=== PATIENT | male | born 1940 | race African-American/Black ===

== ENCOUNTER → 2018-02-25 | Outpatient (CLI) | payer MEDICARE, OTHER ==
--- NOTE | 2018-02-25 08:48 | RADIOLOGY REPORT (SQ) ---
EXAM DESCRIPTION: CT CHEST WITH COMPLETED DATE/TIME: 02/25/2018 8:13 am REASON FOR STUDY: COUGH R05 COUGH COMPARISON: CT angio chest 08/27/2010 TECHNIQUE: CT scan of the chest performed using helical scanning technique with dynamic intravenous contrast injection. Images reviewed with lung, soft tissue and bone windows. Reconstructed coronal and sagittal MPR images reviewed. All images stored on PACS. All CT scanners at this facility use dose modulation, iterative reconstruction, and/or weight based d osing when appropriate to reduce radiation dose to as low as reasonably achievable (ALARA). [facility]: Dose Right [facility]: CareDose [facility]: Dose Right [facility]: Teradose 4D [facility]: VSporto CONTRAST TYPE AND DOSE: contrast/concentration: Isovue 350.00 mg/ml; Total Contrast Delivered: 80.0 ml; Total Saline Delivered: 55.0 ml RENAL FUNCTION: Estimated GFR 51, creatinine 1.5 RADIATION DOSE: CT Rad equipment meets quality standard of care and radiation dose reduction techniq ues were employed. CTDIvol: 13.9 mGy. DLP: 498 mGy-cm. . LIMITATIONS: None. FINDINGS: LUNGS AND PLEURA: Upper lobes exhibit obstructive lung disease with enlarged centrilobular airspaces. No acute infiltrates or pleural effusions. No pneumothorax. Minimal thickening of the interlobular septa around the periphery of both lung bases, could indicate mild changes of pulmonary fibrosis. HILAR AND MEDIASTINAL STRUCTURES: No identified masses or abnormal nodes. HEART AND VASCULAR STRUCTURES: No aneurysm or dissection. No central pulmonary emboli. No pericardi al effusion. Post sternotomy with mitral valve replacement. Mild cardiomegaly, stable HARDWARE: Left-sided dual lead pacemaker UPPER ABDOMEN: 5 cm left upper pole renal cortical cyst. Post cholecystectomy. THYROID AND OTHER SOFT TISSUES: No masses. No adenopathy. BONES: No significant finding. OTHER: No other significant finding. IMPRESSION: Obstructive lung disease Old sternotomy for mitral valve replacement. Very mild thickening of the interlobular septa could indicate mild pulmonary fibrosis. TECHNICAL DOCUMENTATION: JOB ID: [id number] Quality ID # [id number]: Final reports with documentation of one or more dose reduction techniques (e.g., Au tomated exposure control, adjustment of the mA and/or kV according to patient size, use of iterative reconstruction technique) 2010 [employer]- All Rights Reserved Reading location - IP/workstation name: [email or web address]
== END ==
LOC: RAD 07:31
PROVIDERS: ATTEND Internal Medicine Geriatric Medicine
DX: R05 Cough (principal); Z87.891 Personal history of nicotine dependence
CPT/HCPCS: 71260; 82565

== ENCOUNTER 2018-03-21 09:52 | Inpatient (IN) | payer MEDICARE ==
[2018-03-21] MEDS ORDERED: ASPIRIN 81 MG TABLET, CHEWABLE PO ONE (10:08)
--- NOTE | 2018-03-21 10:10 | ER Document Report ---
ED Medical Screen (RME) - General Chief Complaint: Shortness Of Breath Stated Complaint: SHORTNESS OF BREATH/COUGH Time Seen by Provider: 03/21/18 10:08 TRAVEL OUTSIDE OF THE [place] IN LAST 30 DAYS: No - HPI Notes: 03/21/18 10:09 History of CHF with increased shortness of breath edema in the legs possible noncompliance with medication regimen according to family members cough is nonproductive - Related Data Allergies/Adverse Reactions: No Known Allergies Allergy (Verified 03/21/18 09:53) Past Medical History - Past Medical History Cardiac Medical History: Reports: Hx Atrial Fibrillation, Hx Congestive Heart Failure, Hx Heart Attack, Hx Hypercholesterolemia, Hx Hypertension Pulmonary Medical History: Reports: Hx Bronchitis, Hx COPD, Hx Pneumonia Denies: Hx Asthma Renal/ Medical History: Denies: Hx Peritoneal Dialysis GI Medical History: Reports: Hx Gastroesophageal Reflux Disease Past Surgical History: Reports: Hx Cardiac Catheterization, Hx Cholecystectomy. Denies: Hx Pacemaker - Immunizations Hx Diphtheria, Pertussis, Tetanus Vaccination: Yes Review of Systems - Review of Systems Respiratory: Cough, Short of breath Physical Exam - Vital signs Vitals: Pulse Resp BP Pulse Ox 57 L 20 114/65 95 03/21/18 10:03/21/18 10:03/21/18 10:03/21/18 10:00 - Respiratory Respiratory status: No respiratory distress Chest status: Nontender Breath sounds: Rales, Rhonchi Chest palpation: Normal - Cardiovascular Rhythm: Regular Heart sounds: Normal auscultation Course - Vital Signs Vital signs: Temp Pulse Resp BP Pulse Ox 97.5 F 57 L 20 114/65 95 03/21/18 10:03/21/18 10:03/21/18 10:03/21/18 10:03/21/18 10:00 Doctor's Discharge - Discharge Referrals: ARISTEO AVILEZ MD [Primary Care Provider] - Follow up as needed
[2018-03-21 11:05] LABS: VENOUS BLOOD BASE EXCESS -1.9 mmol/L; VENOUS BLOOD HCO3 23.2 mmol/L (20-32); VENOUS BLOOD PH 7.37 (7.30-7.42)
[2018-03-21 11:06] LABS: ABSOLUTE BASOPHILS # (AUTO) 0.1 10^3/uL (0.0-0.2); ABSOLUTE EOSINOPHILS # (AUTO) 0.1 10^3/uL (0.0-0.6); ABSOLUTE LYMPHOCYTES (AUTO) 1.8 10^3/uL (0.5-4.7); ABSOLUTE MONOCYTES (AUTO) 0.5 10^3/uL (0.1-1.4); ABSOLUTE NEUT (AUTO) 2.9 10^3/uL (1.7-8.2); BASOPHILS % (AUTO) 1.3 % (0-2); EOSINOPHILS % (AUTO) 1.1 % (0-6); HEMATOCRIT 46.2 % (37.9-51.0); HEMOGLOBIN 15.6 g/dL (13.5-17.0); LYMPHOCYTES % (AUTO) 33.6 % (13-45); MEAN CORPUSCULAR HEMOGLOBIN 30.1 pg (27.0-33.4); MEAN CORPUSCULAR HGB CONC 33.8 g/dL (32.0-36.0); MEAN CORPUSCULAR VOLUME 89 fl (80-97); MONOCYTES % (AUTO) 9.5 % (3-13); PLATELET COUNT 124 10^3/uL (150-450); RED BLOOD COUNT 5.19 10^6/uL (4.35-5.55); RED CELL DISTRIBUTION WIDTH 15.4 % (11.5-14.0); SEGMENTED NEUTROPHILS % (AUTO) 54.5 % (42-78); TOTAL CELLS COUNTED % (AUTO) 100 %; WHITE BLOOD COUNT 5.3 10^3/uL (4.0-10.5)
[2018-03-21] MEDS ORDERED: IPRATROPIUM/ALBUTEROL 0.5-2.5 MG/3 ML AMPUL NEB ONE (12:11)
[2018-03-21 12:41] LABS: ALANINE AMINOTRANSFERASE 18 U/L (21-72); ALBUMIN 3.6 g/dL (3.5-5.0); ALKALINE PHOSPHATASE 57 U/L (38-126); ANION GAP 7 (5-19); ASPARTATE AMINO TRANSFERASE 19 U/L (17-59); BILIRUBIN,DIRECT 0.2 mg/dL (0.0-0.4); BILIRUBIN,TOTAL 0.4 mg/dL (0.2-1.3); BLOOD UREA NITROGEN 28 mg/dL (7-20); CALCIUM 8.9 mg/dL (8.4-10.2); CARBON DIOXIDE 27 mmol/L (22-30); CHLORIDE 108 mmol/L (98-107); CREATINE KINASE 236 U/L (55-170); GLUCOSE 90 mg/dL (75-110); POTASSIUM 5.7 mmol/L (3.6-5.0); SODIUM 142.2 mmol/L (137-145); TOTAL PROTEIN 7.5 g/dL (6.3-8.2)
--- NOTE | 2018-03-21 12:46 | RADIOLOGY REPORT (SQ) ---
EXAM DESCRIPTION: CHEST 2 VIEWS COMPLETED DATE/TIME: 03/21/2018 12:13 pm REASON FOR STUDY: sob COMPARISON: Two-view chest 05/18/2015 CT chest 02/25/2018 EXAM PARAMETERS: NUMBER OF VIEWS: two views TECHNIQUE: Digital Frontal and Lateral radiographic views of the chest acquired. RADIATION DOSE: NA LIMITATIONS: none FINDINGS: LUNGS AND PLEURA: No opacities, masses or pneumothorax. No pleural effusion. MEDIASTINUM AND HILAR STRUCTURES: No masses or contour abnormalities. HEART AND VASCULAR STRUCTURES: No cardiomegaly. Old sternotomy for CABG. BONES: No acute findings. HARDWARE: Left-sided dual lead pacemaker. Clips right upper quadrant post cholecystectomy OTHER: No other significant finding. IMPRESSION: No acute findings TECHNICAL DOCUMENTATION: JOB ID: [id number] [employer]- All Rights Reserved Reading location - IP/workstation name: [email or web address]
[2018-03-21 12:52] LABS: CREATINE KINASE MB 1.95 ng/mL (<4.55); NT PRO BNP 556 pg/mL (<450)
[2018-03-21 12:53] LABS: TROPONIN I < 0.012 ng/mL
[2018-03-21] MEDS ORDERED: AZITHROMYCIN INJ 500 MG VIAL IV ONE (13:06)
[2018-03-21] MEDS ORDERED: METHYLPREDNISOLONE INJ 125 MG/2 ML SDV IV ONE (13:07)
--- NOTE | 2018-03-21 14:26 | ER Document Report ---
ED General - General Chief Complaint: Shortness Of Breath Stated Complaint: SHORTNESS OF BREATH/COUGH Time Seen by Provider: 03/21/18 10:08 TRAVEL OUTSIDE OF THE [place] IN LAST 30 DAYS: No - HPI Onset: Other - 78-year-old man who presents for evaluation of progressive shortness of breath and exertional dyspnea over the last several weeks worsening particularly over the last 2 days, he has multiple medical problems including heart failure, COPD, diabetes all of which are poorly controlled at home, he is to use a CPAP machine as well as oxygen at night but does not use them, he is also to use inhalers daily but is not currently using them. His daughter is concerned because she is having increasing difficulty in caring for him at home does not believe she can take care of him anymore. - Related Data Allergies/Adverse Reactions: No Known Allergies Allergy (Verified 03/21/18 09:53) Past Medical History - General Information source: Patient, Relative - Social History Smoking Status: Former Smoker Family History: Reviewed & Not Pertinent Patient has suicidal ideation: No Patient has homicidal ideation: No - Past Medical History Cardiac Medical History: Reports: Hx Atrial Fibrillation, Hx Congestive Heart Failure, Hx Heart Attack, Hx Hypercholesterolemia, Hx Hypertension Pulmonary Medical History: Reports: Hx Bronchitis, Hx COPD, Hx Pneumonia Denies: Hx Asthma Renal/ Medical History: Denies: Hx Peritoneal Dialysis GI Medical History: Reports: Hx Gastroesophageal Reflux Disease Past Surgical History: Reports: Hx Cardiac Catheterization, Hx Cholecystectomy. Denies: Hx Pacemaker - Immunizations Hx Diphtheria, Pertussis, Tetanus Vaccination: Yes Hx Pneumococcal Vaccination: 07/12/10 Review of Systems - Review of Systems -: Yes All other systems reviewed and negative Physical Exam - Vital signs Vitals: Pulse Resp BP Pulse Ox 57 L 20 114/65 95 03/21/18 10:00 03/21/18 10:00 03/21/18 10:03/21/18 10:00 - General General appearance: Appears well, Alert In distress: Mild - HEENT Head: Normocephalic Eyes: Normal Conjunctiva: Normal Cornea: Normal Extraocular movements intact: No Anterior chamber: Normal Fundascopic: Normal Nerve palsy: No Ears: Normal External canal: Normal Sinus: Normal Nasal: Normal Mouth/Lips: Normal Mucous membranes: Normal - Respiratory Respiratory status: Tachypnea Chest status: Nontender Breath sounds: Wheezing - Wheezes in all lung joe, rhonchi in all lung joe Chest palpation: Other - Cardiovascular Rhythm: Regular Heart sounds: Normal auscultation Murmur: No - Abdominal Inspection: Normal Distension: No distension Tenderness: Nontender - Back Back: Normal - Extremities General upper extremity: Normal inspection, Normal ROM General lower extremity: Normal inspection, Normal ROM, Normal weight bearing - Neurological Neuro grossly intact: Yes Cognition: Normal Orientation: AAOx4 Miguel Coma Scale Eye Opening: Spontaneous [place] Coma Scale Verbal: Oriented Miguel Coma Scale Motor: Obeys Commands [place] Coma Scale Total: 15 - Psychological Associated symptoms: Normal affect Course - Re-evaluation Re-evalutation: 03/21/18 15:43 This is a 70-year-old man presents for evaluation of shortness of breath. History of COPD as well as heart failure, his daughter notes that he is not utilizing any of his therapies at home as he is supposed to, she is concerned this may represent developing dementia for him though he is generally stubborn at baseline. Examination demonstrates wheezes in all lung joe with crackles in the inferior lung bases suggestive of probable COPD exacerbation. He is not grossly fluid overloaded, he has no edema in the extremities. He does have a new oxygen requirement at 4 L at this time. Labs drawn through triage demonstrate hyperkalemia at 5.7, will administer albuterol for his shortness of breath therefore we will also treat his developing hyperkalemia. We will plan for this patient to undergo admission to the hospital for COPD exacerbation as well as potential management of an element of heart failure exacerbation. Have contacted the hospitalist who agrees to admission at this time. Administer steroids as well as azithromycin in addition. - Vital Signs Vital signs: Temp Pulse Resp BP Pulse Ox 97.7 F 56 L 20 138/80 H 98 03/21/18 16:22 03/21/18 16:22 03/21/18 16:22 03/21/18 16:22 03/21/18 16:22 - Laboratory Result Diagrams: 03/21/18 10:40 03/21/18 12:06 Laboratory results interpreted by me: 03/21/18 03/21/18 03/21/18 10:40 12:06 12:06 RDW 15.4 H Plt Count 124 L Potassium 5.7 H Chloride 108 H BUN 28 H Creatinine 1.50 H Est GFR ( Amer) 55 L Est GFR (Non-Af Amer) 45 L ALT 18 L Creatine Kinase 236 H NT-Pro-B Natriuret Pep 556 H Discharge - Discharge Clinical Impression: Shortness of breath Condition: Stable Disposition: ADMITTED INPATIENT Admitting Provider: Hospitalist Unit Admitted: Telemetry
--- NOTE | 2018-03-21 14:43 | PDOC H&P ---
History of Present Illness Admission Date/PCP: ARISTEO AVILEZ History of Present Illness: RUPINDER WREN JR is a 78 year old male who comes in today at the behest of his and daughters due to 1 month shortness of breath. Apparently he had been on antibiotics a couple different times but never really took anything. He denies any fevers. He denies any productive cough but he has had a cough. He is short of breath with exertion. He has not noticed any swelling. His daughters relate that he has been noncompliant overall with his treatment plan. The emergency department he did have any evidence of pneumonia but he had substantial wheezing and so he is being admitted for further management of what is suspected to be an acute COPD exacerbation. He said he did smoke for about 15-20 years in his 20s and 30s. Past Medical History Cardiac Medical History: Reports: Atrial Fibrillation, Congestive Heart Failure , Myocardial Infarction, Hyperlipidema, Hypertension Pulmonary Medical History: Reports: Bronchitis, Chronic Obstructive Pulmonary Disease (COPD), Pneumonia Denies: Asthma GI Medical History: Reports: Gastroesophageal Reflux Disease Past Surgical History Past Surgical History: Reports: Cardiac Catheterization, Cholecystectomy Denies: Pacemaker Social History Smoking Status: Former Smoker Frequency of Alcohol Use: None Hx Recreational Drug Use: No Hx Prescription Drug Abuse: No Family History Family History: Reviewed & Not Pertinent Parental Family History Reviewed: No - Noncontributory Children Family History Reviewed: NA Sibling(s) Family History Reviewed.: NA Medication/Allergy Home Medications: Aspirin [Aspirin 325 mg Tablet] 325 mg PO DAILY 11/15/13 Atorvastatin Calcium [Lipitor 10 mg Tablet] 10 mg PO QHS 11/15/13 Divalproex Sodium [Depakote ER 500 mg Tab.sr] 500 mg PO Q12 11/15/13 Docusate Sodium [Colace 100 mg Capsule] 100 mg PO BID PRN #60 capsule 11/15/13 Levetiracetam [Keppra 500 mg Tablet] 1,000 mg PO Q12 11/15/13 Sotalol HCl [Betapace 80 mg Tablet] 1 tab PO BID 11/15/13 Valsartan [Diovan 160 mg Tablet] 160 mg PO BID 11/15/13 Esomeprazole Magnesium [Nexium] 40 mg PO DAILY 05/17/15 Ezetimibe [Zetia 10 mg Tablet] 10 mg PO DAILY 05/17/15 Fluticasone Propionate [Flonase Nasal [place] 50 Mcg/[place] 16 gm] 2 sprays NASL DAILY 05/17/15 Lubiprostone [Amitiza 8 Mcg Capsule] 8 mcg PO BID 05/17/15 Metoprolol Tartrate [Lopressor 50 mg Tablet] 50 mg PO Q12 05/17/15 Zolpidem Tartrate 5 mg PO QHS PRN 05/17/15 Amlodipine Besylate [Norvasc 5 mg Tablet] 5 mg PO DAILY 05/24/15 Magnesium Oxide 500 mg PO DAILY #30 tablet 05/28/15 Allergies/Adverse Reactions: No Known Allergies Allergy (Verified 03/21/18 09:53) Physical Exam Vital Signs: Temp Pulse Resp BP Pulse Ox 97.5 F 57 L 20 114/65 95 03/21/18 10:02 03/21/18 10:00 03/21/18 10:00 03/21/18 10:00 03/21/18 10:00 Intake & Output 03/20/18 03/21/18 03/22/18 06:59 06:59 06:59 Weight 95.9 kg General appearance: PRESENT: no acute distress, cooperative, disheveled Head exam: PRESENT: atraumatic, normocephalic Eye exam: PRESENT: conjunctiva pink, conjunctiva pale, EOMI, PERRLA. ABSENT: scleral icterus Ear exam: PRESENT: normal external ear exam Mouth exam: PRESENT: moist, neck supple Neck exam: PRESENT: full ROM. ABSENT: JVD, lymphadenopathy, tenderness Respiratory exam: PRESENT: rhonchi, unlabored. ABSENT: accessory muscle use, crackles, stridor, wheezes Cardiovascular exam: PRESENT: RRR. ABSENT: diastolic murmur, systolic murmur Pulses: PRESENT: normal carotid pulses, +1 pedal pulses bilateral Vascular exam: PRESENT: normal capillary refill GI/Abdominal exam: PRESENT: normal bowel sounds, soft. ABSENT: distended, firm , guarding, rebound, tenderness Extremities exam: PRESENT: full ROM. ABSENT: joint swelling Musculoskeletal exam: ABSENT: deformity Neurological exam: PRESENT: alert, awake, oriented to person, oriented to place , oriented to time, CN II-XII grossly intact. ABSENT: motor sensory deficit Psychiatric exam: PRESENT: appropriate affect, normal mood Skin exam: PRESENT: dry, warm, other - Numerous keloids on trunk from history of multiple surgeries Results Laboratory Results: 03/21/18 10:40 03/21/18 12:06 03/21/18 03/21/18 03/21/18 10:40 10:40 10:40 WBC 5.3 RBC 5.19 Hgb 15.6 Hct 46.2 MCV 89 MCH 30.1 MCHC 33.8 RDW 15.4 H Plt Count 124 L Seg Neutrophils % 54.5 Lymphocytes % 33.6 Monocytes % 9.5 Eosinophils % 1.1 Basophils % 1.3 Absolute Neutrophils 2.9 Absolute Lymphocytes 1.8 Absolute Monocytes 0.5 Absolute Eosinophils 0.1 Absolute Basophils 0.1 VBG pH 7.37 VBG pCO2 41.0 VBG HCO3 23.2 VBG Base Excess -1.9 Sodium Cancelled Potassium Cancelled Chloride Cancelled Carbon Dioxide Cancelled Anion Gap Cancelled BUN Cancelled Creatinine Cancelled Est GFR ( Amer) Cancelled Est GFR (Non-Af Amer) Cancelled Glucose Cancelled Calcium Cancelled Magnesium Cancelled Total Bilirubin Cancelled AST Cancelled ALT Cancelled Alkaline Phosphatase Cancelled Total Protein Cancelled Albumin Cancelled 03/21/18 12:06 WBC RBC Hgb Hct MCV MCH MCHC RDW Plt Count Seg Neutrophils % Lymphocytes % Monocytes % Eosinophils % Basophils % Absolute Neutrophils Absolute Lymphocytes Absolute Monocytes Absolute Eosinophils Absolute Basophils VBG pH VBG pCO2 VBG HCO3 VBG Base Excess Sodium 142.2 Potassium 5.7 H Chloride 108 H Carbon Dioxide 27 Anion Gap 7 BUN 28 H Creatinine 1.50 H Est GFR ( Amer) 55 L Est GFR (Non-Af Amer) 45 L Glucose 90 Calcium 8.9 Magnesium 1.8 Total Bilirubin 0.4 AST 19 ALT 18 L Alkaline Phosphatase 57 Total Protein 7.5 Albumin 3.6 03/21/18 03/21/18 03/21/18 10:40 10:40 12:06 Creatine Kinase Cancelled 236 H CK-MB (CK-2) Cancelled Troponin I Cancelled NT-Pro-B Natriuret Pep Cancelled 03/21/18 12:06 Creatine Kinase CK-MB (CK-2) 1.95 Troponin I < 0.012 NT-Pro-B Natriuret Pep 556 H Impressions: Chest X-Ray 03/21/18 10:08 IMPRESSION: No acute findings Assessment & Plan - Diagnosis (1) COPD with acute exacerbation Is this a current diagnosis for this admission?: Yes Plan: Prednisone, doxycycline, supplemental O2, and scheduled nebulizer treatments. Evaluate for progress. He does not look to be in the ER, so he may be ready by as early as tomorrow to go home. - Time Time Spent: 50 to 70 Minutes - Inpatient Certification Based on my medical assessment, after consideration of the patient's comorbidities, presenting symptoms, or acuity I expect that the services needed warrant INPATIENT care.: Yes I certify that my determination is in accordance with my understanding of Medicare's requirements for reasonable and necessary INPATIENT services [42 CFR 412.3e].: Yes Medical Necessity: Need Close Monitoring Due to Risk of Patient Decompensation
[2018-03-21] MEDS: PREDNISONE 20 MG TABLET PO SCH (14:46)
--- NOTE | 2018-03-21 14:58 | EKG REPORT ---
SEVERITY:- OTHERWISE NORMAL ECG - SINUS RHYTHM LEFT AXIS DEVIATION : Confirmed by: Estevan Murphy MD 21-Mar-2018 14:58:10
[2018-03-21] MEDS: IPRATROPIUM/ALBUTEROL 0.5-2.5 MG/3 ML AMPUL NEB SCH ×2 (17:16→20:20)
[2018-03-21] MEDS ORDERED: DOXYCYCLINE HYCLATE 100 MG TABLET PO SCH (18:00)
[2018-03-21] MEDS ORDERED: IPRATROPIUM/ALBUTEROL 0.5-2.5 MG/3 ML AMPUL NEB SCH (18:00)
[2018-03-21] MEDS ORDERED: SOTALOL HCL 80 MG TABLET PO SCH (18:00)
[2018-03-21] MEDS ORDERED: LEVETIRACETAM 500 MG TABLET PO ONE (21:55)
[2018-03-21] MEDS ORDERED: DOXYCYCLINE HYCLATE 100 MG TABLET PO ONE (21:56)
[2018-03-21] MEDS ORDERED: SOTALOL HCL 80 MG TABLET ONE (21:56)
[2018-03-21] MEDS: DIVALPROEX SODIUM 500 MG TAB.SR.24H PO SCH (22:09)
[2018-03-21] MEDS: LEVETIRACETAM 500 MG TABLET PO SCH (22:10)
[2018-03-21] MEDS: METOPROLOL TARTRATE 50 MG TABLET PO SCH (22:10)
[2018-03-21] MEDS: HEPARIN SOD (PORCINE) 5,000 UNIT/ML 1 ML SYRINGE SUBCUT SCH (22:14)
[2018-03-21] MEDS: DOXYCYCLINE HYCLATE 100 MG TABLET PO SCH (22:14)
[2018-03-21] MEDS: SOTALOL HCL 80 MG TABLET PO SCH (22:14)
[2018-03-22] MEDS: HEPARIN SOD (PORCINE) 5,000 UNIT/ML 1 ML SYRINGE SUBCUT SCH ×3 (05:00→22:01)
[2018-03-22 07:00] LABS: ANION GAP 11 (5-19); BLOOD UREA NITROGEN 34 mg/dL (7-20); CALCIUM 8.5 mg/dL (8.4-10.2); CARBON DIOXIDE 22 mmol/L (22-30); CHLORIDE 106 mmol/L (98-107); GLUCOSE 125 mg/dL (75-110); SODIUM 138.5 mmol/L (137-145)
[2018-03-22 07:04] LABS: POTASSIUM 6.7 mmol/L (3.6-5.0)
[2018-03-22] MEDS: IPRATROPIUM/ALBUTEROL 0.5-2.5 MG/3 ML AMPUL NEB SCH ×3 (07:57→20:54)
[2018-03-22] MEDS ORDERED: SODIUM POLYSTYRENE SULFONATE 15 GM/60 ML PO ONE ×2 (08:30→12:30)
[2018-03-22] MEDS: PREDNISONE 20 MG TABLET PO SCH (10:37)
[2018-03-22] MEDS: DIVALPROEX SODIUM 500 MG TAB.SR.24H PO SCH ×2 (10:37→22:00)
[2018-03-22] MEDS: METOPROLOL TARTRATE 50 MG TABLET PO SCH (10:39)
--- NOTE | 2018-03-22 12:12 | PDOC PROGRESS REPORT ---
Subjective Progress Note for:: 03/22/18 Subjective:: Patient reported some improvement in his breathing. No chest pain. No abdominal pain, nausea or vomiting. No fever or chills. Patient admitted to noncompliance with his medications at home. Daughter reported that he was doing fine while on his medication. Reason For Visit: AE COPD Physical Exam Vital Signs: Temp Pulse Resp BP Pulse Ox 97.6 F 60 14 145/97 H 95 03/22/18 07:21 03/22/18 07:57 03/22/18 07:57 03/22/18 07:21 03/22/18 07:57 Intake & Output 03/21/18 03/22/18 03/23/18 06:59 06:59 06:59 Intake Total 790 Output Total 250 Balance 540 Weight 103.2 kg General appearance: PRESENT: no acute distress, well-developed, well-nourished Head exam: PRESENT: atraumatic, normocephalic Eye exam: PRESENT: conjunctiva pink, EOMI, PERRLA. ABSENT: scleral icterus Ear exam: PRESENT: normal external ear exam Mouth exam: PRESENT: moist Respiratory exam: PRESENT: clear to auscultation pradeep Cardiovascular exam: PRESENT: RRR. ABSENT: diastolic murmur, rubs, systolic murmur Vascular exam: PRESENT: normal capillary refill. ABSENT: pallor GI/Abdominal exam: PRESENT: normal bowel sounds, soft. ABSENT: distended, guarding, mass, organolmegaly, rebound, tenderness Extremities exam: PRESENT: pedal edema Musculoskeletal exam: PRESENT: normal inspection Neurological exam: PRESENT: alert, awake, oriented to person, oriented to place , oriented to time, oriented to situation, CN II-XII grossly intact. ABSENT: motor sensory deficit Psychiatric exam: PRESENT: appropriate affect, normal mood. ABSENT: homicidal ideation, suicidal ideation Skin exam: PRESENT: dry, intact, warm. ABSENT: cyanosis, rash Results Laboratory Results: 03/22/18 05:43 03/22/18 05:43 Sodium 138.5 Potassium 6.7 H* D Chloride 106 Carbon Dioxide 22 Anion Gap 11 BUN 34 H Creatinine 1.45 H Est GFR ( Amer) 57 L Est GFR (Non-Af Amer) 47 L Glucose 125 H Calcium 8.5 03/21/18 16:20 Troponin I < 0.012 Impressions: Chest X-Ray 03/21/18 10:08 IMPRESSION: No acute findings Assessment & Plan - Diagnosis (1) COPD with acute exacerbation Is this a current diagnosis for this admission?: Yes Plan: Continue current medication management with gradual tapering of oral Prednisone. (2) Hyperkalemia Is this a current diagnosis for this admission?: Yes Plan: Start on Kayaxelate therapy. Monitor his BMP. (3) CKD (chronic kidney disease) Qualifiers: Chronic kidney disease stage: stage 3 (moderate) Qualified Code(s): N18.3 - Chronic kidney disease, stage 3 (moderate) Is this a current diagnosis for this admission?: Yes Plan: Reviewed his current medication for possible nephrotoxic effect. (4) HTN (hypertension) Qualifiers: Hypertension type: essential hypertension Qualified Code(s): I10 - Essential (primary) hypertension Is this a current diagnosis for this admission?: Yes Plan: See attending physician orders. (5) HLD (hyperlipidemia) Qualifiers: Hyperlipidemia type: unspecified Qualified Code(s): E78.5 - Hyperlipidemia , unspecified Is this a current diagnosis for this admission?: Yes Plan: See attending physician orders. (6) CAD (coronary artery disease) Qualifiers: Coronary Disease-Associated Artery/Lesion type: [place] artery Associated angina: without angina Is this a current diagnosis for this admission?: Yes Plan: See attending physician orders. (7) S/P CABG (coronary artery bypass graft) Is this a current diagnosis for this admission?: Yes Plan: See attending physician orders. (8) Old IN (myocardial infarction) Is this a current diagnosis for this admission?: Yes Plan: See attending physician orders. (9) EDNA (obstructive sleep apnea) Is this a current diagnosis for this admission?: Yes Plan: See attending physician orders. (10) Seizure disorder Is this a current diagnosis for this admission?: Yes Plan: See attending physician orders. - Time Time Spent with patient: 25-34 minutes Medications reviewed and adjusted accordingly: Yes Anticipated discharge: Home with Homehealth Within: Other - Inpatient Certification Based on my medical assessment, after consideration of the patient's comorbidities, presenting symptoms, or acuity I expect that the services needed warrant INPATIENT care.: Yes I certify that my determination is in accordance with my understanding of Medicare's requirements for reasonable and necessary INPATIENT services [42 CFR 412.3e].: Yes Medical Necessity: Need Close Monitoring Due to Risk of Patient Decompensation, Need For Continuous Telemetry Monitoring, Need for Nebulizer Therapy and Monitoring of Response, Risk of Complication if Not Cared For in Hospital Post Hospital Care: D/C Lining Cleaner Documentation - Plan Summary Plan Summary: See attending physician orders.
[2018-03-22] MEDS ORDERED: BENZONATATE 100 MG CAPSULE PO PRN (12:13)
[2018-03-22] MEDS: SOTALOL HCL 80 MG TABLET PO SCH ×2 (13:17→22:01)
[2018-03-22] MEDS: LEVETIRACETAM 500 MG TABLET PO SCH ×2 (13:18→22:00)
[2018-03-22] MEDS: DOXYCYCLINE HYCLATE 100 MG TABLET PO SCH ×2 (13:18→22:00)
[2018-03-22] MEDS: TAMSULOSIN HCL 0.4 MG CAP.SR.24H PO SCH (17:20)
[2018-03-22] MEDS: ATORVASTATIN CALCIUM 10 MG TABLET PO SCH (22:00)
[2018-03-22] MEDS: AMLODIPINE BESYLATE 5 MG TABLET PO SCH (22:00)
[2018-03-23] MEDS: HEPARIN SOD (PORCINE) 5,000 UNIT/ML 1 ML SYRINGE SUBCUT SCH ×3 (05:17→22:04)
[2018-03-23] MEDS ORDERED: LANSOPRAZOLE 30 MG TAB.RAP.DR PO SCH (06:00)
[2018-03-23 06:24] LABS: ANION GAP 17 (5-19); BLOOD UREA NITROGEN 43 mg/dL (7-20); CARBON DIOXIDE 22 mmol/L (22-30); CHLORIDE 103 mmol/L (98-107); GLUCOSE 122 mg/dL (75-110); SODIUM 142.1 mmol/L (137-145)
[2018-03-23 06:30] LABS: POTASSIUM 4.6 mmol/L (3.6-5.0)
[2018-03-23] MEDS ORDERED: ONDANSETRON HCL INJ/PF 4 MG/2 ML SDV ONE (06:51)
[2018-03-23] MEDS ORDERED: ONDANSETRON HCL INJ/PF 4 MG/2 ML SDV IV ONE (07:00)
[2018-03-23] MEDS: IPRATROPIUM/ALBUTEROL 0.5-2.5 MG/3 ML AMPUL NEB SCH ×3 (08:25→20:21)
[2018-03-23 08:39] LABS: ABSOLUTE BASOPHILS # (AUTO) 0.1 10^3/uL (0.0-0.2); ABSOLUTE LYMPHOCYTES (AUTO) 1.7 10^3/uL (0.5-4.7); ABSOLUTE NEUT (AUTO) 10.4 10^3/uL (1.7-8.2); BASOPHILS % (AUTO) 0.5 % (0-2); HEMATOCRIT 52.3 % (37.9-51.0); HEMOGLOBIN 17.3 g/dL (13.5-17.0); LYMPHOCYTES % (AUTO) 13.1 % (13-45); MEAN CORPUSCULAR HEMOGLOBIN 29.5 pg (27.0-33.4); MEAN CORPUSCULAR HGB CONC 33.2 g/dL (32.0-36.0); MEAN CORPUSCULAR VOLUME 89 fl (80-97); MONOCYTES % (AUTO) 7.5 % (3-13); PLATELET COUNT 160 10^3/uL (150-450); RED BLOOD COUNT 5.87 10^6/uL (4.35-5.55); RED CELL DISTRIBUTION WIDTH 15.4 % (11.5-14.0); SEGMENTED NEUTROPHILS % (AUTO) 78.9 % (42-78); TOTAL CELLS COUNTED % (AUTO) 100 %
[2018-03-23 08:40] LABS: WHITE BLOOD COUNT 13.1 10^3/uL (4.0-10.5)
[2018-03-23] MEDS: AMLODIPINE BESYLATE 5 MG TABLET PO SCH ×2 (09:40→22:03)
[2018-03-23] MEDS: DIVALPROEX SODIUM 500 MG TAB.SR.24H PO SCH ×2 (09:40→22:03)
[2018-03-23] MEDS: ASPIRIN 325 MG TABLET, ENT COATED PO SCH (09:40)
[2018-03-23] MEDS: EZETIMIBE 10 MG TABLET PO SCH (09:40)
[2018-03-23] MEDS: SOTALOL HCL 80 MG TABLET PO SCH ×2 (09:41→22:06)
[2018-03-23] MEDS: LEVETIRACETAM 500 MG TABLET PO SCH ×2 (09:41→22:05)
[2018-03-23] MEDS: DOXYCYCLINE HYCLATE 100 MG TABLET PO SCH ×2 (09:41→22:08)
[2018-03-23] MEDS: PREDNISONE 20 MG TABLET PO SCH (09:41)
[2018-03-23] MEDS: METOPROLOL SUCCINATE 50 MG TAB.SR.24H PO SCH (09:43)
--- NOTE | 2018-03-23 13:13 | PDOC PROGRESS REPORT ---
Subjective Progress Note for:: 03/23/18 Subjective:: Patient had episode of vomiting earlier this morning with development of hiccups thereafter. He denied any chest pain, palpitation, or difficulty with breathing. Remain on supplemental oxygen via nasal cannula. No fever or chills. Reason For Visit: AE COPD Physical Exam Vital Signs: Temp Pulse Resp BP Pulse Ox 97.7 F 66 16 137/96 H 90 L 03/23/18 11:38 03/23/18 11:38 03/23/18 11:38 03/23/18 11:38 03/23/18 11:38 Intake & Output 03/22/18 03/23/18 03/24/18 06:59 06:59 06:59 Intake Total 790 800 Output Total 250 Balance 540 800 Weight 103.2 kg 102.9 kg Physical Exam: General appearance: PRESENT: no acute distress, well-developed, well-nourished Head exam: PRESENT: atraumatic, normocephalic Eye exam: PRESENT: conjunctiva pink, EOMI, PERRLA. ABSENT: scleral icterus Ear exam: PRESENT: normal external ear exam Mouth exam: PRESENT: moist Respiratory exam: PRESENT: clear to auscultation pradeep Cardiovascular exam: PRESENT: RRR. ABSENT: diastolic murmur, rubs, systolic murmur Vascular exam: ABSENT: pallor GI/Abdominal exam: PRESENT: normal bowel sounds, soft. ABSENT: distended, guarding, mass, organomegaly, rebound, tenderness Extremities exam: PRESENT: pedal edema Musculoskeletal exam: PRESENT: normal inspection Neurological exam: PRESENT: alert, awake, oriented to person, oriented to place , oriented to time, oriented to situation, CN II-XII grossly intact. ABSENT: motor sensory deficit Psychiatric exam: PRESENT: appropriate affect, normal mood. ABSENT: homicidal ideation, suicidal ideation Skin exam: PRESENT: dry, intact, warm. ABSENT: cyanosis, rash Results Laboratory Results: 03/23/18 07:53 03/23/18 05:29 03/23/18 03/23/18 03/23/18 05:29 05:29 07:53 WBC Cancelled 13.1 H D RBC Cancelled 5.87 H Hgb Cancelled 17.3 H Hct Cancelled 52.3 H MCV Cancelled 89 MCH Cancelled 29.5 MCHC Cancelled 33.2 RDW Cancelled 15.4 H Plt Count Cancelled 160 Seg Neutrophils % Cancelled 78.9 H Lymphocytes % Cancelled 13.1 Monocytes % Cancelled 7.5 Eosinophils % Cancelled 0.0 Basophils % Cancelled 0.5 Absolute Neutrophils Cancelled 10.4 H Absolute Lymphocytes Cancelled 1.7 Absolute Monocytes Cancelled 1.0 Absolute Eosinophils Cancelled 0.0 Absolute Basophils Cancelled 0.1 Sodium 142.1 Potassium 4.6 D Chloride 103 Carbon Dioxide 22 Anion Gap 17 BUN 43 H Creatinine 1.47 H Est GFR ( Amer) 56 L Est GFR (Non-Af Amer) 46 L Glucose 122 H Calcium 9.0 03/21/18 16:20 Troponin I < 0.012 Impressions: Chest X-Ray 03/21/18 10:08 IMPRESSION: No acute findings Assessment & Plan - Diagnosis (1) COPD with acute exacerbation Is this a current diagnosis for this admission?: Yes Plan: I will discontinue oral Prednisone due to his development of Hiccups. I will start on Methylprednisolone oral equivalent dosage with intent to taper off gradually. (2) Hyperkalemia Is this a current diagnosis for this admission?: Yes Plan: Presently resolved. (3) CKD (chronic kidney disease) Qualifiers: Chronic kidney disease stage: stage 3 (moderate) Qualified Code(s): N18.3 - Chronic kidney disease, stage 3 (moderate) Is this a current diagnosis for this admission?: Yes Plan: Start on IV fluid support N/S at 75mL/hour. Monitor renal indices. (4) HTN (hypertension) Qualifiers: Hypertension type: essential hypertension Qualified Code(s): I10 - Essential (primary) hypertension Is this a current diagnosis for this admission?: Yes (5) HLD (hyperlipidemia) Qualifiers: Hyperlipidemia type: unspecified Qualified Code(s): E78.5 - Hyperlipidemia , unspecified Is this a current diagnosis for this admission?: Yes (6) CAD (coronary artery disease) Qualifiers: Coronary Disease-Associated Artery/Lesion type: [place] artery Associated angina: without angina Is this a current diagnosis for this admission?: Yes (7) S/P CABG (coronary artery bypass graft) Is this a current diagnosis for this admission?: Yes (8) Old [place] (myocardial infarction) Is this a current diagnosis for this admission?: Yes (9) EDNA (obstructive sleep apnea) Is this a current diagnosis for this admission?: Yes Plan: Patient refused use of CPAP machine. (10) Seizure disorder Is this a current diagnosis for this admission?: Yes (11) Intractable hiccups Is this a current diagnosis for this admission?: Yes Plan: See attending physician orders. - Time Time Spent with patient: 25-34 minutes Medications reviewed and adjusted accordingly: Yes Anticipated discharge: Home with Homehealth Within: Other - Inpatient Certification Based on my medical assessment, after consideration of the patient's comorbidities, presenting symptoms, or acuity I expect that the services needed warrant INPATIENT care.: Yes I certify that my determination is in accordance with my understanding of Medicare's requirements for reasonable and necessary INPATIENT services [42 CFR 412.3e].: Yes Medical Necessity: Need Close Monitoring Due to Risk of Patient Decompensation, Need For IV Fluids, Need For Continuous Telemetry Monitoring, Need for Nebulizer Therapy and Monitoring of Response, Risk of Complication if Not Cared For in Hospital 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
[2018-03-23] MEDS: BACLOFEN 10 MG TABLET PO SCH ×2 (14:54→17:21)
[2018-03-23] MEDS: NORMAL SALINE 1000 ML 1,000 ML IV PRN (17:10)
[2018-03-23] MEDS: TAMSULOSIN HCL 0.4 MG CAP.SR.24H PO SCH (17:19)
[2018-03-23] MEDS: METHYLPREDNISOLONE 4 MG TABLET PO SCH ×2 (17:20)
[2018-03-23] MEDS: ATORVASTATIN CALCIUM 10 MG TABLET PO SCH (22:03)
[2018-03-24] MEDS: HEPARIN SOD (PORCINE) 5,000 UNIT/ML 1 ML SYRINGE SUBCUT SCH ×3 (06:06→22:59)
[2018-03-24] MEDS: METHYLPREDNISOLONE 4 MG TABLET PO SCH ×3 (06:07→17:00)
[2018-03-24] MEDS: LANSOPRAZOLE 30 MG TAB.RAP.DR PO SCH (06:09)
[2018-03-24] MEDS: IPRATROPIUM/ALBUTEROL 0.5-2.5 MG/3 ML AMPUL NEB SCH ×3 (07:54→20:05)
--- NOTE | 2018-03-24 08:11 | PDOC PROGRESS REPORT ---
Subjective Progress Note for:: 03/24/18 Subjective:: No recurrent nausea, vomiting or hiccups. Breathing fairly satisfactory. No chest pain. No fever or chills. Blood culture remain no growth to date. Reason For Visit: AE COPD Physical Exam Vital Signs: Temp Pulse Resp BP Pulse Ox 97.5 F 72 16 121/71 97 03/24/18 03:09 03/24/18 07:54 03/24/18 07:54 03/24/18 03:09 03/24/18 07:54 Intake & Output 03/23/18 03/24/18 03/25/18 06:59 06:59 06:59 Intake Total 800 Balance 800 Weight 102.9 kg 103.3 kg Physical Exam: General appearance: PRESENT: no acute distress, well-developed, well-nourished Head exam: PRESENT: atraumatic, normocephalic Eye exam: PRESENT: conjunctiva pink, EOMI, PERRLA. ABSENT: scleral icterus Ear exam: PRESENT: normal external ear exam Mouth exam: PRESENT: moist Respiratory exam: PRESENT: clear to auscultation pradeep Cardiovascular exam: PRESENT: RRR. ABSENT: diastolic murmur, rubs, systolic murmur Vascular exam: ABSENT: pallor GI/Abdominal exam: PRESENT: normal bowel sounds, soft. ABSENT: distended, guarding, mass, organomegaly, rebound, tenderness Extremities exam: PRESENT: pedal edema Musculoskeletal exam: PRESENT: normal inspection Neurological exam: PRESENT: alert, awake, oriented to person, oriented to place , oriented to time, oriented to situation, CN II-XII grossly intact. ABSENT: motor sensory deficit Psychiatric exam: PRESENT: appropriate affect, normal mood. ABSENT: homicidal ideation, suicidal ideation Skin exam: PRESENT: dry, intact, warm. ABSENT: cyanosis, rash Results Laboratory Results: 03/23/18 07:53 03/23/18 05:29 03/23/18 07:53 WBC 13.1 H D RBC 5.87 H Hgb 17.3 H Hct 52.3 H MCV 89 MCH 29.5 MCHC 33.2 RDW 15.4 H Plt Count 160 Seg Neutrophils % 78.9 H Lymphocytes % 13.1 Monocytes % 7.5 Eosinophils % 0.0 Basophils % 0.5 Absolute Neutrophils 10.4 H Absolute Lymphocytes 1.7 Absolute Monocytes 1.0 Absolute Eosinophils 0.0 Absolute Basophils 0.1 03/21/18 16:20 Troponin I < 0.012 Impressions: Chest X-Ray 03/21/18 10:08 IMPRESSION: No acute findings Assessment & Plan - Diagnosis (1) COPD with acute exacerbation Is this a current diagnosis for this admission?: Yes (2) Hyperkalemia Is this a current diagnosis for this admission?: Yes (3) CKD (chronic kidney disease) Qualifiers: Chronic kidney disease stage: stage 3 (moderate) Qualified Code(s): N18.3 - Chronic kidney disease, stage 3 (moderate) Is this a current diagnosis for this admission?: Yes (4) HTN (hypertension) Qualifiers: Hypertension type: essential hypertension Qualified Code(s): I10 - Essential (primary) hypertension Is this a current diagnosis for this admission?: Yes (5) HLD (hyperlipidemia) Qualifiers: Hyperlipidemia type: unspecified Qualified Code(s): E78.5 - Hyperlipidemia , unspecified Is this a current diagnosis for this admission?: Yes (6) CAD (coronary artery disease) Qualifiers: Coronary Disease-Associated Artery/Lesion type: [place] artery Associated angina: without angina Is this a current diagnosis for this admission?: Yes (7) S/P CABG (coronary artery bypass graft) Is this a current diagnosis for this admission?: Yes (8) Old [place] (myocardial infarction) Is this a current diagnosis for this admission?: Yes (9) EDNA (obstructive sleep apnea) Is this a current diagnosis for this admission?: Yes (10) Seizure disorder Is this a current diagnosis for this admission?: Yes (11) Intractable hiccups Is this a current diagnosis for this admission?: Yes - Time Time Spent with patient: 25-34 minutes Medications reviewed and adjusted accordingly: Yes Anticipated discharge: Home with Homehealth Within: Other - Inpatient Certification Based on my medical assessment, after consideration of the patient's comorbidities, presenting symptoms, or acuity I expect that the services needed warrant INPATIENT care.: Yes I certify that my determination is in accordance with my understanding of Medicare's requirements for reasonable and necessary INPATIENT services [42 CFR 412.3e].: Yes Medical Necessity: Need Close Monitoring Due to Risk of Patient Decompensation, Need For IV Fluids, Need For Continuous Telemetry Monitoring, Need for Nebulizer Therapy and Monitoring of Response, Risk of Complication if Not Cared For in Hospital Post Hospital Care: D/C Glass Cutter Documentation - Plan Summary Plan Summary: Decrease Methylprednisolone to 4mg po tid. Decrease Baclofen to 5 mg po bid. Continue all other current medication management.
[2018-03-24 08:38] LABS: ABSOLUTE LYMPHOCYTES (AUTO) 1.7 10^3/uL (0.5-4.7); ABSOLUTE MONOCYTES (AUTO) 0.8 10^3/uL (0.1-1.4); ABSOLUTE NEUT (AUTO) 4.5 10^3/uL (1.7-8.2); BASOPHILS % (AUTO) 0.2 % (0-2); HEMATOCRIT 50.8 % (37.9-51.0); HEMOGLOBIN 17.1 g/dL (13.5-17.0); LYMPHOCYTES % (AUTO) 23.8 % (13-45); MEAN CORPUSCULAR HGB CONC 33.6 g/dL (32.0-36.0); MEAN CORPUSCULAR VOLUME 89 fl (80-97); MONOCYTES % (AUTO) 11.6 % (3-13); PLATELET COUNT 144 10^3/uL (150-450); RED BLOOD COUNT 5.69 10^6/uL (4.35-5.55); RED CELL DISTRIBUTION WIDTH 15.7 % (11.5-14.0); SEGMENTED NEUTROPHILS % (AUTO) 64.4 % (42-78); TOTAL CELLS COUNTED % (AUTO) 100 %
[2018-03-24 09:00] LABS: ANION GAP 10 (5-19); BLOOD UREA NITROGEN 55 mg/dL (7-20); CALCIUM 8.1 mg/dL (8.4-10.2); CARBON DIOXIDE 21 mmol/L (22-30); CHLORIDE 109 mmol/L (98-107); GLUCOSE 107 mg/dL (75-110); POTASSIUM 5.3 mmol/L (3.6-5.0); SODIUM 140.2 mmol/L (137-145)
[2018-03-24] MEDS: DIVALPROEX SODIUM 500 MG TAB.SR.24H PO SCH ×2 (09:42→23:02)
[2018-03-24] MEDS: AMLODIPINE BESYLATE 5 MG TABLET PO SCH ×2 (09:42→23:03)
[2018-03-24] MEDS: METOPROLOL SUCCINATE 50 MG TAB.SR.24H PO SCH (09:43)
[2018-03-24] MEDS: EZETIMIBE 10 MG TABLET PO SCH (09:43)
[2018-03-24] MEDS: SOTALOL HCL 80 MG TABLET PO SCH ×2 (09:43→23:01)
[2018-03-24] MEDS: ASPIRIN 325 MG TABLET, ENT COATED PO SCH (09:43)
[2018-03-24] MEDS: BACLOFEN 10 MG TABLET PO SCH ×2 (09:43→17:00)
[2018-03-24] MEDS: DOXYCYCLINE HYCLATE 100 MG TABLET PO SCH (09:44)
[2018-03-24] MEDS: LEVETIRACETAM 500 MG TABLET PO SCH ×2 (09:44→23:02)
[2018-03-24] MEDS: NORMAL SALINE 1000 ML 1,000 ML IV PRN (16:48)
[2018-03-24] MEDS: TAMSULOSIN HCL 0.4 MG CAP.SR.24H PO SCH (17:00)
[2018-03-24] MEDS ORDERED: BACLOFEN 10 MG TABLET PO PRN (19:51)
[2018-03-24] MEDS: ATORVASTATIN CALCIUM 10 MG TABLET PO SCH (23:03)
[2018-03-25] MEDS: METHYLPREDNISOLONE 4 MG TABLET PO SCH ×5 (00:53→23:00)
[2018-03-25] MEDS: IPRATROPIUM/ALBUTEROL 0.5-2.5 MG/3 ML AMPUL NEB SCH ×3 (09:19→21:12)
[2018-03-25] MEDS: HEPARIN SOD (PORCINE) 5,000 UNIT/ML 1 ML SYRINGE SUBCUT SCH ×3 (09:58→22:27)
[2018-03-25] MEDS: LANSOPRAZOLE 30 MG TAB.RAP.DR PO SCH (09:59)
[2018-03-25] MEDS: SOTALOL HCL 80 MG TABLET PO SCH ×3 (10:00→23:00)
[2018-03-25] MEDS: METOPROLOL SUCCINATE 50 MG TAB.SR.24H PO SCH (10:40)
[2018-03-25] MEDS: EZETIMIBE 10 MG TABLET PO SCH (10:42)
[2018-03-25] MEDS: ASPIRIN 325 MG TABLET, ENT COATED PO SCH (10:42)
[2018-03-25] MEDS: LEVETIRACETAM 500 MG TABLET PO SCH ×2 (10:42→23:00)
[2018-03-25] MEDS: DIVALPROEX SODIUM 500 MG TAB.SR.24H PO SCH ×2 (10:42→22:59)
[2018-03-25] MEDS: AMLODIPINE BESYLATE 5 MG TABLET PO SCH ×2 (10:43→22:59)
[2018-03-25] MEDS: NORMAL SALINE 1000 ML 1,000 ML IV PRN (14:14)
[2018-03-25] MEDS: TAMSULOSIN HCL 0.4 MG CAP.SR.24H PO SCH (17:05)
--- NOTE | 2018-03-25 18:50 | PDOC PROGRESS REPORT ---
Subjective Progress Note for:: 03/25/18 Subjective:: No chest pain or difficulty with breathing. No abdominal pain, nausea, vomiting or hiccups. No fever or chills. Blood culture remain no growth to date x 4 days. Reason For Visit: AE COPD Physical Exam Vital Signs: Temp Pulse Resp BP Pulse Ox 97.5 F 59 L 18 130/78 H 94 03/25/18 14:59 03/25/18 14:59 03/25/18 14:59 03/25/18 14:59 03/25/18 14:59 Intake & Output 03/24/18 03/25/18 03/26/18 06:59 06:59 06:59 Intake Total 1000 768 Output Total 425 Balance 1000 768 -425 Weight 103.3 kg Physical Exam: General appearance: PRESENT: no acute distress, well-developed, well-nourished Head exam: PRESENT: atraumatic, normocephalic Eye exam: PRESENT: conjunctiva pink, EOMI, PERRLA. ABSENT: scleral icterus Ear exam: PRESENT: normal external ear exam Mouth exam: PRESENT: moist Respiratory exam: PRESENT: clear to auscultation pradeep Cardiovascular exam: PRESENT: RRR. ABSENT: diastolic murmur, rubs, systolic murmur Vascular exam: ABSENT: pallor GI/Abdominal exam: PRESENT: normal bowel sounds, soft. ABSENT: distended, guarding, mass, organomegaly, rebound, tenderness Extremities exam: PRESENT: pedal edema Musculoskeletal exam: PRESENT: normal inspection Neurological exam: PRESENT: alert, awake, oriented to person, oriented to place , oriented to time, oriented to situation, CN II-XII grossly intact. ABSENT: motor sensory deficit Psychiatric exam: PRESENT: appropriate affect, normal mood. ABSENT: homicidal ideation, suicidal ideation Skin exam: PRESENT: dry, intact, warm. ABSENT: cyanosis, rash Results Laboratory Results: 03/24/18 08:15 03/24/18 08:15 03/21/18 16:20 Troponin I < 0.012 Impressions: Chest X-Ray 03/21/18 10:08 IMPRESSION: No acute findings Assessment & Plan - Diagnosis (1) COPD with acute exacerbation Is this a current diagnosis for this admission?: Yes (2) Hyperkalemia Is this a current diagnosis for this admission?: Yes (3) CKD (chronic kidney disease) Qualifiers: Chronic kidney disease stage: stage 3 (moderate) Qualified Code(s): N18.3 - Chronic kidney disease, stage 3 (moderate) Is this a current diagnosis for this admission?: Yes (4) HTN (hypertension) Qualifiers: Hypertension type: essential hypertension Qualified Code(s): I10 - Essential (primary) hypertension Is this a current diagnosis for this admission?: Yes (5) HLD (hyperlipidemia) Qualifiers: Hyperlipidemia type: unspecified Qualified Code(s): E78.5 - Hyperlipidemia , unspecified Is this a current diagnosis for this admission?: Yes (6) CAD (coronary artery disease) Qualifiers: Coronary Disease-Associated Artery/Lesion type: [place] artery Associated angina: without angina Is this a current diagnosis for this admission?: Yes (7) S/P CABG (coronary artery bypass graft) Is this a current diagnosis for this admission?: Yes (8) Old [place] (myocardial infarction) Is this a current diagnosis for this admission?: Yes (9) EDNA (obstructive sleep apnea) Is this a current diagnosis for this admission?: Yes (10) Seizure disorder Is this a current diagnosis for this admission?: Yes (11) Intractable hiccups Is this a current diagnosis for this admission?: Yes - Time Time Spent with patient: 25-34 minutes Medications reviewed and adjusted accordingly: Yes Anticipated discharge: Home with Homehealth Within: within 24 hours - Inpatient Certification Based on my medical assessment, after consideration of the patient's comorbidities, presenting symptoms, or acuity I expect that the services needed warrant INPATIENT care.: Yes I certify that my determination is in accordance with my understanding of Medicare's requirements for reasonable and necessary INPATIENT services [42 CFR 412.3e].: Yes Medical Necessity: Need Close Monitoring Due to Risk of Patient Decompensation, Need For Continuous Telemetry Monitoring, Need for Nebulizer Therapy and Monitoring of Response, Risk of Complication if Not Cared For in Hospital Post Hospital Care: D/C Air Lift Operator Documentation - Plan Summary Plan Summary: See attending physician orders. Patient is aware of discharge plan in next 24 hours.
[2018-03-25 19:49] LABS: ABSOLUTE LYMPHOCYTES (AUTO) 1.3 10^3/uL (0.5-4.7); ABSOLUTE MONOCYTES (AUTO) 0.6 10^3/uL (0.1-1.4); BASOPHILS % (AUTO) 0.3 % (0-2); EOSINOPHILS % (AUTO) 0.2 % (0-6); HEMATOCRIT 48.5 % (37.9-51.0); HEMOGLOBIN 16.1 g/dL (13.5-17.0); LYMPHOCYTES % (AUTO) 21.6 % (13-45); MEAN CORPUSCULAR HEMOGLOBIN 29.9 pg (27.0-33.4); MEAN CORPUSCULAR HGB CONC 33.3 g/dL (32.0-36.0); MEAN CORPUSCULAR VOLUME 90 fl (80-97); MONOCYTES % (AUTO) 10.1 % (3-13); PLATELET COUNT 126 10^3/uL (150-450); RED CELL DISTRIBUTION WIDTH 15.1 % (11.5-14.0); SEGMENTED NEUTROPHILS % (AUTO) 67.8 % (42-78); TOTAL CELLS COUNTED % (AUTO) 100 %; WHITE BLOOD COUNT 5.8 10^3/uL (4.0-10.5)
[2018-03-25 20:05] LABS: ANION GAP 8 (5-19); BLOOD UREA NITROGEN 36 mg/dL (7-20); CALCIUM 7.9 mg/dL (8.4-10.2); CARBON DIOXIDE 17 mmol/L (22-30); CHLORIDE 115 mmol/L (98-107); GLUCOSE 124 mg/dL (75-110); POTASSIUM 4.9 mmol/L (3.6-5.0); SODIUM 139.5 mmol/L (137-145)
[2018-03-25] MEDS: ATORVASTATIN CALCIUM 10 MG TABLET PO SCH (22:59)
[2018-03-26] MEDS: NORMAL SALINE 1000 ML 1,000 ML IV PRN (00:21)
[2018-03-26] MEDS: HEPARIN SOD (PORCINE) 5,000 UNIT/ML 1 ML SYRINGE SUBCUT SCH (06:06)
[2018-03-26] MEDS: LANSOPRAZOLE 30 MG TAB.RAP.DR PO SCH (06:10)
[2018-03-26] MEDS: METHYLPREDNISOLONE 4 MG TABLET PO SCH (06:11)
[2018-03-26] MEDS: IPRATROPIUM/ALBUTEROL 0.5-2.5 MG/3 ML AMPUL NEB SCH (09:04)
[2018-03-26] MEDS: DIVALPROEX SODIUM 500 MG TAB.SR.24H PO SCH (10:10)
[2018-03-26] MEDS: EZETIMIBE 10 MG TABLET PO SCH (10:10)
[2018-03-26] MEDS: METOPROLOL SUCCINATE 50 MG TAB.SR.24H PO SCH (10:10)
[2018-03-26] MEDS: ASPIRIN 325 MG TABLET, ENT COATED PO SCH (10:11)
[2018-03-26] MEDS: AMLODIPINE BESYLATE 5 MG TABLET PO SCH (10:11)
[2018-03-26] MEDS: LEVETIRACETAM 500 MG TABLET PO SCH (10:16)
[2018-03-26] MEDS: SOTALOL HCL 80 MG TABLET PO SCH (10:27)
[2018-03-26 12:13] VITALS: BP 121/79
== END 2018-03-26 12:35 | disposition home health service (06) | DRG 191 ==
LOC: ER 09:52 → EH 14:39 → 4S 15:59
PROVIDERS: ADMIT Internal Medicine Geriatric Medicine; ATTEND Internal Medicine Geriatric Medicine
DX: J44.1 Chronic obstructive pulmonary disease with (acute) exacerbation (principal); I13.0 Hypertensive heart and chronic kidney disease with heart failure and stage 1 through stage 4 chronic kidney disease, or unspecified chronic kidney disease; N18.3 Chronic kidney disease, stage 3 (moderate); I50.9 Heart failure, unspecified; I25.10 Atherosclerotic heart disease of native coronary artery without angina pectoris; E87.5 Hyperkalemia; I48.91 Unspecified atrial fibrillation; R06.6 Hiccough; G40.909 Epilepsy, unspecified, not intractable, without status epilepticus; K21.9 Gastro-esophageal reflux disease without esophagitis; G47.33 Obstructive sleep apnea (adult) (pediatric); Z79.82 Long term (current) use of aspirin; Z79.899 Other long term (current) drug therapy; Z95.1 Presence of aortocoronary bypass graft; I25.2 Old myocardial infarction; Z90.49 Acquired absence of other specified parts of digestive tract; Z87.891 Personal history of nicotine dependence
CPT/HCPCS: 36415; 71046; 80048; 80053; 82550; 82553; 82803; 83735; 83880; 84484; 85025; 87040; 93005; 93010; 94640; 96365; 96375; 99285; J0456; J1644; J2405; J2930; J3490; J7030; J7509; J7512; J7620

== ENCOUNTER 2018-10-15 16:53 | Inpatient (IN) | payer MEDICARE ==
[2018-10-15 17:20] LABS: ABSOLUTE LYMPHOCYTES (AUTO) 1.4 10^3/uL (0.5-4.7); ABSOLUTE MONOCYTES (AUTO) 0.8 10^3/uL (0.1-1.4); ABSOLUTE NEUT (AUTO) 4.1 10^3/uL (1.7-8.2); BASOPHILS % (AUTO) 0.2 % (0-2); HEMATOCRIT 52.4 % (37.9-51.0); HEMOGLOBIN 17.8 g/dL (13.5-17.0); LYMPHOCYTES % (AUTO) 22.7 % (13-45); MEAN CORPUSCULAR HEMOGLOBIN 31.1 pg (27.0-33.4); MEAN CORPUSCULAR HGB CONC 34.1 g/dL (32.0-36.0); MEAN CORPUSCULAR VOLUME 91 fl (80-97); MONOCYTES % (AUTO) 12.9 % (3-13); PLATELET COUNT 180 10^3/uL (150-450); RED BLOOD COUNT 5.74 10^6/uL (4.35-5.55); RED CELL DISTRIBUTION WIDTH 14.2 % (11.5-14.0); SEGMENTED NEUTROPHILS % (AUTO) 64.2 % (42-78); TOTAL CELLS COUNTED % (AUTO) 100 %; WHITE BLOOD COUNT 6.4 10^3/uL (4.0-10.5)
--- NOTE | 2018-10-15 17:32 | RADIOLOGY REPORT (SQ) ---
EXAM DESCRIPTION: CHEST SINGLE VIEW COMPLETED DATE/TIME: 10/15/2018 5:22 pm REASON FOR STUDY: SOB on CPAP via EMS COMPARISON: None. EXAM PARAMETERS: NUMBER OF VIEWS: One view. TECHNIQUE: Single frontal radiographic view of the chest acquired. RADIATION DOSE: NA LIMITATIONS: None. FINDINGS: LUNGS AND PLEURA: Low lung volumes. There appears to be increased opacification in the le ft base. Portion of the bases obscured by the pacemaker/defibrillator generator. MEDIASTINUM AND HILAR STRUCTURES: No masses. Contour normal. HEART AND VASCULAR STRUCTURES: Heart size is borderline but accentuated by low lung volumes. No tristen k pulmonary edema. BONES: No acute findings. HARDWARE: Sternotomy wires. Pacemaker/ defibrillator. OTHER: No other significant finding. IMPRESSION: Borderline heart size without pulmonary edema. Cannot exclude left lower lobe pneumonia . TECHNICAL DOCUMENTATION: JOB ID: [id number] [employer]- All Rights Reserved Reading location - IP/workstation name: [email or web address]
[2018-10-15 17:39] LABS: ALANINE AMINOTRANSFERASE 13 U/L (21-72); ALBUMIN 4.4 g/dL (3.5-5.0); ALKALINE PHOSPHATASE 91 U/L (38-126); ANION GAP 9 (5-19); ASPARTATE AMINO TRANSFERASE 16 U/L (17-59); BILIRUBIN,DIRECT 0.3 mg/dL (0.0-0.4); BLOOD UREA NITROGEN 33 mg/dL (7-20); CALCIUM 9.8 mg/dL (8.4-10.2); CARBON DIOXIDE 24 mmol/L (22-30); CHLORIDE 106 mmol/L (98-107); GLUCOSE 104 mg/dL (75-110); POTASSIUM 5.2 mmol/L (3.6-5.0); SODIUM 138.9 mmol/L (137-145); TOTAL PROTEIN 9.1 g/dL (6.3-8.2)
[2018-10-15 19:02] LABS: NT PRO BNP 477 pg/mL (<450)
[2018-10-15 19:06] LABS: TROPONIN I < 0.012 ng/mL
[2018-10-15] MEDS ORDERED: NORMAL SALINE 1000 ML 500 ML IV ONE (19:59)
[2018-10-15] MEDS ORDERED: LEVOFLOXACIN 750 MG/D5W RTU 750 MG/150 ML RTUPB IV ONE (19:59)
[2018-10-15] MEDS ORDERED: IPRATROPIUM/ALBUTEROL 0.5-2.5 MG/3 ML AMPUL NEB ONE (20:06)
[2018-10-15] MEDS ORDERED: METHYLPREDNISOLONE INJ 125 MG/2 ML SDV IV ONE (20:06)
--- NOTE | 2018-10-15 20:06 | ER Document Report ---
ED General - General Chief Complaint: Shortness Of Breath Stated Complaint: ALTERED MENTAL STATUS Time Seen by Provider: 10/15/18 18:23 Primary Care Provider: ARISTEO AVILEZ MD [Primary Care Provider] - Follow up as needed Notes: Patient is a 78-year-old male with a past medical history of CHF, coronary artery disease, chronic kidney disease COPD with oxygen dependence although is noncompliant with supplemental oxygen therapy who presents by EMS with dyspnea, chest discomfort, found to be hypoxic to 86% on room air. Majority of the history is as provided by his family at the bedside as the patient is wearing a BiPAP mask. The family reports that the patient has had similar symptoms in the past of COPD exacerbations or pneumonia. The daughter does report that he has been coughing much more for the last several days and that he has been seeming less well over the last 4 days. He has not seen his primary care doctor regarding today's concerns. Nothing seems to improve or worsen his symptoms. Patient denies any ongoing chest pain. States he still feels somewhat short of breath. Admits exertion worsens his symptoms. Nebulizers have not improved this as they usually do. TRAVEL OUTSIDE OF THE [place] IN LAST 30 DAYS: No - Related Data Allergies/Adverse Reactions: No Known Allergies Allergy (Verified 03/21/18 09:53) Past Medical History - General Information source: Patient, Relative - Social History Smoking Status: Former Smoker Frequency of alcohol use: None Drug Abuse: None Lives with: Family Family History: Reviewed & Not Pertinent Patient has suicidal ideation: No Patient has homicidal ideation: No - Past Medical History Cardiac Medical History: Reports: Hx Atrial Fibrillation, Hx Congestive Heart Failure, Hx Heart Attack, Hx Hypercholesterolemia, Hx Hypertension Pulmonary Medical History: Reports: Hx Bronchitis, Hx COPD, Hx Pneumonia Denies: Hx Asthma Renal/ Medical History: Denies: Hx Peritoneal Dialysis GI Medical History: Reports: Hx Gastroesophageal Reflux Disease Past Surgical History: Reports: Hx Cardiac Catheterization, Hx Cholecystectomy. Denies: Hx Pacemaker - Immunizations Hx Diphtheria, Pertussis, Tetanus Vaccination: Yes Hx Pneumococcal Vaccination: 07/12/10 Review of Systems - Review of Systems Notes: Constitutional: Negative for fever. HENT: Negative for sore throat. Eyes: Negative for visual changes. Cardiovascular: Positive for chest pain. Respiratory: Positive for shortness of breath. Gastrointestinal: Negative for abdominal pain, vomiting or diarrhea. Genitourinary: Negative for dysuria. Musculoskeletal: Negative for back pain. Skin: Negative for rash. Neurological: Negative for headaches, weakness or numbness. 10 point ROS negative except as marked above and in HPI. Physical Exam - Vital signs Vitals: Resp Pulse Ox 23 H 96 10/15/18 17:05 10/15/18 17:05 Interpretation: Hypoxic, Tachypneic Notes: PHYSICAL EXAMINATION: GENERAL: Elderly male, appears somewhat unwell but in no acute distress HEAD: Atraumatic, normocephalic. EYES: Pupils equal round and reactive to light, extraocular movements intact, sclera anicteric, conjunctiva are normal. ENT: nares patent, oropharynx clear without exudates. Mildly dry mucous membranes. NECK: Normal range of motion, supple without lymphadenopathy LUNGS: Breath sounds clear to auscultation bilaterally and equal. Scattered wheezing in all lung joe HEART: Regular rate and rhythm without murmurs ABDOMEN: Soft, nontender, normoactive bowel sounds. No guarding, no rebound. No masses appreciated. EXTREMITIES: Normal range of motion, no pitting or edema. No cyanosis. NEUROLOGICAL: No focal neurological deficits. Moves all extremities spontaneous ly and on command. PSYCH: Normal mood, normal affect. SKIN: Warm, Dry, normal turgor, no rashes or lesions noted. Course - Re-evaluation Re-evalutation: 10/15/18 20:06 Patient presents after apparently been found to be hypoxic, confused, is relatively ill in appearance but with only mild to moderate increase in respiratory effort. On BiPAP at the time of my evaluation. Scattered wheezing in all lung joe. No overt signs of volume overload based on chest x-ray and physical exam. BNP within normal limits. Troponin is normal. Chest x-ray appears to demonstrate a left lower lobe pneumonia and clinically the patient likely has a pneumonia given the family's report of increased shortness of breath and cough with only minimal wheezing at the time of my exam. IV levofloxacin 750 mg has been started, 125 mg of Solu-Medrol as well as multiple duo nebulizers in-line through the BiPAP. Patient's labs also demonstrate a superimposed acute on chronic kidney injury, creatinine of 2.5 up from patient's baseline. Ratio of BUN/creatinine is currently 16, possible superimposed prerenal azotemia and a 500 cc fluid bolus will be administered over 1 hour. 03/29/19 20:48 I have reassessed this patient. He remains hemodynamically unchanged. Work of breathing continues to improve on BiPAP. Nebs going in line. I have increased FiO2 from 30-40% as patient was continued to have periods of hypoxia on 30% FiO2. Have discussed this case with the patient's primary care physician Dr. Avilez who has accepted him for admission. - Vital Signs Vital signs: Temp Pulse Resp BP Pulse Ox 72 12 144/103 H 91 L 10/15/18 17:17 10/15/18 18:01 10/15/18 18:01 10/15/18 18:01 - Laboratory Result Diagrams: 10/15/18 17:06 10/15/18 17:06 Laboratory results interpreted by me: 10/15/18 10/15/18 10/15/18 17:06 17:06 17:06 RBC 5.74 H Hgb 17.8 H Hct 52.4 H RDW 14.2 H Potassium 5.2 H BUN 33 H Creatinine 2.51 H Est GFR ( Amer) 30 L Est GFR (Non-Af Amer) 25 L AST 16 L ALT 13 L NT-Pro-B Natriuret Pep 477 H Total Protein 9.1 H - Diagnostic Test Radiology reviewed: Image reviewed, Reports reviewed Radiology results interpreted by me: 10/15/18 20:08 Chest x-ray: Left lower lobe consolidation - EKG Interpretation by Me Additional EKG results interpreted by me: 10/15/18 20:08 Sinus rhythm, rate 72. No ST elevations or depressions. QTC is 421. Critical Care Note - Critical Care Note Total time excluding time spent on procedures (mins): 36 Comments: Critical care time spent obtaining history from patient or surrogate, discussions with consultants, development of treatment plan with patient or surrogate, evaluation of patient's response to treatment, examination of patient, ordering and performing treatments and interventions, ordering and review of laboratory studies, re-evaluation of patient's condition, ordering and review of radiographic studies and review of old charts Discharge - Discharge Clinical Impression: COPD with acute exacerbation, Acute kidney injury superimposed on chronic kidney disease, Prerenal azotemia, Hypoxia Left lower lobe pneumonia Qualifiers: Pneumonia type: due to unspecified organism Qualified Code(s): J18.1 - Lobar pneumonia, unspecified organism Condition: Fair Disposition: ADMITTED INPATIENT Admitting Provider: [facility] Admitted: [facility] Referrals: ARISTEO AVILEZ MD [Primary Care Provider] - Follow up as needed
--- NOTE | 2018-10-15 20:56 | EKG REPORT ---
SEVERITY:- ABNORMAL ECG - SINUS RHYTHM PROBABLE LEFT ATRIAL ABNORMALITY PROBABLE INFERIOR INFARCT, OLD : Confirmed by: Sabina Moon MD 15-Oct-2018 20:54:57
[2018-10-16 00:37] LABS: APPEARANCE,URINE SLIGHTLY-CLOUDY; BILIRUBIN,URINE NEGATIVE (NEGATIVE); COLOR,URINE AMBER; GLUCOSE, URINE NEGATIVE (NEGATIVE); KETONES,URINE TRACE mg/dL (NEGATIVE); LEUKOCYTE ESTERASE,URINE NEGATIVE (NEGATIVE); NITRITE,URINE NEGATIVE (NEGATIVE); PROTEIN,URINE 100 mg/dL (NEGATIVE); URINE SPECIFIC GRAVITY 1.025
[2018-10-16] MEDS ORDERED: IPRATROPIUM/ALBUTEROL 0.5-2.5 MG/3 ML AMPUL NEB PRN (01:13)
[2018-10-16 04:45] LABS: ABSOLUTE LYMPHOCYTES (AUTO) 0.9 10^3/uL (0.5-4.7); ABSOLUTE MONOCYTES (AUTO) 0.4 10^3/uL (0.1-1.4); ABSOLUTE NEUT (AUTO) 2.2 10^3/uL (1.7-8.2); BASOPHILS % (AUTO) 0.4 % (0-2); HEMATOCRIT 48.9 % (37.9-51.0); HEMOGLOBIN 16.6 g/dL (13.5-17.0); LYMPHOCYTES % (AUTO) 25.2 % (13-45); MEAN CORPUSCULAR HEMOGLOBIN 30.6 pg (27.0-33.4); MEAN CORPUSCULAR HGB CONC 33.9 g/dL (32.0-36.0); MEAN CORPUSCULAR VOLUME 90 fl (80-97); MONOCYTES % (AUTO) 11.4 % (3-13); PLATELET COUNT 153 10^3/uL (150-450); RED BLOOD COUNT 5.42 10^6/uL (4.35-5.55); RED CELL DISTRIBUTION WIDTH 14.4 % (11.5-14.0); TOTAL CELLS COUNTED % (AUTO) 100 %; WHITE BLOOD COUNT 3.5 10^3/uL (4.0-10.5)
[2018-10-16 05:10] LABS: ALANINE AMINOTRANSFERASE 13 U/L (21-72); ALBUMIN 3.7 g/dL (3.5-5.0); ALKALINE PHOSPHATASE 82 U/L (38-126); ANION GAP 11 (5-19); ASPARTATE AMINO TRANSFERASE 13 U/L (17-59); BILIRUBIN,DIRECT 0.3 mg/dL (0.0-0.4); BILIRUBIN,TOTAL 0.8 mg/dL (0.2-1.3); BLOOD UREA NITROGEN 39 mg/dL (7-20); CARBON DIOXIDE 17 mmol/L (22-30); CHLORIDE 111 mmol/L (98-107); GLUCOSE 119 mg/dL (75-110); POTASSIUM 4.6 mmol/L (3.6-5.0); SODIUM 138.6 mmol/L (137-145); TOTAL PROTEIN 7.8 g/dL (6.3-8.2)
[2018-10-16] MEDS: METHYLPREDNISOLONE INJ 125 MG/2 ML SDV IV SCH ×2 (09:08→22:06)
--- NOTE | 2018-10-16 16:16 | PDOC H&P ---
History of Present Illness Admission Date/PCP: 10/15/18 22:07 ARISTEO RAGHAV Patient complains of: Difficulty with breathing History of Present Illness: RUPINDER WREN JR is a 78 year old male patient known to my practice who presented to the ED via EMS service due to worsening difficulty with breathing over last several days. His shortness of breath is worsen by exertion. Family at bedside reported that patient was noncompliant with his medication and CPAP device usage at home. Patient admitted to coughing spells with minimal sputum production. He denied cigarette smoking, fever, or chills. He denied any overt chest pain or palpitation. His field evaluation by EMS personnel reported hypoxemia with oxygen saturation at 86% on room air. Patient reported minimal benefits from nebulizer therapy. His initial ED evaluation revealed possible left lower lobe air space disease process, acute on chronic renal impairment with hyperkalemia, and abnormal urinalysis. He was advised hospitalization for further evaluation and management. Past Medical History Cardiac Medical History: Reports: Atrial Fibrillation, Congestive Heart Failure, Myocardial Infarction, Hyperlipidema, Hypertension Pulmonary Medical History: Reports: Bronchitis, Chronic Obstructive Pulmonary Disease (COPD), Pneumonia Denies: Asthma GI Medical History: Reports: Gastroesophageal Reflux Disease Psychiatric Medical History: Denies: Depression Past Surgical History Past Surgical History: Reports: Cardiac Catheterization, Cholecystectomy Denies: Pacemaker Social History Lives with: Family Smoking Status: Former Smoker Number of Years Smokin Last Time Smoked: 2008 Frequency of Alcohol Use: None Hx Recreational Drug Use: No Drugs: None Hx Prescription Drug Abuse: No - Advance Directive Resuscitation Status: Full Code Family History Family History: Reviewed & Not Pertinent Parental Family History Reviewed: Yes Children Family History Reviewed: Yes Sibling(s) Family History Reviewed.: Yes Medication/Allergy Home Medications: Amlodipine Besylate [Norvasc 5 mg Tablet] 5 mg PO Q12 10/16/18 Aspirin [Ecotrin 325 mg EC Tablet] 325 mg PO DAILY 10/16/18 Atorvastatin Calcium [Lipitor 10 mg Tablet] 10 mg PO QHS 10/16/18 Divalproex Sodium [Depakote] 500 mg PO Q12 10/16/18 Docusate Sodium [Colace 100 mg Capsule] 100 mg PO BID 10/16/18 Esomeprazole Magnesium 40 mg PO DAILY 10/16/18 Irbesartan [Avapro] 300 mg PO DAILY 10/16/18 Levetiracetam [Keppra 500 mg Tablet] 1,000 mg PO Q12 10/16/18 Magnesium Oxide [Mag-Ox 400 mg Tablet] 400 mg PO DAILY 10/16/18 Metoprolol Tartrate [Lopressor 50 mg Tablet] 50 mg PO Q12 10/16/18 Sotalol HCl [Betapace 80 mg Tablet] 80 mg PO Q12 10/16/18 Tamsulosin HCl [Flomax 0.4 mg Cap.sr] 0.4 mg PO QPM 10/16/18 Umeclidinium Brm/Vilanterol Tr [Anoro Ellipta 62.5-25 Mcg INH] 1 puff IH DAILY 10/16/18 Allergies/Adverse Reactions: No Known Allergies Allergy (Verified 03/21/18 09:53) Review of Systems Constitutional: ABSENT: chills, fever(s), headache(s), weight gain, weight loss Ears: ABSENT: hearing changes Nose, Mouth, and Throat: ABSENT: as per HPI, headache(s), mouth pain, sore throat, vertigo, other Cardiovascular: PRESENT: dyspnea on exertion Respiratory: PRESENT: cough, dyspnea, sputum Gastrointestinal: ABSENT: abdominal pain, constipation, diarrhea, hematemesis, hematochezia, nausea, vomiting Genitourinary: ABSENT: dysuria, hematuria Musculoskeletal: ABSENT: joint swelling Integumentary: ABSENT: rash, wounds Neurological: ABSENT: abnormal gait, abnormal speech, confusion, dizziness, focal weakness, syncope Psychiatric: ABSENT: anxiety, depression, homidical ideation, suicidal ideation Endocrine: ABSENT: cold intolerance, heat intolerance, polydipsia, polyuria Hematologic/Lymphatic: ABSENT: easy bleeding, easy bruising, lymphadenopathy Allergic/Immunologic: ABSENT: seasonal rhinorrhea Physical Exam Vital Signs: Temp Pulse Resp BP Pulse Ox 98.4 F 70 20 137/85 H 99 10/16/18 12:55 10/16/18 14:00 10/16/18 12:55 10/16/18 12:55 10/16/18 12:55 Intake & Output 10/15/18 10/16/18 10/17/18 06:59 06:59 06:59 Intake Total 650 240 Output Total 126 200 Balance 524 40 Weight 94.5 kg General appearance: PRESENT: mild distress - on supplemental oxygen via nasal cannula, obese Head exam: PRESENT: atraumatic, normocephalic Eye exam: PRESENT: conjunctiva pink, EOMI, PERRLA. ABSENT: scleral icterus Ear exam: PRESENT: normal external ear exam Mouth exam: PRESENT: moist Respiratory exam: PRESENT: crackles, decreased breath sounds. ABSENT: rhonchi, wheezes Cardiovascular exam: PRESENT: RRR. ABSENT: diastolic murmur, rubs, systolic murmur Vascular exam: ABSENT: pallor GI/Abdominal exam: PRESENT: normal bowel sounds, soft. ABSENT: distended, guarding, mass, organolmegaly, rebound, tenderness Rectal exam: PRESENT: deferred Extremities exam: ABSENT: pedal edema Musculoskeletal exam: ABSENT: tenderness Neurological exam: PRESENT: alert, awake, oriented to person, oriented to place, oriented to time, oriented to situation, CN II-XII grossly intact. ABSENT: motor sensory deficit Psychiatric exam: PRESENT: appropriate affect, normal mood. ABSENT: homicidal ideation, suicidal ideation Skin exam: PRESENT: dry, warm, other - keloid on chest from CABG Results Laboratory Results: 10/16/18 04:22 10/16/18 04:22 10/15/18 10/15/18 10/16/18 17:06 17:06 00:00 WBC 6.4 RBC 5.74 H Hgb 17.8 H Hct 52.4 H MCV 91 MCH 31.1 MCHC 34.1 RDW 14.2 H Plt Count 180 Seg Neutrophils % 64.2 Lymphocytes % 22.7 Monocytes % 12.9 Eosinophils % 0.0 Basophils % 0.2 Absolute Neutrophils 4.1 Absolute Lymphocytes 1.4 Absolute Monocytes 0.8 Absolute Eosinophils 0.0 Absolute Basophils 0.0 Sodium 138.9 Potassium 5.2 H Chloride 106 Carbon Dioxide 24 Anion Gap 9 BUN 33 H Creatinine 2.51 H Est GFR ( Amer) 30 L Est GFR (Non-Af Amer) 25 L Glucose 104 Calcium 9.8 Total Bilirubin 1.0 AST 16 L ALT 13 L Alkaline Phosphatase 91 Total Protein 9.1 H Albumin 4.4 Urine Color LUIS Urine Appearance SLIGHTLY-CLOUDY Urine pH 5.0 Ur Specific [place] 1.025 Urine Protein 100 H Urine Glucose (UA) NEGATIVE Urine Ketones TRACE H Urine Blood NEGATIVE Urine Nitrite NEGATIVE Ur Leukocyte Esterase NEGATIVE Urine WBC (Auto) 2 Urine RBC (Auto) 0 10/16/18 10/16/18 04:22 04:22 WBC 3.5 L RBC 5.42 Hgb 16.6 Hct 48.9 MCV 90 MCH 30.6 MCHC 33.9 RDW 14.4 H Plt Count 153 Seg Neutrophils % 63.0 Lymphocytes % 25.2 Monocytes % 11.4 Eosinophils % 0.0 Basophils % 0.4 Absolute Neutrophils 2.2 Absolute Lymphocytes 0.9 Absolute Monocytes 0.4 Absolute Eosinophils 0.0 Absolute Basophils 0.0 Sodium 138.6 Potassium 4.6 Chloride 111 H Carbon Dioxide 17 L Anion Gap 11 BUN 39 H Creatinine 2.33 H Est GFR ( Amer) 33 L Est GFR (Non-Af Amer) 27 L Glucose 119 H Calcium 9.0 Total Bilirubin 0.8 AST 13 L ALT 13 L Alkaline Phosphatase 82 Total Protein 7.8 Albumin 3.7 Urine Color Urine Appearance Urine pH Ur Specific [place] Urine Protein Urine Glucose (UA) Urine Ketones Urine Blood Urine Nitrite Ur Leukocyte Esterase Urine WBC (Auto) Urine RBC (Auto) 10/15/18 17:06 Troponin I < 0.012 NT-Pro-B Natriuret Pep 477 H Impressions: Chest X-Ray 10/15/18 16:56 IMPRESSION: Borderline heart size without pulmonary edema. Cannot exclude left lower lobe pneumonia. Assessment & Plan - Diagnosis (1) COPD with acute exacerbation Is this a current diagnosis for this admission?: Yes Plan: See admitting attending physician orders (2) Left lower lobe pneumonia Qualifiers: Pneumonia type: due to unspecified organism Qualified Code(s): J18.1 - Lobar pneumonia, unspecified organism Is this a current diagnosis for this admission?: Yes Plan: See admitting attending physician orders (3) Acute kidney injury superimposed on chronic kidney disease Is this a current diagnosis for this admission?: Yes Plan: See admitting attending physician orders (4) Hyperkalemia Is this a current diagnosis for this admission?: Yes Plan: See admitting attending physician orders (5) HTN (hypertension) Qualifiers: Hypertension type: essential hypertension Qualified Code(s): I10 - Essential (primary) hypertension Is this a current diagnosis for this admission?: Yes Plan: See admitting attending physician orders (6) CAD (coronary artery disease) Qualifiers: Coronary Disease-Associated Artery/Lesion type: [place] artery Associated angina: without angina Is this a current diagnosis for this admission?: Yes Plan: See admitting attending physician orders (7) HLD (hyperlipidemia) Qualifiers: Hyperlipidemia type: unspecified Qualified Code(s): E78.5 - Hyperlipidemia, unspecified Is this a current diagnosis for this admission?: Yes Plan: See admitting attending physician orders (8) S/P CABG (coronary artery bypass graft) Is this a current diagnosis for this admission?: Yes Plan: See admitting attending physician orders (9) Old [place] (myocardial infarction) Is this a current diagnosis for this admission?: Yes Plan: See admitting attending physician orders (10) Seizure disorder Is this a current diagnosis for this admission?: Yes Plan: See admitting attending physician orders (11) EDNA (obstructive sleep apnea) Is this a current diagnosis for this admission?: Yes Plan: See admitting attending physician orders - Time Time Spent: 50 to 70 Minutes Medications reviewed and adjusted accordingly: Yes Anticipated discharge: Other - Assisted Living facility Within: Other - Inpatient Certification Based on my medical assessment, after consideration of the patient's comorbidities, presenting symptoms, or acuity I expect that the services needed warrant INPATIENT care.: Yes I certify that my determination is in accordance with my understanding of Medicare's requirements for reasonable and necessary INPATIENT services [42 CFR 412.3e].: Yes Medical Necessity: Significant Comorbidiites Make Outpatient Treatment Too Risky, Need Close Monitoring Due to Risk of Patient Decompensation, Need For IV Fluids, Need For Continuous Telemetry Monitoring, Need for Nebulizer Therapy and Monitoring of Response, Need for IV Antibiotics, Risk of Complication if Not Cared For in Hospital, Risk of Diagnosis Which Will Require Inpatient Eval/Care/Monitoring Post Hospital Care: D/C or Transfer Summary - Plan Summary Plan Summary: See admitting attending physician orders
[2018-10-16] MEDS: TAMSULOSIN HCL 0.4 MG CAP.SR.24H PO SCH (17:27)
[2018-10-16] MEDS: DOCUSATE SODIUM 100 MG CAPSULE PO SCH (17:27)
[2018-10-16] MEDS ORDERED: (PENDING PHARMACY ID) (Divalproex Sodium [Depakote] 500 MG) PO SCH (22:00)
[2018-10-16] MEDS ORDERED: LEVOFLOXACIN 500 MG/D5W RTU 500 MG/100 ML RTUPB IV SCH (22:00)
[2018-10-16] MEDS: ATORVASTATIN CALCIUM 10 MG TABLET PO SCH (22:05)
[2018-10-16] MEDS: METOPROLOL TARTRATE 50 MG TABLET PO SCH (22:05)
[2018-10-16] MEDS: LEVETIRACETAM 500 MG TABLET PO SCH (22:05)
[2018-10-16] MEDS: AMLODIPINE BESYLATE 5 MG TABLET PO SCH (22:06)
[2018-10-16] MEDS: SOTALOL HCL 80 MG TABLET PO SCH (22:07)
[2018-10-16] MEDS: DIVALPROEX SODIUM 500 MG TAB.SR.24H PO SCH (22:07)
[2018-10-17] MEDS: LEVOFLOXACIN 250 MG/D5W RTU 250 MG/50 ML RTUPB IV SCH ×2 (00:06→22:04)
[2018-10-17] MEDS: DIVALPROEX SODIUM 500 MG TAB.SR.24H PO SCH ×2 (09:25→22:07)
[2018-10-17] MEDS: ASPIRIN 325 MG TABLET, ENT COATED PO SCH (09:25)
[2018-10-17] MEDS: SOTALOL HCL 80 MG TABLET PO SCH ×2 (09:25→22:07)
[2018-10-17] MEDS: METHYLPREDNISOLONE INJ 125 MG/2 ML SDV IV SCH (09:25)
[2018-10-17] MEDS: METOPROLOL TARTRATE 50 MG TABLET PO SCH ×2 (09:25→22:05)
[2018-10-17] MEDS: LEVETIRACETAM 500 MG TABLET PO SCH ×2 (09:25→22:04)
[2018-10-17] MEDS: DOCUSATE SODIUM 100 MG CAPSULE PO SCH ×2 (09:25→17:24)
[2018-10-17] MEDS: AMLODIPINE BESYLATE 5 MG TABLET PO SCH ×2 (09:25→22:05)
--- NOTE | 2018-10-17 14:17 | PDOC PROGRESS REPORT ---
Subjective Progress Note for:: 10/17/18 Subjective:: Patient reported improvement in is breathing. No chest pain, nausea, vomiting, or abdominal pain. No reported fever or chills. Reason For Visit: COPD WITH ACUTE EXACERBATION,ACUTE KIDNEY INJURY Physical Exam Vital Signs: Temp Pulse Resp BP Pulse Ox 98.0 F 58 L 16 126/77 H 96 10/17/18 10:57 10/17/18 10:57 10/17/18 10:57 10/17/18 10:57 10/17/18 10:57 Intake & Output 10/16/18 10/17/18 10/18/18 06:59 06:59 06:59 Intake Total 650 770 118 Output Total 126 700 100 Balance 524 70 18 Weight 94.5 kg 97.9 kg General appearance: PRESENT: no acute distress, obese Head exam: PRESENT: atraumatic, normocephalic Eye exam: PRESENT: conjunctiva pink. ABSENT: scleral icterus Ear exam: PRESENT: normal external ear exam Mouth exam: PRESENT: moist Respiratory exam: PRESENT: clear to auscultation pradeep, decreased breath sounds - at lung bases Cardiovascular exam: PRESENT: RRR. ABSENT: diastolic murmur, rubs, systolic murmur Vascular exam: ABSENT: pallor GI/Abdominal exam: PRESENT: normal bowel sounds, soft. ABSENT: distended, guarding, mass, organolmegaly, rebound, tenderness Extremities exam: ABSENT: pedal edema Musculoskeletal exam: PRESENT: normal inspection Neurological exam: PRESENT: alert, awake, oriented to person, oriented to place, oriented to time, oriented to situation, CN II-XII grossly intact. ABSENT: motor sensory deficit Psychiatric exam: PRESENT: appropriate affect, normal mood. ABSENT: homicidal ideation, suicidal ideation Skin exam: PRESENT: dry, warm Results Laboratory Results: 10/16/18 04:22 10/16/18 04:22 10/15/18 17:06 Troponin I < 0.012 NT-Pro-B Natriuret Pep 477 H Impressions: Chest X-Ray 10/15/18 16:56 IMPRESSION: Borderline heart size without pulmonary edema. Cannot exclude left lower lobe pneumonia. Assessment & Plan - Diagnosis (1) COPD with acute exacerbation Is this a current diagnosis for this admission?: Yes (2) Left lower lobe pneumonia Qualifiers: Pneumonia type: due to unspecified organism Qualified Code(s): J18.1 - Lobar pneumonia, unspecified organism Is this a current diagnosis for this admission?: Yes (3) Acute kidney injury superimposed on chronic kidney disease Is this a current diagnosis for this admission?: Yes (4) Hyperkalemia Is this a current diagnosis for this admission?: Yes (5) HTN (hypertension) Qualifiers: Hypertension type: essential hypertension Qualified Code(s): I10 - Essential (primary) hypertension Is this a current diagnosis for this admission?: Yes (6) CAD (coronary artery disease) Qualifiers: Coronary Disease-Associated Artery/Lesion type: [place] artery Associated angina: without angina Is this a current diagnosis for this admission?: Yes (7) HLD (hyperlipidemia) Qualifiers: Hyperlipidemia type: unspecified Qualified Code(s): E78.5 - Hyperlipidemia, unspecified Is this a current diagnosis for this admission?: Yes (8) S/P CABG (coronary artery bypass graft) Is this a current diagnosis for this admission?: Yes (9) Old [place] (myocardial infarction) Is this a current diagnosis for this admission?: Yes (10) Seizure disorder Is this a current diagnosis for this admission?: Yes (11) EDNA (obstructive sleep apnea) Is this a current diagnosis for this admission?: Yes - Time Time Spent with patient: 25-34 minutes Medications reviewed and adjusted accordingly: Yes Anticipated discharge: Other - [facility] placement upon discharge Within: Other - Inpatient Certification Based on my medical assessment, after consideration of the patient's co morbidities, presenting symptoms, or acuity I expect that the services needed warrant INPATIENT care.: Yes I certify that my determination is in accordance with my understanding of Medicare's requirements for reasonable and necessary INPATIENT services [42 CFR 412.3e].: Yes Medical Necessity: Significant Comorbidiites Make Outpatient Treatment Too Risky, Need Close Monitoring Due to Risk of Patient Decompensation, Need For IV Fluids, Need For Continuous Telemetry Monitoring, Need for Nebulizer Therapy and Monitoring of Response, Need for IV Antibiotics, Risk of Complication if Not Cared For in Hospital, Risk of Diagnosis Which Will Require Inpatient Eval/Care/Monitoring Post Hospital Care: D/C or Transfer Summary - Plan Summary Plan Summary: Decrease IV Solu Medrol to 60 mg [id number]. Continue IV Levofloxacin coverage. Maintain on all other current medication management. Obtain PT evaluation for ambulatory safety due to unsteady gait with walker assistance. Obtain CBC with diff and CMP in AM.
[2018-10-17] MEDS: TAMSULOSIN HCL 0.4 MG CAP.SR.24H PO SCH (17:24)
[2018-10-17] MEDS ORDERED: METHYLPREDNISOLONE INJ 125 MG/2 ML SDV IV SCH (22:00)
[2018-10-17] MEDS: ATORVASTATIN CALCIUM 10 MG TABLET PO SCH (22:04)
[2018-10-18 06:34] LABS: HEMATOCRIT 46.1 % (37.9-51.0); HEMOGLOBIN 15.6 g/dL (13.5-17.0); MEAN CORPUSCULAR HEMOGLOBIN 30.6 pg (27.0-33.4); MEAN CORPUSCULAR HGB CONC 33.9 g/dL (32.0-36.0); MEAN CORPUSCULAR VOLUME 91 fl (80-97); PLATELET COUNT 147 10^3/uL (150-450); RED CELL DISTRIBUTION WIDTH 14.1 % (11.5-14.0); WHITE BLOOD COUNT 5.7 10^3/uL (4.0-10.5)
[2018-10-18 06:47] LABS: ALANINE AMINOTRANSFERASE 19 U/L (21-72); ALBUMIN 3.3 g/dL (3.5-5.0); ALKALINE PHOSPHATASE 70 U/L (38-126); ANION GAP 6 (5-19); ASPARTATE AMINO TRANSFERASE 11 U/L (17-59); BILIRUBIN,DIRECT 0.2 mg/dL (0.0-0.4); BILIRUBIN,TOTAL 0.4 mg/dL (0.2-1.3); BLOOD UREA NITROGEN 56 mg/dL (7-20); CALCIUM 8.5 mg/dL (8.4-10.2); CARBON DIOXIDE 20 mmol/L (22-30); CHLORIDE 108 mmol/L (98-107); GLUCOSE 128 mg/dL (75-110); POTASSIUM 5.1 mmol/L (3.6-5.0); SODIUM 134.3 mmol/L (137-145); TOTAL PROTEIN 6.8 g/dL (6.3-8.2)
[2018-10-18 07:20] LABS: ABSOLUTE LYMPHOCYTES# (MANUAL) 1.3 10^3/uL (0.5-4.7); ABSOLUTE MONOCYTES # (MANUAL) 0.7 10^3/uL (0.1-1.4); ABSOLUTE NEUTROPHILS# (MANUAL) 3.7 10^3/uL (1.7-8.2); BAND NEUTROPHILS % (MANUAL) 5 % (3-5); BASOPHILS % (MANUAL) 0 % (0-2); EOSINOPHILS % (MANUAL) 0 % (0-6); LYMPHOCYTES % (MANUAL) 21 % (13-45); METAMYELOCYTES % (MANUAL) 1 % (0); MONOCYTES % (MANUAL) 13 % (3-13); SEGMENTED NEUTROPHILS % (MAN) 59 % (42-78); TOTAL CELLS COUNTED 100
[2018-10-18 07:22] LABS: ANISOCYTOSIS SLIGHT; PLATELET COMMENT DECREASED; PLATELET LARGE PRESENT; POLYCHROMASIA SLIGHT
[2018-10-18] MEDS ORDERED: METHYLPREDNISOLONE INJ 125 MG/2 ML SDV ONE (08:57)
[2018-10-18] MEDS: ASPIRIN 325 MG TABLET, ENT COATED PO SCH (09:03)
[2018-10-18] MEDS: LEVETIRACETAM 500 MG TABLET PO SCH ×2 (09:03→22:07)
[2018-10-18] MEDS: SOTALOL HCL 80 MG TABLET PO SCH ×2 (09:03→22:08)
[2018-10-18] MEDS: DIVALPROEX SODIUM 500 MG TAB.SR.24H PO SCH ×2 (09:03→22:09)
[2018-10-18] MEDS: DOCUSATE SODIUM 100 MG CAPSULE PO SCH ×2 (09:03→17:05)
[2018-10-18] MEDS: METOPROLOL TARTRATE 50 MG TABLET PO SCH ×2 (09:04→22:08)
[2018-10-18] MEDS: AMLODIPINE BESYLATE 5 MG TABLET PO SCH ×2 (09:04→22:09)
[2018-10-18] MEDS: METHYLPREDNISOLONE INJ 40 MG/1 ML SDV IV SCH ×2 (09:05→22:05)
[2018-10-18] MEDS: NORMAL SALINE 1000 ML 1,000 ML IV PRN (09:10)
[2018-10-18] MEDS: TAMSULOSIN HCL 0.4 MG CAP.SR.24H PO SCH (17:05)
[2018-10-18] MEDS: LEVOFLOXACIN 250 MG/D5W RTU 250 MG/50 ML RTUPB IV SCH (22:07)
[2018-10-18] MEDS: ATORVASTATIN CALCIUM 10 MG TABLET PO SCH (22:08)
[2018-10-19 05:26] LABS: HEMATOCRIT 46.6 % (37.9-51.0); HEMOGLOBIN 15.6 g/dL (13.5-17.0); MEAN CORPUSCULAR HEMOGLOBIN 30.4 pg (27.0-33.4); MEAN CORPUSCULAR HGB CONC 33.5 g/dL (32.0-36.0); MEAN CORPUSCULAR VOLUME 91 fl (80-97); PLATELET COUNT 150 10^3/uL (150-450); RED BLOOD COUNT 5.14 10^6/uL (4.35-5.55); RED CELL DISTRIBUTION WIDTH 14.1 % (11.5-14.0)
[2018-10-19 05:46] LABS: BLOOD UREA NITROGEN 54 mg/dL (7-20); CALCIUM 8.4 mg/dL (8.4-10.2); CARBON DIOXIDE 22 mmol/L (22-30); CHLORIDE 106 mmol/L (98-107); GLUCOSE 115 mg/dL (75-110); POTASSIUM 5.1 mmol/L (3.6-5.0)
[2018-10-19 05:48] LABS: ANION GAP 7 (5-19); SODIUM 135.1 mmol/L (137-145)
[2018-10-19 06:09] LABS: ABSOLUTE LYMPHOCYTES# (MANUAL) 1.5 10^3/uL (0.5-4.7); ABSOLUTE MONOCYTES # (MANUAL) 0.6 10^3/uL (0.1-1.4); ABSOLUTE NEUTROPHILS# (MANUAL) 4.8 10^3/uL (1.7-8.2); BASOPHILS % (MANUAL) 0 % (0-2); EOSINOPHILS % (MANUAL) 0 % (0-6); LYMPHOCYTES % (MANUAL) 22 % (13-45); MONOCYTES % (MANUAL) 9 % (3-13); SEGMENTED NEUTROPHILS % (MAN) 69 % (42-78); TOTAL CELLS COUNTED 100
[2018-10-19 06:10] LABS: PLATELET COMMENT ADEQUATE; POIKILOCYTOSIS SLIGHT; SCHISTOCYTES SLIGHT; TEAR DROP CELLS SLIGHT; TOXIC GRANULATION 1+
[2018-10-19] MEDS: DIVALPROEX SODIUM 500 MG TAB.SR.24H PO SCH ×2 (08:59→21:43)
[2018-10-19] MEDS: ASPIRIN 325 MG TABLET, ENT COATED PO SCH (08:59)
[2018-10-19] MEDS: DOCUSATE SODIUM 100 MG CAPSULE PO SCH ×2 (08:59→16:21)
[2018-10-19] MEDS: LEVETIRACETAM 500 MG TABLET PO SCH ×2 (09:00→21:42)
[2018-10-19] MEDS: AMLODIPINE BESYLATE 5 MG TABLET PO SCH ×2 (09:00→21:43)
[2018-10-19] MEDS: METHYLPREDNISOLONE INJ 40 MG/1 ML SDV IV SCH ×2 (09:00→21:42)
[2018-10-19] MEDS: NORMAL SALINE 1000 ML 1,000 ML IV PRN (09:01)
[2018-10-19] MEDS: SOTALOL HCL 80 MG TABLET PO SCH ×2 (13:40→21:42)
[2018-10-19] MEDS: METOPROLOL TARTRATE 50 MG TABLET PO SCH ×2 (13:40→21:42)
[2018-10-19] MEDS: TAMSULOSIN HCL 0.4 MG CAP.SR.24H PO SCH (16:21)
--- NOTE | 2018-10-19 18:56 | PDOC PROGRESS REPORT ---
Subjective Progress Note for:: 10/18/18 Subjective:: Patient participated in physical therapy with assistive device earlier today. Gait remain unsteady. Daughter demanded rehabilitation facility in [place], [place] for short term rehabilitation. Patient denied chest pain or difficulty with breathing. No nausea, vomiting or abdominal pain. oral intake remain poor. Reason For Visit: EXCERBATED COPD, LLL PNEUMONIA, MARY ON SUPERIMPOSE Physical Exam Vital Signs: Temp Pulse Resp BP Pulse Ox 97.9 F 62 18 121/63 98 10/18/18 07:40 10/18/18 07:40 10/18/18 07:40 10/18/18 07:40 10/18/18 07:40 Intake & Output 10/17/18 10/18/18 10/19/18 06:59 06:59 06:59 Intake Total 770 798 Output Total 700 100 Balance 70 698 Weight 97.9 kg 94.9 kg Physical Exam: General appearance: PRESENT: no acute distress, obese Head exam: PRESENT: atraumatic, normocephalic Eye exam: PRESENT: conjunctiva pink. ABSENT: pallor, scleral icterus Mouth exam: PRESENT: moist Respiratory exam: PRESENT: clear to auscultation pradeep, decreased breath sounds - at lung bases Cardiovascular exam: PRESENT: RRR. ABSENT: diastolic murmur, rubs, systolic murmur GI/Abdominal exam: PRESENT: normal bowel sounds, soft. ABSENT: distended, guarding, mass, organolmegaly, rebound, tenderness Extremities exam: ABSENT: pedal edema Musculoskeletal exam: PRESENT: normal inspection Neurological exam: PRESENT: alert, awake, oriented to person, oriented to place, oriented to time, oriented to situation, CN II-XII grossly intact. ABSENT: motor sensory deficit Psychiatric exam: PRESENT: appropriate affect, normal mood. ABSENT: homicidal ideation, suicidal ideation Skin exam: PRESENT: dry, warm Results Laboratory Results: 10/18/18 05:49 10/18/18 05:49 10/18/18 10/18/18 05:49 05:49 WBC 5.7 RBC 5.10 Hgb 15.6 Hct 46.1 MCV 91 MCH 30.6 MCHC 33.9 RDW 14.1 H Plt Count 147 L Seg Neutrophils % Not Reportable Lymphocytes % Not Reportable Monocytes % Not Reportable Eosinophils % Not Reportable Basophils % Not Reportable Absolute Neutrophils Not Reportable Absolute Lymphocytes Not Reportable Absolute Monocytes Not Reportable Absolute Eosinophils Not Reportable Absolute Basophils Not Reportable Sodium 134.3 L Potassium 5.1 H Chloride 108 H Carbon Dioxide 20 L Anion Gap 6 BUN 56 H Creatinine 2.15 H Est GFR ( Amer) 36 L Est GFR (Non-Af Amer) 30 L Glucose 128 H Calcium 8.5 Total Bilirubin 0.4 AST 11 L ALT 19 L Alkaline Phosphatase 70 Total Protein 6.8 Albumin 3.3 L 10/15/18 17:06 Troponin I < 0.012 NT-Pro-B Natriuret Pep 477 H Impressions: Chest X-Ray 10/15/18 16:56 IMPRESSION: Borderline heart size without pulmonary edema. Cannot exclude left lower lobe pneumonia. Assessment & Plan - Diagnosis (1) COPD with acute exacerbation Is this a current diagnosis for this admission?: Yes (2) Left lower lobe pneumonia Qualifiers: Pneumonia type: due to unspecified organism Qualified Code(s): J18.1 - Lobar pneumonia, unspecified organism Is this a current diagnosis for this admission?: Yes (3) Acute kidney injury superimposed on chronic kidney disease Is this a current diagnosis for this admission?: Yes (4) Hyperkalemia Is this a current diagnosis for this admission?: Yes (5) HTN (hypertension) Qualifiers: Hypertension type: essential hypertension Qualified Code(s): I10 - Essential (primary) hypertension Is this a current diagnosis for this admission?: Yes (6) CAD (coronary artery disease) Qualifiers: Coronary Disease-Associated Artery/Lesion type: [place] artery Associated angina: without angina Is this a current diagnosis for this admission?: Yes (7) HLD (hyperlipidemia) Qualifiers: Hyperlipidemia type: unspecified Qualified Code(s): E78.5 - Hyperlipidemia, unspecified Is this a current diagnosis for this admission?: Yes (8) S/P CABG (coronary artery bypass graft) Is this a current diagnosis for this admission?: Yes (9) [place] (myocardial infarction) Is this a current diagnosis for this admission?: Yes (10) Seizure disorder Is this a current diagnosis for this admission?: Yes (11) EDNA (obstructive sleep apnea) Is this a current diagnosis for this admission?: Yes - Time Time Spent with patient: 25-34 minutes Medications reviewed and adjusted accordingly: Yes Anticipated discharge: Other Within: Other - Inpatient Certification Based on my medical assessment, after consideration of the patient's comorbidities, presenting symptoms, or acuity I expect that the services needed warrant INPATIENT care.: Yes I certify that my determination is in accordance with my understanding of Medicare's requirements for reasonable and necessary INPATIENT services [42 CFR 412.3e].: Yes Medical Necessity: Significant Comorbidiites Make Outpatient Treatment Too Risky, Need Close Monitoring Due to Risk of Patient Decompensation, Need For IV Fluids, Need For Continuous Telemetry Monitoring, Need for Nebulizer Therapy and Monitoring of Response, Risk of Complication if Not Cared For in Hospital, Risk of Diagnosis Which Will Require Inpatient Eval/Care/Monitoring Post Hospital Care: D/C or Transfer Summary - Plan Summary Plan Summary: Decrease IV Solu Medrol to 30 mg q12 hours. Maintain on al other current medic ation management.
--- NOTE | 2018-10-19 19:05 | PDOC PROGRESS REPORT ---
Subjective Progress Note for:: 10/19/18 Subjective:: Patient denied chest pain or difficulty with breathing. No fever or chills. No nausea, vomiting or abdominal pain. Reason For Visit: EXCERBATED COPD, LLL PNEUMONIA, MARY ON SUPERIMPOSE Physical Exam Vital Signs: Temp Pulse Resp BP Pulse Ox 98.1 F 57 L 18 120/62 97 10/19/18 03:03 10/19/18 07:00 10/19/18 03:03 10/19/18 03:03 10/19/18 03:03 Intake & Output 10/18/18 10/19/18 10/20/18 06:59 06:59 06:59 Intake Total 798 1037 Output Total 100 Balance 698 1037 Weight 94.9 kg 97 kg Physical Exam: General appearance: PRESENT: no acute distress, obese Head exam: PRESENT: atraumatic, normocephalic Eye exam: PRESENT: conjunctiva pink. ABSENT: pallor, scleral icterus Mouth exam: PRESENT: moist Respiratory exam: PRESENT: clear to auscultation pradeep, decreased breath sounds - at lung bases Cardiovascular exam: PRESENT: RRR. ABSENT: diastolic murmur, rubs, systolic murmur GI/Abdominal exam: PRESENT: normal bowel sounds, soft. ABSENT: distended, guarding, mass, organomegaly, rebound, tenderness Extremities exam: ABSENT: pedal edema Musculoskeletal exam: PRESENT: normal inspection Neurological exam: PRESENT: alert, awake, oriented to person, oriented to place, oriented to time, oriented to situation, CN II-XII grossly intact. ABSENT: motor sensory deficit Psychiatric exam: PRESENT: appropriate affect, normal mood. ABSENT: homicidal ideation, suicidal ideation Skin exam: PRESENT: dry, warm Results Laboratory Results: 10/19/18 04:56 10/19/18 04:56 10/19/18 10/19/18 04:56 04:56 WBC 7.0 RBC 5.14 Hgb 15.6 Hct 46.6 MCV 91 MCH 30.4 MCHC 33.5 RDW 14.1 H Plt Count 150 Seg Neutrophils % Not Reportable Lymphocytes % Not Reportable Monocytes % Not Reportable Eosinophils % Not Reportable Basophils % Not Reportable Absolute Neutrophils Not Reportable Absolute Lymphocytes Not Reportable Absolute Monocytes Not Reportable Absolute Eosinophils Not Reportable Absolute Basophils Not Reportable Sodium 135.1 L Potassium 5.1 H Chloride 106 Carbon Dioxide 22 Anion Gap 7 BUN 54 H Creatinine 1.95 H Est GFR ( Amer) 40 L Est GFR (Non-Af Amer) 33 L Glucose 115 H Calcium 8.4 10/15/18 17:06 Troponin I < 0.012 NT-Pro-B Natriuret Pep 477 H Impressions: Chest X-Ray 10/15/18 16:56 IMPRESSION: Borderline heart size without pulmonary edema. Cannot exclude left lower lobe pneumonia. Assessment & Plan - Diagnosis (1) COPD with acute exacerbation Is this a current diagnosis for this admission?: Yes (2) Left lower lobe pneumonia Qualifiers: Pneumonia type: due to unspecified organism Qualified Code(s): J18.1 - Lobar pneumonia, unspecified organism Is this a current diagnosis for this admission?: Yes (3) Acute kidney injury superimposed on chronic kidney disease Is this a current diagnosis for this admission?: Yes (4) Hyperkalemia Is this a current diagnosis for this admission?: Yes (5) HTN (hypertension) Qualifiers: Hypertension type: essential hypertension Qualified Code(s): I10 - Essential (primary) hypertension Is this a current diagnosis for this admission?: Yes (6) CAD (coronary artery disease) Qualifiers: Coronary Disease-Associated Artery/Lesion type: [place] artery Associated angina: without angina Is this a current diagnosis for this admission?: Yes (7) HLD (hyperlipidemia) Qualifiers: Hyperlipidemia type: unspecified Qualified Code(s): E78.5 - Hyperlipidemia, unspecified Is this a current diagnosis for this admission?: Yes (8) S/P CABG (coronary artery bypass graft) Is this a current diagnosis for this admission?: Yes (9) Old [place] (myocardial infarction) Is this a current diagnosis for this admission?: Yes (10) Seizure disorder Is this a current diagnosis for this admission?: Yes (11) EDNA (obstructive sleep apnea) Is this a current diagnosis for this admission?: Yes - Time Time Spent with patient: 25-34 minutes Medications reviewed and adjusted accordingly: Yes Anticipated discharge: SNF - for short term rehabilitation. Within: Other - Inpatient Certification Based on my medical assessment, after consideration of the patient's comorbidities, presenting symptoms, or acuity I expect that the services needed warrant INPATIENT care.: Yes I certify that my determination is in accordance with my understanding of Medicare's requirements for reasonable and necessary INPATIENT services [42 CFR 412.3e].: Yes Medical Necessity: Significant Comorbidiites Make Outpatient Treatment Too Risky, Need Close Monitoring Due to Risk of Patient Decompensation, Need For IV Fluids, Need For Continuous Telemetry Monitoring, Need for Nebulizer Therapy and Monitoring of Response, Risk of Complication if Not Cared For in Hospital, Risk of Diagnosis Which Will Require Inpatient Eval/Care/Monitoring Post Hospital Care: D/C or Transfer Summary - Plan Summary Plan Summary: Continue current medication management. Encouraged to continue participation in physical therapy session.
[2018-10-19] MEDS: LEVOFLOXACIN 250 MG TABLET PO SCH (21:42)
[2018-10-19] MEDS: ATORVASTATIN CALCIUM 10 MG TABLET PO SCH (21:42)
[2018-10-20] MEDS: ASPIRIN 325 MG TABLET, ENT COATED PO SCH (09:59)
[2018-10-20] MEDS: LEVETIRACETAM 500 MG TABLET PO SCH ×2 (09:59→21:45)
[2018-10-20] MEDS: AMLODIPINE BESYLATE 5 MG TABLET PO SCH ×2 (09:59→21:45)
[2018-10-20] MEDS: DOCUSATE SODIUM 100 MG CAPSULE PO SCH ×2 (09:59→18:35)
[2018-10-20] MEDS: METOPROLOL TARTRATE 50 MG TABLET PO SCH ×2 (09:59→21:45)
[2018-10-20] MEDS: SOTALOL HCL 80 MG TABLET PO SCH ×2 (10:00→21:49)
[2018-10-20] MEDS ORDERED: PREDNISONE 10 MG TABLET PO SCH (10:00)
[2018-10-20] MEDS: DIVALPROEX SODIUM 500 MG TAB.SR.24H PO SCH ×2 (10:01→21:48)
[2018-10-20] MEDS: NORMAL SALINE 1000 ML 1,000 ML IV PRN (14:42)
[2018-10-20] MEDS: TAMSULOSIN HCL 0.4 MG CAP.SR.24H PO SCH (18:35)
--- NOTE | 2018-10-20 18:36 | PDOC PROGRESS REPORT ---
Subjective Progress Note for:: 10/20/18 Subjective:: Patient denied chest pain or difficulty with breathing. No fever or chills. No nausea, vomiting or abdominal pain. He remain on IV fluid support due to worsening renal indices and IV Solu Medrol therapy. Reason For Visit: EXCERBATED COPD, LLL PNEUMONIA, MARY ON SUPERIMPOSE Physical Exam Vital Signs: Temp Pulse Resp BP Pulse Ox 98.1 F 62 17 136/85 H 97 10/20/18 03:56 10/20/18 03:56 10/20/18 03:56 10/20/18 03:56 10/20/18 03:56 Intake & Output 10/19/18 10/20/18 10/21/18 06:59 06:59 06:59 Intake Total 2036 592 Output Total 825 Balance 2036 -233 Weight 97 kg 96.3 kg Physical Exam: General appearance: PRESENT: no acute distress, obese Head exam: PRESENT: atraumatic, normocephalic Eye exam: PRESENT: conjunctiva pink. ABSENT: pallor, scleral icterus Mouth exam: PRESENT: moist Respiratory exam: PRESENT: clear to auscultation pradeep, decreased breath sounds - at lung bases Cardiovascular exam: PRESENT: RRR. ABSENT: diastolic murmur, rubs, systolic murmur GI/Abdominal exam: PRESENT: normal bowel sounds, soft. ABSENT: distended, guarding, mass, organomegaly, rebound, tenderness Extremities exam: ABSENT: pedal edema Musculoskeletal exam: PRESENT: normal inspection Neurological exam: PRESENT: alert, awake, oriented to person, oriented to place, oriented to time, oriented to situation, CN II-XII grossly intact. ABSENT: motor sensory deficit Psychiatric exam: PRESENT: appropriate affect, normal mood. ABSENT: homicidal ideation, suicidal ideation Skin exam: PRESENT: dry, warm, keloid lesions on chest wall Results Laboratory Results: 10/19/18 04:56 10/19/18 04:56 10/15/18 17:06 Troponin I < 0.012 NT-Pro-B Natriuret Pep 477 H Impressions: Chest X-Ray 10/15/18 16:56 IMPRESSION: Borderline heart size without pulmonary edema. Cannot exclude left lower lobe pneumonia. Assessment & Plan - Diagnosis (1) COPD with acute exacerbation Is this a current diagnosis for this admission?: Yes (2) Left lower lobe pneumonia Qualifiers: Pneumonia type: due to unspecified organism Qualified Code(s): J18.1 - Lobar pneumonia, unspecified organism Is this a current diagnosis for this admission?: Yes (3) Acute kidney injury superimposed on chronic kidney disease Is this a current diagnosis for this admission?: Yes (4) Hyperkalemia Is this a current diagnosis for this admission?: Yes (5) HTN (hypertension) Qualifiers: Hypertension type: essential hypertension Qualified Code(s): I10 - Essential (primary) hypertension Is this a current diagnosis for this admission?: Yes (6) CAD (coronary artery disease) Qualifiers: Coronary Disease-Associated Artery/Lesion type: [place] artery Associated angina: without angina Is this a current diagnosis for this admission?: Yes (7) HLD (hyperlipidemia) Qualifiers: Hyperlipidemia type: unspecified Qualified Code(s): E78.5 - Hyperlipidemia, unspecified Is this a current diagnosis for this admission?: Yes (8) S/P CABG (coronary artery bypass graft) Is this a current diagnosis for this admission?: Yes (9) Old [place] (myocardial infarction) Is this a current diagnosis for this admission?: Yes (10) Seizure disorder Is this a current diagnosis for this admission?: Yes (11) EDNA (obstructive sleep apnea) Is this a current diagnosis for this admission?: Yes - Time Time Spent with patient: 25-34 minutes Medications reviewed and adjusted accordingly: Yes Anticipated discharge: SNF Within: Other - Inpatient Certification Based on my medical assessment, after consideration of the patient's comorbiditi es, presenting symptoms, or acuity I expect that the services needed warrant INPATIENT care.: Yes I certify that my determination is in accordance with my understanding of [facility]'s requirements for reasonable and necessary INPATIENT services [42 CFR 412.3e].: Yes Medical Necessity: Significant Comorbidiites Make Outpatient Treatment Too Risky, Need Close Monitoring Due to Risk of Patient Decompensation, Need For IV Fluids, Need For Continuous Telemetry Monitoring, Need for Nebulizer Therapy and Monitoring of Response, Risk of Complication if Not Cared For in Hospital, Risk of Diagnosis Which Will Require Inpatient Eval/Care/Monitoring Post Hospital Care: D/C or Transfer Summary - Plan Summary Plan Summary: D/C IV Solu Medrol. Start on Prednisone 10mg p.o daily. Maintain on IV fluid support. Obtain BMP in AM. Continue all other current mediation management. I discussed possible transfer to SNF for short term rehabilitation when he is clinically cleared.
[2018-10-20] MEDS: ATORVASTATIN CALCIUM 10 MG TABLET PO SCH (21:45)
[2018-10-20] MEDS: LEVOFLOXACIN 250 MG TABLET PO SCH (21:52)
[2018-10-21 05:23] LABS: HEMATOCRIT 46.5 % (37.9-51.0); HEMOGLOBIN 15.7 g/dL (13.5-17.0); MEAN CORPUSCULAR HEMOGLOBIN 30.1 pg (27.0-33.4); MEAN CORPUSCULAR HGB CONC 33.7 g/dL (32.0-36.0); MEAN CORPUSCULAR VOLUME 89 fl (80-97); PLATELET COUNT 161 10^3/uL (150-450); RED BLOOD COUNT 5.21 10^6/uL (4.35-5.55); WHITE BLOOD COUNT 11.9 10^3/uL (4.0-10.5)
[2018-10-21 05:50] LABS: ANION GAP 5 (5-19); BLOOD UREA NITROGEN 40 mg/dL (7-20); CALCIUM 8.9 mg/dL (8.4-10.2); CARBON DIOXIDE 23 mmol/L (22-30); CHLORIDE 110 mmol/L (98-107); GLUCOSE 102 mg/dL (75-110); SODIUM 137.6 mmol/L (137-145)
[2018-10-21 05:56] LABS: ABSOLUTE LYMPHOCYTES# (MANUAL) 3.5 10^3/uL (0.5-4.7); ABSOLUTE NEUTROPHILS# (MANUAL) 7.5 10^3/uL (1.7-8.2); BAND NEUTROPHILS % (MANUAL) 5 % (3-5); BASOPHILS % (MANUAL) 0 % (0-2); EOSINOPHILS % (MANUAL) 0 % (0-6); LYMPHOCYTES % (MANUAL) 28 % (13-45); MONOCYTES % (MANUAL) 8 % (3-13); SEGMENTED NEUTROPHILS % (MAN) 58 % (42-78); TOTAL CELLS COUNTED 100
[2018-10-21 05:57] LABS: PLATELET COMMENT ADEQUATE; RBC MORPHOLOGY COMMENT NORMO-CYTIC/CHROMIC
[2018-10-21] MEDS: SOTALOL HCL 80 MG TABLET PO SCH ×2 (09:55→21:19)
[2018-10-21] MEDS: LEVETIRACETAM 500 MG TABLET PO SCH ×2 (09:55→21:18)
[2018-10-21] MEDS: ASPIRIN 325 MG TABLET, ENT COATED PO SCH (09:55)
[2018-10-21] MEDS: METOPROLOL TARTRATE 50 MG TABLET PO SCH ×2 (09:55→21:20)
[2018-10-21] MEDS: AMLODIPINE BESYLATE 5 MG TABLET PO SCH ×2 (09:55→21:18)
[2018-10-21] MEDS: DOCUSATE SODIUM 100 MG CAPSULE PO SCH ×2 (09:55→17:31)
[2018-10-21] MEDS: FLUTICASONE/UMECLIDIN/VILANTER 100-62.5-25 MCG/DOSE IH SCH (09:55)
[2018-10-21] MEDS: DIVALPROEX SODIUM 500 MG TAB.SR.24H PO SCH ×2 (09:55→21:19)
[2018-10-21] MEDS: NORMAL SALINE 1000 ML 1,000 ML IV PRN (14:30)
[2018-10-21] MEDS: TAMSULOSIN HCL 0.4 MG CAP.SR.24H PO SCH (17:31)
--- NOTE | 2018-10-21 18:14 | PDOC PROGRESS REPORT ---
Subjective Progress Note for:: 10/21/18 Subjective:: Patient denied chest pain or difficulty with breathing. No fever or chills. No abdominal pain, nausea, or vomiting. Reason For Visit: EXCERBATED COPD, LLL PNEUMONIA, MARY ON SUPERIMPOSE Physical Exam Vital Signs: Temp Pulse Resp BP Pulse Ox 98.0 F 51 L 14 152/66 H 99 10/21/18 07:21 10/21/18 07:21 10/21/18 07:21 10/21/18 07:21 10/21/18 07:21 Intake & Output 10/20/18 10/21/18 10/22/18 06:59 06:59 06:59 Intake Total 1592 537 Output Total 825 1025 Balance 767 -488 Weight 96.3 kg 97 kg Physical Exam: General appearance: PRESENT: no acute distress, obese Head exam: PRESENT: atraumatic, normocephalic Eye exam: PRESENT: conjunctiva pink. ABSENT: pallor, scleral icterus Mouth exam: PRESENT: moist Respiratory exam: PRESENT: clear to auscultation pradeep, decreased breath sounds - at lung bases Cardiovascular exam: PRESENT: RRR. ABSENT: diastolic murmur, rubs, systolic murmur GI/Abdominal exam: PRESENT: normal bowel sounds, soft. ABSENT: distended, guarding, mass, organomegaly, rebound, tenderness Extremities exam: ABSENT: pedal edema Musculoskeletal exam: PRESENT: normal inspection Neurological exam: PRESENT: alert, awake, oriented to person, oriented to place, oriented to time, oriented to situation, CN II-XII grossly intact. ABSENT: motor sensory deficit Psychiatric exam: PRESENT: appropriate affect, normal mood. ABSENT: homicidal ideation, suicidal ideation Skin exam: PRESENT: dry, warm, keloid lesions on chest wall Results Laboratory Results: 10/21/18 05:01 10/21/18 05:01 10/21/18 10/21/18 05:01 05:01 WBC 11.9 H RBC 5.21 Hgb 15.7 Hct 46.5 MCV 89 MCH 30.1 MCHC 33.7 RDW 14.0 Plt Count 161 Seg Neutrophils % Not Reportable Lymphocytes % Not Reportable Monocytes % Not Reportable Eosinophils % Not Reportable Basophils % Not Reportable Absolute Neutrophils Not Reportable Absolute Lymphocytes Not Reportable Absolute Monocytes Not Reportable Absolute Eosinophils Not Reportable Absolute Basophils Not Reportable Sodium 137.6 Potassium 5.0 Chloride 110 H Carbon Dioxide 23 Anion Gap 5 BUN 40 H Creatinine 1.49 H Est GFR ( Amer) 55 L Est GFR (Non-Af Amer) 46 L Glucose 102 Calcium 8.9 Magnesium 2.0 10/15/18 17:06 Troponin I < 0.012 NT-Pro-B Natriuret Pep 477 H Impressions: Chest X-Ray 10/15/18 16:56 IMPRESSION: Borderline heart size without pulmonary edema. Cannot exclude left lower lobe pneumonia. Assessment & Plan - Diagnosis (1) COPD with acute exacerbation Is this a current diagnosis for this admission?: Yes Plan: Patient is not on home oxygen for COPD management. (2) Left lower lobe pneumonia Qualifiers: Pneumonia type: due to unspecified organism Qualified Code(s): J18.1 - Lobar pneumonia, unspecified organism Is this a current diagnosis for this admission?: Yes Plan: Continue Levofloxacin coverage. (3) Acute kidney injury superimposed on chronic kidney disease Is this a current diagnosis for this admission?: Yes Plan: Improving renal indices. Continue IV fluid support. F/up on BMP in AM. (4) Hyperkalemia Is this a current diagnosis for this admission?: Yes (5) HTN (hypertension) Qualifiers: Hypertension type: essential hypertension Qualified Code(s): I10 - Essential (primary) hypertension Is this a current diagnosis for this admission?: Yes (6) CAD (coronary artery disease) Qualifiers: Coronary Disease-Associated Artery/Lesion type: [place] artery Associated angina: without angina Is this a current diagnosis for this admission?: Yes (7) HLD (hyperlipidemia) Qualifiers: Hyperlipidemia type: unspecified Qualified Code(s): E78.5 - Hyperlipidemia, unspecified Is this a current diagnosis for this admission?: Yes (8) S/P CABG (coronary artery bypass graft) Is this a current diagnosis for this admission?: Yes (9) Old [place] (myocardial infarction) Is this a current diagnosis for this admission?: Yes (10) Seizure disorder Is this a current diagnosis for this admission?: Yes (11) EDNA (obstructive sleep apnea) Is this a current diagnosis for this admission?: Yes - Time Time Spent with patient: 25-34 minutes Medications reviewed and adjusted accordingly: Yes Anticipated discharge: SNF Within: Other - Inpatient Certification Based on my medical assessment, after consideration of the patient's comorbidities, presenting symptoms, or acuity I expect that the services needed warrant INPATIENT care.: Yes I certify that my determination is in accordance with my understanding of Medicare's requirements for reasonable and necessary INPATIENT services [42 CFR 412.3e].: Yes Medical Necessity: Significant Comorbidiites Make Outpatient Treatment Too Risky, Need Close Monitoring Due to Risk of Patient Decompensation, Need For IV Fluids, Need For Continuous Telemetry Monitoring, Need for Nebulizer Therapy and Monitoring of Response, Risk of Complication if Not Cared For in Hospital, Risk of Diagnosis Which Will Require Inpatient Eval/Care/Monitoring Post Hospital Care: D/C or Transfer Summary - Plan Summary Plan Summary: Continue IV fluid support. Obtain BMP in AM. D/C Prednisone. Start on Trelegy 1 puff po daily. Maintain on all other current medication management.
[2018-10-21] MEDS: ATORVASTATIN CALCIUM 10 MG TABLET PO SCH (21:18)
[2018-10-21] MEDS: LEVOFLOXACIN 250 MG TABLET PO SCH (21:19)
[2018-10-22 05:12] LABS: HEMATOCRIT 45.2 % (37.9-51.0); HEMOGLOBIN 15.4 g/dL (13.5-17.0); MEAN CORPUSCULAR HEMOGLOBIN 30.6 pg (27.0-33.4); MEAN CORPUSCULAR HGB CONC 34.1 g/dL (32.0-36.0); MEAN CORPUSCULAR VOLUME 90 fl (80-97); PLATELET COUNT 150 10^3/uL (150-450); RED BLOOD COUNT 5.05 10^6/uL (4.35-5.55); RED CELL DISTRIBUTION WIDTH 14.4 % (11.5-14.0)
[2018-10-22 05:37] LABS: ANION GAP 6 (5-19); BLOOD UREA NITROGEN 34 mg/dL (7-20); CALCIUM 8.5 mg/dL (8.4-10.2); CARBON DIOXIDE 24 mmol/L (22-30); CHLORIDE 108 mmol/L (98-107); GLUCOSE 98 mg/dL (75-110); POTASSIUM 4.8 mmol/L (3.6-5.0); SODIUM 138.4 mmol/L (137-145)
[2018-10-22 05:53] LABS: ABSOLUTE LYMPHOCYTES# (MANUAL) 2.1 10^3/uL (0.5-4.7); ABSOLUTE NEUTROPHILS# (MANUAL) 6.9 10^3/uL (1.7-8.2); BASOPHILS % (MANUAL) 0 % (0-2); EOSINOPHILS % (MANUAL) 0 % (0-6); HYPOCHROMASIA SLIGHT; LYMPHOCYTES % (MANUAL) 21 % (13-45); MONOCYTES % (MANUAL) 10 % (3-13); POLYCHROMASIA SLIGHT; SEGMENTED NEUTROPHILS % (MAN) 69 % (42-78); TOTAL CELLS COUNTED 100
[2018-10-22 05:54] LABS: ANISOCYTOSIS SLIGHT; PLATELET COMMENT ADEQUATE
[2018-10-22] MEDS: ASPIRIN 325 MG TABLET, ENT COATED PO SCH (10:05)
[2018-10-22] MEDS: DOCUSATE SODIUM 100 MG CAPSULE PO SCH ×2 (10:05→17:20)
[2018-10-22] MEDS: METOPROLOL TARTRATE 50 MG TABLET PO SCH ×2 (10:05→21:48)
[2018-10-22] MEDS: LEVETIRACETAM 500 MG TABLET PO SCH ×2 (10:05→21:48)
[2018-10-22] MEDS: AMLODIPINE BESYLATE 5 MG TABLET PO SCH ×2 (10:05→21:46)
[2018-10-22] MEDS: DIVALPROEX SODIUM 500 MG TAB.SR.24H PO SCH ×2 (10:06→21:45)
[2018-10-22] MEDS: SOTALOL HCL 80 MG TABLET PO SCH ×2 (10:06→21:48)
[2018-10-22] MEDS: FLUTICASONE/UMECLIDIN/VILANTER 100-62.5-25 MCG/DOSE IH SCH (10:06)
[2018-10-22] MEDS: NORMAL SALINE 1000 ML 1,000 ML IV PRN (15:40)
[2018-10-22] MEDS: ENOXAPARIN SODIUM INJ 40 MG/0.4 ML DISP.SYRIN SUBCUT SCH (16:09)
[2018-10-22] MEDS: TAMSULOSIN HCL 0.4 MG CAP.SR.24H PO SCH (17:20)
[2018-10-22] MEDS: LEVOFLOXACIN 250 MG TABLET PO SCH (21:45)
[2018-10-22] MEDS: ATORVASTATIN CALCIUM 10 MG TABLET PO SCH (21:48)
--- NOTE | 2018-10-23 08:29 | PDOC TRANSFER SUMMARY ---
General - Admit/Disc Date/PCP Admission Date/Primary Care Provider: 10/15/18 22:07 ARISTEOBLANQUITA AVILEZ Discharge Date: 10/22/18 - Discharge Diagnosis (1) COPD with acute exacerbation Is this a current diagnosis for this admission?: Yes (2) Left lower lobe pneumonia Is this a current diagnosis for this admission?: Yes (3) Acute kidney injury superimposed on chronic kidney disease Is this a current diagnosis for this admission?: Yes (4) Hyperkalemia Is this a current diagnosis for this admission?: Yes (5) HTN (hypertension) Is this a current diagnosis for this admission?: Yes (6) CAD (coronary artery disease) Is this a current diagnosis for this admission?: Yes (7) HLD (hyperlipidemia) Is this a current diagnosis for this admission?: Yes (8) S/P CABG (coronary artery bypass graft) Is this a current diagnosis for this admission?: Yes (9) Old [place] (myocardial infarction) Is this a current diagnosis for this admission?: Yes (10) Seizure disorder Is this a current diagnosis for this admission?: Yes (11) EDNA (obstructive sleep apnea) Is this a current diagnosis for this admission?: Yes (12) Chronic respiratory failure with hypoxia, on home O2 therapy Is this a current diagnosis for this admission?: Yes - Additional Information Resuscitation Status: Full Code Discharge Activity: Activity As Tolerated, Slowly Increase Activity, Supervised Activity Prescriptions: Fluticasone/Umeclidin/Vilanter [Trelegy 100-62.5-25 Mcg Ellipta 14 Dose/Dpi] 1 inh IH DAILY #1 inhaler Ipratropium/Albuterol Sulfate [Combivent Respimat 4 gm Mdi] 1 puff IH Q6 #1 [email or web address] Home Medications: Amlodipine Besylate [Norvasc 5 mg Tablet] 5 mg PO Q12 10/16/18 Aspirin [Ecotrin 325 mg EC Tablet] 325 mg PO DAILY 10/16/18 Atorvastatin Calcium [Lipitor 10 mg Tablet] 10 mg PO QHS 10/16/18 Divalproex Sodium [Depakote] 500 mg PO Q12 10/16/18 Docusate Sodium [Colace 100 mg Capsule] 100 mg PO BID 10/16/18 Esomeprazole Magnesium 40 mg PO DAILY 10/16/18 Irbesartan [Avapro] 300 mg PO DAILY 10/16/18 Levetiracetam [Keppra 500 mg Tablet] 1,000 mg PO Q12 10/16/18 Magnesium Oxide [Mag-Ox 400 mg Tablet] 400 mg PO DAILY 10/16/18 Metoprolol Tartrate [Lopressor 50 mg Tablet] 50 mg PO Q12 10/16/18 Sotalol HCl [Betapace 80 mg Tablet] 80 mg PO Q12 10/16/18 Tamsulosin HCl [Flomax 0.4 mg Cap.sr] 0.4 mg PO QPM 10/16/18 Fluticasone/Umeclidin/Vilanter [Trelegy 100-62.5-25 Mcg Ellipta 14 Dose/Dpi] 1 inh IH DAILY #1 inhaler 10/22/18 Ipratropium/Albuterol Sulfate [Combivent Respimat 4 gm Mdi] 1 puff IH Q6 #1 aer.w.adap 10/22/18 History of Present Illness Admission Date/PCP: 10/15/18 22:07 ARISTEO RAGHAV Patient complains of: Worsening difficulty with breathing History of Present Illness: RUPINDER WREN JR is a 78 year old male patient known to my practice who presented to the ED via EMS service due to worsening difficulty with breathing over last several days. His shortness of breath is worsen by exertion. Family at bedside reported that patient was noncompliant with his medication and CPAP device usage at home. Patient admitted to coughing spells with minimal sputum production. He denied cigarette smoking, fever, or chills. He denied any overt chest pain or palpitation. His field evaluation by EMS personnel reported hypoxemia with oxygen saturation at 86% on room air. Patient reported minimal benefits from nebulizer therapy. His initial ED evaluation revealed possible left lower lobe air space disease process, acute on chronic renal impairment with hyperkalemia, and abnormal urinalysis. He was advised hospitalization for further evaluation and management. His morbidities include Hypertension, CAD s/p CABG and old Myocadial infarction, Hyperlipidemia, Seizure disorder and Obstructive Sleep Apnea. Hospital Course Hospital Course: Patient was managed with BiPAP support, IV Solu Medrol, and bronchodilators. He was managed with IV Levofloxacin that was eventually transition to oral Levofloxacin due to chest X ray findings suggestive of pneumonia. His renal indices did suggest acute renal injury that was managed with IV fluid support. His serum creatinine level and eGFR did show progressive improvement and presently at 1.45 mg/dl and 57 ml/min. He did participate in physical therapy sessions and agreeable to short term rehabilitation program placement. He will follow up in the office as instructed before discharged from the longterm facility. [facility] staff should call my office at [phone] for appointment. Patient reported use of supplemental oxygen 2L/min at night time. Due to continuos usage during his hospitalization., I will recommend to continue usage while sleeping and on prn bases as needed during daytime. Physical Exam Vital Signs: Temp Pulse Resp BP Pulse Ox 97.9 F 61 16 131/73 H 96 10/22/18 11:13 10/22/18 11:13 10/22/18 11:13 10/22/18 11:13 10/22/18 11:13 Intake & Output 10/21/18 10/22/18 10/23/18 06:59 06:59 06:59 Intake Total 537 1897 637 Output Total 1025 1650 350 Balance -488 247 287 Weight 97 kg 97.6 kg General appearance: PRESENT: no acute distress, obese Head exam: PRESENT: atraumatic, normocephalic Eye exam: PRESENT: conjunctiva pink. ABSENT: pallor, scleral icterus Mouth exam: PRESENT: moist Respiratory exam: PRESENT: clear to auscultation pradeep, decreased breath sounds - at lung bases Cardiovascular exam: PRESENT: RRR. ABSENT: diastolic murmur, rubs, systolic murmur GI/Abdominal exam: PRESENT: normal bowel sounds, soft. ABSENT: distended, guarding, mass, organomegaly, rebound, tenderness Extremities exam: ABSENT: pedal edema Musculoskeletal exam: PRESENT: normal inspection Neurological exam: PRESENT: alert, awake, oriented to person, oriented to place, oriented to time, oriented to situation, CN II-XII grossly intact. ABSENT: motor sensory deficit Psychiatric exam: PRESENT: appropriate affect, normal mood. ABSENT: homicidal ideation, suicidal ideation Skin exam: PRESENT: dry, warm, keloid lesions on chest wall Results Laboratory Results: 10/22/18 04:41 10/22/18 04:41 10/22/18 10/22/18 04:41 04:41 WBC 10.0 RBC 5.05 Hgb 15.4 Hct 45.2 MCV 90 MCH 30.6 MCHC 34.1 RDW 14.4 H Plt Count 150 Seg Neutrophils % Not Reportable Lymphocytes % Not Reportable Monocytes % Not Reportable Eosinophils % Not Reportable Basophils % Not Reportable Absolute Neutrophils Not Reportable Absolute Lymphocytes Not Reportable Absolute Monocytes Not Reportable Absolute Eosinophils Not Reportable Absolute Basophils Not Reportable Sodium 138.4 Potassium 4.8 Chloride 108 H Carbon Dioxide 24 Anion Gap 6 BUN 34 H Creatinine 1.45 H Est GFR ( Amer) 57 L Est GFR (Non-Af Amer) 47 L Glucose 98 Calcium 8.5 10/15/18 17:06 Troponin I < 0.012 NT-Pro-B Natriuret Pep 477 H Impressions: Chest X-Ray 10/15/18 16:56 IMPRESSION: Borderline heart size without pulmonary edema. Cannot exclude left lower lobe pneumonia. Transfer Plan - Disposition Transfer Plan: Patient will be transferred to the [place], [place] for short term rehabilitation. - Time Spent with Patient Time spent with patient: Less than 30 Minutes Qualifiers - * PATIENT BEING DISCHARGED WITH ANY OF THE FOLLOWING DIAGNOSIS: No Plan Discharge Plan: Transfer to the [place], [place] tomorrow morning. Time Spent: Greater than 30 Minutes
[2018-10-23 08:34] VITALS: BP 140/78
[2018-10-23] MEDS: ENOXAPARIN SODIUM INJ 40 MG/0.4 ML DISP.SYRIN SUBCUT SCH (09:14)
[2018-10-23] MEDS: METOPROLOL TARTRATE 50 MG TABLET PO SCH (09:14)
[2018-10-23] MEDS: FLUTICASONE/UMECLIDIN/VILANTER 100-62.5-25 MCG/DOSE IH SCH (09:14)
[2018-10-23] MEDS: SOTALOL HCL 80 MG TABLET PO SCH (09:14)
[2018-10-23] MEDS: DOCUSATE SODIUM 100 MG CAPSULE PO SCH (09:14)
[2018-10-23] MEDS: ASPIRIN 325 MG TABLET, ENT COATED PO SCH (09:14)
[2018-10-23] MEDS: AMLODIPINE BESYLATE 5 MG TABLET PO SCH (09:14)
[2018-10-23] MEDS: DIVALPROEX SODIUM 500 MG TAB.SR.24H PO SCH (09:14)
[2018-10-23] MEDS: LEVETIRACETAM 500 MG TABLET PO SCH (09:14)
== END 2018-10-23 09:47 | DRG 190 ==
LOC: ER 16:53 → EH 22:07 → 3S 23:21
PROVIDERS: ADMIT Internal Medicine Geriatric Medicine; ATTEND Internal Medicine Geriatric Medicine
PROC: 5A09557 Assistance with Respiratory Ventilation, Greater than 96 Consecutive Hours, Continuous Positive Airway Pressure (ICD-10-PCS; principal; 2018-10-15)
PROC: 3E0F73Z Introduction of Anti-inflammatory into Respiratory Tract, Via Natural or Artificial Opening (ICD-10-PCS; 2018-10-16)
DX: J44.1 Chronic obstructive pulmonary disease with (acute) exacerbation (principal); J18.1 Lobar pneumonia, unspecified organism; N17.9 Acute kidney failure, unspecified; J96.11 Chronic respiratory failure with hypoxia; J44.0 Chronic obstructive pulmonary disease with (acute) lower respiratory infection; N18.9 Chronic kidney disease, unspecified; I25.10 Atherosclerotic heart disease of native coronary artery without angina pectoris; E78.5 Hyperlipidemia, unspecified; G47.33 Obstructive sleep apnea (adult) (pediatric); I12.9 Hypertensive chronic kidney disease with stage 1 through stage 4 chronic kidney disease, or unspecified chronic kidney disease; G40.909 Epilepsy, unspecified, not intractable, without status epilepticus; E87.5 Hyperkalemia; I25.2 Old myocardial infarction; Z95.1 Presence of aortocoronary bypass graft; Z99.81 Dependence on supplemental oxygen; Z79.899 Other long term (current) drug therapy; Z91.14 Patient's other noncompliance with medication regimen; Z90.49 Acquired absence of other specified parts of digestive tract; Z87.891 Personal history of nicotine dependence; Z79.82 Long term (current) use of aspirin
CPT/HCPCS: 36415; 71045; 80048; 80053; 81001; 83735; 83880; 84484; 85025; 93005; 93010; 94640; 94660; 96365; 96366; 96375; 99291; J1650; J1956; J2920; J2930; J3490; J7030; J7512; J7620

== ENCOUNTER 2018-11-22 15:42 | Inpatient (IN) | payer MEDICARE ==
[2018-11-22] MEDS ORDERED: FUROSEMIDE INJ/PF 20 MG/2 ML SDV IV ONE (16:23)
[2018-11-22] MEDS ORDERED: IPRATROPIUM/ALBUTEROL 0.5-2.5 MG/3 ML AMPUL NEB ONE (16:23)
--- NOTE | 2018-11-22 16:54 | RADIOLOGY REPORT (SQ) ---
EXAM DESCRIPTION: CT HEAD WITHOUT COMPLETED DATE/TIME: 11/22/2018 4:36 pm REASON FOR STUDY: ams h/o pneumonia COMPARISON: None. TECHNIQUE: Axial images acquired through the brain without intravenous contrast. Images reviewed wi th bone, brain and subdural windows. Additional sagittal and coronal reconstructions were generated. Images stored on PACS. All CT scanners at this facility use dose modulation, iterative reconstruction, and/or weight based d osing when appropriate to reduce radiation dose to as low as reasonably achievable (ALARA). [facility]: Dose Right [facility]: CareDose [facility]: Dose Right [facility]: Teradose 4D [facility]: Smart [employer] RADIATION DOSE: CT Rad equipment meets quality standard of care and radiation dose reduction techniq ues were employed. CTDIvol: 53.2 mGy. DLP: 964 mGy-cm. LIMITATIONS: None. FINDINGS: VENTRICLES: Prominent commensurate with the sulci. The cisterns are patent. Normal size and contour. CEREBRUM: Chronic mild small vessel ischemic changes. No masses. No hemorrhage. No midline shift. No evidence for acute infarction. CEREBELLUM: No masses. No hemorrhage. No alteration of density. No evidence for acute infarction. EXTRAAXIAL SPACES: Mild age related involutional change. No fluid collections. No masses. ORBITS AND GLOBE: No intra- or extraconal masses. Normal contour of globe without masses. CALVARIUM: No fracture. PARANASAL SINUSES: Lobulated contour to the bilateral inferior turbinates, may represent small nasal polyps. Slight deviation of the nasal septum to the left of the midline. SOFT TISSUES: No mass or hematoma. OTHER: Incidentally, partial empty sella is suggested. IMPRESSION: 1. No acute intracranial abnormality. 2. Mild atrophy and chronic small vessel ischemic changes. 3. Lobulated contour to the bilateral inferior terminates, may represent small nasal polyps. EVIDENCE OF ACUTE STROKE: NO. COMMENT: Quality ID # [id number]: Final reports with documentation of one or more dose reduction techniques (e.g., Automated exposure control, adjustment of the mA and/or kV according to patient size, use of iterative reconstruction technique) TECHNICAL DOCUMENTATION: JOB ID: [id number] [employer]- All Rights Reserved Reading location - IP/workstation name: [email or web address]
--- NOTE | 2018-11-22 17:04 | RADIOLOGY REPORT (SQ) ---
EXAM DESCRIPTION: CT CHEST WITHOUT COMPLETED DATE/TIME: 11/22/2018 4:36 pm REASON FOR STUDY: ams h/o pneumonia COMPARISON: CT chest 02/25/2018 AP chest 10/15/2018 TECHNIQUE: CT scan performed of the chest without intravenous contrast. Images reviewed with lung, soft tissue and bone windows. Reconstructed coronal and sagittal MPR images reviewed. All images st ored on PACS. All CT scanners at this facility use dose modulation, iterative reconstruction, and/or weight based d osing when appropriate to reduce radiation dose to as low as reasonably achievable (ALARA). [facility]: Dose Right [facility]: CareDose [facility]: Dose Right [facility]: Teradose 4D [facility]: Smart [facility] RADIATION DOSE: CT Rad equipment meets quality standard of care and radiation dose reduction techniq ues were employed. CTDIvol: 20.4 mGy. DLP: 706 mGy-cm. mGy. LIMITATIONS: No technical limitations. FINDINGS: LUNGS AND PLEURA: Minimal atelectasis at the left lung base. Lungs are otherwise free of focal infiltrates. No pleural effusions. No pneumothorax. HILAR AND MEDIASTINAL STRUCTURES: No identified masses or abnormal nodes. No obvious aneurysm. 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 No pericardial effusion UPPER ABDOMEN: Clips post cholecystectomy. 4 cm left upper pole renal cortical cyst THYROID AND OTHER SOFT TISSUES: No masses. No adenopathy. BONES: No significant finding. HARDWARE: Left-sided pacemaker OTHER: No other significant findings. IMPRESSION: No acute findings TECHNICAL DOCUMENTATION: JOB ID: [id number] Quality ID # [id number]: Final reports with documentation of one or more dose reduction techniques (e.g., Au tomated exposure control, adjustment of the mA and/or kV according to patient size, use of iterative reconstruction technique) 2010 [employer]- All Rights Reserved Reading location - IP/workstation name: [email or web address]
--- NOTE | 2018-11-22 17:48 | ER Document Report ---
ED General - General Chief Complaint: Shortness Of Breath Stated Complaint: DIFFICULTY BREATHING Time Seen by Provider: 11/22/18 16:17 Mode of Arrival: Medic Information source: Relative, [facility] Records Cannot obtain history due to: Altered mental status Notes: 78-year-old male with seizure disorder, atrial fibrillation, hypertension, hyperlipidemia, congestive heart failure, COPD presents via EMS from home with concern for altered mental status. Friend is at the bedside and states that the patient's home health nurse called when the patient was confused and unresp onsive. Daughter presented to the bedside later and states that the patient was admitted to [facility] on October 22, 2018 for pneumonia. He was discharged home to a rehab facility in [place] and returned home approximately 5 days ago. She states since that time the patient has not been able to care from himself, feed himself or perform any activities independently. TRAVEL OUTSIDE OF THE [place] IN LAST 30 DAYS: No - HPI Onset: Just prior to arrival Onset/Duration: Intermittent - Related Data Allergies/Adverse Reactions: No Known Allergies Allergy (Verified 03/21/18 09:53) Past Medical History - General Information source: Relative, Friend, [facility] Records Cannot obtain history due to: Altered mental status - Social History Smoking Status: Former Smoker Frequency of alcohol use: None Drug Abuse: None Lives with: Family Family History: Reviewed & Not Pertinent - Past Medical History Cardiac Medical History: Reports: Hx Atrial Fibrillation, Hx Congestive Heart Failure, Hx Heart Attack, Hx Hypercholesterolemia, Hx Hypertension Pulmonary Medical History: Reports: Hx Bronchitis, Hx COPD, Hx Pneumonia Denies: Hx Asthma Renal/ Medical History: Denies: Hx Peritoneal Dialysis GI Medical History: Reports: Hx Gastroesophageal Reflux Disease Psychiatric Medical History: Denies: Hx Depression Past Surgical History: Reports: Hx Cardiac Catheterization, Hx Cholecystectomy. Denies: Hx Pacemaker - Immunizations Hx Diphtheria, Pertussis, Tetanus Vaccination: Yes Hx Pneumococcal Vaccination: 07/12/10 Review of Systems - Review of Systems -: Yes ROS unobtainable due to patient's medical condition Physical Exam - Vital signs Vitals: Temp Pulse Resp BP 97.6 F 55 L 13 95/60 L 11/22/18 16:19 11/22/18 16:19 11/22/18 16:19 11/22/18 16:19 - Notes Notes: PHYSICAL EXAMINATION: GENERAL: Somnolent, arousable but confused, no acute distress ill-appearing but not toxic HEAD: Atraumatic, normocephalic. EYES: Pupils equal round and reactive to light, extraocular movements intact, sclera anicteric, conjunctiva are normal. ENT: Nares patent, oropharynx clear without exudates. Dry mucous membranes. NECK: Normal range of motion, supple without lymphadenopathy LUNGS: Breath sounds clear to auscultation bilaterally and equal. No wheezes rales or rhonchi. HEART: Regular rate and rhythm without murmurs ABDOMEN: Soft, nontender, nondistended abdomen. No guarding, no rebound. No masses appreciated. Musculoskeletal: Normal range of motion, no pitting or edema. No cyanosis. NEUROLOGICAL: GCS 12 PSYCH: Nonverbal SKIN: Warm, Dry, normal turgor, no rashes or lesions noted. Course - Re-evaluation Re-evalutation: Laboratory 11/22/18 11/22/18 11/22/18 15:56 16:25 17:40 WBC 7.0 RBC 4.70 Hgb 14.2 Hct 42.3 MCV 90 MCH 30.1 MCHC 33.5 RDW 14.4 H Plt Count 173 Seg Neutrophils % 67.2 Lymphocytes % 19.7 Monocytes % 12.0 Eosinophils % 0.5 Basophils % 0.6 Absolute Neutrophils 4.7 Absolute Lymphocytes 1.4 Absolute Monocytes 0.8 Absolute Eosinophils 0.0 Absolute Basophils 0.0 PT INR VBG pH VBG pCO2 VBG HCO3 VBG Base Excess Sodium Potassium Chloride Carbon Dioxide Anion Gap BUN Creatinine Est GFR ( Amer) Est GFR (Non-Af Amer) Glucose POC Glucose 92 Lactic Acid Calcium Total Bilirubin Direct Bilirubin Neonat Total Bilirubin Neonat Direct Bilirubin Neonat Indirect Bili AST ALT Alkaline Phosphatase Troponin I Total Protein Albumin Urine Color YELLOW Urine Appearance SLIGHTLY-CLOUDY Urine pH 5.0 Ur Specific [place] 1.020 Urine Protein NEGATIVE Urine Glucose (UA) NEGATIVE Urine Ketones TRACE H Urine Blood NEGATIVE Urine Nitrite NEGATIVE Urine Bilirubin NEGATIVE Urine Urobilinogen NEGATIVE Ur Leukocyte Esterase NEGATIVE Urine WBC (Auto) 8 Urine RBC (Auto) 2 U Hyaline Cast (Auto) 24 Squamous Epi Cells Auto <1 Urine Mucus (Auto) OCC Urine Ascorbic Acid NEGATIVE Urine Opiates Screen Urine Methadone Screen Ur Barbiturates Screen Ur Phencyclidine Scrn Ur Amphetamines Screen U Benzodiazepines Scrn Urine Cocaine Screen U Marijuana (THC) Screen 11/22/18 11/22/18 11/22/18 17:40 17:50 17:50 WBC RBC Hgb Hct MCV MCH MCHC RDW Plt Count Seg Neutrophils % Lymphocytes % Monocytes % Eosinophils % Basophils % Absolute Neutrophils Absolute Lymphocytes Absolute Monocytes Absolute Eosinophils Absolute Basophils PT 13.3 INR 0.96 VBG pH VBG pCO2 VBG HCO3 VBG Base Excess Sodium 139.8 Potassium 4.4 Chloride 104 Carbon Dioxide 25 Anion Gap 11 BUN 31 H Creatinine 2.45 H Est GFR ( Amer) 31 L Est GFR (Non-Af Amer) 26 L Glucose 90 POC Glucose Lactic Acid Calcium 9.2 Total Bilirubin 0.7 Direct Bilirubin 0.2 Neonat Total Bilirubin Not Reportable Neonat Direct Bilirubin Not Reportable Neonat Indirect Bili Not Reportable AST 16 L ALT 24 Alkaline Phosphatase 104 Troponin I Total Protein 7.3 Albumin 3.7 Urine Color Urine Appearance Urine pH Ur Specific [place] Urine Protein Urine Glucose (UA) Urine Ketones Urine Blood Urine Nitrite Urine Bilirubin Urine Urobilinogen Ur Leukocyte Esterase Urine WBC (Auto) Urine RBC (Auto) U Hyaline Cast (Auto) Squamous Epi Cells Auto Urine Mucus (Auto) Urine Ascorbic Acid Urine Opiates Screen NEGATIVE Urine Methadone Screen NEGATIVE Ur Barbiturates Screen NEGATIVE Ur Phencyclidine Scrn NEGATIVE Ur Amphetamines Screen NEGATIVE U Benzodiazepines Scrn NEGATIVE Urine Cocaine Screen NEGATIVE U Marijuana (THC) Screen NEGATIVE 11/22/18 11/22/18 11/22/18 17:50 17:50 17:50 WBC RBC Hgb Hct MCV MCH MCHC RDW Plt Count Seg Neutrophils % Lymphocytes % Monocytes % Eosinophils % Basophils % Absolute Neutrophils Absolute Lymphocytes Absolute Monocytes Absolute Eosinophils Absolute Basophils PT INR VBG pH 7.34 VBG pCO2 45.8 VBG HCO3 24.4 VBG Base Excess -1.6 Sodium Potassium Chloride Carbon Dioxide Anion Gap BUN Creatinine Est GFR ( Amer) Est GFR (Non-Af Amer) Glucose POC Glucose Lactic Acid 0.8 Calcium Total Bilirubin Direct Bilirubin Neonat Total Bilirubin Neonat Direct Bilirubin Neonat Indirect Bili AST ALT Alkaline Phosphatase Troponin I < 0.012 Total Protein Albumin Urine Color Urine Appearance Urine pH Ur Specific [place] Urine Protein Urine Glucose (UA) Urine Ketones Urine Blood Urine Nitrite Urine Bilirubin Urine Urobilinogen Ur Leukocyte Esterase Urine WBC (Auto) Urine RBC (Auto) U Hyaline Cast (Auto) Squamous Epi Cells Auto Urine Mucus (Auto) Urine Ascorbic Acid Urine Opiates Screen Urine Methadone Screen Ur Barbiturates Screen Ur Phencyclidine Scrn Ur Amphetamines Screen U Benzodiazepines Scrn Urine Cocaine Screen U Marijuana (THC) Screen Chest CT 11/22/18 16:18 IMPRESSION: No acute findings Head CT 11/22/18 16:18 IMPRESSION: 1. No acute intracranial abnormality. 2. Mild atrophy and chronic small vessel ischemic changes. 3. Lobulated contour to the bilateral inferior terminates, may represent small nasal polyps. EVIDENCE OF ACUTE STROKE: NO. CBC shows no leukocytosis or anemia. CMP does show an acute kidney injury with a creatinine of 2.45 which is an increase from labs drawn in October with a crea tinine of 1.45. Patient has been observed in the emergency department with for several hours without a improvement in his mental status. 11/22/18 17:59 I did call the patient's power of assistant attorney general Odilia El at [phone]. I did let her know that it is possible that her father had a seizure earlier today has he is becoming more awake and alert. 11/22/18 21:06 78-year-old male presents via EMS altered. Friend is at the bedside and states that he has been somnolent for for 5 days since returning home from rehabilitation. Patient unable to give me any history. He is arousable but nonverbal. Appears to be postictal. CBC shows no leukocytosis or anemia. CMP does show an acute kidney injury with a creatinine of 2.45 which is an increase from labs drawn in October with a creatinine of 1.45. Patient has been observed in the emergency department with for several hours without a improvement in his mental status. Patient did receive gentle hydration. I did speak to the primary care physician Dr. Cano who advises ABG and if it showed patient retaining CO2 that he should be placed on BiPAP. This was within normal limits. CT of the head was obtained and showed no evidence of acute stroke. CT of the chest was obtained and showed no evidence of pleural effusion, pneumonia. Cristian finnegan will be admitted to the [facility]. - Vital Signs Vital signs: Temp Pulse Resp BP Pulse Ox 97.6 F 55 L 20 118/70 90 L 11/22/18 16:19 11/22/18 16:19 11/22/18 20:01 11/22/18 20:01 11/22/18 20:01 - Laboratory Result Diagrams: 11/22/18 15:56 11/22/18 17:50 Laboratory results interpreted by me: 11/22/18 11/22/18 11/22/18 15:56 17:40 17:50 RDW 14.4 H BUN 31 H Creatinine 2.45 H Est GFR ( Amer) 31 L Est GFR (Non-Af Amer) 26 L AST 16 L Urine Ketones TRACE H - Diagnostic Test Radiology reviewed: Image reviewed, Reports reviewed - EKG Interpretation by Me EKG shows normal: Sinus rhythm Rate: Normal Rhythm: NSR When compared to previous EKG there are: No significant change Discharge - Discharge Clinical Impression: Acute kidney injury superimposed on chronic kidney disease, Seizure disorder Altered mental status Qualifiers: Altered mental status type: unspecified Qualified Code(s): R41.82 - Altered mental status, unspecified Condition: Good Disposition: HOME, SELF-CARE Admitting Provider: Jerome Unit Admitted: [facility]
[2018-11-22 18:08] LABS: ABSOLUTE LYMPHOCYTES (AUTO) 1.4 10^3/uL (0.5-4.7); ABSOLUTE MONOCYTES (AUTO) 0.8 10^3/uL (0.1-1.4); ABSOLUTE NEUT (AUTO) 4.7 10^3/uL (1.7-8.2); BASOPHILS % (AUTO) 0.6 % (0-2); EOSINOPHILS % (AUTO) 0.5 % (0-6); HEMATOCRIT 42.3 % (37.9-51.0); HEMOGLOBIN 14.2 g/dL (13.5-17.0); LYMPHOCYTES % (AUTO) 19.7 % (13-45); MEAN CORPUSCULAR HEMOGLOBIN 30.1 pg (27.0-33.4); MEAN CORPUSCULAR HGB CONC 33.5 g/dL (32.0-36.0); MEAN CORPUSCULAR VOLUME 90 fl (80-97); PLATELET COUNT 173 10^3/uL (150-450); RED CELL DISTRIBUTION WIDTH 14.4 % (11.5-14.0); SEGMENTED NEUTROPHILS % (AUTO) 67.2 % (42-78); TOTAL CELLS COUNTED % (AUTO) 100 %
[2018-11-22 18:11] LABS: VENOUS BLOOD BASE EXCESS -1.6 mmol/L; VENOUS BLOOD HCO3 24.4 mmol/L (20-32); VENOUS BLOOD PCO2 45.8 mmHg (35-63); VENOUS BLOOD PH 7.34 (7.30-7.42)
[2018-11-22 18:13] LABS: INTERNATIONAL RATION (INR) 0.96; PROTHROMBIN TIME 13.3 SEC (11.4-15.4)
[2018-11-22 18:30] LABS: ALANINE AMINOTRANSFERASE 24 U/L (21-72); ALBUMIN 3.7 g/dL (3.5-5.0); ALKALINE PHOSPHATASE 104 U/L (38-126); ANION GAP 11 (5-19); ASPARTATE AMINO TRANSFERASE 16 U/L (17-59); BILIRUBIN,DIRECT 0.2 mg/dL (0.0-0.4); BILIRUBIN,TOTAL 0.7 mg/dL (0.2-1.3); BLOOD UREA NITROGEN 31 mg/dL (7-20); CALCIUM 9.2 mg/dL (8.4-10.2); CARBON DIOXIDE 25 mmol/L (22-30); CHLORIDE 104 mmol/L (98-107); GLUCOSE 90 mg/dL (75-110); POTASSIUM 4.4 mmol/L (3.6-5.0); SODIUM 139.8 mmol/L (137-145); TOTAL PROTEIN 7.3 g/dL (6.3-8.2)
[2018-11-22 18:31] LABS: APPEARANCE,URINE SLIGHTLY-CLOUDY; BILIRUBIN,URINE NEGATIVE (NEGATIVE); GLUCOSE, URINE NEGATIVE (NEGATIVE); KETONES,URINE TRACE mg/dL (NEGATIVE); LEUKOCYTE ESTERASE,URINE NEGATIVE (NEGATIVE); NITRITE,URINE NEGATIVE (NEGATIVE); PROTEIN,URINE NEGATIVE (NEGATIVE); UROBILINOGEN,URINE NEGATIVE mg/dL (<2.0)
[2018-11-22 18:33] LABS: COLOR,URINE YELLOW
[2018-11-22] MEDS ORDERED: RINGERS SOLUTION,LACTATED 1,000 ML IV ONE (18:42)
[2018-11-22 19:50] LABS: URINE AMPHETAMINES SCREEN NEGATIVE; URINE BARBITURATES SCREEN NEGATIVE; URINE BENZODIAZEPINES SCREEN NEGATIVE; URINE COCAINE SCREEN NEGATIVE; URINE MARIJUANA (THC) SCREEN NEGATIVE; URINE METHADONE SCREEN NEGATIVE; URINE PHENCYCLIDINE SCREEN NEGATIVE
--- NOTE | 2018-11-22 20:42 | EKG REPORT ---
SEVERITY:- ABNORMAL ECG - SINUS RHYTHM ATRIAL PREMATURE COMPLEX PROBABLE LEFT ATRIAL ABNORMALITY ABNORMAL T, CONSIDER ISCHEMIA, ANT-LAT LEADS : Confirmed by: Sabina Moon MD 22-Nov-2018 20:41:09
[2018-11-22 20:58] LABS: ARTERIAL BLOOD BASE EXCESS -1.6 mmol/L; ARTERIAL BLOOD H2CO3 1.22 mmol/L (1.05-1.35); ARTERIAL BLOOD HCO3 23.4 mmol/L (20-24); ARTERIAL BLOOD PCO2 40.6 mmHg (35-45); ARTERIAL BLOOD PH 7.38 (7.35-7.45); ARTERIAL BLOOD PO2 63.7 mmHg (80-100); ARTERIAL BLOOD TOTAL CO2 24.6 mmol/L (23-27)
[2018-11-22 21:00] LABS: ARTERIAL BLOOD FIO2 5L
[2018-11-22] MEDS: NORMAL SALINE 1000 ML 1,000 ML IV PRN (23:49)
[2018-11-22] MEDS ORDERED: LORAZEPAM INJ 2 MG/1 ML VIAL IV PRN (23:51)
[2018-11-23 06:29] LABS: ARTERIAL BLOOD H2CO3 1.28 mmol/L (1.05-1.35); ARTERIAL BLOOD HCO3 22.6 mmol/L (20-24); ARTERIAL BLOOD O2 SATURATION 97.3 % (94-98); ARTERIAL BLOOD PCO2 42.6 mmHg (35-45); ARTERIAL BLOOD PH 7.34 (7.35-7.45); ARTERIAL BLOOD PO2 100.5 mmHg (80-100); ARTERIAL BLOOD TOTAL CO2 23.9 mmol/L (23-27)
[2018-11-23 06:33] LABS: ARTERIAL BLOOD FIO2 4.00 RA
[2018-11-23 09:54] LABS: ANION GAP 13 (5-19); BLOOD UREA NITROGEN 36 mg/dL (7-20); CALCIUM 8.9 mg/dL (8.4-10.2); CARBON DIOXIDE 23 mmol/L (22-30); CHLORIDE 107 mmol/L (98-107); GLUCOSE 80 mg/dL (75-110); POTASSIUM 3.8 mmol/L (3.6-5.0); SODIUM 142.5 mmol/L (137-145)
[2018-11-23] MEDS ORDERED: (PENDING PHARMACY ID) (Divalproex Sodium [Depakote] 500 MG) PO SCH (10:00)
[2018-11-23] MEDS: FLUTICASONE/UMECLIDIN/VILANTER 100-62.5-25 MCG/DOSE IH SCH (10:29)
[2018-11-23] MEDS: DOCUSATE SODIUM 100 MG CAPSULE PO SCH ×2 (10:29→17:18)
[2018-11-23] MEDS: LEVETIRACETAM 500 MG TABLET PO SCH ×2 (12:19→21:33)
[2018-11-23] MEDS: DIVALPROEX SODIUM 250 MG TABLET.DR PO SCH ×2 (12:19→21:33)
[2018-11-23] MEDS: MAGNESIUM OXIDE 400 MG TABLET PO SCH (12:25)
[2018-11-23] MEDS: IPRATROPIUM/ALBUTEROL 120 PUFF/4 GM MDI IH SCH ×2 (12:38→17:17)
[2018-11-23] MEDS: METOPROLOL TARTRATE 50 MG TABLET PO SCH ×2 (13:15→21:34)
[2018-11-23] MEDS: SOTALOL HCL 80 MG TABLET PO SCH (13:15)
[2018-11-23] MEDS: NORMAL SALINE 1000 ML 1,000 ML IV PRN (16:00)
[2018-11-23] MEDS: AMLODIPINE BESYLATE 5 MG TABLET PO SCH ×2 (17:16→21:33)
[2018-11-23] MEDS: TAMSULOSIN HCL 0.4 MG CAP.SR.24H PO SCH (17:21)
--- NOTE | 2018-11-23 20:53 | PDOC H&P ---
History of Present Illness Admission Date/PCP: 11/22/18 20:29 ARISTEO RAGHAV Patient complains of: Difficulty with breathing, Altered mental status History of Present Illness: RUPINDER WREN JR is a 78 year old male known to my practice who was brought to the ED via Medic for further evaluation of increase sleepiness, episodes of unresponsiveness and confusion. Family reported increasing deconditioning and difficulty with self care despite recent discharge from rehabilitation center following his stay at this hospital in October for pneumonia. His initial ED evaluation was significant for acute renal injury with significant worsening of his serum creatinine and BUN level suggestive of poor oral intake. His CT scan of chest and head were unrevealing regarding acute event to explain his increase sleepiness and altered mental status. He was advised hospitalization for further evaluation and management. Hos morbidities include chronic atrial fibrillation, congestive heart failure hypertension, hyperlipidemia, COPD, Gastroesophageal Reflux Disease and seizure disorder. Past Medical History Cardiac Medical History: Reports: Atrial Fibrillation, Congestive Heart Failure, Myocardial Infarction, Hyperlipidema, Hypertension Pulmonary Medical History: Reports: Bronchitis, Chronic Obstructive Pulmonary Disease (COPD), Pneumonia Denies: Asthma GI Medical History: Reports: Gastroesophageal Reflux Disease Psychiatric Medical History: Denies: Depression Past Surgical History Past Surgical History: Reports: Cardiac Catheterization, Cholecystectomy Denies: Pacemaker Social History Lives with: Family Smoking Status: Unknown if Ever Smoked Frequency of Alcohol Use: None Hx Recreational Drug Use: No Drugs: None Hx Prescription Drug Abuse: No - Advance Directive Resuscitation Status: Full Code Family History Family History: Reviewed & Not Pertinent Parental Family History Reviewed: Yes Children Family History Reviewed: Yes Sibling(s) Family History Reviewed.: Yes Medication/Allergy Home Medications: Amlodipine Besylate [Norvasc 5 mg Tablet] 5 mg PO Q12 11/22/18 Aspirin [Ecotrin 325 mg EC Tablet] 325 mg PO DAILY 11/22/18 Atorvastatin Calcium [Lipitor 10 mg Tablet] 10 mg PO QHS 11/22/18 Divalproex Sodium [Depakote] 500 mg PO Q12 11/22/18 Docusate Sodium [Colace 100 mg Capsule] 100 mg PO BID 11/22/18 Esomeprazole Magnesium [Nexium] 40 mg PO DAILY 11/22/18 Fluticasone/Umeclidin/Vilanter [Trelegy 100-62.5-25 Mcg Ellipta 14 Dose/Dpi] 1 puff IH DAILY 11/22/18 Ipratropium/Albuterol Sulfate [Combivent Respimat 4 gm Mdi] 1 puff IH Q6 11/22/18 Irbesartan 300 mg PO DAILY 11/22/18 Levetiracetam [Keppra 500 mg Tablet] 1,000 mg PO Q12 11/22/18 Magnesium Oxide [Mag-Ox 400 mg Tablet] 400 mg PO DAILY 11/22/18 Metoprolol Tartrate [Lopressor 50 mg Tablet] 50 mg PO Q12 11/22/18 Sotalol HCl [Betapace 80 mg Tablet] 80 mg PO Q12 11/22/18 Tamsulosin HCl [Flomax 0.4 mg Cap.sr] 0.4 mg PO QPM 11/22/18 Allergies/Adverse Reactions: No Known Allergies Allergy (Verified 03/21/18 09:53) Review of Systems Constitutional: PRESENT: weakness - generalized. ABSENT: as per HPI, anorexia, chills, fatigue, fever(s), headache(s), night sweats, weight gain, weight loss, other Eyes: ABSENT: visual disturbances Ears: ABSENT: hearing changes Nose, Mouth, and Throat: ABSENT: as per HPI, headache(s), mouth pain, sore throat, vertigo, other Cardiovascular: ABSENT: chest pain, dyspnea on exertion, edema, orthropnea, palpitations Respiratory: ABSENT: cough, hemoptysis Gastrointestinal: ABSENT: abdominal pain, constipation, diarrhea, hematemesis, hematochezia, nausea, vomiting Musculoskeletal: ABSENT: joint swelling Integumentary: ABSENT: rash, wounds Neurological: PRESENT: confusion. ABSENT: abnormal gait, abnormal speech, dizziness, focal weakness, syncope Psychiatric: ABSENT: anxiety, depression, homidical ideation, suicidal ideation Endocrine: ABSENT: cold intolerance, heat intolerance, polydipsia, polyuria Hematologic/Lymphatic: ABSENT: easy bleeding, easy bruising, lymphadenopathy Allergic/Immunologic: ABSENT: seasonal rhinorrhea Physical Exam Vital Signs: Temp Pulse Resp BP Pulse Ox 98.1 F 62 20 143/76 H 96 11/23/18 03:47 11/23/18 07:00 11/23/18 03:47 11/23/18 03:47 11/23/18 03:47 Intake & Output 11/22/18 11/23/18 11/24/18 06:59 06:59 06:59 Intake Total 1000 Output Total 600 Balance 400 Weight 94.1 kg General appearance: PRESENT: no acute distress, obese Head exam: PRESENT: atraumatic, normocephalic Eye exam: PRESENT: conjunctiva pink, EOMI, PERRLA. ABSENT: scleral icterus Ear exam: PRESENT: normal external ear exam Mouth exam: PRESENT: moist Neck exam: PRESENT: full ROM. ABSENT: carotid bruit, JVD, lymphadenopathy, thyromegaly Respiratory exam: PRESENT: clear to auscultation pradeep, decreased breath sounds - at lung bases Cardiovascular exam: PRESENT: RRR. ABSENT: diastolic murmur, rubs, systolic murmur Vascular exam: PRESENT: normal capillary refill. ABSENT: pallor GI/Abdominal exam: PRESENT: normal bowel sounds, soft. ABSENT: distended, guarding, mass, organolmegaly, rebound, tenderness Rectal exam: PRESENT: deferred Extremities exam: ABSENT: pedal edema Musculoskeletal exam: ABSENT: deformity - related to multiple joints involvement with arthritis Neurological exam: PRESENT: alert, awake, oriented to person, oriented to place, oriented to time, CN II-XII grossly intact, motor sensory deficit. ABSENT: oriented to situation Psychiatric exam: PRESENT: appropriate affect, normal mood. ABSENT: homicidal ideation, suicidal ideation Skin exam: PRESENT: dry, warm, other - multiple keloid lesions Results Laboratory Results: 11/22/18 15:56 11/22/18 17:50 11/22/18 11/22/18 11/22/18 15:56 17:40 17:50 WBC 7.0 RBC 4.70 Hgb 14.2 Hct 42.3 MCV 90 MCH 30.1 MCHC 33.5 RDW 14.4 H Plt Count 173 Seg Neutrophils % 67.2 Lymphocytes % 19.7 Monocytes % 12.0 Eosinophils % 0.5 Basophils % 0.6 Absolute Neutrophils 4.7 Absolute Lymphocytes 1.4 Absolute Monocytes 0.8 Absolute Eosinophils 0.0 Absolute Basophils 0.0 Carbonic Acid HCO3/H2CO3 Ratio ABG pH ABG pCO2 ABG pO2 ABG HCO3 ABG O2 Saturation ABG Base Excess VBG pH VBG pCO2 VBG HCO3 VBG Base Excess FiO2 Sodium 139.8 Potassium 4.4 Chloride 104 Carbon Dioxide 25 Anion Gap 11 BUN 31 H Creatinine 2.45 H Est GFR ( Amer) 31 L Est GFR (Non-Af Amer) 26 L Glucose 90 Lactic Acid Calcium 9.2 Total Bilirubin 0.7 AST 16 L ALT 24 Alkaline Phosphatase 104 Ammonia Total Protein 7.3 Albumin 3.7 Urine Color YELLOW Urine Appearance SLIGHTLY-CLOUDY Urine pH 5.0 Ur Specific [place] 1.020 Urine Protein NEGATIVE Urine Glucose (UA) NEGATIVE Urine Ketones TRACE H Urine Blood NEGATIVE Urine Nitrite NEGATIVE Ur Leukocyte Esterase NEGATIVE Urine WBC (Auto) 8 Urine RBC (Auto) 2 11/22/18 11/22/18 11/22/18 17:50 17:50 20:41 WBC RBC Hgb Hct MCV MCH MCHC RDW Plt Count Seg Neutrophils % Lymphocytes % Monocytes % Eosinophils % Basophils % Absolute Neutrophils Absolute Lymphocytes Absolute Monocytes Absolute Eosinophils Absolute Basophils Carbonic Acid 1.22 HCO3/H2CO3 Ratio 19:1 ABG pH 7.38 ABG pCO2 40.6 ABG pO2 63.7 L ABG HCO3 23.4 ABG O2 Saturation 92.0 L ABG Base Excess -1.6 VBG pH 7.34 VBG pCO2 45.8 VBG HCO3 24.4 VBG Base Excess -1.6 FiO2 5L Sodium Potassium Chloride Carbon Dioxide Anion Gap BUN Creatinine Est GFR ( Amer) Est GFR (Non-Af Amer) Glucose Lactic Acid 0.8 Calcium Total Bilirubin AST ALT Alkaline Phosphatase Ammonia Total Protein Albumin Urine Color Urine Appearance Urine pH Ur Specific [place] Urine Protein Urine Glucose (UA) Urine Ketones Urine Blood Urine Nitrite Ur Leukocyte Esterase Urine WBC (Auto) Urine RBC (Auto) 11/22/18 11/23/18 20:58 05:40 WBC RBC Hgb Hct MCV MCH MCHC RDW Plt Count Seg Neutrophils % Lymphocytes % Monocytes % Eosinophils % Basophils % Absolute Neutrophils Absolute Lymphocytes Absolute Monocytes Absolute Eosinophils Absolute Basophils Carbonic Acid 1.28 HCO3/H2CO3 Ratio 17:1 ABG pH 7.34 L ABG pCO2 42.6 ABG pO2 100.5 H ABG HCO3 22.6 ABG O2 Saturation 97.3 ABG Base Excess -3.0 VBG pH VBG pCO2 VBG HCO3 VBG Base Excess FiO2 4.00 RA Sodium Potassium Chloride Carbon Dioxide Anion Gap BUN Creatinine Est GFR ( Amer) Est GFR (Non-Af Amer) Glucose Lactic Acid Calcium Total Bilirubin AST ALT Alkaline Phosphatase Ammonia < 8.7 L Total Protein Albumin Urine Color Urine Appearance Urine pH Ur Specific [place] Urine Protein Urine Glucose (UA) Urine Ketones Urine Blood Urine Nitrite Ur Leukocyte Esterase Urine WBC (Auto) Urine RBC (Auto) 11/22/18 17:50 Troponin I < 0.012 Impressions: Chest CT 11/22/18 16:18 IMPRESSION: No acute findings Head CT 11/22/18 16:18 IMPRESSION: 1. No acute intracranial abnormality. 2. Mild atrophy and chronic small vessel ischemic changes. 3. Lobulated contour to the bilateral inferior terminates, may represent small nasal polyps. EVIDENCE OF ACUTE STROKE: NO. Assessment & Plan - Diagnosis (1) Acute kidney injury superimposed on chronic kidney disease Is this a current diagnosis for this admission?: Yes Plan: See admitting attending physician orders for details of care plan. (2) CKD (chronic kidney disease) Qualifiers: Chronic kidney disease stage: stage 3 (moderate) Qualified Code(s): N18.3 - Chronic kidney disease, stage 3 (moderate) Is this a current diagnosis for this admission?: Yes Plan: See admitting attending physician orders for details of care plan. (3) Altered mental status Qualifiers: Altered mental status type: unspecified Qualified Code(s): R41.82 - Altered mental status, unspecified Is this a current diagnosis for this admission?: Yes Plan: See admitting attending physician orders for details of care plan. (4) Chronic respiratory failure with hypoxia, on home O2 therapy Is this a current diagnosis for this admission?: Yes Plan: See admitting attending physician orders for details of care plan. (5) Seizure disorder Is this a current diagnosis for this admission?: Yes Plan: See admitting attending physician orders for details of care plan. (6) HTN (hypertension) Qualifiers: Hypertension type: essential hypertension Qualified Code(s): I10 - Essential (primary) hypertension Is this a current diagnosis for this admission?: Yes Plan: See admitting attending physician orders for details of care plan. (7) CAD (coronary artery disease) Qualifiers: Coronary Disease-Associated Artery/Lesion type: [place] artery Associated angina: without angina Is this a current diagnosis for this admission?: Yes Plan: See admitting attending physician orders for details of care plan. (8) S/P CABG (coronary artery bypass graft) Is this a current diagnosis for this admission?: Yes Plan: See admitting attending physician orders for details of care plan. (9) HLD (hyperlipidemia) Qualifiers: Hyperlipidemia type: unspecified Qualified Code(s): E78.5 - Hyperlipidemia, unspecified Is this a current diagnosis for this admission?: Yes Plan: See admitting attending physician orders for details of care plan. (10) EDNA (obstructive sleep apnea) Is this a current diagnosis for this admission?: Yes Plan: See admitting attending physician orders for details of care plan. - Time Time Spent: 50 to 70 Minutes Medications reviewed and adjusted accordingly: Yes Anticipated discharge: SNF, Other - Assisted living facility upon discharge. Within: Other - Inpatient Certification Based on my medical assessment, after consideration of the patient's comorbidities, presenting symptoms, or acuity I expect that the services needed warrant INPATIENT care.: Yes I certify that my determination is in accordance with my understanding of Medicare's requirements for reasonable and necessary INPATIENT services [42 CFR 412.3e].: Yes Medical Necessity: Significant Comorbidiites Make Outpatient Treatment Too Risky, Need Close Monitoring Due to Risk of Patient Decompensation, Need For IV Fluids, Need For Continuous Telemetry Monitoring, Need for Nebulizer Therapy and Monitoring of Response, Risk of Complication if Not Cared For in Hospital, Risk of Diagnosis Which Will Require Inpatient Eval/Care/Monitoring Post Hospital Care: D/C or Transfer Summary - Plan Summary Plan Summary: See admitting attending physician orders for details of care plan.
[2018-11-23] MEDS: ATORVASTATIN CALCIUM 10 MG TABLET PO SCH (21:34)
[2018-11-24] MEDS: SOTALOL HCL 80 MG TABLET PO SCH ×3 (01:42→22:45)
[2018-11-24] MEDS: NORMAL SALINE 1000 ML 1,000 ML IV PRN ×2 (01:43→20:35)
[2018-11-24] MEDS: IPRATROPIUM/ALBUTEROL 120 PUFF/4 GM MDI IH SCH ×5 (01:47→23:51)
[2018-11-24 06:12] LABS: HEMATOCRIT 46.1 % (37.9-51.0); HEMOGLOBIN 15.3 g/dL (13.5-17.0); MEAN CORPUSCULAR HEMOGLOBIN 30.2 pg (27.0-33.4); MEAN CORPUSCULAR HGB CONC 33.2 g/dL (32.0-36.0); MEAN CORPUSCULAR VOLUME 91 fl (80-97); PLATELET COUNT 171 10^3/uL (150-450); RED BLOOD COUNT 5.07 10^6/uL (4.35-5.55); RED CELL DISTRIBUTION WIDTH 14.6 % (11.5-14.0); WHITE BLOOD COUNT 5.9 10^3/uL (4.0-10.5)
[2018-11-24 06:40] LABS: ANION GAP 12 (5-19); BLOOD UREA NITROGEN 41 mg/dL (7-20); CALCIUM 8.4 mg/dL (8.4-10.2); CARBON DIOXIDE 21 mmol/L (22-30); CHLORIDE 111 mmol/L (98-107); GLUCOSE 94 mg/dL (75-110); POTASSIUM 3.7 mmol/L (3.6-5.0); SODIUM 144.4 mmol/L (137-145)
[2018-11-24 06:42] LABS: ABSOLUTE LYMPHOCYTES# (MANUAL) 1.2 10^3/uL (0.5-4.7); ABSOLUTE MONOCYTES # (MANUAL) 1.6 10^3/uL (0.1-1.4); ABSOLUTE NEUTROPHILS# (MANUAL) 3.1 10^3/uL (1.7-8.2); BAND NEUTROPHILS % (MANUAL) 6 % (3-5); BASOPHILS % (MANUAL) 0 % (0-2); EOSINOPHILS % (MANUAL) 0 % (0-6); LYMPHOCYTES % (MANUAL) 20 % (13-45); PLATELET COMMENT ADEQUATE; SEGMENTED NEUTROPHILS % (MAN) 47 % (42-78); TOTAL CELLS COUNTED 100
[2018-11-24 06:43] LABS: RBC MORPHOLOGY COMMENT NORMO-CYTIC/CHROMIC
[2018-11-24 06:44] LABS: MONOCYTES % (MANUAL) 27 % (3-13)
--- NOTE | 2018-11-24 08:08 | PDOC PROGRESS REPORT ---
Subjective Progress Note for:: 11/24/18 Subjective:: Patient denied any chest pain or difficulty with breathing. No palpitation. No nausea, vomiting, or abdominal pain. No reported seizure activity. No fever. Reason For Visit: ACUTE RENAL INJURY,ALTERED MENTAL STATE Physical Exam Vital Signs: Temp Pulse Resp BP Pulse Ox 98.3 F 72 19 149/72 H 92 11/24/18 03:35 11/24/18 03:35 11/24/18 03:35 11/24/18 03:35 11/24/18 07:50 Intake & Output 11/23/18 11/24/18 11/25/18 06:59 06:59 06:59 Intake Total 1000 1906 Output Total 600 640 Balance 400 1266 Weight 94.1 kg 95 kg General appearance: PRESENT: no acute distress, obese Head exam: PRESENT: atraumatic, normocephalic Eye exam: PRESENT: conjunctiva pink. ABSENT: scleral icterus Ear exam: PRESENT: normal external ear exam Mouth exam: PRESENT: moist Respiratory exam: PRESENT: clear to auscultation pradeep, decreased breath sounds - at lung bases Cardiovascular exam: PRESENT: RRR. ABSENT: diastolic murmur, rubs, systolic murmur Vascular exam: PRESENT: normal capillary refill. ABSENT: pallor GI/Abdominal exam: PRESENT: normal bowel sounds, soft. ABSENT: distended, guarding, mass, organolmegaly, rebound, tenderness Extremities exam: ABSENT: pedal edema Musculoskeletal exam: PRESENT: deformity - related to multiple joints involvement with arthritis Neurological exam: PRESENT: alert, awake, oriented to person, oriented to place Psychiatric exam: PRESENT: appropriate affect, normal mood. ABSENT: homicidal ideation, suicidal ideation Skin exam: PRESENT: dry, warm Results Laboratory Results: 11/24/18 05:25 11/24/18 05:25 11/23/18 11/24/18 11/24/18 09:14 05:25 05:25 WBC 5.9 RBC 5.07 Hgb 15.3 Hct 46.1 MCV 91 MCH 30.2 MCHC 33.2 RDW 14.6 H Plt Count 171 Seg Neutrophils % Not Reportable Lymphocytes % Not Reportable Monocytes % Not Reportable Eosinophils % Not Reportable Basophils % Not Reportable Absolute Neutrophils Not Reportable Absolute Lymphocytes Not Reportable Absolute Monocytes Not Reportable Absolute Eosinophils Not Reportable Absolute Basophils Not Reportable Sodium 142.5 144.4 Potassium 3.8 3.7 Chloride 107 111 H Carbon Dioxide 23 21 L Anion Gap 13 12 BUN 36 H 41 H Creatinine 1.99 H 2.01 H Est GFR ( Amer) 40 L 39 L Est GFR (Non-Af Amer) 33 L 32 L Glucose 80 94 Calcium 8.9 8.4 11/22/18 11/24/18 17:50 05:25 Troponin I < 0.012 NT-Pro-B Natriuret Pep 1550 H Impressions: Chest CT 11/22/18 16:18 IMPRESSION: No acute findings Head CT 11/22/18 16:18 IMPRESSION: 1. No acute intracranial abnormality. 2. Mild atrophy and chronic small vessel ischemic changes. 3. Lobulated contour to the bilateral inferior terminates, may represent small nasal polyps. EVIDENCE OF ACUTE STROKE: NO. Assessment & Plan - Diagnosis (1) Acute kidney injury superimposed on chronic kidney disease Is this a current diagnosis for this admission?: Yes (2) CKD (chronic kidney disease) Qualifiers: Chronic kidney disease stage: stage 3 (moderate) Qualified Code(s): N18.3 - Chronic kidney disease, stage 3 (moderate) Is this a current diagnosis for this admission?: Yes (3) Altered mental status Qualifiers: Altered mental status type: unspecified Qualified Code(s): R41.82 - Altered mental status, unspecified Is this a current diagnosis for this admission?: Yes (4) Chronic respiratory failure with hypoxia, on home O2 therapy Is this a current diagnosis for this admission?: Yes (5) Seizure disorder Is this a current diagnosis for this admission?: Yes (6) HTN (hypertension) Qualifiers: Hypertension type: essential hypertension Qualified Code(s): I10 - Essential (primary) hypertension Is this a current diagnosis for this admission?: Yes (7) CAD (coronary artery disease) Qualifiers: Coronary Disease-Associated Artery/Lesion type: [place] artery Associated angina: without angina Is this a current diagnosis for this admission?: Yes (8) S/P CABG (coronary artery bypass graft) Is this a current diagnosis for this admission?: Yes (9) HLD (hyperlipidemia) Qualifiers: Hyperlipidemia type: unspecified Qualified Code(s): E78.5 - Hyperlipidemia, unspecified Is this a current diagnosis for this admission?: Yes (10) EDNA (obstructive sleep apnea) Is this a current diagnosis for this admission?: Yes - Time Time Spent with patient: 25-34 minutes Medications reviewed and adjusted accordingly: Yes Anticipated discharge: SNF Within: Other - Inpatient Certification Based on my medical assessment, after consideration of the patient's comorbidities, presenting symptoms, or acuity I expect that the services needed warrant INPATIENT care.: Yes I certify that my determination is in accordance with my understanding of Medicare's requirements for reasonable and necessary INPATIENT services [42 CFR 412.3e].: Yes Medical Necessity: Significant Comorbidiites Make Outpatient Treatment Too Risky, Need Close Monitoring Due to Risk of Patient Decompensation, Need For IV Fluids, Need For Continuous Telemetry Monitoring, Need for Nebulizer Therapy and Monitoring of Response, Need for IV Antibiotics, Risk of Complication if Not Cared For in Hospital, Risk of Diagnosis Which Will Require Inpatient Eval/Care/Monitoring Post Hospital Care: D/C or Transfer Summary - Plan Summary Plan Summary: Continue current management. Obtain PT and speech evaluation. D/C equipment planner to discuss disposition with POA regarding SNF versus WALKER placement.
[2018-11-24] MEDS: DOCUSATE SODIUM 100 MG CAPSULE PO SCH ×2 (10:46→17:35)
[2018-11-24] MEDS: MAGNESIUM OXIDE 400 MG TABLET PO SCH (10:46)
[2018-11-24] MEDS: METOPROLOL TARTRATE 50 MG TABLET PO SCH ×2 (10:46→22:44)
[2018-11-24] MEDS: LEVETIRACETAM 500 MG TABLET PO SCH ×2 (10:46→22:44)
[2018-11-24] MEDS: AMLODIPINE BESYLATE 5 MG TABLET PO SCH ×2 (10:46→22:45)
[2018-11-24] MEDS: DIVALPROEX SODIUM 250 MG TABLET.DR PO SCH (10:47)
[2018-11-24] MEDS: FLUTICASONE/UMECLIDIN/VILANTER 100-62.5-25 MCG/DOSE IH SCH (10:48)
[2018-11-24 13:21] LABS: PATH REVIEW PATHOLOGIST REVIEWED
[2018-11-24] MEDS: TAMSULOSIN HCL 0.4 MG CAP.SR.24H PO SCH (17:36)
[2018-11-24 19:05] LABS: ARTERIAL BLOOD BASE EXCESS -3.9 mmol/L; ARTERIAL BLOOD H2CO3 1.24 mmol/L (1.05-1.35); ARTERIAL BLOOD HCO3 21.7 mmol/L (20-24); ARTERIAL BLOOD O2 SATURATION 91.8 % (94-98); ARTERIAL BLOOD PCO2 41.2 mmHg (35-45); ARTERIAL BLOOD PH 7.34 (7.35-7.45); ARTERIAL BLOOD PO2 65.5 mmHg (80-100); ARTERIAL BLOOD TOTAL CO2 22.9 mmol/L (23-27)
[2018-11-24 19:07] LABS: ARTERIAL BLOOD FIO2 28%
[2018-11-24] MEDS: ATORVASTATIN CALCIUM 10 MG TABLET PO SCH (22:45)
[2018-11-25] MEDS: IPRATROPIUM/ALBUTEROL 120 PUFF/4 GM MDI IH SCH ×4 (05:12→23:05)
[2018-11-25 06:01] LABS: ABSOLUTE LYMPHOCYTES (AUTO) 1.3 10^3/uL (0.5-4.7); ABSOLUTE MONOCYTES (AUTO) 1.2 10^3/uL (0.1-1.4); ABSOLUTE NEUT (AUTO) 7.4 10^3/uL (1.7-8.2); BASOPHILS % (AUTO) 0.1 % (0-2); EOSINOPHILS % (AUTO) 0.1 % (0-6); HEMATOCRIT 48.9 % (37.9-51.0); HEMOGLOBIN 16.2 g/dL (13.5-17.0); LYMPHOCYTES % (AUTO) 13.1 % (13-45); MEAN CORPUSCULAR HEMOGLOBIN 30.4 pg (27.0-33.4); MEAN CORPUSCULAR HGB CONC 33.2 g/dL (32.0-36.0); MEAN CORPUSCULAR VOLUME 91 fl (80-97); PLATELET COUNT 222 10^3/uL (150-450); RED BLOOD COUNT 5.35 10^6/uL (4.35-5.55); RED CELL DISTRIBUTION WIDTH 14.7 % (11.5-14.0); SEGMENTED NEUTROPHILS % (AUTO) 74.7 % (42-78); TOTAL CELLS COUNTED % (AUTO) 100 %; WHITE BLOOD COUNT 9.8 10^3/uL (4.0-10.5)
[2018-11-25 06:26] LABS: ALANINE AMINOTRANSFERASE 20 U/L (21-72); ALBUMIN 3.6 g/dL (3.5-5.0); ALKALINE PHOSPHATASE 111 U/L (38-126); ANION GAP 15 (5-19); ASPARTATE AMINO TRANSFERASE 13 U/L (17-59); BILIRUBIN,DIRECT 0.4 mg/dL (0.0-0.4); BILIRUBIN,TOTAL 0.6 mg/dL (0.2-1.3); BLOOD UREA NITROGEN 49 mg/dL (7-20); CALCIUM 8.7 mg/dL (8.4-10.2); CARBON DIOXIDE 17 mmol/L (22-30); CHLORIDE 112 mmol/L (98-107); GLUCOSE 104 mg/dL (75-110); POTASSIUM 3.6 mmol/L (3.6-5.0); SODIUM 143.8 mmol/L (137-145); TOTAL PROTEIN 7.1 g/dL (6.3-8.2)
[2018-11-25] MEDS: DOCUSATE SODIUM 100 MG CAPSULE PO SCH ×2 (12:07→18:20)
[2018-11-25] MEDS: LEVETIRACETAM 500 MG TABLET PO SCH ×2 (12:07→21:17)
[2018-11-25] MEDS: SOTALOL HCL 80 MG TABLET PO SCH ×2 (12:07→21:17)
[2018-11-25] MEDS: MAGNESIUM OXIDE 400 MG TABLET PO SCH (12:08)
[2018-11-25] MEDS: FLUTICASONE/UMECLIDIN/VILANTER 100-62.5-25 MCG/DOSE IH SCH (12:08)
[2018-11-25] MEDS: AMLODIPINE BESYLATE 5 MG TABLET PO SCH ×2 (12:08→21:17)
[2018-11-25] MEDS: METOPROLOL TARTRATE 50 MG TABLET PO SCH ×2 (12:08→21:17)
[2018-11-25] MEDS: TAMSULOSIN HCL 0.4 MG CAP.SR.24H PO SCH (18:20)
--- NOTE | 2018-11-25 19:09 | PDOC PROGRESS REPORT ---
Subjective Progress Note for:: 11/25/18 Subjective:: Patient remain somnolence most of the day but open eye and appropriate in simple responses to painful stimuli. Continue to have difficulty with oral feeding due to somnolence state. No reported seizure activity or fever. There is decrease urine output so far today. Reason For Visit: ACUTE RENAL INJURY,ALTERED MENTAL STATE Physical Exam Vital Signs: Temp Pulse Resp BP Pulse Ox 97.4 F 75 22 H 127/76 H 93 11/25/18 15:21 11/25/18 15:21 11/25/18 15:21 11/25/18 15:21 11/25/18 15:21 Intake & Output 11/24/18 11/25/18 11/26/18 06:59 06:59 06:59 Intake Total 1906 1168 Output Total 640 425 Balance 1266 743 Weight 95 kg 91.5 kg Physical Exam: General appearance: PRESENT: no acute distress, obese Head exam: PRESENT: atraumatic, normocephalic Eye exam: PRESENT: conjunctiva pink. ABSENT: pallor, scleral icterus Ear exam: PRESENT: normal external ear exam Mouth exam: PRESENT: moist Respiratory exam: PRESENT: clear to auscultation pradeep, decreased breath sounds - at lung bases Cardiovascular exam: PRESENT: RRR. ABSENT: diastolic murmur, rubs, systolic murmur GI/Abdominal exam: PRESENT: normal bowel sounds, soft. ABSENT: distended, guarding, mass, organomegaly, rebound, tenderness Extremities exam: ABSENT: pedal edema Musculoskeletal exam: PRESENT: deformity - related to multiple joints involvement with arthritis Neurological exam: PRESENT: alert, awake, oriented to person, oriented to place Psychiatric exam: PRESENT: appropriate affect, normal mood. ABSENT: homicidal ideation, suicidal ideation Skin exam: PRESENT: dry, warm Results Laboratory Results: 11/25/18 04:48 11/25/18 04:48 11/24/18 11/25/18 11/25/18 18:45 04:48 04:48 WBC 9.8 RBC 5.35 Hgb 16.2 Hct 48.9 MCV 91 MCH 30.4 MCHC 33.2 RDW 14.7 H Plt Count 222 Seg Neutrophils % 74.7 Lymphocytes % 13.1 Monocytes % 12.0 Eosinophils % 0.1 Basophils % 0.1 Absolute Neutrophils 7.4 Absolute Lymphocytes 1.3 Absolute Monocytes 1.2 Absolute Eosinophils 0.0 Absolute Basophils 0.0 Carbonic Acid 1.24 HCO3/H2CO3 Ratio 17:1 ABG pH 7.34 L ABG pCO2 41.2 ABG pO2 65.5 L ABG HCO3 21.7 ABG O2 Saturation 91.8 L ABG Base Excess -3.9 FiO2 28% Sodium 143.8 Potassium 3.6 Chloride 112 H Carbon Dioxide 17 L Anion Gap 15 BUN 49 H Creatinine 2.76 H Est GFR ( Amer) 27 L Est GFR (Non-Af Amer) 22 L Glucose 104 Calcium 8.7 Total Bilirubin 0.6 AST 13 L ALT 20 L Alkaline Phosphatase 111 Total Protein 7.1 Albumin 3.6 11/22/18 11/24/18 17:50 05:25 Troponin I < 0.012 NT-Pro-B Natriuret Pep 1550 H Impressions: Chest CT 11/22/18 16:18 IMPRESSION: No acute findings Head CT 11/22/18 16:18 IMPRESSION: 1. No acute intracranial abnormality. 2. Mild atrophy and chronic small vessel ischemic changes. 3. Lobulated contour to the bilateral inferior terminates, may represent small nasal polyps. EVIDENCE OF ACUTE STROKE: NO. Assessment & Plan - Diagnosis (1) Acute kidney injury superimposed on chronic kidney disease Is this a current diagnosis for this admission?: Yes (2) CKD (chronic kidney disease) Qualifiers: Chronic kidney disease stage: stage 3 (moderate) Qualified Code(s): N18.3 - Chronic kidney disease, stage 3 (moderate) Is this a current diagnosis for this admission?: Yes (3) Altered mental status Qualifiers: Altered mental status type: unspecified Qualified Code(s): R41.82 - Altered mental status, unspecified Is this a current diagnosis for this admission?: Yes (4) Chronic respiratory failure with hypoxia, on home O2 therapy Is this a current diagnosis for this admission?: Yes (5) Seizure disorder Is this a current diagnosis for this admission?: Yes (6) HTN (hypertension) Qualifiers: Hypertension type: essential hypertension Qualified Code(s): I10 - Essential (primary) hypertension Is this a current diagnosis for this admission?: Yes (7) CAD (coronary artery disease) Qualifiers: Coronary Disease-Associated Artery/Lesion type: [place] artery Associated angina: without angina Is this a current diagnosis for this admission?: Yes (8) S/P CABG (coronary artery bypass graft) Is this a current diagnosis for this admission?: Yes (9) HLD (hyperlipidemia) Qualifiers: Hyperlipidemia type: unspecified Qualified Code(s): E78.5 - Hyperlipidemia, unspecified Is this a current diagnosis for this admission?: Yes (10) EDNA (obstructive sleep apnea) Is this a current diagnosis for this admission?: Yes - Time Time Spent with patient: 25-34 minutes Medications reviewed and adjusted accordingly: Yes Anticipated discharge: Home with Homehealth Within: Other - Inpatient Certification Based on my medical assessment, after consideration of the patient's comorbidities, presenting symptoms, or acuity I expect that the services needed warrant INPATIENT care.: Yes I certify that my determination is in accordance with my understanding of Medic are's requirements for reasonable and necessary INPATIENT services [42 CFR 412.3e].: Yes Medical Necessity: Significant Comorbidiites Make Outpatient Treatment Too Risky, Need Close Monitoring Due to Risk of Patient Decompensation, Need For IV Fluids, Need For Continuous Telemetry Monitoring, Risk of Complication if Not Cared For in Hospital, Risk of Diagnosis Which Will Require Inpatient Eval/Care/Monitoring Post Hospital Care: D/C [employer] Documentation - Plan Summary Plan Summary: Give IV normal saline 250 ml bolus. Maintain on IV fluid at 100 ml /hour thereafter. Continue on Keppra therapy and monitor his response with regard to wakefulness. Obtain BMP in AM.
[2018-11-25] MEDS ORDERED: NORMAL SALINE 250 ML IV ONE (19:30)
[2018-11-25] MEDS: NORMAL SALINE 1000 ML 1,000 ML IV PRN (20:27)
--- NOTE | 2018-11-25 21:12 | XCELERA REPORT ---
[address] [address] Transthoracic Echocardiogram Report Name: HOLGER RUPINDER VALDEZ JR Age: 78 yrs Gender: Male : 1940 Patient Status: Inpatient Patient Location: [address] [place] [address] Study Date: 11/24/2018 09:04 AM Height: 66 in Weight: 209 lb BSA: 2.0 m2 Procedure: A two-dimensional transthoracic echocardiogram with color flow and Doppler was performed. Study Quality: Technically suboptimal. The study was technically difficult with many images being suboptimal in quality. Images were not obtained from all of the standard acoustic windows due to the limited scope of the study. Reason For Study: MARY; CAD s/p CABG; CHF; HTN; Ch. A.Fib Ordering Physician: ARISTEO AVILEZ Performed By: Daniela Sellers Interpretation Summary The left ventricle is grossly normal size. There is normal left ventricular wall thickness. No True apical 2 chamber views obtained.Hence cannot comment on the apical anterior , the basal anterior, the basal inferior and apical inferior jones.The mid anterior , the mid inferior and the rest of the LV jones contract normally. .Normal LVEF is normal and is greater than 65% in the limited views Doppler measurements suggest impaired left ventricular relaxation, which is associated with grade I/IV or mild diastolic dysfunction The left atrium is moderately dilated. Cannot assss ASD,VSD or PFO. There is no evidence of mitral valve prolapse. There is mild mitral stenosis There is evidence of mitral valve repair. There is aortic sclerosis without aortic stenosis. No aortic regurgitation is present. Not well seen .Cannot assesss TR or RVSP. There is no pericardial effusion. MMode/2D Measurements & Calculations RVDd: 4.1 cm LVIDd: 2.9 cm FS: 35.1 % Ao root diam: 2.9 cm IVSd: 0.74 cm LVIDs: 1.9 cm EDV(Teich): 31.8 ml Ao root area: 6.8 cm2 LVPWd: 1.00 cm ESV(Teich): 10.8 ml EF(Teich): 66.2 % Doppler Measurements & Calculations MV E max [place]: MV V2 max: MV dec slope: Ao V2 max: 162.7 cm/sec 198.2 cm/sec 377.2 cm/sec2 116.1 cm/sec MV A max [place]: MV max PG: MV dec time: Ao max P.5 cm/sec 15.7 mmHg 0.43 sec 5.4 mmHg MV E/A: 0.88 MV V2 mean: 104.9 cm/sec MV mean P.2 mmHg MV V2 VTI: 68.2 cm LV V1 max PG: PA V2 max: PI end-d sy[place]: TR max [place]: 4.8 mmHg 83.2 cm/sec 109.3 cm/sec 225.2 cm/sec LV V1 max: PA max PG: TR max P.4 cm/sec 2.8 mmHg 20.3 mmHg Left Ventricle The left ventricle is grossly normal size. There is normal left ventricular wall thickness. No True apical 2 chamber views obtained.Hence cannot comment on the apical anterior , the basal anterior, the basal inferior and apical inferior jones.The mid anterior , the mid inferior and the rest of the LV jones contract normally. .Normal LVEF is normal and is greater than 65% in the limited views. Doppler measurements suggest impaired left ventricular relaxation, which is associated with grade I/IV or mild diastolic dysfunction. Right Ventricle The right ventricle is not well visualized secondary to technical limitations. Atria Right atrium not well visualized secondary to technical limitations. The left atrium is moderately dilated. Cannot assss ASD,VSD or PFO. Mitral Valve There is no evidence of mitral valve prolapse. There is mild mitral stenosis. There is evidence of mitral valve repair. There is a trace amount of mitral regurgitation. Aortic Valve There is aortic sclerosis without aortic stenosis. No aortic regurgitation is present. Tricuspid Valve Not well seen .Cannot assesss TR or RVSP. Pulmonic Valve The pulmonic valve is not well visualized. Effusions There is no pericardial effusion. : ARISTEO AVILEZ > Sabina Moon
[2018-11-25] MEDS: ATORVASTATIN CALCIUM 10 MG TABLET PO SCH (21:17)
[2018-11-26] MEDS: NORMAL SALINE 1000 ML 1,000 ML IV PRN ×3 (00:25→15:46)
[2018-11-26] MEDS: IPRATROPIUM/ALBUTEROL 120 PUFF/4 GM MDI IH SCH ×3 (05:30→17:44)
[2018-11-26] MEDS: LEVETIRACETAM 500 MG TABLET PO SCH ×2 (09:51→22:34)
[2018-11-26] MEDS: METOPROLOL TARTRATE 50 MG TABLET PO SCH ×2 (09:51→22:33)
[2018-11-26] MEDS: DOCUSATE SODIUM 100 MG CAPSULE PO SCH ×2 (09:51→17:44)
[2018-11-26] MEDS: SOTALOL HCL 80 MG TABLET PO SCH ×2 (09:51→22:33)
[2018-11-26] MEDS: FLUTICASONE/UMECLIDIN/VILANTER 100-62.5-25 MCG/DOSE IH SCH (09:52)
[2018-11-26] MEDS: AMLODIPINE BESYLATE 5 MG TABLET PO SCH ×2 (09:52→22:34)
[2018-11-26] MEDS: MAGNESIUM OXIDE 400 MG TABLET PO SCH (09:52)
--- NOTE | 2018-11-26 16:21 | PDOC PROGRESS REPORT ---
Subjective Progress Note for:: 11/26/18 Subjective:: Patient is comparatively more easily arousable today. He denied any chest pain ad c;aimed that he is okay. Daughter at bedside. Remain on IV fluid support and better urine output so far today. Reason For Visit: ACUTE RENAL INJURY,ALTERED MENTAL STATE Physical Exam Vital Signs: Temp Pulse Resp BP Pulse Ox 98.2 F 73 18 107/51 L 99 11/26/18 12:30 11/26/18 14:00 11/26/18 12:30 11/26/18 12:30 11/26/18 12:30 Intake & Output 11/25/18 11/26/18 11/27/18 06:59 06:59 06:59 Intake Total 1168 2051 1000 Output Total 425 150 Balance 743 1901 1000 Weight 91.5 kg 67.9 kg Physical Exam: General appearance: PRESENT: no acute distress, obese Head exam: PRESENT: atraumatic, normocephalic Eye exam: PRESENT: conjunctiva pink. ABSENT: pallor, scleral icterus Ear exam: PRESENT: normal external ear exam Mouth exam: PRESENT: moist Respiratory exam: PRESENT: clear to auscultation pradeep, decreased breath sounds - at lung bases Cardiovascular exam: PRESENT: RRR. ABSENT: diastolic murmur, rubs, systolic murmur GI/Abdominal exam: PRESENT: normal bowel sounds, soft. ABSENT: distended, guarding, mass, organomegaly, rebound, tenderness Extremities exam: ABSENT: pedal edema Musculoskeletal exam: PRESENT: deformity - related to multiple joints involvement with arthritis Neurological exam: PRESENT: alert, awake, oriented to person, oriented to place Psychiatric exam: PRESENT: appropriate affect, normal mood. ABSENT: homicidal ideation, suicidal ideation Skin exam: PRESENT: dry, warm Results Laboratory Results: 11/25/18 04:48 11/25/18 04:48 11/22/18 11/24/18 17:50 05:25 Troponin I < 0.012 NT-Pro-B Natriuret Pep 1550 H Impressions: Chest CT 11/22/18 16:18 IMPRESSION: No acute findings Head CT 11/22/18 16:18 IMPRESSION: 1. No acute intracranial abnormality. 2. Mild atrophy and chronic small vessel ischemic changes. 3. Lobulated contour to the bilateral inferior terminates, may represent small nasal polyps. EVIDENCE OF ACUTE STROKE: NO. Assessment & Plan - Diagnosis (1) Acute kidney injury superimposed on chronic kidney disease Is this a current diagnosis for this admission?: Yes (2) CKD (chronic kidney disease) Qualifiers: Chronic kidney disease stage: stage 3 (moderate) Qualified Code(s): N18.3 - Chronic kidney disease, stage 3 (moderate) Is this a current diagnosis for this admission?: Yes (3) Altered mental status Qualifiers: Altered mental status type: unspecified Qualified Code(s): R41.82 - Altered mental status, unspecified Is this a current diagnosis for this admission?: Yes (4) Chronic respiratory failure with hypoxia, on home O2 therapy Is this a current diagnosis for this admission?: Yes (5) Seizure disorder Is this a current diagnosis for this admission?: Yes (6) HTN (hypertension) Qualifiers: Hypertension type: essential hypertension Qualified Code(s): I10 - Essential (primary) hypertension Is this a current diagnosis for this admission?: Yes (7) CAD (coronary artery disease) Qualifiers: Coronary Disease-Associated Artery/Lesion type: [place] artery Associated angina: without angina Is this a current diagnosis for this admission?: Yes (8) S/P CABG (coronary artery bypass graft) Is this a current diagnosis for this admission?: Yes (9) HLD (hyperlipidemia) Qualifiers: Hyperlipidemia type: unspecified Qualified Code(s): E78.5 - Hyperlipidemia, unspecified Is this a current diagnosis for this admission?: Yes (10) EDNA (obstructive sleep apnea) Is this a current diagnosis for this admission?: Yes - Time Time Spent with patient: 25-34 minutes Medications reviewed and adjusted accordingly: Yes Anticipated discharge: Other Within: Other - Inpatient Certification Based on my medical assessment, after consideration of the patient's comorbidities, presenting symptoms, or acuity I expect that the services needed warrant INPATIENT care.: Yes I certify that my determination is in accordance with my understanding of Medicare's requirements for reasonable and necessary INPATIENT services [42 CFR 412.3e].: Yes Medical Necessity: Significant Comorbidiites Make Outpatient Treatment Too Risky, Need Close Monitoring Due to Risk of Patient Decompensation, Need For IV Fluids, Need For Continuous Telemetry Monitoring, Need for Nebulizer Therapy and Monitoring of Response, Risk of Complication if Not Cared For in Hospital, Risk of Diagnosis Which Will Require Inpatient Eval/Care/Monitoring Post Hospital Care: D/C or Transfer Summary - Plan Summary Plan Summary: Maintain on all current medication management. Continue to monitor response to d/c of Depakote. Obtain EEG for further evaluation of brain activity in view of his history of seizure and change in mental status.
[2018-11-26] MEDS: TAMSULOSIN HCL 0.4 MG CAP.SR.24H PO SCH (17:58)
[2018-11-26] MEDS: ATORVASTATIN CALCIUM 10 MG TABLET PO SCH (22:34)
[2018-11-27] MEDS: IPRATROPIUM/ALBUTEROL 120 PUFF/4 GM MDI IH SCH ×4 (00:44→19:31)
[2018-11-27] MEDS: NORMAL SALINE 1000 ML 1,000 ML IV PRN ×3 (02:02→22:07)
[2018-11-27] MEDS: MAGNESIUM OXIDE 400 MG TABLET PO SCH (12:04)
[2018-11-27] MEDS: LEVETIRACETAM 500 MG TABLET PO SCH (12:04)
[2018-11-27] MEDS: AMLODIPINE BESYLATE 5 MG TABLET PO SCH ×2 (12:04→22:11)
[2018-11-27] MEDS: DOCUSATE SODIUM 100 MG CAPSULE PO SCH ×2 (12:04→19:31)
[2018-11-27] MEDS: METOPROLOL TARTRATE 50 MG TABLET PO SCH ×2 (12:04→22:11)
[2018-11-27] MEDS: SOTALOL HCL 80 MG TABLET PO SCH ×2 (12:05→22:11)
--- NOTE | 2018-11-27 13:05 | PDOC PROGRESS REPORT ---
Subjective Progress Note for:: 11/27/18 Subjective:: Patient is comparatively more easily arouse today attempting to get out of bed. Oral intake remain a challenge. Family at bedside expressed concern that he s not eating but moving his bowel. He denied any chest pain and claimed that he is okay. Reason For Visit: ACUTE RENAL INJURY,ALTERED MENTAL STATE Physical Exam Vital Signs: Temp Pulse Resp BP Pulse Ox 97.8 F 82 21 H 137/79 H 98 11/27/18 11:55 11/27/18 11:55 11/27/18 11:55 11/27/18 11:55 11/27/18 11:55 Intake & Output 11/26/18 11/27/18 11/28/18 06:59 06:59 06:59 Intake Total 2051 5300 938 Output Total 150 850 250 Balance 1901 4450 688 Weight 67.9 kg 92.7 kg Physical Exam: General appearance: PRESENT: no acute distress, obese Head exam: PRESENT: atraumatic, normocephalic Eye exam: PRESENT: conjunctiva pink. ABSENT: pallor, scleral icterus Ear exam: PRESENT: normal external ear exam Mouth exam: PRESENT: moist Respiratory exam: PRESENT: clear to auscultation pradeep, decreased breath sounds - at lung bases Cardiovascular exam: PRESENT: RRR. ABSENT: diastolic murmur, rubs, systolic murmur GI/Abdominal exam: PRESENT: normal bowel sounds, soft. ABSENT: distended, guarding, mass, organomegaly, rebound, tenderness Extremities exam: ABSENT: pedal edema Musculoskeletal exam: PRESENT: deformity - related to multiple joints involvement with arthritis Neurological exam: PRESENT: alert, awake, oriented to person, oriented to place Psychiatric exam: PRESENT: appropriate affect, normal mood. ABSENT: homicidal ideation, suicidal ideation Skin exam: PRESENT: dry, warm Results Laboratory Results: 11/25/18 04:48 11/25/18 04:48 11/22/18 11/24/18 17:50 05:25 Troponin I < 0.012 NT-Pro-B Natriuret Pep 1550 H Impressions: Chest CT 11/22/18 16:18 IMPRESSION: No acute findings Head CT 11/22/18 16:18 IMPRESSION: 1. No acute intracranial abnormality. 2. Mild atrophy and chronic small vessel ischemic changes. 3. Lobulated contour to the bilateral inferior terminates, may represent small nasal polyps. EVIDENCE OF ACUTE STROKE: NO. Assessment & Plan - Diagnosis (1) Acute kidney injury superimposed on chronic kidney disease Is this a current diagnosis for this admission?: Yes (2) CKD (chronic kidney disease) Qualifiers: Chronic kidney disease stage: stage 3 (moderate) Qualified Code(s): N18.3 - Chronic kidney disease, stage 3 (moderate) Is this a current diagnosis for this admission?: Yes (3) Altered mental status Qualifiers: Altered mental status type: unspecified Qualified Code(s): R41.82 - Altered mental status, unspecified Is this a current diagnosis for this admission?: Yes (4) Chronic respiratory failure with hypoxia, on home O2 therapy Is this a current diagnosis for this admission?: Yes (5) Seizure disorder Is this a current diagnosis for this admission?: Yes (6) HTN (hypertension) Qualifiers: Hypertension type: essential hypertension Qualified Code(s): I10 - Essent ial (primary) hypertension Is this a current diagnosis for this admission?: Yes (7) CAD (coronary artery disease) Qualifiers: Coronary Disease-Associated Artery/Lesion type: [place] artery Associated angina: without angina Is this a current diagnosis for this admission?: Yes (8) S/P CABG (coronary artery bypass graft) Is this a current diagnosis for this admission?: Yes (9) HLD (hyperlipidemia) Qualifiers: Hyperlipidemia type: unspecified Qualified Code(s): E78.5 - Hyperlipidemia, unspecified Is this a current diagnosis for this admission?: Yes (10) EDNA (obstructive sleep apnea) Is this a current diagnosis for this admission?: Yes - Time Time Spent with patient: 25-34 minutes Medications reviewed and adjusted accordingly: Yes Anticipated discharge: Home with Homehealth, SNF Within: Other - Inpatient Certification Based on my medical assessment, after consideration of the patient's comorbidities, presenting symptoms, or acuity I expect that the services needed warrant INPATIENT care.: Yes I certify that my determination is in accordance with my understanding of Medicare's requirements for reasonable and necessary INPATIENT services [42 CFR 412.3e].: Yes Medical Necessity: Significant Comorbidiites Make Outpatient Treatment Too Risky, Need Close Monitoring Due to Risk of Patient Decompensation, Need For IV Fluids, Need For Continuous Telemetry Monitoring, Risk of Complication if Not Cared For in Hospital, Risk of Diagnosis Which Will Require Inpatient Eval/Care /Monitoring Post Hospital Care: D/C Solar [employer] Specialist Documentation, D/C or Transfer Summary - Plan Summary Plan Summary: D/C Oral Keppra. Start on IV Keppra at 500 mg q12 hours to avoid incident of seizure. Monitor alertness.
[2018-11-27] MEDS: FLUTICASONE/UMECLIDIN/VILANTER 100-62.5-25 MCG/DOSE IH SCH (14:52)
--- NOTE | 2018-11-27 15:02 | RADIOLOGY REPORT (SQ) ---
EXAM DESCRIPTION: CHEST SINGLE VIEW COMPLETED DATE/TIME: 11/27/2018 2:40 pm REASON FOR STUDY: Vomiting r/o aspiration pneumonia COMPARISON: 10/15/2018. NUMBER OF VIEWS: One view. TECHNIQUE: Single frontal radiographic view of the chest acquired. LIMITATIONS: None. FINDINGS: LUNGS AND PLEURA: Extremely low lung volumes with vascular crowding and basilar subsegment al atelectasis. No large effusion or pneumothorax. MEDIASTINUM AND HILAR STRUCTURES: Stable appearance. Postoperative changes as before. HEART AND VASCULAR STRUCTURES: Stable heart. No congestive failure. BONES: No acute findings. HARDWARE: Left transvenous pacer. OTHER: No other significant finding. IMPRESSION: Extremely low lung volumes. Findings as above. Doubt significant change. TECHNICAL DOCUMENTATION: JOB ID: [id number] [employer]- All Rights Reserved Reading location - IP/workstation name: [email or web address]
[2018-11-27] MEDS: TAMSULOSIN HCL 0.4 MG CAP.SR.24H PO SCH (19:31)
[2018-11-27] MEDS ORDERED: LEVETIRACETAM 500 MG in NORMAL SALINE 100 ML IV SCH (22:00)
[2018-11-27] MEDS: LEVETIRACETAM 500 MG/NACL-ISO 500 MG/100 ML RTUPB IV SCH (22:07)
[2018-11-27] MEDS: ATORVASTATIN CALCIUM 10 MG TABLET PO SCH (22:11)
[2018-11-28] MEDS: IPRATROPIUM/ALBUTEROL 120 PUFF/4 GM MDI IH SCH ×5 (00:59→23:13)
[2018-11-28] MEDS: LEVETIRACETAM 500 MG/NACL-ISO 500 MG/100 ML RTUPB IV SCH ×2 (10:37→22:29)
[2018-11-28] MEDS: SOTALOL HCL 80 MG TABLET PO SCH ×2 (10:46→22:29)
[2018-11-28] MEDS: AMLODIPINE BESYLATE 5 MG TABLET PO SCH ×2 (10:46→22:28)
[2018-11-28] MEDS: MAGNESIUM OXIDE 400 MG TABLET PO SCH (10:46)
[2018-11-28] MEDS: METOPROLOL TARTRATE 50 MG TABLET PO SCH ×2 (10:47→22:30)
[2018-11-28] MEDS: DOCUSATE SODIUM 100 MG CAPSULE PO SCH ×2 (10:48→18:28)
[2018-11-28] MEDS: FLUTICASONE/UMECLIDIN/VILANTER 100-62.5-25 MCG/DOSE IH SCH (11:43)
[2018-11-28] MEDS: NORMAL SALINE 1000 ML 1,000 ML IV PRN (12:39)
[2018-11-28] MEDS: TAMSULOSIN HCL 0.4 MG CAP.SR.24H PO SCH (18:01)
[2018-11-28] MEDS: ATORVASTATIN CALCIUM 10 MG TABLET PO SCH (22:29)
[2018-11-29] MEDS: NORMAL SALINE 1000 ML 1,000 ML IV PRN ×2 (03:36→15:09)
[2018-11-29] MEDS: IPRATROPIUM/ALBUTEROL 120 PUFF/4 GM MDI IH SCH ×3 (06:12→17:34)
[2018-11-29 06:17] LABS: ABSOLUTE LYMPHOCYTES (AUTO) 1.5 10^3/uL (0.5-4.7); ABSOLUTE MONOCYTES (AUTO) 1.5 10^3/uL (0.1-1.4); BASOPHILS % (AUTO) 0.4 % (0-2); EOSINOPHILS % (AUTO) 0.4 % (0-6); HEMATOCRIT 42.1 % (37.9-51.0); HEMOGLOBIN 13.8 g/dL (13.5-17.0); LYMPHOCYTES % (AUTO) 16.2 % (13-45); MEAN CORPUSCULAR HEMOGLOBIN 29.9 pg (27.0-33.4); MEAN CORPUSCULAR HGB CONC 32.9 g/dL (32.0-36.0); MEAN CORPUSCULAR VOLUME 91 fl (80-97); MONOCYTES % (AUTO) 16.2 % (3-13); PLATELET COUNT 242 10^3/uL (150-450); RED BLOOD COUNT 4.63 10^6/uL (4.35-5.55); RED CELL DISTRIBUTION WIDTH 15.2 % (11.5-14.0); SEGMENTED NEUTROPHILS % (AUTO) 66.8 % (42-78); TOTAL CELLS COUNTED % (AUTO) 100 %
[2018-11-29 06:37] LABS: ALANINE AMINOTRANSFERASE 21 U/L (21-72); ALBUMIN 2.9 g/dL (3.5-5.0); ALKALINE PHOSPHATASE 80 U/L (38-126); ANION GAP 7 (5-19); ASPARTATE AMINO TRANSFERASE 16 U/L (17-59); BILIRUBIN,DIRECT 0.3 mg/dL (0.0-0.4); BILIRUBIN,TOTAL 0.3 mg/dL (0.2-1.3); BLOOD UREA NITROGEN 48 mg/dL (7-20); CALCIUM 8.8 mg/dL (8.4-10.2); CARBON DIOXIDE 18 mmol/L (22-30); CHLORIDE 121 mmol/L (98-107); GLUCOSE 105 mg/dL (75-110); POTASSIUM 3.7 mmol/L (3.6-5.0); SODIUM 146.2 mmol/L (137-145); TOTAL PROTEIN 5.8 g/dL (6.3-8.2)
[2018-11-29] MEDS: LEVETIRACETAM 500 MG/NACL-ISO 500 MG/100 ML RTUPB IV SCH (10:43)
[2018-11-29] MEDS: MAGNESIUM OXIDE 400 MG TABLET PO SCH (10:46)
[2018-11-29] MEDS: DOCUSATE SODIUM 100 MG CAPSULE PO SCH ×2 (10:46→17:33)
[2018-11-29] MEDS: AMLODIPINE BESYLATE 5 MG TABLET PO SCH ×2 (10:46→21:13)
[2018-11-29] MEDS: METOPROLOL TARTRATE 50 MG TABLET PO SCH ×2 (10:46→21:14)
[2018-11-29] MEDS: FLUTICASONE/UMECLIDIN/VILANTER 100-62.5-25 MCG/DOSE IH SCH (10:46)
[2018-11-29] MEDS: SOTALOL HCL 80 MG TABLET PO SCH ×2 (10:46→21:14)
--- NOTE | 2018-11-29 13:06 | PDOC PROGRESS REPORT ---
Subjective Progress Note for:: 11/28/18 Subjective:: Patient is more engaging today as per nursing assessment. He was able to tolerate oral feeding and medication so far today. He denied any chest pain. He is on supportive BiPAP. Reason For Visit: ACUTE RENAL INJURY,ALTERED MENTAL STATE Physical Exam Vital Signs: Temp Pulse Resp BP Pulse Ox 98.6 F 59 L 22 H 134/66 H 97 11/28/18 15:18 11/28/18 15:18 11/28/18 16:53 11/28/18 15:18 11/28/18 15:18 Intake & Output 11/27/18 11/28/18 11/29/18 06:59 06:59 06:59 Intake Total 5300 2060 1798 Output Total 850 750 150 Balance 4450 1310 1648 Weight 92.7 kg 90.6 kg Physical Exam: General appearance: PRESENT: no acute distress, obese Head exam: PRESENT: atraumatic, normocephalic Eye exam: PRESENT: conjunctiva pink. ABSENT: pallor, scleral icterus Ear exam: PRESENT: normal external ear exam Mouth exam: PRESENT: moist Respiratory exam: PRESENT: clear to auscultation pradeep, decreased breath sounds - at lung bases Cardiovascular exam: PRESENT: RRR. ABSENT: diastolic murmur, rubs, systolic murmur GI/Abdominal exam: PRESENT: normal bowel sounds, soft. ABSENT: distended, guarding, mass, organomegaly, rebound, tenderness Extremities exam: ABSENT: pedal edema Musculoskeletal exam: PRESENT: deformity - related to multiple joints involvement with arthritis Neurological exam: PRESENT: alert, awake, oriented to person, oriented to place Psychiatric exam: PRESENT: appropriate affect, normal mood. ABSENT: homicidal ideation, suicidal ideation Skin exam: PRESENT: dry, warm Results Laboratory Results: 11/25/18 04:48 11/25/18 04:48 11/22/18 15:56 Blood Blood Culture - Final NO GROWTH IN 5 DAYS 11/22/18 17:50 Blood Blood Culture - Final NO GROWTH IN 5 DAYS 11/22/18 11/24/18 17:50 05:25 Troponin I < 0.012 NT-Pro-B Natriuret Pep 1550 H Impressions: Chest CT 11/22/18 16:18 IMPRESSION: No acute findings Head CT 11/22/18 16:18 IMPRESSION: 1. No acute intracranial abnormality. 2. Mild atrophy and chronic small vessel ischemic changes. 3. Lobulated contour to the bilateral inferior terminates, may represent small nasal polyps. EVIDENCE OF ACUTE STROKE: NO. Chest X-Ray 11/27/18 00:00 IMPRESSION: Extremely low lung volumes. Findings as above. Doubt significant change. Assessment & Plan - Diagnosis (1) Acute kidney injury superimposed on chronic kidney disease Is this a current diagnosis for this admission?: Yes (2) CKD (chronic kidney disease) Qualifiers: Chronic kidney disease stage: stage 3 (moderate) Qualified Code(s): N18.3 - Chronic kidney disease, stage 3 (moderate) Is this a current diagnosis for this admission?: Yes (3) Altered mental status Qualifiers: Altered mental status type: unspecified Qualified Code(s): R41.82 - Altered mental status, unspecified Is this a current diagnosis for this admission?: Yes (4) Chronic respiratory failure with hypoxia, on home O2 therapy Is this a current diagnosis for this admission?: Yes (5) Seizure disorder Is this a current diagnosis for this admission?: Yes (6) HTN (hypertension) Qualifiers: Hypertension type: essential hypertension Qualified Code(s): I10 - Essential (primary) hypertension Is this a current diagnosis for this admission?: Yes (7) CAD (coronary artery disease) Qualifiers: Coronary Disease-Associated Artery/Lesion type: [place] artery Associated angina: without angina Is this a current diagnosis for this admission?: Yes (8) S/P CABG (coronary artery bypass graft) Is this a current diagnosis for this admission?: Yes (9) HLD (hyperlipidemia) Qualifiers: Hyperlipidemia type: unspecified Qualified Code(s): E78.5 - Hyperlipidemia, unspecified Is this a current diagnosis for this admission?: Yes (10) EDNA (obstructive sleep apnea) Is this a current diagnosis for this admission?: Yes - Time Time Spent with patient: 25-34 minutes Medications reviewed and adjusted accordingly: Yes Anticipated discharge: Home with Homehealth, SNF Within: Other - Inpatient Certification Based on my medical assessment, after consideration of the patient's comorbidities, presenting symptoms, or acuity I expect that the services needed warrant INPATIENT care.: Yes I certify that my determination is in accordance with my understanding of Medicare's requirements for reasonable and necessary INPATIENT services [42 CFR 412.3e].: Yes Medical Necessity: Significant Comorbidiites Make Outpatient Treatment Too Risky, Need Close Monitoring Due to Risk of Patient Decompensation, Need For IV Fluids, Need For Continuous Telemetry Monitoring, Risk of Complication if Not Cared For in Hospital, Risk of Diagnosis Which Will Require Inpatient Eval/Care/Monitoring Post Hospital Care: D/C Educational Program Director Documentation, D/C or Transfer Summary - Plan Summary Plan Summary: Continue current medication management. Obtain CBC with diff and CMP.
--- NOTE | 2018-11-29 13:11 | PDOC PROGRESS REPORT ---
Subjective Progress Note for:: 11/29/18 Subjective:: Patient is continue to show some improvement in his level of alertness. PO intake remain poor. He denied any chest pain. Reason For Visit: ACUTE RENAL INJURY,ALTERED MENTAL STATE Physical Exam Vital Signs: Temp Pulse Resp BP Pulse Ox 98.4 F 65 18 128/71 H 98 11/29/18 11:42 11/29/18 11:42 11/29/18 11:42 11/29/18 11:42 11/29/18 11:42 Intake & Output 11/28/18 11/29/18 11/30/18 06:59 06:59 06:59 Intake Total 2060 3248 Output Total 750 875 Balance 1310 2373 Weight 90.6 kg 95.7 kg Physical Exam: General appearance: PRESENT: no acute distress, obese Head exam: PRESENT: atraumatic, normocephalic Eye exam: PRESENT: conjunctiva pink. ABSENT: pallor, scleral icterus Ear exam: PRESENT: normal external ear exam Mouth exam: PRESENT: moist Respiratory exam: PRESENT: clear to auscultation pradeep, decreased breath sounds - at lung bases Cardiovascular exam: PRESENT: RRR. ABSENT: diastolic murmur, rubs, systolic murmur GI/Abdominal exam: PRESENT: normal bowel sounds, soft. ABSENT: distended, guarding, mass, organomegaly, rebound, tenderness Extremities exam: ABSENT: pedal edema Musculoskeletal exam: PRESENT: deformity - related to multiple joints involvement with arthritis Neurological exam: PRESENT: alert, awake, oriented to person, oriented to place Psychiatric exam: PRESENT: appropriate affect, normal mood. ABSENT: homicidal ideation, suicidal ideation Skin exam: PRESENT: dry, warm Results Laboratory Results: 11/29/18 05:11 11/29/18 05:11 11/29/18 11/29/18 05:11 05:11 WBC 9.0 RBC 4.63 Hgb 13.8 Hct 42.1 MCV 91 MCH 29.9 MCHC 32.9 RDW 15.2 H Plt Count 242 Seg Neutrophils % 66.8 Lymphocytes % 16.2 Monocytes % 16.2 H Eosinophils % 0.4 Basophils % 0.4 Absolute Neutrophils 6.0 Absolute Lymphocytes 1.5 Absolute Monocytes 1.5 H Absolute Eosinophils 0.0 Absolute Basophils 0.0 Sodium 146.2 H Potassium 3.7 Chloride 121 H Carbon Dioxide 18 L Anion Gap 7 BUN 48 H Creatinine 1.98 H Est GFR ( Amer) 40 L Est GFR (Non-Af Amer) 33 L Glucose 105 Calcium 8.8 Total Bilirubin 0.3 AST 16 L ALT 21 Alkaline Phosphatase 80 Total Protein 5.8 L Albumin 2.9 L 11/22/18 11/24/18 17:50 05:25 Troponin I < 0.012 NT-Pro-B Natriuret Pep 1550 H Impressions: Chest CT 11/22/18 16:18 IMPRESSION: No acute findings Head CT 11/22/18 16:18 IMPRESSION: 1. No acute intracranial abnormality. 2. Mild atrophy and chronic small vessel ischemic changes. 3. Lobulated contour to the bilateral inferior terminates, may represent small nasal polyps. EVIDENCE OF ACUTE STROKE: NO. Chest X-Ray 11/27/18 00:00 IMPRESSION: Extremely low lung volumes. Findings as above. Doubt significant change. Assessment & Plan - Diagnosis (1) Acute kidney injury superimposed on chronic kidney disease Is this a current diagnosis for this admission?: Yes (2) CKD (chronic kidney disease) Qualifiers: Chronic kidney disease stage: stage 3 (moderate) Qualified Code(s): N18.3 - Chronic kidney disease, stage 3 (moderate) Is this a current diagnosis for this admission?: Yes (3) Altered mental status Qualifiers: Altered mental status type: unspecified Qualified Code(s): R41.82 - Altered mental status, unspecified Is this a current diagnosis for this admission?: Yes (4) Chronic respiratory failure with hypoxia, on home O2 therapy Is this a current diagnosis for this admission?: Yes (5) Seizure disorder Is this a current diagnosis for this admission?: Yes (6) HTN (hypertension) Qualifiers: Hypertension type: essential hypertension Qualified Code(s): I10 - Ess ential (primary) hypertension Is this a current diagnosis for this admission?: Yes (7) CAD (coronary artery disease) Qualifiers: Coronary Disease-Associated Artery/Lesion type: [place] artery Associated angina: without angina Is this a current diagnosis for this admission?: Yes (8) S/P CABG (coronary artery bypass graft) Is this a current diagnosis for this admission?: Yes (9) HLD (hyperlipidemia) Qualifiers: Hyperlipidemia type: unspecified Qualified Code(s): E78.5 - Hyperlipidemia, unspecified Is this a current diagnosis for this admission?: Yes (10) EDNA (obstructive sleep apnea) Is this a current diagnosis for this admission?: Yes - Time Time Spent with patient: 25-34 minutes Medications reviewed and adjusted accordingly: Yes Anticipated discharge: Home with Homehealth, SNF Within: Other - Inpatient Certification Based on my medical assessment, after consideration of the patient's comorbidities, presenting symptoms, or acuity I expect that the services needed warrant INPATIENT care.: Yes I certify that my determination is in accordance with my understanding of Medicare's requirements for reasonable and necessary INPATIENT services [42 CFR 412.3e].: Yes Medical Necessity: Significant Comorbidiites Make Outpatient Treatment Too Risky, Need Close Monitoring Due to Risk of Patient Decompensation, Need For IV Fluids, Need For Continuous Telemetry Monitoring, Need for Nebulizer Therapy and Monitoring of Response, Risk of Complication if Not Cared For in Hospital, Risk of Diagnosis Which Will Require Inpatient Eval/Care/Monitoring Post Hospital Care: D/C Enrollment Management Vice President Documentation, D/C or Transfer Summary - Plan Summary Plan Summary: In view of his somnolence on Depakote and Keppra, I will d/c Keppra and start him ion Dilantin therapy 100 mg po tid. Continue on all other current medication management.
[2018-11-29] MEDS: PHENYTOIN SODIUM EXTENDED 100 MG CAPSULE PO SCH ×2 (15:05→21:14)
--- NOTE | 2018-11-29 16:51 | NEURO WORKBENCH EEG REPORT ---
EEG Report Patient: Golden Matias Jr ID: [id number] Referring Doctor: Leoncio Cano Date: 11/29/2018 Reason for study: Evaluate Epileptiform activity Medications: Norvasc, Lipitor, Colace, Trelegy, Keppra, Ativan, Lopressor, Flomax, Combivent History: This is a 78 year old male with a history of [place], CHF, defibrillator placement, Hypercholesterolemia, A-Fib, HTN, COPD, and GERD. Patient has prolonged altered mental status. This EEG was requested for evaluation of epileptiform activity. EEG Interpretation: This EEG was recorded during a state of altered mentation. There was excessive EMG artifact contaminated the EEG during the majority of the recording, and there were prolonged periods of single electrode artifact as well (typically Fp1, Fp2, and F4). There were no apparent spontaneous eye openings or closings, but the hydrological technical officer manually opened and closed the patients eyes multiple times. The EEG is reactive after stimuli. The background EEG shows diffuse polymorphic 1-3 Hz delta activity with intermixed 4-7 Hz theta activity. With eye closure there is no occipital dominant rhythm present. There were no obvious asymmetries in amplitude or frequencies. Photic stimulation was done and photic driving was not noted. There were no definitive elements of normal sleep architecture (no vertex waves, K- Complexes, or sleep spindles). The excessive EMG artifact obscured much of the recording. There was no epileptiform activity (meaning no sharp waves or spikes), and there were no seizures noted. The EKG typically showed a regular rhythm with rates typically in the 60-70 range with rare periods of arrhythmia not able to be better quantified on a single channel EKG. There was one 3-4 second period where the patient was actively coughing and the EKG appeared to show a tachy-arrhythmia but this could have been all artifactual from movement. EEG Impression This is a markedly abnormal EEG and consistent with diffuse cerebral dysfunction which is non-specific for etiology. Likely considerations would include diffuse hypoxic injury, toxic-metabolic derangements, hypothermia (patient temperature was not noted), drug intoxication, or a prolonged post-ictal state. There were no EEG findings consistent with epilepsy, but if there is strong concern for clinical or sub-clinical seizure activity then long-term EEG monitoring would be advised or additional repeat routine EEGs if long-term monitoring is not available. Again, note that there was prominent EMG artifact during the study impeding interpretation. Further evaluation of cardiac rhythm should be considered. INTERPRETING NEUROLOGIST: Bhargav Domínguez MD Board certified by the [place] [employer] in Neurology, Clinical Neurophysiology, and Sleep Medicine [facility] [place] [facility]
[2018-11-29] MEDS: TAMSULOSIN HCL 0.4 MG CAP.SR.24H PO SCH (17:33)
[2018-11-29] MEDS: ATORVASTATIN CALCIUM 10 MG TABLET PO SCH (21:13)
[2018-11-30] MEDS: IPRATROPIUM/ALBUTEROL 120 PUFF/4 GM MDI IH SCH ×4 (01:05→17:19)
[2018-11-30] MEDS: PHENYTOIN SODIUM EXTENDED 100 MG CAPSULE PO SCH ×2 (05:04→17:19)
[2018-11-30] MEDS: NORMAL SALINE 1000 ML 1,000 ML IV PRN ×2 (05:16→17:45)
[2018-11-30] MEDS: DOCUSATE SODIUM 100 MG CAPSULE PO SCH (09:25)
[2018-11-30] MEDS: MAGNESIUM OXIDE 400 MG TABLET PO SCH (09:26)
[2018-11-30] MEDS: AMLODIPINE BESYLATE 5 MG TABLET PO SCH (09:26)
[2018-11-30] MEDS: SOTALOL HCL 80 MG TABLET PO SCH (09:27)
[2018-11-30] MEDS: METOPROLOL TARTRATE 50 MG TABLET PO SCH (09:27)
[2018-11-30] MEDS: FLUTICASONE/UMECLIDIN/VILANTER 100-62.5-25 MCG/DOSE IH SCH (09:27)
[2018-11-30 10:24] LABS: ARTERIAL BLOOD BASE EXCESS -7.7 mmol/L; ARTERIAL BLOOD H2CO3 1.31 mmol/L (1.05-1.35); ARTERIAL BLOOD HCO3 19.1 mmol/L (20-24); ARTERIAL BLOOD O2 SATURATION 92.6 % (94-98); ARTERIAL BLOOD PCO2 43.4 mmHg (35-45); ARTERIAL BLOOD PH 7.26 (7.35-7.45); ARTERIAL BLOOD PO2 73.5 mmHg (80-100); ARTERIAL BLOOD TOTAL CO2 20.4 mmol/L (23-27)
[2018-11-30 10:25] LABS: ARTERIAL BLOOD FIO2 100%
[2018-11-30] MEDS ORDERED: PROPOFOL INJ 200 MG/20 ML VIAL IV ONE ×2 (10:35→11:03)
[2018-11-30] MEDS: PROPOFOL 1,000 MG/100 ML INFUS..BTL IV ONE ×2 (11:20→11:42)
[2018-11-30] MEDS: MIDAZOLAM HCL 50 MG/100 ML RTUINJ IV PRN ×2 (11:25→18:36)
[2018-11-30] MEDS ORDERED: ENOXAPARIN SODIUM INJ 40 MG/0.4 ML DISP.SYRIN SUBCUT SCH (11:45)
[2018-11-30] MEDS ORDERED: PROPOFOL 1,000 MG/100 ML INFUS..BTL IV PRN (11:57)
[2018-11-30] MEDS ORDERED: PIPERACILLIN SODIUM/TAZOBACTAM 3.375 GM in NORMAL SALINE 100 ML IV SCH (12:00)
--- NOTE | 2018-11-30 12:24 | RADIOLOGY REPORT (SQ) ---
EXAM DESCRIPTION: KUB/ABDOMEN (SINGLE VIEW) COMPLETED DATE/TIME: 11/30/2018 11:43 am REASON FOR STUDY: Distended abdomen COMPARISON: Abdominal films 05/23/2015, 05/22/2015, 05/21/2015, 05/18/2015 Chest films 11/30/2018, 11/27/2018 NUMBER OF VIEWS: AP chest and upper abdomen films for NG tube placement, 1029 hours 11/30/2018 TECHNIQUE: AP chest and upper abdomen films for NG tube placement, 1029 hours 11/30/2018 LIMITATIONS: None. FINDINGS: Chest film demonstrates that the nasogastric tube is coiled in the patient's hypopharynx, tip of the nasogastric tube and upper esophagus. This report was called to Kylah in the ICU. Remainder of the chest film demonstrates bandlike atelectasis in the right minor fissure region and b ilateral lower lobes. No pneumothorax or pleural effusion. Mild cardiomegaly post CABG. AP film of the upper abdomen demonstrates diffuse gaseous distension of stomach small bowel and colon in the upper abdomen. IMPRESSION: Nasogastric tube coiled in the patient's hypopharynx. This report was called to Kylah in the ICU TECHNICAL DOCUMENTATION: JOB ID: [id number] [employer]- All Rights Reserved Reading location - IP/workstation name: [email or web address]
[2018-11-30 12:27] LABS: ARTERIAL BLOOD BASE EXCESS -8.1 mmol/L; ARTERIAL BLOOD FIO2 90%; ARTERIAL BLOOD H2CO3 1.07 mmol/L (1.05-1.35); ARTERIAL BLOOD HCO3 17.4 mmol/L (20-24); ARTERIAL BLOOD O2 SATURATION 98.8 % (94-98); ARTERIAL BLOOD PCO2 35.7 mmHg (35-45); ARTERIAL BLOOD PH 7.31 (7.35-7.45); ARTERIAL BLOOD TOTAL CO2 18.5 mmol/L (23-27)
--- NOTE | 2018-11-30 12:36 | RADIOLOGY REPORT (SQ) ---
EXAM DESCRIPTION: CHEST SINGLE VIEW COMPLETED DATE/TIME: 11/30/2018 11:43 am REASON FOR STUDY: ETT PLACEMENT COMPARISON: None. EXAM PARAMETERS: NUMBER OF VIEWS: One view. TECHNIQUE: Single frontal radiographic view of the chest acquired. RADIATION DOSE: NA LIMITATIONS: None. FINDINGS: LUNGS AND PLEURA: Low lung volumes. Perihilar opacification on the right. Retrocardiac o pacification on the left. MEDIASTINUM AND HILAR STRUCTURES: No masses. Contour normal. HEART AND VASCULAR STRUCTURES: Heart normal in size. Normal vasculature. BONES: No acute findings. HARDWARE: Endotracheal tube has its tip in the right mainstem bronchus. Sternotomy wires. Pacemaker /defibrillator. OTHER: No other significant finding. IMPRESSION: Cannot exclude mild airspace disease in the perihilar region on the right or retrocardia c area on the left. Lobe position of the endotracheal tube. COMMENT: Pertinent findings on the imaging study reported as a CRITICAL RESULT to Deedee PEÑA at12:23 on 11/30/2018. Category of Critical Result: Endotracheal tube position. TECHNICAL DOCUMENTATION: JOB ID: [id number] [employer]- All Rights Reserved Reading location - IP/workstation name: [email or web address]
--- NOTE | 2018-11-30 12:53 | RADIOLOGY REPORT (SQ) ---
EXAM DESCRIPTION: KUB/ABDOMEN (SINGLE VIEW) COMPLETED DATE/TIME: 11/30/2018 12:20 pm REASON FOR STUDY: ng tube COMPARISON: None. NUMBER OF VIEWS: One view. TECHNIQUE: Supine radiographic image of the abdomen acquired. LIMITATIONS: None. FINDINGS: BOWEL GAS PATTERN: Large amount of bowel gas. Mildly prominent loops of bowel. CALCIFICATIONS: No suspicious calcifications. SOFT TISSUES: No gross mass or suggestion of organomegaly. HARDWARE: NG tube extends to the region of the gastric antrum. BONES: No acute fracture. No worrisome bone lesions. OTHER: No other significant finding. IMPRESSION: Cannot exclude a partial bowel obstruction. NG tube placement. TECHNICAL DOCUMENTATION: JOB ID: [id number] [employer]- All Rights Reserved Reading location - IP/workstation name: [email or web address]
--- NOTE | 2018-11-30 13:08 | RADIOLOGY REPORT (SQ) ---
EXAM DESCRIPTION: CHEST SINGLE VIEW COMPLETED DATE/TIME: 11/30/2018 12:58 pm REASON FOR STUDY: ett placement COMPARISON: None. EXAM PARAMETERS: NUMBER OF VIEWS: One view. TECHNIQUE: Single frontal radiographic view of the chest acquired. RADIATION DOSE: NA LIMITATIONS: None. FINDINGS: LUNGS AND PLEURA: No change in the appearance of the lungs. MEDIASTINUM AND HILAR STRUCTURES: No masses. Contour normal. HEART AND VASCULAR STRUCTURES: Heart normal in size. Normal vasculature. BONES: No acute findings. HARDWARE: The tip of the endotracheal tube is now 2 cm above the alejandro. NG tube extends to the stom ach. Sternotomy wires. Pacemaker/defibrillator. OTHER: No other significant finding. IMPRESSION: Endotracheal tube placement is satisfactory. TECHNICAL DOCUMENTATION: JOB ID: [id number] [employer]- All Rights Reserved Reading location - IP/workstation name: [email or web address]
--- NOTE | 2018-11-30 13:21 | PDOC CONSULTATION ---
Consultation Consult Date: 11/30/18 Attending physician:: ARISTEO AVILEZ Provider Consulted: BRISEYDA PEREZ Consult reason:: aspiration/acute resp failure History of Present Illness Admission Date/PCP: 11/22/18 20:29 ARISTEO AVILEZ History of Present Illness: RUPINDER WREN JR is a 78 year old male for altered mental status and somnolence with decent decreasing ability to take care of himself he was wearing BiPAP and apparently nauseous and aspirated content of the BiPAP. He is currently in ICU intubated copious amounts of what appears to be heme-positive NG aspirates coming from his NG tube as well as his ET tube he has a history of COPD in the past as well as congestive heart failure atrial fibrillation GERD has an indwelling pacemaker Past Medical History Cardiac Medical History: Reports: Atrial Fibrillation, Congestive Heart Failure, Myocardial Infarction, Hyperlipidema, Hypertension Pulmonary Medical History: Reports: Bronchitis, Chronic Obstructive Pulmonary Disease (COPD), Pneumonia Denies: Asthma GI Medical History: Reports: Gastroesophageal Reflux Disease Psychiatric Medical History: Denies: Depression Past Surgical History Past Surgical History: Reports: Cardiac Catheterization, Cholecystectomy Denies: Pacemaker Social History Information Source: [facility] Records Lives with: Family Smoking Status: Unknown if Ever Smoked Frequency of Alcohol Use: None Hx Recreational Drug Use: No Drugs: None Hx Prescription Drug Abuse: No - Advance Directive Resuscitation Status: Full Code Family History Parental Family History Reviewed: No Children Family History Reviewed: No Sibling(s) Family History Reviewed.: No Medication/Allergy Home Medications: Amlodipine Besylate [Norvasc 5 mg Tablet] 5 mg PO Q12 11/22/18 Aspirin [Ecotrin 325 mg EC Tablet] 325 mg PO DAILY 11/22/18 Atorvastatin Calcium [Lipitor 10 mg Tablet] 10 mg PO QHS 11/22/18 Divalproex Sodium [Depakote] 500 mg PO Q12 11/22/18 Docusate Sodium [Colace 100 mg Capsule] 100 mg PO BID 11/22/18 Esomeprazole Magnesium [Nexium] 40 mg PO DAILY 11/22/18 Fluticasone/Umeclidin/Vilanter [Trelegy 100-62.5-25 Mcg Ellipta 14 Dose/Dpi] 1 puff IH DAILY 11/22/18 Ipratropium/Albuterol Sulfate [Combivent Respimat 4 gm Mdi] 1 puff IH Q6 11/22/18 Irbesartan 300 mg PO DAILY 11/22/18 Levetiracetam [Keppra 500 mg Tablet] 1,000 mg PO Q12 11/22/18 Magnesium Oxide [Mag-Ox 400 mg Tablet] 400 mg PO DAILY 11/22/18 Metoprolol Tartrate [Lopressor 50 mg Tablet] 50 mg PO Q12 11/22/18 Sotalol HCl [Betapace 80 mg Tablet] 80 mg PO Q12 11/22/18 Tamsulosin HCl [Flomax 0.4 mg Cap.sr] 0.4 mg PO QPM 11/22/18 Allergies/Adverse Reactions: No Known Allergies Allergy (Verified 03/21/18 09:53) Review of Systems ROS unobtainable: Due to endotracheal tube Physical Exam Vital Signs: Temp Pulse Resp BP Pulse Ox 98.7 F 69 30 H 155/88 H 100 11/30/18 08:01 11/30/18 08:01 11/30/18 08:01 11/30/18 08:01 11/30/18 08:01 Intake & Output 11/29/18 11/30/18 12/01/18 06:59 06:59 06:59 Intake Total 3248 2277 Output Total 875 1075 Balance 2373 1202 Weight 95.7 kg 95.4 kg General appearance: PRESENT: no acute distress, disheveled, obese. ABSENT: cooperative Head exam: PRESENT: atraumatic, normocephalic Eye exam: PRESENT: conjunctiva pale. ABSENT: EOMI, nystagmus, periorbital swelling Mouth exam: PRESENT: dry mucosa, neck supple, tongue midline, other - ET Neck exam: ABSENT: carotid bruit, full ROM, JVD, lymphadenopathy, meningismus, tenderness, thyromegaly, tracheal deviation, tracheostomy, other Respiratory exam: PRESENT: decreased breath sounds, prolonged expiratory phas, rales, rhonchi, unlabored, wheezes. ABSENT: retraction, stridor Cardiovascular exam: PRESENT: RRR, +S1, +S2, tachycardia Pulses: PRESENT: normal radial pulses GI/Abdominal exam: PRESENT: soft Extremities exam: ABSENT: calf tenderness, clubbing, full ROM, joint swelling Musculoskeletal exam: ABSENT: ambulatory, deformity, dislocation, full ROM Neurological exam: ABSENT: awake Skin exam: PRESENT: dry, warm Results Laboratory Results: 11/29/18 05:11 11/29/18 05:11 11/30/18 10:17 Carbonic Acid 1.31 HCO3/H2CO3 Ratio 14:1 ABG pH 7.26 L ABG pCO2 43.4 ABG pO2 73.5 L ABG HCO3 19.1 L ABG O2 Saturation 92.6 L ABG Base Excess -7.7 FiO2 100% 11/22/18 11/24/18 17:50 05:25 Troponin I < 0.012 NT-Pro-B Natriuret Pep 1550 H Impressions: Chest CT 11/22/18 16:18 IMPRESSION: No acute findings Head CT 11/22/18 16:18 IMPRESSION: 1. No acute intracranial abnormality. 2. Mild atrophy and chronic small vessel ischemic changes. 3. Lobulated contour to the bilateral inferior terminates, may represent small nasal polyps. EVIDENCE OF ACUTE STROKE: NO. Chest X-Ray 11/27/18 00:00 IMPRESSION: Extremely low lung volumes. Findings as above. Doubt significant change. Assessment & Plan - Diagnosis (1) Altered mental status Qualifiers: Altered mental status type: unspecified Qualified Code(s): R41.82 - Altered mental status, unspecified Is this a current diagnosis for this admission?: Yes Plan: Thyroid function test (2) Seizure disorder Is this a current diagnosis for this admission?: Yes Plan: Continue current medical regimen (3) COPD (chronic obstructive pulmonary disease) Qualifiers: Emphysema type: centrilobular Is this a current diagnosis for this admission?: Yes Plan: Continue current bronchodilator therapy (4) EDNA (obstructive sleep apnea) Is this a current diagnosis for this admission?: Yes Plan: CPAP versus BiPAP when patient stable and extubated noncompliance in severe c ases could also contribute to his altered mental status (5) Aspiration into lower respiratory tract Qualifiers: Encounter type: initial encounter Qualified Code(s): T17.800A - Unspecified foreign body in other parts of respiratory tract causing asphyxiation, initial encounter Is this a current diagnosis for this admission?: Yes Plan: Synthetic penicillin and Cleocin for aspiration pneumonitis (6) GI (gastrointestinal bleed) Is this a current diagnosis for this admission?: Yes Plan: Copious amounts of coffee ground material from ET tube as well as NG tube - Time Total Critical Time (Minutes): 55
[2018-11-30] MEDS: CLINDAMYCIN 600 MG/D5W RTU 600 MG/50 ML RTUPB IV SCH ×2 (14:45→17:45)
[2018-11-30] MEDS: FAMOTIDINE INJ/PF 20 MG/2 ML SDV IV SCH ×2 (14:45→21:14)
[2018-11-30] MEDS: ENOXAPARIN SODIUM INJ 30 MG/0.3 ML DISP.SYRIN SUBCUT SCH (14:46)
[2018-11-30 15:00] LABS: FREE T3 2.04 pg/mL (2.77-5.27); FREE T4 (FREE THYROXINE) 0.9 ng/dL (0.78-2.19)
[2018-11-30 15:13] LABS: THYROID STIMULATING HORMONE 2.15 uIU/mL (0.47-4.68)
[2018-11-30] MEDS ORDERED: ROCURONIUM BROMIDE INJ 50 MG/5 ML VIAL IV ONE (16:21)
[2018-11-30] MEDS: PIPERACILLIN SODIUM/TAZOBACTAM 2.25 GM in NORMAL SALINE 50 ML IV SCH ×2 (17:13→20:18)
[2018-11-30] MEDS: PHENYTOIN 100 MG/4 ML SUSP NG SCH ×2 (17:13→21:13)
[2018-11-30] MEDS: DOCUSATE SODIUM 100 MG/10 ML UDC NG SCH (17:14)
[2018-11-30] MEDS: TAMSULOSIN HCL 0.4 MG CAP.SR.24H PO SCH (17:46)
[2018-11-30] MEDS ORDERED: METHYLPREDNISOLONE INJ 40 MG/1 ML SDV IV SCH (19:00)
--- NOTE | 2018-11-30 19:00 | PDOC PROGRESS REPORT ---
Subjective Progress Note for:: 11/30/18 Subjective:: Patient remain on BiPAP support due to increase somnolence and COPD status to avoid hypercapnia. He subsequently had episode of vomiting while on BiPAP support with associated aspiration and acute respiratory decompensation. he was intubated at bedside and transferred to ICU. He remain intubated with gastric decompression through NG tube suction. His KUB X ray did support forced air into the gastrum through BiPAP therapy. Reason For Visit: ACUTE RENAL INJURY,ALTERED MENTAL STATE Physical Exam Vital Signs: Temp Pulse Resp BP Pulse Ox 98.7 F 69 30 H 155/88 H 100 11/30/18 08:01 11/30/18 08:01 11/30/18 08:01 11/30/18 08:01 11/30/18 08:01 Intake & Output 11/29/18 11/30/18 12/01/18 06:59 06:59 06:59 Intake Total 3248 2277 Output Total 875 1075 Balance 2373 1202 Weight 95.7 kg 95.4 kg General appearance: PRESENT: obese - Intubated and vent support, sedated on IV Midazolam. OG and NG tubes in situ. Head exam: PRESENT: atraumatic, normocephalic Eye exam: PRESENT: conjunctiva pink, EOMI, PERRLA. ABSENT: scleral icterus Ear exam: PRESENT: normal external ear exam Mouth exam: PRESENT: moist Respiratory exam: PRESENT: crackles - scattered, decreased breath sounds - at lung bases, rhonchi - minimal expiratory phase Cardiovascular exam: PRESENT: RRR. ABSENT: diastolic murmur, rubs, systolic murmur Vascular exam: ABSENT: pallor GI/Abdominal exam: PRESENT: distended, normal bowel sounds, soft. ABSENT: guarding, mass, organolmegaly, rebound, tenderness Rectal exam: PRESENT: deferred Extremities exam: ABSENT: pedal edema Neurological exam: PRESENT: altered - sedated on IV Midazolam Skin exam: PRESENT: dry, warm Results Laboratory Results: 11/29/18 05:11 11/29/18 05:11 11/22/18 11/24/18 17:50 05:25 Troponin I < 0.012 NT-Pro-B Natriuret Pep 1550 H Impressions: Chest CT 11/22/18 16:18 IMPRESSION: No acute findings Head CT 11/22/18 16:18 IMPRESSION: 1. No acute intracranial abnormality. 2. Mild atrophy and chronic small vessel ischemic changes. 3. Lobulated contour to the bilateral inferior terminates, may represent small nasal polyps. EVIDENCE OF ACUTE STROKE: NO. Chest X-Ray 11/27/18 00:00 IMPRESSION: Extremely low lung volumes. Findings as above. Doubt significant change. Assessment & Plan - Diagnosis (1) Acute respiratory failure Qualifiers: Respiratory failure complication: hypoxia Qualified Code(s): J96.01 - Acute respiratory failure with hypoxia Is this a current diagnosis for this admission?: Yes Plan: Remain intubated and vent supported. (2) Aspiration into lower respiratory tract Qualifiers: Encounter type: initial encounter Qualified Code(s): T17.800A - Unspecified foreign body in other parts of respiratory tract causing asphyxiation, initial encounter Is this a current diagnosis for this admission?: Yes Plan: Remain intubated and vent supported. (3) GI (gastrointestinal bleed) Qualifiers: GI bleed type/associated pathology: unspecified gastrointestinal hemorrhage type Qualified Code(s): K92.2 - Gastrointestinal hemorrhage, unspecified Is this a current diagnosis for this admission?: Yes Plan: Probably related to stress ulcers or gastritis. Start on IV Protonix therapy. Continue NG tube gastric decompression therapy. (4) Acute kidney injury superimposed on chronic kidney disease Is this a current diagnosis for this admission?: Yes (5) CKD (chronic kidney disease) Qualifiers: Chronic kidney disease stage: stage 3 (moderate) Qualified Code(s): N18.3 - Chronic kidney disease, stage 3 (moderate) Is this a current diagnosis for this admission?: Yes (6) Altered mental status Qualifiers: Altered mental status type: unspecified Qualified Code(s): R41.82 - Altered mental status, unspecified Is this a current diagnosis for this admission?: Yes (7) Chronic respiratory failure with hypoxia, on home O2 therapy Is this a current diagnosis for this admission?: Yes (8) Seizure disorder Is this a current diagnosis for this admission?: Yes (9) HTN (hypertension) Qualifiers: Hypertension type: essential hypertension Qualified Code(s): I10 - Essential (primary) hypertension Is this a current diagnosis for this admission?: Yes (10) CAD (coronary artery disease) Qualifiers: Coronary Disease-Associated Artery/Lesion type: [place] artery Associated angina: without angina Is this a current diagnosis for this admission?: Yes (11) S/P CABG (coronary artery bypass graft) Is this a current diagnosis for this admission?: Yes (12) HLD (hyperlipidemia) Qualifiers: Hyperlipidemia type: unspecified Qualified Code(s): E78.5 - Hyperlipidemia, unspecified Is this a current diagnosis for this admission?: Yes (13) EDNA (obstructive sleep apnea) Is this a current diagnosis for this admission?: Yes - Time Time Spent with patient: 35 or more minutes - I had extensive discussion with family at bedside. Patient remain fiull code. They are in agreement with his current care plan. Medications reviewed and adjusted accordingly: Yes Anticipated discharge: Home with Homehealth, SNF - Inpatient Certification Based on my medical assessment, after consideration of the patient's comorbidities, presenting symptoms, or acuity I expect that the services needed warrant INPATIENT care.: Yes I certify that my determination is in accordance with my understanding of Medicare's requirements for reasonable and necessary INPATIENT services [42 CFR 412.3e].: Yes Medical Necessity: Significant Comorbidiites Make Outpatient Treatment Too Risky, Need Close Monitoring Due to Risk of Patient Decompensation, Need For IV Fluids, Need For Continuous Telemetry Monitoring, Need for Nebulizer Therapy and Monitoring of Response, Need for IV Antibiotics, Risk of Complication if Not Cared For in Hospital, Risk of Diagnosis Which Will Require Inpatient Eval/Care/Monitoring Post Hospital Care: D/C Clinical Application Manager Documentation, D/C or Transfer Summary - Plan Summary Plan Summary: See attending physician orders for details of his care plan.
[2018-11-30] MEDS ORDERED: DEXTROSE 40% GEL 15 GM TUBE PO PRN ×2 (19:08)
[2018-11-30] MEDS ORDERED: GLUCAGON,HUMAN RECOMB 1 MG INJ SUBCUT PRN (19:08)
[2018-11-30] MEDS ORDERED: DEXTROSE 50%-WATER 25 GM/50 ML DISP.SYRIN IV PRN ×2 (19:08)
[2018-11-30] MEDS: PANTOPRAZOLE SODIUM 40 MG VIAL IV SCH (20:17)
[2018-11-30] MEDS: METHYLPREDNISOLONE INJ 125 MG/2 ML SDV IV SCH (20:18)
[2018-11-30] MEDS: METOPROLOL TARTRATE 50 MG TABLET NG SCH (21:13)
[2018-11-30] MEDS: SOTALOL HCL 80 MG TABLET NG SCH (21:13)
[2018-11-30] MEDS: ATORVASTATIN CALCIUM 10 MG TABLET NG SCH (21:13)
[2018-11-30] MEDS: AMLODIPINE BESYLATE 5 MG TABLET NG SCH (21:14)
[2018-12-01] MEDS: IPRATROPIUM/ALBUTEROL 120 PUFF/4 GM MDI IH SCH ×4 (00:12→17:13)
[2018-12-01] MEDS: CLINDAMYCIN 600 MG/D5W RTU 600 MG/50 ML RTUPB IV SCH ×3 (01:13→17:12)
[2018-12-01] MEDS: METHYLPREDNISOLONE INJ 125 MG/2 ML SDV IV SCH ×3 (01:13→17:12)
[2018-12-01] MEDS: PIPERACILLIN SODIUM/TAZOBACTAM 2.25 GM in NORMAL SALINE 50 ML IV SCH ×4 (02:08→20:05)
[2018-12-01] MEDS: MIDAZOLAM HCL 50 MG/100 ML RTUINJ IV PRN ×4 (04:01→22:41)
[2018-12-01 04:29] LABS: ARTERIAL BLOOD BASE EXCESS -7.1 mmol/L; ARTERIAL BLOOD FIO2 60%; ARTERIAL BLOOD H2CO3 0.92 mmol/L (1.05-1.35); ARTERIAL BLOOD O2 SATURATION 93.1 % (94-98); ARTERIAL BLOOD PCO2 30.4 mmHg (35-45); ARTERIAL BLOOD PH 7.37 (7.35-7.45); ARTERIAL BLOOD PO2 67.4 mmHg (80-100); ARTERIAL BLOOD TOTAL CO2 17.9 mmol/L (23-27)
[2018-12-01 04:52] LABS: HEMATOCRIT 37.7 % (37.9-51.0); HEMOGLOBIN 12.5 g/dL (13.5-17.0); MEAN CORPUSCULAR HEMOGLOBIN 29.7 pg (27.0-33.4); MEAN CORPUSCULAR HGB CONC 33.3 g/dL (32.0-36.0); MEAN CORPUSCULAR VOLUME 89 fl (80-97); PLATELET COUNT 206 10^3/uL (150-450); RED BLOOD COUNT 4.22 10^6/uL (4.35-5.55); RED CELL DISTRIBUTION WIDTH 15.3 % (11.5-14.0)
[2018-12-01] MEDS: PHENYTOIN 100 MG/4 ML SUSP NG SCH ×3 (05:09→21:01)
[2018-12-01 05:10] LABS: ALANINE AMINOTRANSFERASE 28 U/L (21-72); ALBUMIN 2.4 g/dL (3.5-5.0); ALKALINE PHOSPHATASE 65 U/L (38-126); ANION GAP 10 (5-19); ASPARTATE AMINO TRANSFERASE 15 U/L (17-59); BILIRUBIN,DIRECT 0.3 mg/dL (0.0-0.4); BILIRUBIN,TOTAL 0.5 mg/dL (0.2-1.3); BLOOD UREA NITROGEN 38 mg/dL (7-20); CALCIUM 8.1 mg/dL (8.4-10.2); CARBON DIOXIDE 18 mmol/L (22-30); CHLORIDE 122 mmol/L (98-107); GLUCOSE 136 mg/dL (75-110); PHOSPHORUS 2.5 mg/dL (2.5-4.5); POTASSIUM 3.3 mmol/L (3.6-5.0); SODIUM 149.8 mmol/L (137-145); TOTAL PROTEIN 5.1 g/dL (6.3-8.2)
[2018-12-01] MEDS: PANTOPRAZOLE SODIUM 40 MG VIAL IV SCH ×2 (05:12→17:12)
[2018-12-01 05:15] LABS: ABSOLUTE LYMPHOCYTES# (MANUAL) 0.8 10^3/uL (0.5-4.7); ABSOLUTE MONOCYTES # (MANUAL) 0.4 10^3/uL (0.1-1.4); ABSOLUTE NEUTROPHILS# (MANUAL) 19.7 10^3/uL (1.7-8.2); BAND NEUTROPHILS % (MANUAL) 1 % (3-5); BASOPHILS % (MANUAL) 0 % (0-2); EOSINOPHILS % (MANUAL) 0 % (0-6); LYMPHOCYTES % (MANUAL) 4 % (13-45); MONOCYTES % (MANUAL) 2 % (3-13); SEGMENTED NEUTROPHILS % (MAN) 93 % (42-78); TOTAL CELLS COUNTED 100
[2018-12-01 05:16] LABS: PLATELET COMMENT ADEQUATE
--- NOTE | 2018-12-01 06:31 | RADIOLOGY REPORT (SQ) ---
EXAM DESCRIPTION: CHEST SINGLE VIEW COMPLETED DATE/TIME: 12/01/2018 6:14 am REASON FOR STUDY: resp failure/aspiration COMPARISON: 11/30/2018. FINDINGS: Single-view AP portable semi-upright chest. Endotracheal and nasogastric tubes appropriate. Pacer in place as before. Limiting external multipl e monitor lead artifacts. Extremely low lung volumes with areas of basilar subsegmental atelectasis. Suspect trace pleural flu id with developing vascular congestion. TECHNICAL DOCUMENTATION: JOB ID: [id number] Reading location - IP/workstation name: [email or web address]
[2018-12-01] MEDS ORDERED: POTASSI CL 20 MEQ/50 ML RIDER 20 MEQ/50 ML RTUPB IV ONE (08:13)
[2018-12-01] MEDS: NORMAL SALINE 1000 ML 1,000 ML IV PRN (08:20)
[2018-12-01] MEDS: POTASSI CL 20 MEQ/50 ML RIDER 20 MEQ/50 ML RTUPB IV SCH ×2 (09:03→11:34)
[2018-12-01] MEDS: SOTALOL HCL 80 MG TABLET NG SCH ×2 (09:43→21:04)
[2018-12-01] MEDS: METOPROLOL TARTRATE 50 MG TABLET NG SCH ×2 (09:44→21:04)
[2018-12-01] MEDS: DOCUSATE SODIUM 100 MG/10 ML UDC NG SCH ×2 (09:44→17:12)
[2018-12-01] MEDS: AMLODIPINE BESYLATE 5 MG TABLET NG SCH ×2 (09:44→21:03)
[2018-12-01] MEDS: FAMOTIDINE INJ/PF 20 MG/2 ML SDV IV SCH ×2 (09:44→21:01)
[2018-12-01] MEDS: ENOXAPARIN SODIUM INJ 30 MG/0.3 ML DISP.SYRIN SUBCUT SCH (09:45)
[2018-12-01] MEDS: MAGNESIUM OXIDE 400 MG TABLET NG SCH (09:45)
[2018-12-01] MEDS ORDERED: POTASSI CL 20 MEQ/50 ML RIDER 20 MEQ/50 ML RTUPB IV SCH (10:00)
[2018-12-01 10:10] LABS: APPEARANCE,URINE CLOUDY; BILIRUBIN,URINE NEGATIVE (NEGATIVE); COLOR,URINE YELLOW; GLUCOSE, URINE NEGATIVE (NEGATIVE); KETONES,URINE NEGATIVE (NEGATIVE); LEUKOCYTE ESTERASE,URINE LARGE (NEGATIVE); NITRITE,URINE POSITIVE (NEGATIVE); PROTEIN,URINE 30 mg/dL (NEGATIVE); UROBILINOGEN,URINE NEGATIVE mg/dL (<2.0)
[2018-12-01 14:15] LABS: ANION GAP 5 (5-19); BLOOD UREA NITROGEN 38 mg/dL (7-20); CALCIUM 7.9 mg/dL (8.4-10.2); CARBON DIOXIDE 18 mmol/L (22-30); CHLORIDE 126 mmol/L (98-107); GLUCOSE 141 mg/dL (75-110); POTASSIUM 3.9 mmol/L (3.6-5.0); SODIUM 148.8 mmol/L (137-145)
[2018-12-01] MEDS: TAMSULOSIN HCL 0.4 MG CAP.SR.24H PO SCH (17:12)
--- NOTE | 2018-12-01 17:43 | Progress Note ---
Provider Note Provider Note: ID Telephone Consultation Note Asked by pharmacy to review patient's chart. Pt not seen or examined. reviewed VS, imaging reports, recent labs, recent provider notes. Pt is a 78 year old man with PMH including COPD, obesity, GERD, CHF, AF, and seizure disorder. He has been hospitalized since 11/22/18 with increased somnolence, decreased ability to care for himself. Per notes, he was wearing BiPAP recently when he became nauseous and reportedly aspirated gastric contents on 11/30. He had copious secretions suctioned at the time and required intubation. A tracheal aspirate was sent and is in process. Clindamycin and Zosyn were started. Impression Aspiration pneumonitis vs pneumonia - Aspiration pneumonitis can be clinically difficult to distinguish from aspiration pneumonia (both can cause infiltrates on CXR, hypoxemia, tachycardia, etc), but aspiration pneumonitis tends to have a quicker onset and resolution than pneumonia. - Given the overlap in signs/symptoms, using antibiotics for the possibility of pneumonia is reasonable in a severely ill patient until the clinical course becomes clearer. - Zosyn has broad spectrum activity against streptococci, MSSA, anaerobes, and Gram negatives including Pseudomonas. I suspect Zosyn is sufficient as monotherapy. - Clindamycin does not add much to this beyond potentially some MRSA activity. Clindamycin is not the most reliable empiric MRSA agent. Of MRSA isolates about 20-30% are clindamycin resistant. Recommendations - F/u tracheal aspirate culture; would stop clindamycin if no MRSA. Nic Petty MD [facility] Infectious Diseases pager [phone]
[2018-12-01] MEDS: ATORVASTATIN CALCIUM 10 MG TABLET NG SCH (21:02)
--- NOTE | 2018-12-01 21:29 | PDOC PROGRESS REPORT ---
Subjective Progress Note for:: 12/01/18 Subjective:: Patient remain intubated, sedated, and ventilator supported with down turn of FiO2 to 55%. NG tube suction is decreased. No reported fever. No bowel movement so far. Reason For Visit: ACUTE RENAL INJURY,ALTERED MENTAL STATE Physical Exam Vital Signs: Temp Pulse Resp BP Pulse Ox 98.6 F 64 20 123/66 96 12/01/18 04:00 11/30/18 22:00 12/01/18 06:16 12/01/18 06:16 12/01/18 06:16 Intake & Output 11/30/18 12/01/18 12/02/18 06:59 06:59 06:59 Intake Total 2277 1255 100 Output Total 1075 3244 Balance 1202 -1988 100 Weight 95.4 kg 99.5 kg Physical Exam: Remain intubated vent supported and sedated. Head exam: PRESENT: atraumatic, normocephalic Eye exam: PRESENT: conjunctiva pink, PERRLA. ABSENT: scleral icterus Ear exam: PRESENT: normal external ear exam Mouth exam: PRESENT: moist - NG and ET tubes in situ Respiratory exam: PRESENT: clear to auscultation pradeep, decreased breath sounds - at lung bases Cardiovascular exam: PRESENT: RRR. ABSENT: diastolic murmur, rubs, systolic murmur Vascular exam: ABSENT: pallor GI/Abdominal exam: PRESENT: normal bowel sounds, soft. ABSENT: distended, guarding, mass, organolmegaly, rebound, tenderness Extremities exam: ABSENT: pedal edema Neurological exam: PRESENT: altered - sedated Skin exam: PRESENT: dry, warm Results Laboratory Results: 12/01/18 04:20 12/01/18 04:20 11/30/18 11/30/18 11/30/18 10:17 12:10 14:04 WBC RBC Hgb Hct MCV MCH MCHC RDW Plt Count Seg Neutrophils % Lymphocytes % Monocytes % Eosinophils % Basophils % Absolute Neutrophils Absolute Lymphocytes Absolute Monocytes Absolute Eosinophils Absolute Basophils Carbonic Acid 1.31 1.07 HCO3/H2CO3 Ratio 14:1 16:1 ABG pH 7.26 L 7.31 L ABG pCO2 43.4 35.7 ABG pO2 73.5 L 150.0 H ABG HCO3 19.1 L 17.4 L ABG O2 Saturation 92.6 L 98.8 H ABG Base Excess -7.7 -8.1 FiO2 100% 90% Sodium Potassium Chloride Carbon Dioxide Anion Gap BUN Creatinine Est GFR ( Amer) Est GFR (Non-Af Amer) Glucose Lactic Acid Calcium Phosphorus Magnesium Total Bilirubin AST ALT Alkaline Phosphatase Total Protein Albumin TSH 2.15 Free T4 0.90 Free T3 pg/mL 2.04 L 12/01/18 12/01/18 12/01/18 04:13 04:20 04:20 WBC 21.0 H D RBC 4.22 L Hgb 12.5 L Hct 37.7 L MCV 89 MCH 29.7 MCHC 33.3 RDW 15.3 H Plt Count 206 Seg Neutrophils % Not Reportable Lymphocytes % Not Reportable Monocytes % Not Reportable Eosinophils % Not Reportable Basophils % Not Reportable Absolute Neutrophils Not Reportable Absolute Lymphocytes Not Reportable Absolute Monocytes Not Reportable Absolute Eosinophils Not Reportable Absolute Basophils Not Reportable Carbonic Acid 0.92 L HCO3/H2CO3 Ratio 18:1 ABG pH 7.37 ABG pCO2 30.4 L ABG pO2 67.4 L ABG HCO3 17.0 L ABG O2 Saturation 93.1 L ABG Base Excess -7.1 FiO2 60% Sodium 149.8 H Potassium 3.3 L Chloride 122 H Carbon Dioxide 18 L Anion Gap 10 BUN 38 H Creatinine 1.92 H Est GFR ( Amer) 41 L Est GFR (Non-Af Amer) 34 L Glucose 136 H Lactic Acid Calcium 8.1 L Phosphorus 2.5 Magnesium 2.0 Total Bilirubin 0.5 AST 15 L ALT 28 Alkaline Phosphatase 65 Total Protein 5.1 L Albumin 2.4 L TSH Free T4 Free T3 pg/mL 12/01/18 04:20 WBC RBC Hgb Hct MCV MCH MCHC RDW Plt Count Seg Neutrophils % Lymphocytes % Monocytes % Eosinophils % Basophils % Absolute Neutrophils Absolute Lymphocytes Absolute Monocytes Absolute Eosinophils Absolute Basophils Carbonic Acid HCO3/H2CO3 Ratio ABG pH ABG pCO2 ABG pO2 ABG HCO3 ABG O2 Saturation ABG Base Excess FiO2 Sodium Potassium Chloride Carbon Dioxide Anion Gap BUN Creatinine Est GFR ( Amer) Est GFR (Non-Af Amer) Glucose Lactic Acid 0.9 Calcium Phosphorus Magnesium Total Bilirubin AST ALT Alkaline Phosphatase Total Protein Albumin TSH Free T4 Free T3 pg/mL 11/22/18 11/24/18 17:50 05:25 Troponin I < 0.012 NT-Pro-B Natriuret Pep 1550 H Impressions: Chest CT 11/22/18 16:18 IMPRESSION: No acute findings Head CT 11/22/18 16:18 IMPRESSION: 1. No acute intracranial abnormality. 2. Mild atrophy and chronic small vessel ischemic changes. 3. Lobulated contour to the bilateral inferior terminates, may represent small nasal polyps. EVIDENCE OF ACUTE STROKE: NO. KUB X-Ray 11/30/18 11:47 IMPRESSION: Cannot exclude a partial bowel obstruction. NG tube placement. Assessment & Plan - Diagnosis (1) Acute respiratory failure Qualifiers: Respiratory failure complication: hypoxia Qualified Code(s): J96.01 - Acute respiratory failure with hypoxia Is this a current diagnosis for this admission?: Yes (2) Aspiration into lower respiratory tract Qualifiers: Encounter type: initial encounter Qualified Code(s): T17.800A - Unspecified foreign body in other parts of respiratory tract causing asphyxiation, initial encounter Is this a current diagnosis for this admission?: Yes (3) GI (gastrointestinal bleed) Qualifiers: GI bleed type/associated pathology: unspecified gastrointestinal hemorrhage type Qualified Code(s): K92.2 - Gastrointestinal hemorrhage, unspecified Is this a current diagnosis for this admission?: Yes (4) Acute kidney injury superimposed on chronic kidney disease Is this a current diagnosis for this admission?: Yes (5) CKD (chronic kidney disease) Qualifiers: Chronic kidney disease stage: stage 3 (moderate) Qualified Code(s): N18.3 - Chronic kidney disease, stage 3 (moderate) Is this a current diagnosis for this admission?: Yes (6) Altered mental status Qualifiers: Altered mental status type: unspecified Qualified Code(s): R41.82 - Altered mental status, unspecified Is this a current diagnosis for this admission?: Yes (7) Chronic respiratory failure with hypoxia, on home O2 therapy Is this a current diagnosis for this admission?: Yes (8) Seizure disorder Is this a current diagnosis for this admission?: Yes (9) HTN (hypertension) Qualifiers: Hypertension type: essential hypertension Qualified Code(s): I10 - Essential (primary) hypertension Is this a current diagnosis for this admission?: Yes (10) CAD (coronary artery disease) Qualifiers: Coronary Disease-Associated Artery/Lesion type: [place] artery Associated angina: without angina Is this a current diagnosis for this admission?: Yes (11) S/P CABG (coronary artery bypass graft) Is this a current diagnosis for this admission?: Yes (12) HLD (hyperlipidemia) Qualifiers: Hyperlipidemia type: unspecified Qualified Code(s): E78.5 - Hyperlipidemia, unspecified Is this a current diagnosis for this admission?: Yes (13) EDNA (obstructive sleep apnea) Is this a current diagnosis for this admission?: Yes (14) COPD with acute exacerbation Is this a current diagnosis for this admission?: Yes Plan: Probably precipitated with his vomiting, aspiration pneumonitis and pneumonia process. Continue current medication management. - Time Time Spent with patient: 25-34 minutes Medications reviewed and adjusted accordingly: Yes Anticipated discharge: SNF Within: Other - Inpatient Certification Based on my medical assessment, after consideration of the patient's co morbidities, presenting symptoms, or acuity I expect that the services needed warrant INPATIENT care.: Yes I certify that my determination is in accordance with my understanding of Medicare's requirements for reasonable and necessary INPATIENT services [42 CFR 412.3e].: Yes Medical Necessity: Significant Comorbidiites Make Outpatient Treatment Too Risky, Need Close Monitoring Due to Risk of Patient Decompensation, Need For IV Fluids, Need For Continuous Telemetry Monitoring, Need for Nebulizer Therapy and Monitoring of Response, Need for IV Antibiotics, Risk of Complication if Not Cared For in Hospital, Risk of Diagnosis Which Will Require Inpatient Eval/Care/Monitoring Post Hospital Care: D/C or Transfer Summary - Plan Summary Plan Summary: Continue IV Zosyn and Clindamycin coverage. Follow up on blood, tracheal aspirate, and urine culture findings. D/C gastric suction with plan to rest lumen today and start tube feeding tomorrow. Decrease IV Solu Medrol to 40 mg q 8 hours. His leukocytosis may be due to steroid induced demargination. Patient will receive potassium replace as per ICU electrolyte replacement protocol. Follow up on labs findings ion AM.
[2018-12-02] MEDS: IPRATROPIUM/ALBUTEROL 120 PUFF/4 GM MDI IH SCH ×4 (00:01→17:40)
[2018-12-02] MEDS: CLINDAMYCIN 600 MG/D5W RTU 600 MG/50 ML RTUPB IV SCH ×3 (01:24→17:51)
[2018-12-02] MEDS: PIPERACILLIN SODIUM/TAZOBACTAM 2.25 GM in NORMAL SALINE 50 ML IV SCH ×4 (02:34→21:21)
[2018-12-02] MEDS: MIDAZOLAM HCL 50 MG/100 ML RTUINJ IV PRN ×5 (02:55→23:12)
[2018-12-02] MEDS: NORMAL SALINE 1000 ML 1,000 ML IV PRN ×2 (04:04→21:28)
[2018-12-02 04:19] LABS: ARTERIAL BLOOD H2CO3 0.83 mmol/L (1.05-1.35); ARTERIAL BLOOD HCO3 15.7 mmol/L (20-24); ARTERIAL BLOOD O2 SATURATION 97.9 % (94-98); ARTERIAL BLOOD PCO2 27.5 mmHg (35-45); ARTERIAL BLOOD PH 7.38 (7.35-7.45); ARTERIAL BLOOD PO2 107.6 mmHg (80-100); ARTERIAL BLOOD TOTAL CO2 16.6 mmol/L (23-27)
[2018-12-02 04:34] LABS: ANION GAP 7 (5-19); BLOOD UREA NITROGEN 38 mg/dL (7-20); CALCIUM 8.3 mg/dL (8.4-10.2); CARBON DIOXIDE 20 mmol/L (22-30); CHLORIDE 125 mmol/L (98-107); GLUCOSE 137 mg/dL (75-110); POTASSIUM 3.5 mmol/L (3.6-5.0); SODIUM 151.6 mmol/L (137-145)
[2018-12-02] MEDS ORDERED: METHYLPREDNISOLONE INJ 40 MG/1 ML SDV IV SCH (06:00)
[2018-12-02] MEDS: PANTOPRAZOLE SODIUM 40 MG VIAL IV SCH ×2 (06:09→17:52)
[2018-12-02] MEDS: PHENYTOIN 100 MG/4 ML SUSP NG SCH ×3 (06:09→21:25)
--- NOTE | 2018-12-02 06:56 | PDOC PROGRESS REPORT ---
Subjective Progress Note for:: 12/02/18 Subjective:: Patient remain intubated and vent supported. There is concern about persistent bradycardia. There is need for more sedation due to his agitation on vent but appropriately respond to weaning off the Midazolam sedation. Reason For Visit: ACUTE RENAL INJURY,ALTERED MENTAL STATE Physical Exam Vital Signs: Temp Pulse Resp BP Pulse Ox 97.5 F 48 L 15 101/59 L 98 12/02/18 06:00 12/01/18 22:00 12/02/18 06:00 12/02/18 05:21 12/02/18 06:00 Intake & Output 11/30/18 12/01/18 12/02/18 06:59 06:59 06:59 Intake Total 2275 9945 2843 Output Total 3616 9874 695 Balance 1201 2148 Weight 95.4 kg 99.5 kg 101.4 kg Physical Exam: Remain intubated vent supported and sedated. Head exam: PRESENT: atraumatic, normocephalic Eye exam: PRESENT: conjunctiva pink, PERRLA. ABSENT: pallor, scleral icterus Ear exam: PRESENT: normal external ear exam Mouth exam: PRESENT: moist - NG and ET tubes in situ Respiratory exam: PRESENT: clear to auscultation pradeep, decreased breath sounds - at lung bases Cardiovascular exam: PRESENT: RRR. ABSENT: diastolic murmur, rubs, systolic murmur GI/Abdominal exam: PRESENT: normal bowel sounds, soft. ABSENT: distended, guarding, mass, organomegaly, rebound, tenderness Extremities exam: ABSENT: pedal edema Neurological exam: PRESENT: altered - sedated Skin exam: PRESENT: dry, warm Results Laboratory Results: 12/01/18 04:20 12/02/18 04:04 12/01/18 12/01/18 12/02/18 09:55 13:47 04:04 Carbonic Acid HCO3/H2CO3 Ratio ABG pH ABG pCO2 ABG pO2 ABG HCO3 ABG O2 Saturation ABG Base Excess FiO2 Sodium 148.8 H 151.6 H Potassium 3.9 3.5 L Chloride 126 H 125 H Carbon Dioxide 18 L 20 L Anion Gap 5 7 BUN 38 H 38 H Creatinine 2.03 H 2.19 H Est GFR ( Amer) 39 L 35 L Est GFR (Non-Af Amer) 32 L 29 L Glucose 141 H 137 H Calcium 7.9 L 8.3 L Magnesium 2.2 Urine Color YELLOW Urine Appearance CLOUDY Urine pH 6.0 Ur Specific [place] 1.020 Urine Protein 30 H Urine Glucose (UA) NEGATIVE Urine Ketones NEGATIVE Urine Blood MODERATE H Urine Nitrite POSITIVE H Ur Leukocyte Esterase LARGE H Urine WBC (Auto) 117 Urine RBC (Auto) 33 12/02/18 04:12 Carbonic Acid 0.83 L HCO3/H2CO3 Ratio 18:1 ABG pH 7.38 ABG pCO2 27.5 L ABG pO2 107.6 H ABG HCO3 15.7 L ABG O2 Saturation 97.9 ABG Base Excess -8.0 FiO2 55% Sodium Potassium Chloride Carbon Dioxide Anion Gap BUN Creatinine Est GFR ( Amer) Est GFR (Non-Af Amer) Glucose Calcium Magnesium Urine Color Urine Appearance Urine pH Ur Specific [place] Urine Protein Urine Glucose (UA) Urine Ketones Urine Blood Urine Nitrite Ur Leukocyte Esterase Urine WBC (Auto) Urine RBC (Auto) 11/22/18 11/24/18 17:50 05:25 Troponin I < 0.012 NT-Pro-B Natriuret Pep 1550 H Impressions: Chest CT 11/22/18 16:18 IMPRESSION: No acute findings Head CT 11/22/18 16:18 IMPRESSION: 1. No acute intracranial abnormality. 2. Mild atrophy and chronic small vessel ischemic changes. 3. Lobulated contour to the bilateral inferior terminates, may represent small nasal polyps. EVIDENCE OF ACUTE STROKE: NO. KUB X-Ray 11/30/18 11:47 IMPRESSION: Cannot exclude a partial bowel obstruction. NG tube placement. Assessment & Plan - Diagnosis (1) Acute respiratory failure Qualifiers: Respiratory failure complication: hypoxia Qualified Code(s): J96.01 - Acute respiratory failure with hypoxia Is this a current diagnosis for this admission?: Yes (2) Aspiration into lower respiratory tract Qualifiers: Encounter type: initial encounter Qualified Code(s): T17.800A - Unspecified foreign body in other parts of respiratory tract causing asphyxiation, initial encounter Is this a current diagnosis for this admission?: Yes (3) GI (gastrointestinal bleed) Qualifiers: GI bleed type/associated pathology: unspecified gastrointestinal hemorrhage type Qualified Code(s): K92.2 - Gastrointestinal hemorrhage, unspecified Is this a current diagnosis for this admission?: Yes (4) Acute kidney injury superimposed on chronic kidney disease Is this a current diagnosis for this admission?: Yes (5) CKD (chronic kidney disease) Qualifiers: Chronic kidney disease stage: stage 3 (moderate) Qualified Code(s): N18.3 - Chronic kidney disease, stage 3 (moderate) Is this a current diagnosis for this admission?: Yes (6) Altered mental status Qualifiers: Altered mental status type: unspecified Qualified Code(s): R41.82 - Altered mental status, unspecified Is this a current diagnosis for this admission?: Yes (7) Chronic respiratory failure with hypoxia, on home O2 therapy Is this a current diagnosis for this admission?: Yes (8) Seizure disorder Is this a current diagnosis for this admission?: Yes (9) HTN (hypertension) Qualifiers: Hypertension type: essential hypertension Qualified Code(s): I10 - Essential (primary) hypertension Is this a current diagnosis for this admission?: Yes (10) CAD (coronary artery disease) Qualifiers: Coronary Disease-Associated Artery/Lesion type: [place] artery Associated angina: without angina Is this a current diagnosis for this admission?: Yes (11) S/P CABG (coronary artery bypass graft) Is this a current diagnosis for this admission?: Yes (12) HLD (hyperlipidemia) Qualifiers: Hyperlipidemia type: unspecified Qualified Code(s): E78.5 - Hyperlipidemia, unspecified Is this a current diagnosis for this admission?: Yes (13) EDNA (obstructive sleep apnea) Is this a current diagnosis for this admission?: Yes (14) COPD with acute exacerbation Is this a current diagnosis for this admission?: Yes - Time Time Spent with patient: 25-34 minutes Medications reviewed and adjusted accordingly: Yes Anticipated discharge: SNF Within: Other - Inpatient Certification Based on my medical assessment, after consideration of the patient's comorbidities, presenting symptoms, or acuity I expect that the services needed warrant INPATIENT care.: Yes I certify that my determination is in accordance with my understanding of Medicare's requirements for reasonable and necessary INPATIENT services [42 CFR 412.3e].: Yes Medical Necessity: Significant Comorbidiites Make Outpatient Treatment Too Risky, Need Close Monitoring Due to Risk of Patient Decompensation, Need For IV Fluids, Need For Continuous Telemetry Monitoring, Need for Nebulizer Therapy and Monitoring of Response, Need for IV Antibiotics, Risk of Complication if Not Cared For in Hospital, Risk of Diagnosis Which Will Require Inpatient Ev al/Care/Monitoring Post Hospital Care: D/C or Transfer Summary - Plan Summary Plan Summary: Start enteral feeding with vital formula via NG tube. Obtain cardiac enzymes and echocardiogram evalaution. Obtain cardiology consult with Dr. Rueda. continue current antibiotic therapy. Hold Sotolol and Metoprolol adminstration as per parameters.
[2018-12-02 07:52] LABS: CREATINE KINASE MB 0.84 ng/mL (<4.55); TROPONIN I 0.014 ng/mL
--- NOTE | 2018-12-02 08:43 | RADIOLOGY REPORT (SQ) ---
EXAM DESCRIPTION: CHEST SINGLE VIEW COMPLETED DATE/TIME: 12/02/2018 6:16 am REASON FOR STUDY: resp failure COMPARISON: 12/01/2018 NUMBER OF VIEWS: One view. TECHNIQUE: Single frontal radiographic image of the chest acquired. LIMITATIONS: None. FINDINGS: LUNGS AND PLEURA: Interstitial edema and small effusions not significantly changed. No pn eumothorax. MEDIASTINUM AND HEART: Stable heart size and mediastinal structures. SUPPORT DEVICES: Appropriate location without change. BONY STRUCTURES: No acute findings. HARDWARE: None. OTHER: No other significant finding. IMPRESSION: STABLE APPEARANCE OF THE CHEST. SUPPORT DEVICES UNCHANGED. Reading location - IP/workstation name: [email or web address]
[2018-12-02] MEDS ORDERED: POTASSIUM CHLORIDE 20 MEQ PACKET PO ONE (08:45)
[2018-12-02] MEDS: DOCUSATE SODIUM 100 MG/10 ML UDC NG SCH ×2 (09:05→17:52)
[2018-12-02] MEDS: MAGNESIUM OXIDE 400 MG TABLET NG SCH (09:05)
[2018-12-02] MEDS: ENOXAPARIN SODIUM INJ 30 MG/0.3 ML DISP.SYRIN SUBCUT SCH (09:05)
[2018-12-02] MEDS: FAMOTIDINE INJ/PF 20 MG/2 ML SDV IV SCH ×2 (09:05→21:25)
[2018-12-02] MEDS: METOPROLOL TARTRATE 50 MG TABLET NG SCH ×2 (09:06→21:26)
[2018-12-02] MEDS: AMLODIPINE BESYLATE 5 MG TABLET NG SCH ×2 (09:07→21:25)
[2018-12-02] MEDS: SOTALOL HCL 80 MG TABLET NG SCH ×2 (09:07→21:16)
[2018-12-02 10:31] LABS: HEMATOCRIT 36.5 % (37.9-51.0); HEMOGLOBIN 12.2 g/dL (13.5-17.0); MEAN CORPUSCULAR HEMOGLOBIN 29.9 pg (27.0-33.4); MEAN CORPUSCULAR HGB CONC 33.3 g/dL (32.0-36.0); MEAN CORPUSCULAR VOLUME 90 fl (80-97); RED BLOOD COUNT 4.06 10^6/uL (4.35-5.55); RED CELL DISTRIBUTION WIDTH 15.3 % (11.5-14.0); WHITE BLOOD COUNT 26.7 10^3/uL (4.0-10.5)
[2018-12-02 11:00] LABS: ABSOLUTE LYMPHOCYTES# (MANUAL) 1.3 10^3/uL (0.5-4.7); ABSOLUTE MONOCYTES # (MANUAL) 0.8 10^3/uL (0.1-1.4); ABSOLUTE NEUTROPHILS# (MANUAL) 24.6 10^3/uL (1.7-8.2); BASOPHILS % (MANUAL) 0 % (0-2); EOSINOPHILS % (MANUAL) 0 % (0-6); LYMPHOCYTES % (MANUAL) 5 % (13-45); METAMYELOCYTES % (MANUAL) 1 % (0); MONOCYTES % (MANUAL) 3 % (3-13); SEGMENTED NEUTROPHILS % (MAN) 91 % (42-78); TOTAL CELLS COUNTED 100
[2018-12-02 11:01] LABS: TOXIC GRANULATION 1+
[2018-12-02 11:02] LABS: ANISOCYTOSIS SLIGHT; BURR CELLS SLIGHT; PLATELET CLUMPS PRESENT; PLATELET COMMENT ADEQUATE; PLATELET COUNT 216 10^3/uL (150-450); PLATELET LARGE PRESENT; POIKILOCYTOSIS SLIGHT; TEAR DROP CELLS SLIGHT
[2018-12-02 15:04] LABS: TOTAL PROTEIN 5.1 g/dL (6.3-8.2)
[2018-12-02] MEDS: TAMSULOSIN HCL 0.4 MG CAP.SR.24H PO SCH (17:42)
--- NOTE | 2018-12-02 18:58 | RADIOLOGY REPORT (SQ) ---
EXAM DESCRIPTION: U/S CHEST COMPLETED DATE/TIME: 12/02/2018 5:32 pm REASON FOR STUDY: r pleural effusion COMPARISON: AP chest 12/02/2018 TECHNIQUE: Limited ultrasound of the chest was performed to assess pleural effusion LIMITATIONS: None. FINDINGS: Limited ultrasound of the chest was performed to assess pleural effusion. Trace fluid is present in the right posterior costophrenic sulcus. IMPRESSION: Trace right posterior costophrenic sulcus pleural fluid TECHNICAL DOCUMENTATION: JOB ID: [id number] [employer]- All Rights Reserved Reading location - IP/workstation name: [email or web address]
[2018-12-02] MEDS ORDERED: FENTANYL CITRATE INJ/PF 100 MCG/2 ML AMPUL ONE (19:58)
[2018-12-02] MEDS: FENTANYL CITRATE INJ/PF 100 MCG/2 ML AMPUL IV PRN (20:08)
[2018-12-02] MEDS: ATORVASTATIN CALCIUM 10 MG TABLET NG SCH (21:25)
[2018-12-03] MEDS: FENTANYL CITRATE INJ/PF 100 MCG/2 ML AMPUL IV PRN (00:08)
--- NOTE | 2018-12-03 00:09 | PDOC CONSULTATION ---
Consultation-Blank Consultation: Cardiology consultation on 12/02/2018.
[2018-12-03] MEDS: IPRATROPIUM/ALBUTEROL 120 PUFF/4 GM MDI IH SCH ×4 (00:50→17:54)
[2018-12-03] MEDS: CLINDAMYCIN 600 MG/D5W RTU 600 MG/50 ML RTUPB IV SCH ×3 (01:00→17:58)
[2018-12-03] MEDS: PIPERACILLIN SODIUM/TAZOBACTAM 2.25 GM in NORMAL SALINE 50 ML IV SCH ×4 (02:17→20:14)
[2018-12-03] MEDS: MIDAZOLAM HCL 50 MG/100 ML RTUINJ IV PRN ×4 (02:22→16:04)
[2018-12-03 04:15] LABS: ARTERIAL BLOOD BASE EXCESS -5.4 mmol/L; ARTERIAL BLOOD FIO2 50%; ARTERIAL BLOOD H2CO3 0.88 mmol/L (1.05-1.35); ARTERIAL BLOOD O2 SATURATION 96.3 % (94-98); ARTERIAL BLOOD PCO2 29.1 mmHg (35-45); ARTERIAL BLOOD PH 7.41 (7.35-7.45); ARTERIAL BLOOD TOTAL CO2 18.9 mmol/L (23-27)
[2018-12-03 04:51] LABS: HEMATOCRIT 36.9 % (37.9-51.0); HEMOGLOBIN 12.2 g/dL (13.5-17.0); MEAN CORPUSCULAR HEMOGLOBIN 29.5 pg (27.0-33.4); MEAN CORPUSCULAR VOLUME 89 fl (80-97); PLATELET COUNT 204 10^3/uL (150-450); RED BLOOD COUNT 4.12 10^6/uL (4.35-5.55); RED CELL DISTRIBUTION WIDTH 15.7 % (11.5-14.0); WHITE BLOOD COUNT 23.1 10^3/uL (4.0-10.5)
[2018-12-03 04:58] LABS: INTERNATIONAL RATION (INR) 1.07; PROTHROMBIN TIME 14.4 SEC (11.4-15.4)
[2018-12-03 04:59] LABS: PARTIAL THROMBOPLASTIN TIME 23.4 SEC (23.5-35.8)
[2018-12-03 05:08] LABS: ANION GAP 6 (5-19); BLOOD UREA NITROGEN 34 mg/dL (7-20); CARBON DIOXIDE 19 mmol/L (22-30); CHLORIDE 128 mmol/L (98-107); GLUCOSE 126 mg/dL (75-110); POTASSIUM 3.5 mmol/L (3.6-5.0); SODIUM 153.1 mmol/L (137-145)
[2018-12-03] MEDS: PANTOPRAZOLE SODIUM 40 MG VIAL IV SCH ×2 (05:36→17:58)
[2018-12-03] MEDS: PHENYTOIN 100 MG/4 ML SUSP NG SCH ×3 (05:36→21:07)
--- NOTE | 2018-12-03 08:45 | RADIOLOGY REPORT (SQ) ---
EXAM DESCRIPTION: CHEST SINGLE VIEW COMPLETED DATE/TIME: 12/03/2018 6:27 am REASON FOR STUDY: Respitory Failure COMPARISON: CT chest 11/22/2018 Chest films 11/30/2018, 12/01/2018, 12/02/2018 EXAM PARAMETERS: NUMBER OF VIEWS: One view. TECHNIQUE: Single frontal radiographic view of the chest acquired. RADIATION DOSE: NA LIMITATIONS: None. FINDINGS: LUNGS AND PLEURA: Persistent bandlike consolidation in the right lung along the minor fiss ure. Lungs otherwise well inflated and grossly clear. No pleural effusion or pneumothorax. MEDIASTINUM AND HILAR STRUCTURES: No masses. Contour normal. HEART AND VASCULAR STRUCTURES: Old sternotomy. No cardiomegaly BONES: No acute findings. HARDWARE: Endotracheal tube tip 4 cm above the alejandro. Nasogastric tube tip below the hemidiaphragms . Left-sided dual lead pacemaker. OTHER: No other significant finding. IMPRESSION: Persistent bandlike consolidation along the right minor fissure TECHNICAL DOCUMENTATION: JOB ID: [id number] [employer]- All Rights Reserved Reading location - IP/workstation name: [email or web address]
[2018-12-03] MEDS: FAMOTIDINE INJ/PF 20 MG/2 ML SDV IV SCH ×2 (09:30→21:07)
[2018-12-03] MEDS: DOCUSATE SODIUM 100 MG/10 ML UDC NG SCH ×2 (09:30→17:54)
[2018-12-03] MEDS: MAGNESIUM OXIDE 400 MG TABLET NG SCH (09:30)
[2018-12-03] MEDS: METOPROLOL TARTRATE 50 MG TABLET NG SCH ×2 (09:30→21:09)
[2018-12-03] MEDS: AMLODIPINE BESYLATE 5 MG TABLET NG SCH ×2 (09:30→21:07)
[2018-12-03] MEDS: SOTALOL HCL 80 MG TABLET NG SCH ×2 (09:31→21:08)
[2018-12-03] MEDS: ENOXAPARIN SODIUM INJ 30 MG/0.3 ML DISP.SYRIN SUBCUT SCH (09:31)
[2018-12-03] MEDS ORDERED: PROPOFOL 1,000 MG/100 ML INFUS..BTL IV ONE (10:15)
[2018-12-03] MEDS: PROPOFOL 1,000 MG/100 ML INFUS..BTL IV PRN (10:20)
--- NOTE | 2018-12-03 12:07 | PDOC PROGRESS REPORT ---
Subjective Progress Note for:: 12/03/18 Subjective:: Stable intubated and sedated Reason For Visit: ACUTE RENAL INJURY,ALTERED MENTAL STATE Physical Exam Vital Signs: Temp Pulse Resp BP Pulse Ox 98.8 F 55 L 27 H 131/70 H 93 12/03/18 08:00 12/03/18 08:00 12/03/18 08:00 12/03/18 08:00 12/03/18 08:20 Intake & Output 12/02/18 12/03/18 12/04/18 06:59 06:59 06:59 Intake Total 2893 2000 100 Output Total 695 1090 160 Balance 2198 910 -60 Weight 101.4 kg 103.3 kg General appearance: PRESENT: no acute distress, disheveled, obese. ABSENT: cooperative Head exam: PRESENT: atraumatic, normocephalic Eye exam: PRESENT: conjunctiva pale. ABSENT: nystagmus, periorbital swelling, scleral icterus Mouth exam: PRESENT: dry mucosa, neck supple, tongue midline, other - ET tube Neck exam: ABSENT: carotid bruit, full ROM, JVD, lymphadenopathy, meningismus, tenderness, thyromegaly, tracheal deviation, tracheostomy, other Respiratory exam: PRESENT: decreased breath sounds, prolonged expiratory phas, rales, rhonchi, unlabored. ABSENT: retraction, stridor Cardiovascular exam: PRESENT: irregular rhythm, +S1 Pulses: PRESENT: normal radial pulses GI/Abdominal exam: PRESENT: soft. ABSENT: mass Gentrourinary exam: PRESENT: indwelling catheter Extremities exam: ABSENT: calf tenderness, clubbing, joint swelling Musculoskeletal exam: ABSENT: ambulatory, deformity, dislocation Neurological exam: ABSENT: awake Skin exam: PRESENT: dry, warm Results Laboratory Results: 12/03/18 04:29 12/03/18 04:29 12/02/18 12/02/18 12/03/18 07:13 14:32 04:08 WBC 26.7 H RBC 4.06 L Hgb 12.2 L Hct 36.5 L MCV 90 MCH 29.9 MCHC 33.3 RDW 15.3 H Plt Count 216 Seg Neutrophils % Not Reportable Lymphocytes % Not Reportable Monocytes % Not Reportable Eosinophils % Not Reportable Basophils % Not Reportable Absolute Neutrophils Not Reportable Absolute Lymphocytes Not Reportable Absolute Monocytes Not Reportable Absolute Eosinophils Not Reportable Absolute Basophils Not Reportable Carbonic Acid 0.88 L HCO3/H2CO3 Ratio 20:1 ABG pH 7.41 ABG pCO2 29.1 L ABG pO2 82.0 ABG HCO3 18.0 L ABG O2 Saturation 96.3 ABG Base Excess -5.4 FiO2 50% Sodium Potassium Chloride Carbon Dioxide Anion Gap BUN Creatinine Est GFR ( Amer) Est GFR (Non-Af Amer) Glucose Calcium Magnesium Total Protein 5.1 L 12/03/18 12/03/18 04:29 04:29 WBC 23.1 H RBC 4.12 L Hgb 12.2 L Hct 36.9 L MCV 89 MCH 29.5 MCHC 33.0 RDW 15.7 H Plt Count 204 Seg Neutrophils % Lymphocytes % Monocytes % Eosinophils % Basophils % Absolute Neutrophils Absolute Lymphocytes Absolute Monocytes Absolute Eosinophils Absolute Basophils Carbonic Acid HCO3/H2CO3 Ratio ABG pH ABG pCO2 ABG pO2 ABG HCO3 ABG O2 Saturation ABG Base Excess FiO2 Sodium 153.1 H Potassium 3.5 L Chloride 128 H Carbon Dioxide 19 L Anion Gap 6 BUN 34 H Creatinine 2.12 H Est GFR ( Amer) 37 L Est GFR (Non-Af Amer) 30 L Glucose 126 H Calcium 8.0 L Magnesium 2.1 Total Protein 11/22/18 11/24/18 12/02/18 17:50 05:25 07:13 Creatine Kinase 62 CK-MB (CK-2) Troponin I < 0.012 NT-Pro-B Natriuret Pep 1550 H 12/02/18 12/03/18 07:13 04:29 Creatine Kinase CK-MB (CK-2) 0.84 Troponin I 0.014 NT-Pro-B Natriuret Pep 3710 H Impressions: Chest CT 11/22/18 16:18 IMPRESSION: No acute findings Head CT 11/22/18 16:18 IMPRESSION: 1. No acute intracranial abnormality. 2. Mild atrophy and chronic small vessel ischemic changes. 3. Lobulated contour to the bilateral inferior terminates, may represent small nasal polyps. EVIDENCE OF ACUTE STROKE: NO. KUB X-Ray 11/30/18 11:47 IMPRESSION: Cannot exclude a partial bowel obstruction. NG tube placement. Chest Ultrasound 12/02/18 13:05 IMPRESSION: Trace right posterior costophrenic sulcus pleural fluid Chest X-Ray 12/03/18 00:00 IMPRESSION: Persistent bandlike consolidation along the right minor fissure Assessment & Plan - Diagnosis (1) Altered mental status Qualifiers: Altered mental status type: unspecified Qualified Code(s): R41.82 - Altered mental status, unspecified Is this a current diagnosis for this admission?: Yes Plan: Currently intubated and sedated not doing well during sedation vacation (2) Seizure disorder Is this a current diagnosis for this admission?: Yes Plan: Continue current medical regimen (3) COPD (chronic obstructive pulmonary disease) Qualifiers: Emphysema type: centrilobular Is this a current diagnosis for this admission?: Yes Plan: Continue current bronchodilator therapy (4) EDNA (obstructive sleep apnea) Is this a current diagnosis for this admission?: Yes Plan: CPAP versus BiPAP when patient stable and extubated noncompliance in severe cases could also contribute to his altered mental status (5) Aspiration into lower respiratory tract Qualifiers: Encounter type: initial encounter Qualified Code(s): T17.800A - Unspecified foreign body in other parts of respiratory tract causing asphyxiation, initial encounter Is this a current diagnosis for this admission?: Yes Plan: Synthetic penicillin and Cleocin for aspiration pneumonitis (6) GI (gastrointestinal bleed) Qualifiers: GI bleed type/associated pathology: unspecified gastrointestinal hemorrhage type Qualified Code(s): K92.2 - Gastrointestinal hemorrhage, unspecified Is this a current diagnosis for this admission?: Yes - Time Total Critical Time (Minutes): 45
--- NOTE | 2018-12-03 12:10 | PDOC PROGRESS REPORT ---
Subjective Progress Note for:: 12/02/18 Subjective:: Stable intubated and sedated Reason For Visit: ACUTE RENAL INJURY,ALTERED MENTAL STATE Physical Exam Vital Signs: Temp Pulse Resp BP Pulse Ox 98.2 F 57 L 20 134/70 H 93 12/02/18 08:00 12/02/18 08:00 12/02/18 08:00 12/02/18 08:00 12/02/18 08:00 Intake & Output 12/01/18 12/02/18 12/03/18 06:59 06:59 06:59 Intake Total 1255 2893 150 Output Total 3244 695 -1988 2198 150 Weight 99.5 kg 101.4 kg General appearance: PRESENT: no acute distress, disheveled, obese. ABSENT: cooperative Head exam: PRESENT: atraumatic, normocephalic Eye exam: PRESENT: conjunctiva pale. ABSENT: nystagmus, periorbital swelling, scleral icterus Mouth exam: PRESENT: dry mucosa, neck supple, tongue midline, other - ET tube intact Neck exam: ABSENT: carotid bruit, full ROM, JVD, lymphadenopathy, meningismus, tenderness, thyromegaly, tracheal deviation, tracheostomy, other Respiratory exam: PRESENT: decreased breath sounds, prolonged expiratory phas, rales, rhonchi, unlabored, wheezes. ABSENT: retraction, stridor Cardiovascular exam: PRESENT: irregular rhythm Pulses: PRESENT: normal radial pulses GI/Abdominal exam: PRESENT: soft. ABSENT: mass Gentrourinary exam: PRESENT: indwelling catheter Extremities exam: ABSENT: calf tenderness, clubbing, full ROM, joint swelling, pedal edema Musculoskeletal exam: ABSENT: ambulatory, deformity, dislocation Neurological exam: ABSENT: awake Skin exam: PRESENT: dry, warm Results Laboratory Results: 12/01/18 04:20 12/02/18 04:04 12/01/18 12/01/18 12/02/18 09:55 13:47 04:04 Carbonic Acid HCO3/H2CO3 Ratio ABG pH ABG pCO2 ABG pO2 ABG HCO3 ABG O2 Saturation ABG Base Excess FiO2 Sodium 148.8 H 151.6 H Potassium 3.9 3.5 L Chloride 126 H 125 H Carbon Dioxide 18 L 20 L Anion Gap 5 7 BUN 38 H 38 H Creatinine 2.03 H 2.19 H Est GFR ( Amer) 39 L 35 L Est GFR (Non-Af Amer) 32 L 29 L Glucose 141 H 137 H Calcium 7.9 L 8.3 L Magnesium 2.2 Urine Color YELLOW Urine Appearance CLOUDY Urine pH 6.0 Ur Specific [place] 1.020 Urine Protein 30 H Urine Glucose (UA) NEGATIVE Urine Ketones NEGATIVE Urine Blood MODERATE H Urine Nitrite POSITIVE H Ur Leukocyte Esterase LARGE H Urine WBC (Auto) 117 Urine RBC (Auto) 33 12/02/18 04:12 Carbonic Acid 0.83 L HCO3/H2CO3 Ratio 18:1 ABG pH 7.38 ABG pCO2 27.5 L ABG pO2 107.6 H ABG HCO3 15.7 L ABG O2 Saturation 97.9 ABG Base Excess -8.0 FiO2 55% Sodium Potassium Chloride Carbon Dioxide Anion Gap BUN Creatinine Est GFR ( Amer) Est GFR (Non-Af Amer) Glucose Calcium Magnesium Urine Color Urine Appearance Urine pH Ur Specific [place] Urine Protein Urine Glucose (UA) Urine Ketones Urine Blood Urine Nitrite Ur Leukocyte Esterase Urine WBC (Auto) Urine RBC (Auto) 11/22/18 11/24/18 12/02/18 17:50 05:25 07:13 Creatine Kinase 62 CK-MB (CK-2) Troponin I < 0.012 NT-Pro-B Natriuret Pep 1550 H 12/02/18 07:13 Creatine Kinase CK-MB (CK-2) 0.84 Troponin I 0.014 NT-Pro-B Natriuret Pep Impressions: Chest CT 11/22/18 16:18 IMPRESSION: No acute findings Head CT 11/22/18 16:18 IMPRESSION: 1. No acute intracranial abnormality. 2. Mild atrophy and chronic small vessel ischemic changes. 3. Lobulated contour to the bilateral inferior terminates, may represent small nasal polyps. EVIDENCE OF ACUTE STROKE: NO. KUB X-Ray 11/30/18 11:47 IMPRESSION: Cannot exclude a partial bowel obstruction. NG tube placement. Chest X-Ray 12/02/18 06:00 IMPRESSION: STABLE APPEARANCE OF THE CHEST. SUPPORT DEVICES UNCHANGED. Assessment & Plan - Diagnosis (1) Altered mental status Qualifiers: Altered mental status type: unspecified Qualified Code(s): R41.82 - Altered mental status, unspecified Is this a current diagnosis for this admission?: Yes Plan: unChanged (2) Seizure disorder Is this a current diagnosis for this admission?: Yes Plan: Continue current medical regimen (3) COPD (chronic obstructive pulmonary disease) Qualifiers: Emphysema type: centrilobular Is this a current diagnosis for this admission?: Yes Plan: Continue current bronchodilator therapy (4) EDNA (obstructive sleep apnea) Is this a current diagnosis for this admission?: Yes Plan: CPAP versus BiPAP when patient stable and extubated noncompliance in severe cases could also contribute to his altered mental status (5) Aspiration into lower respiratory tract Qualifiers: Encounter type: initial encounter Qualified Code(s): T17.800A - Unspecified foreign body in other parts of respiratory tract causing asphyxiation, initial encounter Is this a current diagnosis for this admission?: Yes Plan: Synthetic penicillin and Cleocin for aspiration pneumonitis (6) GI (gastrointestinal bleed) Qualifiers: GI bleed type/associated pathology: unspecified gastrointestinal hemorrhage type Qualified Code(s): K92.2 - Gastrointestinal hemorrhage, unspecified Is this a current diagnosis for this admission?: Yes Plan: Copious amounts of coffee ground material from ET tube as well as NG tube - Time Total Critical Time (Minutes): 45
[2018-12-03] MEDS: NORMAL SALINE 1000 ML 1,000 ML IV PRN (16:05)
[2018-12-03] MEDS: TAMSULOSIN HCL 0.4 MG CAP.SR.24H PO SCH (17:55)
[2018-12-03] MEDS: ATORVASTATIN CALCIUM 10 MG TABLET NG SCH (21:07)
--- NOTE | 2018-12-03 21:49 | PDOC PROGRESS REPORT ---
Subjective Progress Note for:: 12/03/18 Subjective:: Patient seen by the bedside, on mechanical ventilation Reason For Visit: ACUTE RENAL INJURY,ALTERED MENTAL STATE Physical Exam Vital Signs: Temp Pulse Resp BP Pulse Ox 98.8 F 56 L 20 123/70 92 12/03/18 21:33 12/03/18 18:00 12/03/18 18:00 12/03/18 18:00 12/03/18 20:21 Intake & Output 12/02/18 12/03/18 12/04/18 06:59 06:59 06:59 Intake Total 2893 2000 1981 Output Total 695 1090 1170 Balance 2198 910 811 Weight 101.4 kg 103.3 kg General appearance: PRESENT: no acute distress Eye exam: PRESENT: PERRLA Respiratory exam: PRESENT: clear to auscultation pradeep Cardiovascular exam: PRESENT: +S1, +S2 GI/Abdominal exam: PRESENT: soft Results Laboratory Results: 12/03/18 04:29 12/03/18 04:29 12/03/18 12/03/18 12/03/18 04:08 04:29 04:29 WBC 23.1 H RBC 4.12 L Hgb 12.2 L Hct 36.9 L MCV 89 MCH 29.5 MCHC 33.0 RDW 15.7 H Plt Count 204 Carbonic Acid 0.88 L HCO3/H2CO3 Ratio 20:1 ABG pH 7.41 ABG pCO2 29.1 L ABG pO2 82.0 ABG HCO3 18.0 L ABG O2 Saturation 96.3 ABG Base Excess -5.4 FiO2 50% Sodium 153.1 H Potassium 3.5 L Chloride 128 H Carbon Dioxide 19 L Anion Gap 6 BUN 34 H Creatinine 2.12 H Est GFR ( Amer) 37 L Est GFR (Non-Af Amer) 30 L Glucose 126 H Calcium 8.0 L Magnesium 2.1 11/30/18 11:25 Tracheal Aspirate Gram Stain - Final 11/30/18 11:25 Tracheal Aspirate Sputum Culture - Final C.albicans/C.dubliniensis Normal Irene 11/22/18 11/24/18 12/02/18 17:50 05:25 07:13 Creatine Kinase 62 CK-MB (CK-2) Troponin I < 0.012 NT-Pro-B Natriuret Pep 1550 H 12/02/18 12/03/18 07:13 04:29 Creatine Kinase CK-MB (CK-2) 0.84 Troponin I 0.014 NT-Pro-B Natriuret Pep 3710 H Impressions: Chest CT 11/22/18 16:18 IMPRESSION: No acute findings Head CT 11/22/18 16:18 IMPRESSION: 1. No acute intracranial abnormality. 2. Mild atrophy and chronic small vessel ischemic changes. 3. Lobulated contour to the bilateral inferior terminates, may represent small nasal polyps. EVIDENCE OF ACUTE STROKE: NO. KUB X-Ray 11/30/18 11:47 IMPRESSION: Cannot exclude a partial bowel obstruction. NG tube placement. Chest Ultrasound 12/02/18 13:05 IMPRESSION: Trace right posterior costophrenic sulcus pleural fluid Chest X-Ray 12/03/18 00:00 IMPRESSION: Persistent bandlike consolidation along the right minor fissure Assessment & Plan - Diagnosis (1) Chronic respiratory failure with hypoxia, on home O2 therapy Is this a current diagnosis for this admission?: Yes (2) Aspiration into lower respiratory tract Qualifiers: Encounter type: initial encounter Qualified Code(s): T17.800A - Unspecified foreign body in other parts of respiratory tract causing asphyxiation, initial encounter Is this a current diagnosis for this admission?: Yes Plan: Continue treatment (3) Acute respiratory failure Qualifiers: Respiratory failure complication: hypoxia Qualified Code(s): J96.01 - Acute respiratory failure with hypoxia Is this a current diagnosis for this admission?: Yes
[2018-12-04] MEDS: IPRATROPIUM/ALBUTEROL 120 PUFF/4 GM MDI IH SCH ×4 (00:33→17:15)
[2018-12-04] MEDS: NORMAL SALINE 1000 ML 1,000 ML IV PRN (01:22)
[2018-12-04] MEDS: CLINDAMYCIN 600 MG/D5W RTU 600 MG/50 ML RTUPB IV SCH ×3 (01:23→17:15)
[2018-12-04] MEDS: PROPOFOL 1,000 MG/100 ML INFUS..BTL IV PRN ×4 (01:40→20:20)
[2018-12-04] MEDS: PIPERACILLIN SODIUM/TAZOBACTAM 2.25 GM in NORMAL SALINE 50 ML IV SCH ×4 (02:25→21:10)
[2018-12-04] MEDS: MIDAZOLAM HCL 50 MG/100 ML RTUINJ IV PRN ×2 (02:49→17:16)
[2018-12-04 04:30] LABS: HEMATOCRIT 33.6 % (37.9-51.0); HEMOGLOBIN 11.3 g/dL (13.5-17.0); MEAN CORPUSCULAR HGB CONC 33.5 g/dL (32.0-36.0); MEAN CORPUSCULAR VOLUME 89 fl (80-97); PLATELET COUNT 195 10^3/uL (150-450); RED BLOOD COUNT 3.76 10^6/uL (4.35-5.55); RED CELL DISTRIBUTION WIDTH 16.2 % (11.5-14.0); WHITE BLOOD COUNT 14.7 10^3/uL (4.0-10.5)
[2018-12-04 04:33] LABS: ARTERIAL BLOOD BASE EXCESS -3.9 mmol/L; ARTERIAL BLOOD H2CO3 0.87 mmol/L (1.05-1.35); ARTERIAL BLOOD HCO3 19.1 mmol/L (20-24); ARTERIAL BLOOD O2 SATURATION 94.6 % (94-98); ARTERIAL BLOOD PCO2 28.9 mmHg (35-45); ARTERIAL BLOOD PH 7.44 (7.35-7.45); ARTERIAL BLOOD PO2 68.5 mmHg (80-100)
[2018-12-04 04:34] LABS: ARTERIAL BLOOD FIO2 50%
[2018-12-04 04:43] LABS: ANION GAP 5 (5-19); BLOOD UREA NITROGEN 27 mg/dL (7-20); CALCIUM 7.7 mg/dL (8.4-10.2); CARBON DIOXIDE 18 mmol/L (22-30); CHLORIDE 130 mmol/L (98-107); GLUCOSE 125 mg/dL (75-110); POTASSIUM 3.3 mmol/L (3.6-5.0); SODIUM 153.1 mmol/L (137-145)
[2018-12-04 04:50] LABS: ABSOLUTE LYMPHOCYTES# (MANUAL) 2.2 10^3/uL (0.5-4.7); ABSOLUTE MONOCYTES # (MANUAL) 0.4 10^3/uL (0.1-1.4); ABSOLUTE NEUTROPHILS# (MANUAL) 11.9 10^3/uL (1.7-8.2); BASOPHILS % (MANUAL) 0 % (0-2); EOSINOPHILS % (MANUAL) 1 % (0-6); LYMPHOCYTES % (MANUAL) 15 % (13-45); METAMYELOCYTES % (MANUAL) 1 % (0); MONOCYTES % (MANUAL) 3 % (3-13); SEGMENTED NEUTROPHILS % (MAN) 80 % (42-78); TOTAL CELLS COUNTED 100
[2018-12-04 04:52] LABS: ANISOCYTOSIS 1+; BURR CELLS 1+; OVALOCYTES 1+; PLATELET COMMENT ADEQUATE; POIKILOCYTOSIS 1+; TEAR DROP CELLS SLIGHT; TOXIC GRANULATION 1+
[2018-12-04] MEDS ORDERED: POTASSI CL 20 MEQ/50 ML RIDER 20 MEQ/50 ML RTUPB IV ONE (05:37)
[2018-12-04] MEDS: POTASSIUM CHLORIDE 20 MEQ/50 ML RTU IV SCH ×2 (06:03→09:34)
[2018-12-04] MEDS: PHENYTOIN 100 MG/4 ML SUSP NG SCH ×3 (06:23→21:12)
--- NOTE | 2018-12-04 08:47 | RADIOLOGY REPORT (SQ) ---
EXAM DESCRIPTION: CHEST SINGLE VIEW COMPLETED DATE/TIME: 12/04/2018 6:41 am REASON FOR STUDY: resp failure/aspiration COMPARISON: 12/03/2018. EXAM PARAMETERS: NUMBER OF VIEWS: One view. TECHNIQUE: Single frontal radiographic view of the chest acquired. RADIATION DOSE: NA LIMITATIONS: None. FINDINGS: LUNGS AND PLEURA: Low lung volumes with basilar airspace disease. Probable pleural effusi ons. No pneumothorax. MEDIASTINUM AND HILAR STRUCTURES: No masses. Contour normal. HEART AND VASCULAR STRUCTURES: Cardiomegaly. Mild vascular congestion. BONES: No acute findings. HARDWARE: Stable endotracheal tube and nasogastric tube. Sternotomy wires and defibrillator. OTHER: No other significant finding. IMPRESSION: NO SIGNIFICANT CHANGE IN APPEARANCE OF THE CHEST. TECHNICAL DOCUMENTATION: JOB ID: [id number] [employer]- All Rights Reserved Reading location - IP/workstation name: [email or web address]
[2018-12-04] MEDS: DOCUSATE SODIUM 100 MG/10 ML UDC NG SCH ×2 (09:35→17:15)
[2018-12-04] MEDS: SOTALOL HCL 80 MG TABLET NG SCH (09:35)
[2018-12-04] MEDS: METOPROLOL TARTRATE 50 MG TABLET NG SCH ×3 (09:35→21:11)
[2018-12-04] MEDS: FAMOTIDINE INJ/PF 20 MG/2 ML SDV IV SCH ×2 (09:36→21:12)
[2018-12-04] MEDS: MAGNESIUM OXIDE 400 MG TABLET NG SCH (09:37)
[2018-12-04] MEDS: ENOXAPARIN SODIUM INJ 30 MG/0.3 ML DISP.SYRIN SUBCUT SCH (09:37)
[2018-12-04] MEDS: AMLODIPINE BESYLATE 5 MG TABLET NG SCH ×2 (09:37→21:11)
[2018-12-04] MEDS: SCOPOLAMINE HYDROBROMIDE 1.5 MG PATCH.TD72 TD SCH (12:27)
[2018-12-04] MEDS: 1/2 NORMAL SALINE 1,000 ML IV PRN (12:30)
--- NOTE | 2018-12-04 14:18 | PDOC PROGRESS REPORT ---
Subjective Progress Note for:: 12/04/18 Subjective:: Patient seen by the bedside intubated on mechanical ventilation Reason For Visit: ACUTE RENAL INJURY,ALTERED MENTAL STATE Physical Exam Vital Signs: Temp Pulse Resp BP Pulse Ox 99.5 F 55 L 20 126/66 H 95 12/04/18 14:00 12/04/18 12:00 12/04/18 14:00 12/04/18 13:22 12/04/18 14:00 Intake & Output 12/03/18 12/04/18 12/05/18 06:59 06:59 06:59 Intake Total 1999 2993 1150 Output Total 1090 1620 520 Balance 910 1373 630 Weight 103.3 kg 103.2 kg Eye exam: PRESENT: PERRLA Respiratory exam: PRESENT: rhonchi Cardiovascular exam: PRESENT: +S1, +S2 GI/Abdominal exam: PRESENT: soft Results Laboratory Results: 12/04/18 04:09 12/04/18 04:09 12/04/18 12/04/18 12/04/18 04:09 04:09 04:09 WBC 14.7 H RBC 3.76 L Hgb 11.3 L Hct 33.6 L MCV 89 MCH 30.0 MCHC 33.5 RDW 16.2 H Plt Count 195 Seg Neutrophils % Not Reportable Lymphocytes % Not Reportable Monocytes % Not Reportable Eosinophils % Not Reportable Basophils % Not Reportable Absolute Neutrophils Not Reportable Absolute Lymphocytes Not Reportable Absolute Monocytes Not Reportable Absolute Eosinophils Not Reportable Absolute Basophils Not Reportable Carbonic Acid HCO3/H2CO3 Ratio ABG pH ABG pCO2 ABG pO2 ABG HCO3 ABG O2 Saturation ABG Base Excess FiO2 Sodium 153.1 H Potassium 3.3 L Chloride 130 H Carbon Dioxide 18 L Anion Gap 5 BUN 27 H Creatinine 1.85 H Est GFR ( Amer) 43 L Est GFR (Non-Af Amer) 36 L Glucose 125 H Calcium 7.7 L Magnesium 1.9 Albumin 2.1 L 12/04/18 04:30 WBC RBC Hgb Hct MCV MCH MCHC RDW Plt Count Seg Neutrophils % Lymphocytes % Monocytes % Eosinophils % Basophils % Absolute Neutrophils Absolute Lymphocytes Absolute Monocytes Absolute Eosinophils Absolute Basophils Carbonic Acid 0.87 L HCO3/H2CO3 Ratio 21:1 ABG pH 7.44 ABG pCO2 28.9 L ABG pO2 68.5 L ABG HCO3 19.1 L ABG O2 Saturation 94.6 ABG Base Excess -3.9 FiO2 50% Sodium Potassium Chloride Carbon Dioxide Anion Gap BUN Creatinine Est GFR ( Amer) Est GFR (Non-Af Amer) Glucose Calcium Magnesium Albumin 11/30/18 11:25 Tracheal Aspirate Gram Stain - Final 11/30/18 11:25 Tracheal Aspirate Sputum Culture - Final C.albicans/C.dubliniensis Normal Irene 11/22/18 11/24/18 12/02/18 17:50 05:25 07:13 Creatine Kinase 62 CK-MB (CK-2) Troponin I < 0.012 NT-Pro-B Natriuret Pep 1550 H 12/02/18 12/03/18 07:13 04:29 Creatine Kinase CK-MB (CK-2) 0.84 Troponin I 0.014 NT-Pro-B Natriuret Pep 3710 H Impressions: Chest CT 11/22/18 16:18 IMPRESSION: No acute findings Head CT 11/22/18 16:18 IMPRESSION: 1. No acute intracranial abnormality. 2. Mild atrophy and chronic small vessel ischemic changes. 3. Lobulated contour to the bilateral inferior terminates, may represent small nasal polyps. EVIDENCE OF ACUTE STROKE: NO. KUB X-Ray 11/30/18 11:47 IMPRESSION: Cannot exclude a partial bowel obstruction. NG tube placement. Chest Ultrasound 12/02/18 13:05 IMPRESSION: Trace right posterior costophrenic sulcus pleural fluid Chest X-Ray 12/04/18 06:00 IMPRESSION: NO SIGNIFICANT CHANGE IN APPEARANCE OF THE CHEST. Assessment & Plan - Diagnosis (1) Chronic respiratory failure with hypoxia, on home O2 therapy Is this a current diagnosis for this admission?: Yes (2) Aspiration into lower respiratory tract Qualifiers: Encounter type: initial encounter Qualified Code(s): T17.800A - Unspecified foreign body in other parts of respiratory tract causing asphyxiation, initial encounter Is this a current diagnosis for this admission?: Yes Plan: Continue treatment (3) Acute respiratory failure Qualifiers: Respiratory failure complication: hypoxia Qualified Code(s): J96.01 - Acute respiratory failure with hypoxia Is this a current diagnosis for this admission?: Yes Plan: Continue present mechanical ventilation
[2018-12-04] MEDS: TAMSULOSIN HCL 0.4 MG CAP.SR.24H PO SCH (17:15)
[2018-12-04] MEDS: LEVALBUTEROL HCL NEB 0.63 MG/3 ML AMPUL NEB PRN (20:13)
[2018-12-04] MEDS: ACETYLCYSTEINE 20% SOLN 800 MG/4 ML VIAL.NEB NEB SCH (20:14)
--- NOTE | 2018-12-04 20:37 | Progress Note ---
Provider Note Provider Note: CARDIOLOGY PROGRESS NOTE by Dr. Sabina Moon on 12/04/2018. SUBJECTIVE: The patient is intubated and sedated. The heart rate is better he is in the upper 60s. Sometimes touches 80 bpm. There is no ventricular arrhythmia seen. There is no recurrence of atrial fibrillation. There is no firing of his AICD. PHYSICAL EXAMINATION: The patient is mildly obese. He is intubated and sedated. Selected Entries 12/04/18 10:00 Temperature 99.0 F Temperature Core Source Pulse Rate 58 L Respiratory 21 H Rate Blood Pressure 126/69 H [Left Upper Arm ] Blood Pressure 88 Mean [Left Upper Arm] Blood Pressure 126 Systolic [Left Upper Arm] O2 Sat by Pulse 92 Oximetry Oxygen Delivery Mechanical Method ( Ventilator includes room air) Percent of 45 Oxygen HEAD: Is atraumatic normocephalic. EYES: Pupils are equal round regular reactive to light. ENT is negative. NECK: Is supple there is no JVD. Carotids are equal there is no bruit. There is no lymphadenopathy. TRACHEA is central. LUNGS: There is bibasilar dry crackles with pneumonia. There is no rales of CHF. HEART: S1-S2 is heard. S1 is of normal intensity. There is no S3 gallop. There is no S4 gallop. There is systolic murmur left sternal border and the apex. There is no significant murmur of mitral regurgitation, and no physical exam consistent with a finding of mitral stenosis. There is no rub. ABDOMEN: Is mildly obese. There is no hepatospleno megaly. Bowel sounds are well. EXT REMITIES: Femorals are deep. Femorals are diminished there is no femoral bruits. Leg pulses are diminished. There is no pedal edema. There is no DVT or cellulitis. 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 Labs- All tests 24 hr 12/04/18 12/04/18 12/04/18 00:27 04:09 04:09 WBC 14.7 H RBC 3.76 L Hgb 11.3 L Hct 33.6 L MCV 89 MCH 30.0 MCHC 33.5 RDW 16.2 H Plt Count 195 Total Counted 100 Seg Neutrophils % Not Reportable Seg Neuts % (Manual) 80 H Lymphocytes % Not Reportable Lymphocytes % (Manual) 15 Monocytes % Not Reportable Monocytes % (Manual) 3 Eosinophils % Not Reportable Eosinophils % (Manual) 1 Basophils % Not Reportable Basophils % (Manual) 0 Metamyelocytes % 1 H Absolute Neutrophils Not Reportable Abs Neuts (Manual) 11.9 H Absolute Lymphocytes Not Reportable Abs Lymphs (Manual) 2.2 Absolute Monocytes Not Reportable Abs Monocytes (Manual) 0.4 Absolute Eosinophils Not Reportable Absolute Eos (Manual) 0.1 Absolute Basophils Not Reportable Abs Basophils (Manual) 0.0 Toxic Granulation 1+ Platelet Comment ADEQUATE Poikilocytosis 1+ Anisocytosis 1+ Tear Drop Cells SLIGHT Ovalocytes 1+ [place] Cells 1+ Carbonic Acid HCO3/H2CO3 Ratio ABG pH ABG pCO2 ABG pO2 ABG HCO3 ABG Total CO2 ABG O2 Saturation ABG Base Excess FiO2 Sodium 153.1 H Potassium 3.3 L Chloride 130 H Carbon Dioxide 18 L Anion Gap 5 BUN 27 H Creatinine 1.85 H Est GFR ( Amer) 43 L Est GFR (Non-Af Amer) 36 L Glucose 125 H POC Glucose 118 H Calcium 7.7 L Magnesium 1.9 Albumin 12/04/18 12/04/18 12/04/18 04:09 04:30 06:44 WBC RBC Hgb Hct MCV MCH MCHC RDW Plt Count Total Counted Seg Neutrophils % Seg Neuts % (Manual) Lymphocytes % Lymphocytes % (Manual) Monocytes % Monocytes % (Manual) Eosinophils % Eosinophils % (Manual) Basophils % Basophils % (Manual) Metamyelocytes % Absolute Neutrophils Abs Neuts (Manual) Absolute Lymphocytes Abs Lymphs (Manual) Absolute Monocytes Abs Monocytes (Manual) Absolute Eosinophils Absolute Eos (Manual) Absolute Basophils Abs Basophils (Manual) Toxic Granulation Platelet Comment Poikilocytosis Anisocytosis Tear Drop Cells Ovalocytes Chriss Cells Carbonic Acid 0.87 L HCO3/H2CO3 Ratio 21:1 ABG pH 7.44 ABG pCO2 28.9 L ABG pO2 68.5 L ABG HCO3 19.1 L ABG Total CO2 20.0 L ABG O2 Saturation 94.6 ABG Base Excess -3.9 FiO2 50% Sodium Potassium Chloride Carbon Dioxide Anion Gap BUN Creatinine Est GFR ( Amer) Est GFR (Non-Af Amer) Glucose POC Glucose 119 H Calcium Magnesium Albumin 2.1 L 12/04/18 12/04/18 15:30 18:44 WBC RBC Hgb Hct MCV MCH MCHC RDW Plt Count Total Counted Seg Neutrophils % Seg Neuts % (Manual) Lymphocytes % Lymphocytes % (Manual) Monocytes % Monocytes % (Manual) Eosinophils % Eosinophils % (Manual) Basophils % Basophils % (Manual) Metamyelocytes % Absolute Neutrophils Abs Neuts (Manual) Absolute Lymphocytes Abs Lymphs (Manual) Absolute Monocytes Abs Monocytes (Manual) Absolute Eosinophils Absolute Eos (Manual) Absolute Basophils Abs Basophils (Manual) Toxic Granulation Platelet Comment Poikilocytosis Anisocytosis Tear Drop Cells Ovalocytes [place] Cells Carbonic Acid HCO3/H2CO3 Ratio ABG pH ABG pCO2 ABG pO2 ABG HCO3 ABG Total CO2 ABG O2 Saturation ABG Base Excess FiO2 Sodium Potassium 3.5 L Chloride Carbon Dioxide Anion Gap BUN Creatinine Est GFR ( Amer) Est GFR (Non-Af Amer) Glucose POC Glucose 122 H Calcium Magnesium Albumin 12/04/18 04:30 Carbonic Acid 0.87 L HCO3/H2CO3 Ratio 21:1 ABG pH 7.44 ABG pCO2 28.9 L ABG pO2 68.5 L ABG HCO3 19.1 L ABG Total CO2 20.0 L ABG O2 Saturation 94.6 ABG Base Excess -3.[address] 11/22/18 16:18 IMPRESSION: No acute findings Head CT 11/22/18 16:18 IMPRESSION: 1. No acute intracranial abnormality. 2. Mild atrophy and chronic small vessel ischemic changes. 3. Lobulated contour to the bilateral inferior terminates, may represent small nasal polyps. EVIDENCE OF ACUTE STROKE: NO. Chest X-Ray 11/27/18 00:00 IMPRESSION: Extremely low lung volumes. Findings as above. Doubt significant change. Chest X-Ray 11/30/18 00:00 IMPRESSION: Cannot exclude mild airspace disease in the perihilar region on the right or retrocardiac area on the left. Lobe position of the endotracheal tube. KUB X-Ray 11/30/18 00:00 IMPRESSION: Nasogastric tube coiled in the patient's hypopharynx. This report was called to Kylah in the ICU KUB X-Ray 11/30/18 11:47 IMPRESSION: Cannot exclude a partial bowel obstruction. NG tube placement. Chest X-Ray 11/30/18 12:27 IMPRESSION: Endotracheal tube placement is satisfactory. Chest X-Ray 12/02/18 06:00 IMPRESSION: STABLE APPEARANCE OF THE CHEST. SUPPORT DEVICES UNCHANGED. Chest Ultrasound 12/02/18 13:05 IMPRESSION: Trace right posterior costophrenic sulcus pleural fluid Chest X-Ray 12/03/18 00:00 IMPRESSION: Persistent bandlike consolidation along the right minor fissure Chest X-Ray 12/04/18 06:00 IMPRESSION: NO SIGNIFICANT CHANGE IN APPEARANCE OF THE CHEST. The patient's 24-hour intake has been 2993 mL. 24-hour output is 1620 mL. IMPRESSION/RECOMMENDATION: 1. Acute hypoxic respiratory failure. ABG still showed but patient is hypoxic. Continue ventilatory support. 2. Bradycardia: Resolved. Note that the patient's initial heart rates post to transfer to ICU was in the high 40s. This is a combination of the effects of metoprolol and also sotalol in the setting of acute renal failure. The pacemaker was lower pacing rate was set at 40 bpm hence the pacemaker did not take and since her heart rate was about 40. At present the patient's heart rate is greater than 60. The patient had does have a history of proximal atrial fibrillation. In view of this we will restart the patient on metoprolol 50 mg by the NG tube every 12 hours. We will still not restart the patient's Betapace, since the patient's renal function is still compromised. 3. Acute renal failure: At present GFR is improved to a stage III. Avoid nephrotoxic drugs. Continue hydration. 4. Bibasilar pneumonia: Most likely aspiration pneumonia. Continue antibiotics and ventilator support with oxygen. Recommend breathing treatments. But will be cautious to look for any recurrence of atrial fibrillation or ventricular arrhythmias. 5. History of paroxysmal atrial fibrillation: No recurrence continue beta- blockers. At present we will not restart the patient's Betapace. 6. History of ventricular tachycardia: No recurrence. Note patient has an AICD. 7. Chronic obstructive pulmonary disease: Continue respiratory treatments and oxygen. 8. History of mitral valve repair: No severe mitral regurgitation on examination. 9. Hypertension: Blood pressure well controlled. Patient has not needed any inotropic support. 10. History of AICD placement. No firing recently of the AICD. Recent 2 days ago interrogation of the AICD's shows that the AICD is working/functioning normally. 11. History of seizure disorder: No seizures on Keppra. Medications reviewed new medications in the form metoprolol added. Medical decision making I was of high complexity. 40 minutes spent on this patient more than 50% of time spent direct patient care. Discussed the case with Dr. Dietrich covering Dr. Cano. Will follow.
[2018-12-04] MEDS: ATORVASTATIN CALCIUM 10 MG TABLET NG SCH (21:12)
[2018-12-05] MEDS: IPRATROPIUM/ALBUTEROL 120 PUFF/4 GM MDI IH SCH ×5 (00:14→23:19)
[2018-12-05] MEDS: PROPOFOL 1,000 MG/100 ML INFUS..BTL IV PRN ×5 (01:47→22:45)
[2018-12-05] MEDS: CLINDAMYCIN 600 MG/D5W RTU 600 MG/50 ML RTUPB IV SCH ×3 (01:53→18:04)
[2018-12-05 04:14] LABS: ANION GAP 6 (5-19); BLOOD UREA NITROGEN 21 mg/dL (7-20); CALCIUM 7.4 mg/dL (8.4-10.2); CARBON DIOXIDE 17 mmol/L (22-30); CHLORIDE 128 mmol/L (98-107); GLUCOSE 120 mg/dL (75-110); POTASSIUM 3.3 mmol/L (3.6-5.0); SODIUM 150.7 mmol/L (137-145)
[2018-12-05] MEDS: PIPERACILLIN SODIUM/TAZOBACTAM 2.25 GM in NORMAL SALINE 50 ML IV SCH ×4 (06:07→21:50)
[2018-12-05] MEDS: PHENYTOIN 100 MG/4 ML SUSP NG SCH ×3 (06:09→21:50)
[2018-12-05] MEDS: 1/2 NORMAL SALINE 1,000 ML IV PRN (06:46)
[2018-12-05 07:05] LABS: ARTERIAL BLOOD BASE EXCESS -4.6 mmol/L; ARTERIAL BLOOD FIO2 50%; ARTERIAL BLOOD H2CO3 0.87 mmol/L (1.05-1.35); ARTERIAL BLOOD HCO3 18.6 mmol/L (20-24); ARTERIAL BLOOD O2 SATURATION 93.6 % (94-98); ARTERIAL BLOOD PH 7.43 (7.35-7.45); ARTERIAL BLOOD PO2 65.1 mmHg (80-100); ARTERIAL BLOOD TOTAL CO2 19.5 mmol/L (23-27)
[2018-12-05] MEDS: LEVALBUTEROL HCL NEB 0.63 MG/3 ML AMPUL NEB PRN ×2 (08:32→20:29)
[2018-12-05] MEDS: ACETYLCYSTEINE 20% SOLN 800 MG/4 ML VIAL.NEB NEB SCH ×2 (08:32→20:30)
[2018-12-05] MEDS: DOCUSATE SODIUM 100 MG/10 ML UDC NG SCH ×2 (09:09→18:04)
[2018-12-05] MEDS: METOPROLOL TARTRATE 50 MG TABLET NG SCH ×2 (09:10→21:50)
[2018-12-05] MEDS: ENOXAPARIN SODIUM INJ 30 MG/0.3 ML DISP.SYRIN SUBCUT SCH (09:10)
[2018-12-05] MEDS: FAMOTIDINE INJ/PF 20 MG/2 ML SDV IV SCH ×2 (09:10→21:50)
[2018-12-05] MEDS: AMLODIPINE BESYLATE 5 MG TABLET NG SCH ×2 (09:11→21:50)
[2018-12-05] MEDS: MAGNESIUM OXIDE 400 MG TABLET NG SCH (09:11)
--- NOTE | 2018-12-05 09:15 | RADIOLOGY REPORT (SQ) ---
EXAM DESCRIPTION: CHEST SINGLE VIEW COMPLETED DATE/TIME: 12/05/2018 6:43 am REASON FOR STUDY: resp failure COMPARISON: 12/04/2018. EXAM PARAMETERS: NUMBER OF VIEWS: One view. TECHNIQUE: Single frontal radiographic view of the chest acquired. RADIATION DOSE: NA LIMITATIONS: None. FINDINGS: LUNGS AND PLEURA: Low lung volumes. Basilar densities and pleural effusions. MEDIASTINUM AND HILAR STRUCTURES: No masses. Contour normal. HEART AND VASCULAR STRUCTURES: Cardiomegaly. Vascular prominence. BONES: No acute findings. HARDWARE: Stable endotracheal tube and nasogastric tube. Sternotomy wires and defibrillator. OTHER: No other significant finding. IMPRESSION: NO SIGNIFICANT CHANGE IN APPEARANCE OF THE CHEST. TECHNICAL DOCUMENTATION: JOB ID: [id number] [employer]- All Rights Reserved Reading location - IP/workstation name: [email or web address]
--- NOTE | 2018-12-05 14:14 | Progress Note ---
Provider Note Provider Note: CARDIOLOGY PROGRESS NOTE by Dr. Sabina Moon on 12/05/2018. SUBJECTIVE: The patient is intubated and sedated. There is no recurrence of atrial fibrillation. There is no ventricular arrhythmias or ventricular tachycardia seen. Earlier the patient was lucid for a little while and at that time he expressed to the family that his desire to be a DNR. Hence the family has made him a DNR as per patient's wishes. Physical EXAMINATION: The patient is mildly obese. He is in no acute distress. Selected Entries 12/05/18 12/05/18 13:22 14:00 Temperature 99.9 F Heart Rate ( 56 Monitors) Respiratory 21 H Rate Blood Pressure 140/73 H Blood Pressure 95 Mean O2 Sat by Pulse 92 Oximetry Fraction of 40 Inspired Oxygen (FIO2) HEAD: Is atraumatic normocephalic. EYES: Pupils are equal round regular reactive to light. ENT is negative. NECK: Is supple there is no JVD. Carotids are equal there is no bruit. There is no lymphadenopathy. TRACHEA is central. LUNGS: There is bibasilar dry crackles with pneumonia. There is no rales of CHF. HEART: S1-S2 is heard. S1 is of normal intensity. There is no S3 gallop. There is no S4 gallop. There is systolic murmur left sternal border and the apex. There is no significant murmur of mitral regurgitation, and no physical exam consistent with a finding of mitral stenosis. There is no rub. ABDOMEN: Is mildly obese. There is no hepatospleno megaly. Bowel sounds are well. EXTREMITIES: Femorals are deep. Femorals are diminished there is no femoral bruits. Leg pulses are diminished. There is no pedal edema. There is no DVT or cellulitis. 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 12/05/18 12/05/18 12/05/18 03:47 17:55 17:55 Sodium 150.7 H Potassium 3.3 L 3.9 Chloride 128 H Carbon Dioxide 17 L Anion Gap 6 BUN 21 H Creatinine 1.81 H Est GFR ( Amer) 44 L Glucose 113 H Calcium 7.4 L Magnesium 1.8 IMPRESSION/RECOMMENDATION: 1. Acute hypoxic respiratory failure. ABG still showed but patient is hypoxic. Continue ventilatory support. 2. Bradycardia: Resolved. Note that the patient's initial heart rates post to transfer to ICU was in the high 40s. This is a combination of the effects of metoprolol and also sotalol in the setting of acute renal failure. The pacemaker was lower pacing rate was set at 40 bpm hence the pacemaker did not take and since her heart rate was about 40. At present the patient's heart rate is greater than 60. The patient had does have a history of proximal atrial fibrillation. Continue metoprolol 50 mg by the NG tube every 12 hours. We will still not restart the patient's Betapace, since the patient's renal function is still compromised. 3. Acute renal failure: At present GFR is improved to a stage III. Avoid nephrotoxic drugs. Continue hydration. 4. Bibasilar pneumonia: Most likely aspiration pneumonia. Continue antibiotics and ventilator support with oxygen. Recommend breathing treatments. But will be cautious to look for any recurrence of atrial fibrillation or ventricular arrhythmias. 5. History of paroxysmal atrial fibrillation: No recurrence continue beta- blockers. At present we will not restart the patient's Betapace. 6. History of ventricular tachycardia: No recurrence. Note patient has an AICD. 7. Chronic obstructive pulmonary disease: Continue respiratory treatments and oxygen. 8. History of mitral valve repair: No severe mitral regurgitation on examination. 9. Hypertension: Blood pressure well controlled. Patient has not needed any inotropic support. 10. History of AICD placement. No firing recently of the AICD. Recent 2 days ago interrogation of the AICD's shows that the AICD is working/functioning normally. 11. History of seizure disorder: No seizures on Keppra. Medications reviewed new medications in the form metoprolol added. Medical decision making I was of moderate complexity. 40 minutes spent on this patient more than 50% of time spent direct patient care. Discussed the case with Dr. Dietrich covering Dr. Cano. Will follow. Note that the patient is being managed with DNR.
[2018-12-05] MEDS ORDERED: POTASSIUM CHLORIDE 20 MEQ PACKET NG ONE (16:00)
[2018-12-05] MEDS: TAMSULOSIN HCL 0.4 MG CAP.SR.24H PO SCH (18:04)
--- NOTE | 2018-12-05 18:27 | PDOC PROGRESS REPORT ---
Subjective Progress Note for:: 12/05/18 Subjective:: Stable intubated and sedated though 4 hours on sedation vacation informed by family members she was not to be reintubated after extubation DNR Reason For Visit: ACUTE RENAL INJURY,ALTERED MENTAL STATE Physical Exam Vital Signs: Temp Pulse Resp BP Pulse Ox 99.9 F 57 L 20 143/73 H 93 12/05/18 16:00 12/05/18 12:00 12/05/18 16:00 12/05/18 15:22 12/05/18 16:55 Intake & Output 12/04/18 12/05/18 12/06/18 06:59 06:59 06:59 Intake Total 2993 3261 857 Output Total 1620 1315 1020 Balance 1373 1946 -163 Weight 103.2 kg 105.7 kg General appearance: PRESENT: no acute distress, disheveled, morbidly obese. ABSENT: cooperative Head exam: PRESENT: atraumatic, normocephalic Eye exam: PRESENT: conjunctiva pale, nystagmus, periorbital swelling. ABSENT: scleral icterus Mouth exam: PRESENT: moist, neck supple, tongue midline, other - Endotracheal- tube Neck exam: ABSENT: carotid bruit, full ROM, JVD, lymphadenopathy, meningismus, tenderness, thyromegaly, tracheal deviation, tracheostomy, other Respiratory exam: PRESENT: decreased breath sounds, prolonged expiratory phas, rales, rhonchi, unlabored Cardiovascular exam: PRESENT: RRR, +S1, +S2 Pulses: PRESENT: normal radial pulses GI/Abdominal exam: PRESENT: mass, soft Gentrourinary exam: PRESENT: indwelling catheter Extremities exam: PRESENT: joint swelling. ABSENT: calf tenderness, clubbing Musculoskeletal exam: ABSENT: ambulatory, deformity, dislocation Neurological exam: ABSENT: awake Skin exam: PRESENT: dry, warm Results Laboratory Results: 12/04/18 04:09 12/05/18 12/05/18 03:47 06:52 Carbonic Acid 0.87 L HCO3/H2CO3 Ratio 21:1 ABG pH 7.43 ABG pCO2 29.0 L ABG pO2 65.1 L ABG HCO3 18.6 L ABG O2 Saturation 93.6 L ABG Base Excess -4.6 FiO2 50% Sodium 150.7 H Potassium 3.3 L Chloride 128 H Carbon Dioxide 17 L Anion Gap 6 BUN 21 H Creatinine 1.81 H Est GFR ( Amer) 44 L Est GFR (Non-Af Amer) 36 L Glucose 120 H Calcium 7.4 L Magnesium 1.8 11/22/18 11/24/18 12/02/18 17:50 05:25 07:13 Creatine Kinase 62 CK-MB (CK-2) Troponin I < 0.012 NT-Pro-B Natriuret Pep 1550 H 12/02/18 12/03/18 07:13 04:29 Creatine Kinase CK-MB (CK-2) 0.84 Troponin I 0.014 NT-Pro-B Natriuret Pep 3710 H Impressions: Chest CT 11/22/18 16:18 IMPRESSION: No acute findings Head CT 11/22/18 16:18 IMPRESSION: 1. No acute intracranial abnormality. 2. Mild atrophy and chronic small vessel ischemic changes. 3. Lobulated contour to the bilateral inferior terminates, may represent small nasal polyps. EVIDENCE OF ACUTE STROKE: NO. KUB X-Ray 11/30/18 11:47 IMPRESSION: Cannot exclude a partial bowel obstruction. NG tube placement. Chest Ultrasound 12/02/18 13:05 IMPRESSION: Trace right posterior costophrenic sulcus pleural fluid Chest X-Ray 12/05/18 06:00 IMPRESSION: NO SIGNIFICANT CHANGE IN APPEARANCE OF THE CHEST. Assessment & Plan - Diagnosis (1) Altered mental status Qualifiers: Altered mental status type: unspecified Qualified Code(s): R41.82 - Altered mental status, unspecified Is this a current diagnosis for this admission?: Yes Plan: During sedation vacation, movement noted (2) Seizure disorder Is this a current diagnosis for this admission?: Yes Plan: None noted (3) COPD (chronic obstructive pulmonary disease) Qualifiers: Emphysema type: centrilobular Is this a current diagnosis for this admission?: Yes Plan: Continue current bronchodilator therapy (4) EDNA (obstructive sleep apnea) Is this a current diagnosis for this admission?: Yes Plan: CPAP versus BiPAP when patient stable and extubated noncompliance in severe cases could also contribute to his altered mental status (5) Aspiration into lower respiratory tract Qualifiers: Encounter type: initial encounter Qualified Code(s): T17.800A - Unspecified foreign body in other parts of respiratory tract causing asphyxiation, initial encounter Is this a current diagnosis for this admission?: Yes Plan: Synthetic penicillin and Cleocin for aspiration pneumonitis (6) GI (gastrointestinal bleed) Qualifiers: GI bleed type/associated pathology: unspecified gastrointestinal hemorrhage type Qualified Code(s): K92.2 - Gastrointestinal hemorrhage, unspecified Is this a current diagnosis for this admission?: Yes Plan: Copious amounts of coffee ground material from ET tube as well as NG tube - Time Total Critical Time (Minutes): 45
--- NOTE | 2018-12-05 18:33 | PDOC PROGRESS REPORT ---
Subjective Progress Note for:: 12/04/18 Subjective:: Stable intubated and sedated though 4 hours on sedation vacation informed by family members she was not to be reintubated after extubation DNR Reason For Visit: ACUTE RENAL INJURY,ALTERED MENTAL STATE Physical Exam Vital Signs: Temp Pulse Resp BP Pulse Ox 98.1 F 50 L 20 109/64 95 12/04/18 07:37 12/04/18 07:37 12/04/18 07:37 12/04/18 07:37 12/04/18 08:05 Intake & Output 12/03/18 12/04/18 12/05/18 06:59 06:59 06:59 Intake Total 1999 2993 77 Output Total 1090 1620 115 Balance 910 1373 -38 Weight 103.3 kg 103.2 kg General appearance: PRESENT: no acute distress, disheveled, morbidly obese. ABSENT: cooperative Head exam: PRESENT: atraumatic, normocephalic Eye exam: PRESENT: conjunctiva pale, scleral icterus. ABSENT: nystagmus, periorbital swelling Mouth exam: PRESENT: dry mucosa, neck supple, tongue midline, other - Treatment Neck exam: ABSENT: carotid bruit, full ROM, JVD, lymphadenopathy, meningismus, tenderness, thyromegaly, tracheal deviation, tracheostomy, other Respiratory exam: PRESENT: decreased breath sounds, prolonged expiratory phas, rales, rhonchi, unlabored Cardiovascular exam: PRESENT: RRR, +S1, +S2 Neurological exam: ABSENT: awake Skin exam: PRESENT: dry, warm Results Laboratory Results: 12/04/18 04:09 12/04/18 04:09 12/04/18 12/04/18 12/04/18 04:09 04:09 04:09 WBC 14.7 H RBC 3.76 L Hgb 11.3 L Hct 33.6 L MCV 89 MCH 30.0 MCHC 33.5 RDW 16.2 H Plt Count 195 Seg Neutrophils % Not Reportable Lymphocytes % Not Reportable Monocytes % Not Reportable Eosinophils % Not Reportable Basophils % Not Reportable Absolute Neutrophils Not Reportable Absolute Lymphocytes Not Reportable Absolute Monocytes Not Reportable Absolute Eosinophils Not Reportable Absolute Basophils Not Reportable Carbonic Acid HCO3/H2CO3 Ratio ABG pH ABG pCO2 ABG pO2 ABG HCO3 ABG O2 Saturation ABG Base Excess FiO2 Sodium 153.1 H Potassium 3.3 L Chloride 130 H Carbon Dioxide 18 L Anion Gap 5 BUN 27 H Creatinine 1.85 H Est GFR ( Amer) 43 L Est GFR (Non-Af Amer) 36 L Glucose 125 H Calcium 7.7 L Magnesium 1.9 Albumin 2.1 L 12/04/18 04:30 WBC RBC Hgb Hct MCV MCH MCHC RDW Plt Count Seg Neutrophils % Lymphocytes % Monocytes % Eosinophils % Basophils % Absolute Neutrophils Absolute Lymphocytes Absolute Monocytes Absolute Eosinophils Absolute Basophils Carbonic Acid 0.87 L HCO3/H2CO3 Ratio 21:1 ABG pH 7.44 ABG pCO2 28.9 L ABG pO2 68.5 L ABG HCO3 19.1 L ABG O2 Saturation 94.6 ABG Base Excess -3.9 FiO2 50% Sodium Potassium Chloride Carbon Dioxide Anion Gap BUN Creatinine Est GFR ( Amer) Est GFR (Non-Af Amer) Glucose Calcium Magnesium Albumin 11/30/18 11:25 Tracheal Aspirate Gram Stain - Final 11/30/18 11:25 Tracheal Aspirate Sputum Culture - Final C.albicans/C.dubliniensis Normal Irene 11/22/18 11/24/18 12/02/18 17:50 05:25 07:13 Creatine Kinase 62 CK-MB (CK-2) Troponin I < 0.012 NT-Pro-B Natriuret Pep 1550 H 12/02/18 12/03/18 07:13 04:29 Creatine Kinase CK-MB (CK-2) 0.84 Troponin I 0.014 NT-Pro-B Natriuret Pep 3710 H Impressions: Chest CT 11/22/18 16:18 IMPRESSION: No acute findings Head CT 11/22/18 16:18 IMPRESSION: 1. No acute intracranial abnormality. 2. Mild atrophy and chronic small vessel ischemic changes. 3. Lobulated contour to the bilateral inferior terminates, may represent small nasal polyps. EVIDENCE OF ACUTE STROKE: NO. KUB X-Ray 11/30/18 11:47 IMPRESSION: Cannot exclude a partial bowel obstruction. NG tube placement. Chest Ultrasound 12/02/18 13:05 IMPRESSION: Trace right posterior costophrenic sulcus pleural fluid Chest X-Ray 12/04/18 06:00 IMPRESSION: NO SIGNIFICANT CHANGE IN APPEARANCE OF THE CHEST. Assessment & Plan - Diagnosis (1) Altered mental status Qualifiers: Altered mental status type: unspecified Qualified Code(s): R41.82 - Altered mental status, unspecified Is this a current diagnosis for this admission?: Yes Plan: During sedation vacation, movement noted (2) Seizure disorder Is this a current diagnosis for this admission?: Yes Plan: None noted (3) COPD (chronic obstructive pulmonary disease) Qualifiers: Emphysema type: centrilobular Is this a current diagnosis for this admission?: Yes Plan: Continue current bronchodilator therapy (4) EDNA (obstructive sleep apnea) Is this a current diagnosis for this admission?: Yes Plan: CPAP versus BiPAP when patient stable and extubated noncompliance in severe cases could also contribute to his altered mental status (5) Aspiration into lower respiratory tract Qualifiers: Encounter type: initial encounter Qualified Code(s): T17.800A - Unspecified foreign body in other parts of respiratory tract causing asphyxiation, initial encounter Is this a current diagnosis for this admission?: Yes Plan: Synthetic penicillin and Cleocin for aspiration pneumonitis (6) GI (gastrointestinal bleed) Qualifiers: GI bleed type/associated pathology: unspecified gastrointestinal hemorrhage type Qualified Code(s): K92.2 - Gastrointestinal hemorrhage, unspecified Is this a current diagnosis for this admission?: Yes Plan: Copious amounts of coffee ground material from ET tube as well as NG tube - Time Total Critical Time (Minutes): 45
--- NOTE | 2018-12-05 18:49 | PDOC PROGRESS REPORT ---
Subjective Progress Note for:: 12/05/18 Subjective:: Patient family wants him to be DNR, patient still intubated on mechanical ventilation Reason For Visit: ACUTE RENAL INJURY,ALTERED MENTAL STATE Physical Exam Vital Signs: Temp Pulse Resp BP Pulse Ox 99.3 F 54 L 20 112/61 91 L 12/05/18 18:22 12/05/18 18:00 12/05/18 18:22 12/05/18 18:22 12/05/18 18:22 Intake & Output 12/04/18 12/05/18 12/06/18 06:59 06:59 06:59 Intake Total 2993 3261 857 Output Total 1620 1315 1145 Balance 1373 1946 -288 Weight 103.2 kg 105.7 kg General appearance: PRESENT: no acute distress Eye exam: PRESENT: PERRLA Respiratory exam: PRESENT: clear to auscultation pradeep Cardiovascular exam: PRESENT: +S1, +S2 GI/Abdominal exam: PRESENT: soft Neurological exam: PRESENT: alert Results Laboratory Results: 12/04/18 04:09 12/05/18 17:55 12/05/18 12/05/18 12/05/18 03:47 06:52 17:55 Carbonic Acid 0.87 L HCO3/H2CO3 Ratio 21:1 ABG pH 7.43 ABG pCO2 29.0 L ABG pO2 65.1 L ABG HCO3 18.6 L ABG O2 Saturation 93.6 L ABG Base Excess -4.6 FiO2 50% Sodium 150.7 H Potassium 3.3 L 3.9 Chloride 128 H Carbon Dioxide 17 L Anion Gap 6 BUN 21 H Creatinine 1.81 H Est GFR ( Amer) 44 L Est GFR (Non-Af Amer) 36 L Glucose 120 H Calcium 7.4 L Magnesium 1.8 11/22/18 11/24/18 12/02/18 17:50 05:25 07:13 Creatine Kinase 62 CK-MB (CK-2) Troponin I < 0.012 NT-Pro-B Natriuret Pep 1550 H 12/02/18 12/03/18 07:13 04:29 Creatine Kinase CK-MB (CK-2) 0.84 Troponin I 0.014 NT-Pro-B Natriuret Pep 3710 H Impressions: Chest CT 11/22/18 16:18 IMPRESSION: No acute findings Head CT 11/22/18 16:18 IMPRESSION: 1. No acute intracranial abnormality. 2. Mild atrophy and chronic small vessel ischemic changes. 3. Lobulated contour to the bilateral inferior terminates, may represent small nasal polyps. EVIDENCE OF ACUTE STROKE: NO. KUB X-Ray 11/30/18 11:47 IMPRESSION: Cannot exclude a partial bowel obstruction. NG tube placement. Chest Ultrasound 12/02/18 13:05 IMPRESSION: Trace right posterior costophrenic sulcus pleural fluid Chest X-Ray 12/05/18 06:00 IMPRESSION: NO SIGNIFICANT CHANGE IN APPEARANCE OF THE CHEST. Assessment & Plan - Diagnosis (1) Chronic respiratory failure with hypoxia, on home O2 therapy Is this a current diagnosis for this admission?: Yes (2) Aspiration into lower respiratory tract Qualifiers: Encounter type: initial encounter Qualified Code(s): T17.800A - Unspecified foreign body in other parts of respiratory tract causing asphyxiation, initial encounter Is this a current diagnosis for this admission?: Yes (3) Acute respiratory failure Qualifiers: Respiratory failure complication: hypoxia Qualified Code(s): J96.01 - Acute respiratory failure with hypoxia Is this a current diagnosis for this admission?: Yes Plan: Continue present mechanical ventilation
[2018-12-05] MEDS: ATORVASTATIN CALCIUM 10 MG TABLET NG SCH (21:50)
[2018-12-06] MEDS: CLINDAMYCIN 600 MG/D5W RTU 600 MG/50 ML RTUPB IV SCH ×3 (02:27→17:55)
[2018-12-06] MEDS: 1/2 NORMAL SALINE 1,000 ML IV PRN ×2 (02:28→17:56)
[2018-12-06] MEDS: PROPOFOL 1,000 MG/100 ML INFUS..BTL IV PRN ×6 (03:03→23:45)
[2018-12-06] MEDS: PIPERACILLIN SODIUM/TAZOBACTAM 2.25 GM in NORMAL SALINE 50 ML IV SCH ×4 (03:37→20:47)
[2018-12-06 04:12] LABS: HEMATOCRIT 33.1 % (37.9-51.0); HEMOGLOBIN 10.9 g/dL (13.5-17.0); MEAN CORPUSCULAR HEMOGLOBIN 29.7 pg (27.0-33.4); MEAN CORPUSCULAR VOLUME 90 fl (80-97); PLATELET COUNT 176 10^3/uL (150-450); RED BLOOD COUNT 3.68 10^6/uL (4.35-5.55); RED CELL DISTRIBUTION WIDTH 16.2 % (11.5-14.0); WHITE BLOOD COUNT 11.4 10^3/uL (4.0-10.5)
[2018-12-06 04:28] LABS: ARTERIAL BLOOD BASE EXCESS -4.2 mmol/L; ARTERIAL BLOOD HCO3 19.1 mmol/L (20-24); ARTERIAL BLOOD O2 SATURATION 92.5 % (94-98); ARTERIAL BLOOD PCO2 29.9 mmHg (35-45); ARTERIAL BLOOD PH 7.42 (7.35-7.45); ARTERIAL BLOOD PO2 61.6 mmHg (80-100); ARTERIAL BLOOD TOTAL CO2 20.1 mmol/L (23-27)
[2018-12-06 04:32] LABS: ANION GAP 5 (5-19); BLOOD UREA NITROGEN 16 mg/dL (7-20); CARBON DIOXIDE 18 mmol/L (22-30); CHLORIDE 125 mmol/L (98-107); GLUCOSE 127 mg/dL (75-110); POTASSIUM 3.3 mmol/L (3.6-5.0); SODIUM 147.8 mmol/L (137-145)
[2018-12-06 04:38] LABS: ARTERIAL BLOOD FIO2 45%
[2018-12-06 04:55] LABS: CALCIUM 6.9 mg/dL (8.4-10.2)
[2018-12-06] MEDS: IPRATROPIUM/ALBUTEROL 120 PUFF/4 GM MDI IH SCH ×4 (05:17→23:46)
[2018-12-06] MEDS: POTASSIUM CHLORIDE 20 MEQ/50 ML RTU IV SCH ×2 (05:20→08:35)
[2018-12-06] MEDS: PHENYTOIN 100 MG/4 ML SUSP NG SCH ×3 (05:20→21:27)
[2018-12-06] MEDS: ACETYLCYSTEINE 20% SOLN 800 MG/4 ML VIAL.NEB NEB SCH ×2 (08:33→20:49)
[2018-12-06] MEDS: LEVALBUTEROL HCL NEB 0.63 MG/3 ML AMPUL NEB PRN ×2 (08:33→20:49)
--- NOTE | 2018-12-06 09:32 | RADIOLOGY REPORT (SQ) ---
EXAM DESCRIPTION: CHEST SINGLE VIEW COMPLETED DATE/TIME: 12/06/2018 6:31 am REASON FOR STUDY: intubated COMPARISON: 12/05/2018 NUMBER OF VIEWS: One view. TECHNIQUE: Single frontal radiographic image of the chest acquired. LIMITATIONS: None. FINDINGS: LUNGS AND PLEURA: Bilateral pleural effusions and associated airspace disease not signific antly changed. No pneumothorax. MEDIASTINUM AND HEART: Stable heart size and mediastinal structures. SUPPORT DEVICES: Appropriate location without change. BONY STRUCTURES: No acute findings. HARDWARE: None. OTHER: No other significant finding. IMPRESSION: STABLE APPEARANCE OF THE CHEST. SUPPORT DEVICES UNCHANGED. Reading location - IP/workstation name: [email or web address]
[2018-12-06] MEDS: ENOXAPARIN SODIUM INJ 30 MG/0.3 ML DISP.SYRIN SUBCUT SCH (10:11)
[2018-12-06] MEDS: METOPROLOL TARTRATE 50 MG TABLET NG SCH ×2 (10:12→21:27)
[2018-12-06] MEDS: DOCUSATE SODIUM 100 MG/10 ML UDC NG SCH ×2 (10:12→17:55)
[2018-12-06] MEDS: FAMOTIDINE INJ/PF 20 MG/2 ML SDV IV SCH ×2 (10:12→21:27)
[2018-12-06] MEDS: AMLODIPINE BESYLATE 5 MG TABLET NG SCH ×2 (10:13→21:27)
[2018-12-06] MEDS: MAGNESIUM OXIDE 400 MG TABLET NG SCH (10:13)
[2018-12-06] MEDS: POTASSIUM CHLORIDE 20 MEQ PACKET NG SCH (10:15)
--- NOTE | 2018-12-06 12:57 | PDOC PROGRESS REPORT ---
Subjective Progress Note for:: 12/06/18 Subjective:: Stable intubated and sedated though 4 hours on sedation vacation i,how ever CXR RLL opacification Reason For Visit: ACUTE RENAL INJURY,ALTERED MENTAL STATE Physical Exam Vital Signs: Temp Pulse Resp BP Pulse Ox 97.3 F 54 L 20 132/89 H 93 12/06/18 08:00 12/06/18 08:33 12/06/18 08:33 12/06/18 08:00 12/06/18 08:33 Intake & Output 12/05/18 12/06/18 12/07/18 06:59 06:59 06:59 Intake Total 3261 2679 100 Output Total 1315 1535 100 Balance 1946 1144 0 Weight 105.7 kg 105.8 kg General appearance: PRESENT: no acute distress, disheveled, morbidly obese. ABSENT: cooperative Head exam: PRESENT: atraumatic, normocephalic Eye exam: PRESENT: conjunctiva pale. ABSENT: nystagmus, periorbital swelling, scleral icterus Mouth exam: PRESENT: dry mucosa, neck supple, tongue midline, other - ET tube Neck exam: ABSENT: carotid bruit, full ROM, JVD, lymphadenopathy, meningismus, tenderness, thyromegaly, tracheal deviation, tracheostomy, other Respiratory exam: PRESENT: decreased breath sounds, prolonged expiratory phas, rhonchi, unlabored. ABSENT: retraction, stridor, tachypnea Cardiovascular exam: PRESENT: RRR, +S1, +S2 Pulses: PRESENT: normal radial pulses GI/Abdominal exam: PRESENT: soft. ABSENT: mass Gentrourinary exam: PRESENT: indwelling catheter Extremities exam: PRESENT: +2 edema. ABSENT: calf tenderness, clubbing, joint swelling Musculoskeletal exam: ABSENT: ambulatory, deformity, dislocation Neurological exam: ABSENT: awake Skin exam: PRESENT: dry, warm Results Laboratory Results: 12/06/18 03:58 12/06/18 03:58 12/05/18 12/05/18 12/06/18 17:55 17:55 03:58 WBC 11.4 H RBC 3.68 L Hgb 10.9 L Hct 33.1 L MCV 90 MCH 29.7 MCHC 33.0 RDW 16.2 H Plt Count 176 Carbonic Acid HCO3/H2CO3 Ratio ABG pH ABG pCO2 ABG pO2 ABG HCO3 ABG O2 Saturation ABG Base Excess FiO2 Sodium Potassium 3.9 Chloride Carbon Dioxide Anion Gap BUN Creatinine Est GFR ( Amer) Est GFR (Non-Af Amer) Glucose 113 H Calcium Magnesium Albumin 12/06/18 12/06/18 12/06/18 03:58 03:58 04:08 WBC RBC Hgb Hct MCV MCH MCHC RDW Plt Count Carbonic Acid 0.90 L HCO3/H2CO3 Ratio 21:1 ABG pH 7.42 ABG pCO2 29.9 L ABG pO2 61.6 L ABG HCO3 19.1 L ABG O2 Saturation 92.5 L ABG Base Excess -4.2 FiO2 45% Sodium 147.8 H Potassium 3.3 L Chloride 125 H Carbon Dioxide 18 L Anion Gap 5 BUN 16 Creatinine 1.61 H Est GFR ( Amer) 50 L Est GFR (Non-Af Amer) 42 L Glucose 127 H Calcium 6.9 L* Magnesium 1.6 Albumin 2.1 L 11/22/18 11/24/18 12/02/18 17:50 05:25 07:13 Creatine Kinase 62 CK-MB (CK-2) Troponin I < 0.012 NT-Pro-B Natriuret Pep 1550 H 12/02/18 12/03/18 07:13 04:29 Creatine Kinase CK-MB (CK-2) 0.84 Troponin I 0.014 NT-Pro-B Natriuret Pep 3710 H Impressions: Chest CT 11/22/18 16:18 IMPRESSION: No acute findings Head CT 11/22/18 16:18 IMPRESSION: 1. No acute intracranial abnormality. 2. Mild atrophy and chronic small vessel ischemic changes. 3. Lobulated contour to the bilateral inferior terminates, may represent small nasal polyps. EVIDENCE OF ACUTE STROKE: NO. KUB X-Ray 11/30/18 11:47 IMPRESSION: Cannot exclude a partial bowel obstruction. NG tube placement. Chest Ultrasound 12/02/18 13:05 IMPRESSION: Trace right posterior costophrenic sulcus pleural fluid Chest X-Ray 12/06/18 06:00 IMPRESSION: STABLE APPEARANCE OF THE CHEST. SUPPORT DEVICES UNCHANGED. Assessment & Plan - Diagnosis (1) Altered mental status Qualifiers: Altered mental status type: unspecified Qualified Code(s): R41.82 - Altered mental status, unspecified Is this a current diagnosis for this admission?: Yes Plan: During sedation vacation, movement noted (2) Seizure disorder Is this a current diagnosis for this admission?: Yes Plan: None noted (3) COPD (chronic obstructive pulmonary disease) Qualifiers: Emphysema type: centrilobular Is this a current diagnosis for this admission?: Yes Plan: Continue current bronchodilator therapy (4) EDNA (obstructive sleep apnea) Is this a current diagnosis for this admission?: Yes Plan: CPAP versus BiPAP when patient stable and extubated noncompliance in severe cases could also contribute to his altered mental status (5) Aspiration into lower respiratory tract Qualifiers: Encounter type: initial encounter Qualified Code(s): T17.800A - Unspecified foreign body in other parts of respiratory tract causing asphyxiation, initial encounter Is this a current diagnosis for this admission?: Yes Plan: Synthetic penicillin and Cleocin for aspiration pneumonitis RLL opacification continues (6) GI (gastrointestinal bleed) Qualifiers: GI bleed type/associated pathology: unspecified gastrointestinal hemorrhage type Qualified Code(s): K92.2 - Gastrointestinal hemorrhage, unspecified Is this a current diagnosis for this admission?: Yes Plan: Copious amounts of coffee ground material from ET tube as well as NG tube - Time Total Critical Time (Minutes): 97
[2018-12-06] MEDS: TAMSULOSIN HCL 0.4 MG CAP.SR.24H PO SCH (17:57)
--- NOTE | 2018-12-06 18:01 | PDOC PROGRESS REPORT ---
Subjective Progress Note for:: 12/06/18 Subjective:: Patient remain vent supported and on tube feeding. Family made him DNR in the last 24 hours with plan for possible extubation today. No reported seizure activity. No fever. No diarrhea. Reason For Visit: ACUTE RENAL INJURY,ALTERED MENTAL STATE Physical Exam Vital Signs: Temp Pulse Resp BP Pulse Ox 97.3 F 54 L 20 132/89 H 94 12/06/18 08:00 12/06/18 08:00 12/06/18 08:00 12/06/18 08:00 12/06/18 08:00 Intake & Output 12/05/18 12/06/18 12/07/18 06:59 06:59 06:59 Intake Total 3261 2679 Output Total 1315 1535 100 Balance 1946 1144 -100 Weight 105.7 kg 105.8 kg Physical Exam: Remain intubated vent supported and sedated. Head exam: PRESENT: atraumatic, normocephalic Eye exam: PRESENT: conjunctiva pink, PERRLA. ABSENT: pallor, scleral icterus Ear exam: PRESENT: normal external ear exam Mouth exam: PRESENT: moist - NG and ET tubes in situ Respiratory exam: PRESENT: clear to auscultation pradeep, decreased breath sounds - at lung bases Cardiovascular exam: PRESENT: RRR. ABSENT: diastolic murmur, rubs, systolic murmur GI/Abdominal exam: PRESENT: normal bowel sounds, soft. ABSENT: distended, guarding, mass, organomegaly, rebound, tenderness Extremities exam: ABSENT: pedal edema Neurological exam: PRESENT: altered - sedated Skin exam: PRESENT: dry, warm Results Laboratory Results: 12/06/18 03:58 12/06/18 03:58 12/05/18 12/05/18 12/06/18 17:55 17:55 03:58 WBC 11.4 H RBC 3.68 L Hgb 10.9 L Hct 33.1 L MCV 90 MCH 29.7 MCHC 33.0 RDW 16.2 H Plt Count 176 Carbonic Acid HCO3/H2CO3 Ratio ABG pH ABG pCO2 ABG pO2 ABG HCO3 ABG O2 Saturation ABG Base Excess FiO2 Sodium Potassium 3.9 Chloride Carbon Dioxide Anion Gap BUN Creatinine Est GFR ( Amer) Est GFR (Non-Af Amer) Glucose 113 H Calcium Magnesium Albumin 12/06/18 12/06/1819 03:58 03:58 04:08 WBC RBC Hgb Hct MCV MCH MCHC RDW Plt Count Carbonic Acid 0.90 L HCO3/H2CO3 Ratio 21:1 ABG pH 7.42 ABG pCO2 29.9 L ABG pO2 61.6 L ABG HCO3 19.1 L ABG O2 Saturation 92.5 L ABG Base Excess -4.2 FiO2 45% Sodium 147.8 H Potassium 3.3 L Chloride 125 H Carbon Dioxide 18 L Anion Gap 5 BUN 16 Creatinine 1.61 H Est GFR ( Amer) 50 L Est GFR (Non-Af Amer) 42 L Glucose 127 H Calcium 6.9 L* Magnesium 1.6 Albumin 2.1 L 11/22/18 11/24/18 12/02/18 17:50 05:25 07:13 Creatine Kinase 62 CK-MB (CK-2) Troponin I < 0.012 NT-Pro-B Natriuret Pep 1550 H 12/02/18 12/03/18 07:13 04:29 Creatine Kinase CK-MB (CK-2) 0.84 Troponin I 0.014 NT-Pro-B Natriuret Pep 3710 H Impressions: Chest CT 11/22/18 16:18 IMPRESSION: No acute findings Head CT 11/22/18 16:18 IMPRESSION: 1. No acute intracranial abnormality. 2. Mild atrophy and chronic small vessel ischemic changes. 3. Lobulated contour to the bilateral inferior terminates, may represent small nasal polyps. EVIDENCE OF ACUTE STROKE: NO. KUB X-Ray 11/30/18 11:47 IMPRESSION: Cannot exclude a partial bowel obstruction. NG tube placement. Chest Ultrasound 12/02/18 13:05 IMPRESSION: Trace right posterior costophrenic sulcus pleural fluid Assessment & Plan - Diagnosis (1) Acute respiratory failure Qualifiers: Respiratory failure complication: hypoxia Qualified Code(s): J96.01 - Acute respiratory failure with hypoxia Is this a current diagnosis for this admission?: Yes (2) Aspiration into lower respiratory tract Qualifiers: Encounter type: initial encounter Qualified Code(s): T17.800A - Unspecified foreign body in other parts of respiratory tract causing asphyxiation, initial encounter Is this a current diagnosis for this admission?: Yes (3) GI (gastrointestinal bleed) Qualifiers: GI bleed type/associated pathology: unspecified gastrointestinal hemorrhage type Qualified Code(s): K92.2 - Gastrointestinal hemorrhage, unspecified Is this a current diagnosis for this admission?: Yes (4) Acute kidney injury superimposed on chronic kidney disease Is this a current diagnosis for this admission?: Yes (5) CKD (chronic kidney disease) Qualifiers: Chronic kidney disease stage: stage 3 (moderate) Qualified Code(s): N18.3 - Chronic kidney disease, stage 3 (moderate) Is this a current diagnosis for this admission?: Yes (6) Altered mental status Qualifiers: Altered mental status type: unspecified Qualified Code(s): R41.82 - Altered mental status, unspecified Is this a current diagnosis for this admission?: Yes (7) Chronic respiratory failure with hypoxia, on home O2 therapy Is this a current diagnosis for this admission?: Yes (8) Seizure disorder Is this a current diagnosis for this admission?: Yes (9) HTN (hypertension) Qualifiers: Hypertension type: essential hypertension Qualified Code(s): I10 - Essential (primary) hypertension Is this a current diagnosis for this admission?: Yes (10) CAD (coronary artery disease) Qualifiers: Coronary Disease-Associated Artery/Lesion type: lum[place] artery Associated angina: without angina Is this a current diagnosis for this admission?: Yes (11) S/P CABG (coronary artery bypass graft) Is this a current diagnosis for this admission?: Yes (12) HLD (hyperlipidemia) Qualifiers: Hyperlipidemia type: unspecified Qualified Code(s): E78.5 - Hyperlipidemia, unspecified Is this a current diagnosis for this admission?: Yes (13) EDNA (obstructive sleep apnea) Is this a current diagnosis for this admission?: Yes (14) COPD with acute exacerbation Is this a current diagnosis for this admission?: Yes - Time Time Spent with patient: 25-34 minutes Medications reviewed and adjusted accordingly: Yes Anticipated discharge: Other Within: Other - Inpatient Certification Based on my medical assessment, after consideration of the patient's comorbidit ies, presenting symptoms, or acuity I expect that the services needed warrant INPATIENT care.: Yes I certify that my determination is in accordance with my understanding of Me saba's requirements for reasonable and necessary INPATIENT services [42 CFR 412.3e].: Yes Medical Necessity: Significant Comorbidiites Make Outpatient Treatment Too Risky, Need Close Monitoring Due to Risk of Patient Decompensation, Need For IV Fluids, Need For Continuous Telemetry Monitoring, Need for Nebulizer Therapy and Monitoring of Response, Need for IV Antibiotics, Risk of Complication if Not Cared For in Hospital, Risk of Diagnosis Which Will Require Inpatient Eval/Care/Monitoring Post Hospital Care: Other - Plan Summary Plan Summary: Continue current medication management and vent support. His recent chest X ray is suggestive of bibasilar worsening air space disease process hat make his extubation at this time less optimal. I discussed with family at bedside and are willing to concur with melter caster recommendation to hold extubation till tomorrow. He remain on DNR status.
--- NOTE | 2018-12-06 20:39 | Progress Note ---
Provider Note Provider Note: CARDIOLOGY PROGRESS NOTE by Dr. Sabina Moon on 12/06/2018. SUBJECTIVE: The patient remains intubated and sedated. There is no recurrence of atrial fibrillation. There is no ventricular arrhythmias seen. There is no firing of AICD. Plans are being made to extubate the patient as soon as feasible Physical EXAMINATION: The patient is mild to moderately obese. In no acute distress. Selected Entries 12/06/18 12/06/18 12/06/18 09:22 09:23 10:00 Temperature 99.1 F Pulse Rate 53 L Heart Rate ( 56 Monitors) Respiratory 20 20 Rate Blood Pressure 108/64 Blood Pressure 108/64 [Left Upper Arm ] Blood Pressure 78 Mean Blood Pressure 78 Mean [Left Upper Arm] O2 Sat by Pulse 91 L 92 Oximetry Oxygen Delivery Mechanical Method ( Ventilator includes room air) HEAD: Is atraumatic normocephalic. EYES: Pupils are equal round regular reactive to light. ENT is negative. NECK: Is supple there is no JVD. Carotids are equal there is no bruit. There is no lymphadenopathy. TRACHEA is central. LUNGS: There is bibasilar dry crackles with pneumonia. There is no rales of CHF. HEART: S1-S2 is heard. S1 is of normal intensity. There is no S3 gallop. There is no S4 gallop. There is systolic murmur left sternal border and the apex. There is no significant murmur of mitral regurgitation, and no physical exam consistent with a finding of mitral stenosis. There is no rub. ABDOMEN: Is mildly obese. There is no hepatospleno megaly. Bowel sounds are well. EXTREMITIES: Femorals are deep. Femorals are diminished there is no femoral bruits. Leg pulses are diminished. There is no pedal edema. There is no DVT or cellulitis. CAREER SERVICES COORDINATOR and psychiatric not tested since the patient is intubated and sedated 12/06/18 12/06/18 12/06/18 03:58 03:58 04:08 WBC 11.4 H RBC 3.68 L Hgb 10.9 L Hct 33.1 L MCV 90 MCH 29.7 MCHC 33.0 RDW 16.2 H Plt Count 176 Carbonic Acid 0.90 L HCO3/H2CO3 Ratio 21:1 ABG pH 7.42 ABG pCO2 29.9 L ABG pO2 61.6 L ABG HCO3 19.1 L ABG Total CO2 20.1 L ABG O2 Saturation 92.5 L ABG Base Excess -4.2 FiO2 45% Sodium 147.8 H Potassium 3.3 L Chloride 125 H Carbon Dioxide 18 L Anion Gap 5 BUN 16 Creatinine 1.61 H Est GFR ( Amer) 50 L Glucose 127 H Calcium 6.9 L* Magnesium 1.6 CHEST X-ray: This bilateral pleural effusions. Bilateral bibasilar opacities. No significant change compared with prior x-ray. IMPRESSION/RECOMMENDATION: 1. Acute hypoxic respiratory failure. ABG still showed but patient is hypoxic. Continue ventilatory support. 2. Bradycardia: Resolved. Note that the patient's initial heart rates post to transfer to ICU was in the high 40s. This is a combination of the effects of metoprolol and also sotalol in the setting of acute renal failure. The pacemaker was lower pacing rate was set at 40 bpm hence the pacemaker did not take and since her heart rate was about 40. At present the patient's heart rate is greater than 60. The patient had does have a history of proximal atrial fibrillation. Continue metoprolol 50 mg by the NG tube every 12 hours. We will still not restart the patient's Betapace, since the patient's renal function is still compromised. 3. Acute renal failure: At present GFR is improved to a stage III. Avoid nephrotoxic drugs. Continue hydration. 4. Bibasilar pneumonia: Most likely aspiration pneumonia. Continue antibiotics and ventilator support with oxygen. Recommend breathing treatments. But will be cautious to look for any recurrence of atrial fibrillation or ventricular arrhythmias. 5. History of paroxysmal atrial fibrillation: No recurrence continue beta- blockers. At present we will not restart the patient's Betapace. 6. History of ventricular tachycardia: No recurrence. Note patient has an AICD. 7. Chronic obstructive pulmonary disease: Continue respiratory treatments and oxygen. 8. History of mitral valve repair: No severe mitral regurgitation on examination. 9. Hypertension: Blood pressure well controlled. Patient has not needed any inotropic support. 10. History of AICD placement. No firing recently of the AICD. Recent 2 days ago interrogation of the AICD's shows that the AICD is working/functioning normally. 11. History of seizure disorder: No seizures on Keppra. Medications reviewed. Management plan discussed with attending physician and the instantizer operator on the case.. Medical decision making I was of moderate complexity. 40 minutes spent on this patient more than 50% of time spent direct patient care. Discussed with attending physician Dr. Cano.
[2018-12-06 21:14] LABS: APPEARANCE,URINE CLEAR; BILIRUBIN,URINE NEGATIVE (NEGATIVE); COLOR,URINE YELLOW; GLUCOSE, URINE NEGATIVE (NEGATIVE); KETONES,URINE NEGATIVE (NEGATIVE); LEUKOCYTE ESTERASE,URINE NEGATIVE (NEGATIVE); NITRITE,URINE NEGATIVE (NEGATIVE); PROTEIN,URINE 30 mg/dL (NEGATIVE); URINE SPECIFIC GRAVITY 1.024; UROBILINOGEN,URINE NEGATIVE mg/dL (<2.0)
[2018-12-06] MEDS: ATORVASTATIN CALCIUM 10 MG TABLET NG SCH (21:27)
[2018-12-07] MEDS: CLINDAMYCIN 600 MG/D5W RTU 600 MG/50 ML RTUPB IV SCH ×2 (01:58→10:08)
[2018-12-07] MEDS: PROPOFOL 1,000 MG/100 ML INFUS..BTL IV PRN ×2 (02:56→07:43)
[2018-12-07] MEDS: PIPERACILLIN SODIUM/TAZOBACTAM 2.25 GM in NORMAL SALINE 50 ML IV SCH ×2 (02:58→08:29)
[2018-12-07 04:43] LABS: ARTERIAL BLOOD BASE EXCESS -4.7 mmol/L; ARTERIAL BLOOD H2CO3 0.86 mmol/L (1.05-1.35); ARTERIAL BLOOD HCO3 18.5 mmol/L (20-24); ARTERIAL BLOOD O2 SATURATION 95.5 % (94-98); ARTERIAL BLOOD PCO2 28.7 mmHg (35-45); ARTERIAL BLOOD PH 7.43 (7.35-7.45); ARTERIAL BLOOD PO2 74.4 mmHg (80-100); ARTERIAL BLOOD TOTAL CO2 19.4 mmol/L (23-27)
[2018-12-07 05:53] LABS: ANION GAP 5 (5-19); BLOOD UREA NITROGEN 16 mg/dL (7-20); CALCIUM 7.4 mg/dL (8.4-10.2); CARBON DIOXIDE 18 mmol/L (22-30); CHLORIDE 123 mmol/L (98-107); GLUCOSE 111 mg/dL (75-110); POTASSIUM 3.7 mmol/L (3.6-5.0); SODIUM 146.4 mmol/L (137-145)
[2018-12-07] MEDS: IPRATROPIUM/ALBUTEROL 120 PUFF/4 GM MDI IH SCH ×4 (05:55→23:55)
[2018-12-07] MEDS: PHENYTOIN 100 MG/4 ML SUSP NG SCH ×3 (05:56→21:25)
--- NOTE | 2018-12-07 07:09 | PDOC PROGRESS REPORT ---
Subjective Progress Note for:: 12/07/18 Subjective:: Patient remain intubated, sedated, and vent supported. He is schedule for extubation today as per family request. Thee was need for increase in his FIO2 since last clinical evaluation by myself. He remain in significant fluid positive balance. Reason For Visit: ACUTE RENAL INJURY,ALTERED MENTAL STATE Physical Exam Vital Signs: Temp Pulse Resp BP Pulse Ox 99.0 F 56 L 20 128/71 H 95 12/07/18 06:00 12/06/18 22:00 12/07/18 06:00 12/07/18 05:24 12/07/18 06:00 Intake & Output 12/06/18 12/07/18 12/08/18 06:59 06:59 06:59 Intake Total 2729 2307 Output Total 1535 990 Balance 1194 1317 Weight 105.8 kg 109 kg Physical Exam: Remain intubated vent supported and sedated. Head exam: PRESENT: atraumatic, normocephalic Eye exam: PRESENT: conjunctiva pink, PERRLA. ABSENT: pallor, scleral icterus Ear exam: PRESENT: normal external ear exam Mouth exam: PRESENT: moist - NG and ET tubes in situ Respiratory exam: PRESENT: clear to auscultation pradeep, decreased breath sounds - at lung bases Cardiovascular exam: PRESENT: RRR. ABSENT: diastolic murmur, rubs, systolic murmur GI/Abdominal exam: PRESENT: normal bowel sounds, soft. ABSENT: distended, guarding, mass, organomegaly, rebound, tenderness Extremities exam: PRESENT: pedal edema Neurological exam: PRESENT: altered - sedated Skin exam: PRESENT: dry, warm Results Laboratory Results: 12/06/18 03:58 12/07/18 05:04 12/06/18 12/06/18 12/06/18 03:58 11:50 20:50 Carbonic Acid HCO3/H2CO3 Ratio ABG pH ABG pCO2 ABG pO2 ABG HCO3 ABG O2 Saturation ABG Base Excess FiO2 Sodium Potassium 3.7 Chloride Carbon Dioxide Anion Gap BUN Creatinine Est GFR ( Amer) Est GFR (Non-Af Amer) Glucose Calcium Magnesium Albumin 2.1 L Urine Color YELLOW Urine Appearance CLEAR Urine pH 5.0 Ur Specific [place] 1.024 Urine Protein 30 H Urine Glucose (UA) NEGATIVE Urine Ketones NEGATIVE Urine Blood NEGATIVE Urine Nitrite NEGATIVE Ur Leukocyte Esterase NEGATIVE Urine WBC (Auto) 1 Urine RBC (Auto) 0 12/07/18 12/07/18 04:34 05:04 Carbonic Acid 0.86 L HCO3/H2CO3 Ratio 21:1 ABG pH 7.43 ABG pCO2 28.7 L ABG pO2 74.4 L ABG HCO3 18.5 L ABG O2 Saturation 95.5 ABG Base Excess -4.7 FiO2 55% Sodium 146.4 H Potassium 3.7 Chloride 123 H Carbon Dioxide 18 L Anion Gap 5 BUN 16 Creatinine 1.45 H Est GFR ( Amer) 57 L Est GFR (Non-Af Amer) 47 L Glucose 111 H Calcium 7.4 L Magnesium 1.7 Albumin Urine Color Urine Appearance Urine pH Ur Specific [place] Urine Protein Urine Glucose (UA) Urine Ketones Urine Blood Urine Nitrite Ur Leukocyte Esterase Urine WBC (Auto) Urine RBC (Auto) 11/22/18 11/24/18 12/02/18 17:50 05:25 07:13 Creatine Kinase 62 CK-MB (CK-2) Troponin I < 0.012 NT-Pro-B Natriuret Pep 1550 H 12/02/18 12/03/18 07:13 04:29 Creatine Kinase CK-MB (CK-2) 0.84 Troponin I 0.014 NT-Pro-B Natriuret Pep 3710 H Impressions: Chest CT 11/22/18 16:18 IMPRESSION: No acute findings Head CT 11/22/18 16:18 IMPRESSION: 1. No acute intracranial abnormality. 2. Mild atrophy and chronic small vessel ischemic changes. 3. Lobulated contour to the bilateral inferior terminates, may represent small nasal polyps. EVIDENCE OF ACUTE STROKE: NO. KUB X-Ray 11/30/18 11:47 IMPRESSION: Cannot exclude a partial bowel obstruction. NG tube placement. Chest Ultrasound 12/02/18 13:05 IMPRESSION: Trace right posterior costophrenic sulcus pleural fluid Assessment & Plan - Diagnosis (1) Acute respiratory failure Qualifiers: Respiratory failure complication: hypoxia Qualified Code(s): J96.01 - Acute respiratory failure with hypoxia Is this a current diagnosis for this admission?: Yes (2) Aspiration into lower respiratory tract Qualifiers: Encounter type: initial encounter Qualified Code(s): T17.800A - Unspecified foreign body in other parts of respiratory tract causing asphyxiation, initial encounter Is this a current diagnosis for this admission?: Yes (3) GI (gastrointestinal bleed) Qualifiers: GI bleed type/associated pathology: unspecified gastrointestinal hemorrhage type Qualified Code(s): K92.2 - Gastrointestinal hemorrhage, unspecified Is this a current diagnosis for this admission?: Yes (4) Acute kidney injury superimposed on chronic kidney disease Is this a current diagnosis for this admission?: Yes (5) CKD (chronic kidney disease) Qualifiers: Chronic kidney disease stage: stage 3 (moderate) Qualified Code(s): N18.3 - Chronic kidney disease, stage 3 (moderate) Is this a current diagnosis for this admission?: Yes (6) Altered mental status Qualifiers: Altered mental status type: unspecified Qualified Code(s): R41.82 - Altered mental status, unspecified Is this a current diagnosis for this admission?: Yes (7) Chronic respiratory failure with hypoxia, on home O2 therapy Is this a current diagnosis for this admission?: Yes (8) Seizure disorder Is this a current diagnosis for this admission?: Yes (9) HTN (hypertension) Qualifiers: Hypertension type: essential hypertension Qualified Code(s): I10 - Essential (primary) hypertension Is this a current diagnosis for this admission?: Yes (10) CAD (coronary artery disease) Qualifiers: Coronary Disease-Associated Artery/Lesion type: [place] artery Associated angina: without angina Is this a current diagnosis for this admission?: Yes (11) S/P CABG (coronary artery bypass graft) Is this a current diagnosis for this admission?: Yes (12) HLD (hyperlipidemia) Qualifiers: Hyperlipidemia type: unspecified Qualified Code(s): E78.5 - Hyperlipidemia, unspecified Is this a current diagnosis for this admission?: Yes (13) EDNA (obstructive sleep apnea) Is this a current diagnosis for this admission?: Yes (14) COPD with acute exacerbation Is this a current diagnosis for this admission?: Yes - Time Time Spent with patient: 25-34 minutes Medications reviewed and adjusted accordingly: Yes Anticipated discharge: SNF, Other Within: Other - Inpatient Certification Based on my medical assessment, after consideration of the patient's comorbidities, presenting symptoms, or acuity I expect that the services needed warrant INPATIENT care.: Yes I certify that my determination is in accordance with my understanding of Medicare's requirements for reasonable and necessary INPATIENT services [42 CFR 412.3e].: Yes Medical Necessity: Significant Comorbidiites Make Outpatient Treatment Too Risky, Need Close Monitoring Due to Risk of Patient Decompensation, Need For IV Fluids, Need For Continuous Telemetry Monitoring, Need for Nebulizer Therapy and Monitoring of Response, Need for IV Antibiotics, Risk of Complication if Not Cared For in Hospital, Risk of Diagnosis Which Will Require Inpatient Eval/Care/Monitoring - Plan Summary Plan Summary: Continue current antibiotic coverage. IV Lasix 20 mg x 1 dose. follow up on extubation effort. Family has made patient DNR and no intent for reintubation. Overall prognosis remain guarded.
[2018-12-07] MEDS ORDERED: FUROSEMIDE INJ/PF 20 MG/2 ML SDV IV ONE ×2 (07:30→19:01)
[2018-12-07] MEDS: ACETYLCYSTEINE 20% SOLN 800 MG/4 ML VIAL.NEB NEB SCH ×2 (08:18→21:02)
[2018-12-07] MEDS: LEVALBUTEROL HCL NEB 0.63 MG/3 ML AMPUL NEB PRN (08:18)
--- NOTE | 2018-12-07 08:43 | RADIOLOGY REPORT (SQ) ---
EXAM DESCRIPTION: CHEST SINGLE VIEW COMPLETED DATE/TIME: 12/07/2018 6:35 am REASON FOR STUDY: resp failure/pna COMPARISON: 12/06/2018 EXAM PARAMETERS: NUMBER OF VIEWS: One view. TECHNIQUE: Single frontal radiographic view of the chest acquired. RADIATION DOSE: NA LIMITATIONS: None. FINDINGS: LUNGS AND PLEURA: Bilateral pleural effusions and airspace disease basically unchanged. No pneumothorax. MEDIASTINUM AND HILAR STRUCTURES: No significant interval changes. HEART AND VASCULAR STRUCTURES: Stable appearance. BONES: No acute findings. HARDWARE: Support devices unchanged. OTHER: No other significant finding. IMPRESSION: 1. No significant interval changes since the prior examination dated 12/06/2018. Stable appearance to the chest. TECHNICAL DOCUMENTATION: JOB ID: [id number] [employer]- All Rights Reserved Reading location - IP/workstation name: [email or web address]
[2018-12-07] MEDS: ENOXAPARIN SODIUM INJ 30 MG/0.3 ML DISP.SYRIN SUBCUT SCH (10:08)
[2018-12-07] MEDS: SCOPOLAMINE HYDROBROMIDE 1.5 MG PATCH.TD72 TD SCH (10:08)
[2018-12-07] MEDS: POTASSIUM CHLORIDE 20 MEQ PACKET NG SCH (10:09)
[2018-12-07] MEDS: AMLODIPINE BESYLATE 5 MG TABLET NG SCH ×2 (10:09→21:26)
[2018-12-07] MEDS: FAMOTIDINE INJ/PF 20 MG/2 ML SDV IV SCH ×2 (10:09→21:25)
[2018-12-07] MEDS: MAGNESIUM OXIDE 400 MG TABLET NG SCH (10:09)
[2018-12-07] MEDS: METOPROLOL TARTRATE 50 MG TABLET NG SCH ×2 (10:10→21:25)
[2018-12-07] MEDS: DOCUSATE SODIUM 100 MG/10 ML UDC NG SCH ×2 (10:10→17:25)
[2018-12-07] MEDS: 1/2 NORMAL SALINE 1,000 ML IV PRN (11:59)
[2018-12-07 12:07] LABS: TOTAL PROTEIN 5.2 g/dL (6.3-8.2)
--- NOTE | 2018-12-07 12:22 | PDOC PROGRESS REPORT ---
Subjective Progress Note for:: 12/07/18 Subjective:: patient currently intubated and sedated Reason For Visit: ACUTE RENAL INJURY,ALTERED MENTAL STATE Physical Exam Vital Signs: Temp Pulse Resp BP Pulse Ox 99.0 F 55 L 20 147/75 H 95 12/07/18 10:00 12/07/18 10:00 12/07/18 10:00 12/07/18 10:00 12/07/18 10:00 Intake & Output 12/06/18 12/07/18 12/08/18 06:59 06:59 06:59 Intake Total 2729 2307 1259 Output Total 5319 460 0046 Balance 1194 1317 159 Weight 105.8 kg 109 kg General appearance: PRESENT: no acute distress, disheveled, morbidly obese Head exam: PRESENT: atraumatic, normocephalic Eye exam: PRESENT: conjunctiva pink, EOMI, PERRLA. ABSENT: scleral icterus Ear exam: PRESENT: normal external ear exam Mouth exam: PRESENT: moist, tongue midline Neck exam: ABSENT: carotid bruit, JVD, lymphadenopathy, thyromegaly Respiratory exam: PRESENT: rhonchi, wheezes Cardiovascular exam: PRESENT: RRR, +S1, +S2 Pulses: PRESENT: normal radial pulses Vascular exam: PRESENT: normal capillary refill GI/Abdominal exam: PRESENT: normal bowel sounds, soft. ABSENT: distended, guarding, mass, organolmegaly, rebound, tenderness Rectal exam: PRESENT: deferred Extremities exam: PRESENT: full ROM. ABSENT: calf tenderness, clubbing, pedal edema Neurological exam: ABSENT: awake Psychiatric exam: PRESENT: appropriate affect, normal mood. ABSENT: homicidal ideation, suicidal ideation Skin exam: PRESENT: dry, intact, warm. ABSENT: cyanosis, rash Results Laboratory Results: 12/06/18 03:58 12/07/18 05:04 12/06/18 12/06/18 12/07/18 11:50 20:50 04:34 Carbonic Acid 0.86 L HCO3/H2CO3 Ratio 21:1 ABG pH 7.43 ABG pCO2 28.7 L ABG pO2 74.4 L ABG HCO3 18.5 L ABG O2 Saturation 95.5 ABG Base Excess -4.7 FiO2 55% Sodium Potassium 3.7 Chloride Carbon Dioxide Anion Gap BUN Creatinine Est GFR ( Amer) Est GFR (Non-Af Amer) Glucose Calcium Magnesium Total Protein Urine Color YELLOW Urine Appearance CLEAR Urine pH 5.0 Ur Specific [place] 1.024 Urine Protein 30 H Urine Glucose (UA) NEGATIVE Urine Ketones NEGATIVE Urine Blood NEGATIVE Urine Nitrite NEGATIVE Ur Leukocyte Esterase NEGATIVE Urine WBC (Auto) 1 Urine RBC (Auto) 0 12/07/18 12/07/18 05:04 11:37 Carbonic Acid HCO3/H2CO3 Ratio ABG pH ABG pCO2 ABG pO2 ABG HCO3 ABG O2 Saturation ABG Base Excess FiO2 Sodium 146.4 H Potassium 3.7 Chloride 123 H Carbon Dioxide 18 L Anion Gap 5 BUN 16 Creatinine 1.45 H Est GFR ( Amer) 57 L Est GFR (Non-Af Amer) 47 L Glucose 111 H Calcium 7.4 L Magnesium 1.7 Total Protein 5.2 L Urine Color Urine Appearance Urine pH Ur Specific [place] Urine Protein Urine Glucose (UA) Urine Ketones Urine Blood Urine Nitrite Ur Leukocyte Esterase Urine WBC (Auto) Urine RBC (Auto) 11/22/18 11/24/18 12/02/18 17:50 05:25 07:13 Creatine Kinase 62 CK-MB (CK-2) Troponin I < 0.012 NT-Pro-B Natriuret Pep 1550 H 12/02/18 12/03/18 07:13 04:29 Creatine Kinase CK-MB (CK-2) 0.84 Troponin I 0.014 NT-Pro-B Natriuret Pep 3710 H Impressions: Chest CT 11/22/18 16:18 IMPRESSION: No acute findings Head CT 11/22/18 16:18 IMPRESSION: 1. No acute intracranial abnormality. 2. Mild atrophy and chronic small vessel ischemic changes. 3. Lobulated contour to the bilateral inferior terminates, may represent small nasal polyps. EVIDENCE OF ACUTE STROKE: NO. KUB X-Ray 11/30/18 11:47 IMPRESSION: Cannot exclude a partial bowel obstruction. NG tube placement. Chest Ultrasound 12/02/18 13:05 IMPRESSION: Trace right posterior costophrenic sulcus pleural fluid Chest X-Ray 12/07/18 06:00 IMPRESSION: 1. No significant interval changes since the prior examination dated 12/06/2018. Stable appearance to the chest. Assessment & Plan - Diagnosis (1) Altered mental status Qualifiers: Altered mental status type: unspecified Qualified Code(s): R41.82 - Altered mental status, unspecified Is this a current diagnosis for this admission?: Yes Plan: During sedation vacation movement noted (2) Aspiration into lower respiratory tract Qualifiers: Encounter type: initial encounter Qualified Code(s): T17.800A - Unspecified foreign body in other parts of respiratory tract causing asphyxiation, initial encounter Is this a current diagnosis for this admission?: Yes Plan: synthetic penn[place] and [place] for aspiration pneumonitis RLL opacification continues (3) GI (gastrointestinal bleed) Qualifiers: GI bleed type/associated pathology: unspecified gastrointestinal hemorrhage type Qualified Code(s): K92.2 - Gastrointestinal hemorrhage, unspecified Is this a current diagnosis for this admission?: Yes Plan: copious amounts of coffee ground material from ET tube as well as NG tube (4) COPD with acute exacerbation Is this a current diagnosis for this admission?: Yes (5) EDNA (obstructive sleep apnea) Is this a current diagnosis for this admission?: Yes Plan: CPAP versus BIPAP when patient stable and extubated noncompliance in severe cases could also contribute to his altered mental status - Time Total Critical Time (Minutes): 40 Inpatient Scribe Statement - . Entered by Mica So, acting as scribe for Dr. Mendoza.
[2018-12-07] MEDS: TAMSULOSIN HCL 0.4 MG CAP.SR.24H PO SCH (17:25)
[2018-12-07] MEDS: FENTANYL CITRATE INJ/PF 100 MCG/2 ML AMPUL IV PRN (17:25)
[2018-12-07] MEDS: ATORVASTATIN CALCIUM 10 MG TABLET NG SCH (21:26)
--- NOTE | 2018-12-07 21:43 | Progress Note ---
Provider Note Provider Note: CARDIOLOGY PROGRESS NOTE by Dr. Sabina Moon on 12/07/2018. SUBJECTIVE: The patient's been extubated and is on the face tent. He answers questions appropriately. He denies any chest pain or shortness of breath. He moves all 4 extremities. There is no recurrence of atrial fibrillation. There is no ventricular tachycardia or firing of his AICD. PHYSICAL EXAMINATION: The patient is moderately obese. He is well-groomed. At present in no acute distress. Selected Entries 12/07/18 18:00 Temperature 100.4 F Pulse Rate 97 Respiratory 29 H Rate Blood Pressure 154/92 H [Left Upper Arm ] Blood Pressure 112 Mean [Left Upper Arm] Blood Pressure Supine Position [Left Upper Arm] O2 Sat by Pulse 97 Oximetry Oxygen Delivery Face Tent Method ( includes room air) HEAD: Is atraumatic normocephalic. EYES: Pupils are equal round regular reactive to light. ENT is negative. NECK: Is supple there is no JVD. Carotids are equal there is no bruit. There is no lymphadenopathy. TRACHEA is central. LUNGS: There is bibasilar dry crackles with pneumonia. There is no rales of CHF. HEART: S1-S2 is heard. S1 is of normal intensity. There is no S3 gallop. There is no S4 gallop. There is systolic murmur left sternal border and the apex. There is no significant murmur of mitral regurgitation, and no physical exam consistent with a finding of mitral stenosis. There is no rub. ABDOMEN: Is mildly obese. There is no hepatospleno megaly. Bowel sounds are well. EXTREMITIES: Femorals are deep. Femorals are diminished there is no femoral bruits. Leg pulses are diminished. There is no pedal edema. There is no DVT or cellulitis. PACKAGING TECH and psychiatric not tested since the patient is intubated and sedated 12/07/18 12/07/18 05:04 11:37 Sodium 146.4 H Potassium 3.7 Chloride 123 H Carbon Dioxide 18 L Anion Gap 5 BUN 16 Creatinine 1.45 H Est GFR ( Amer) 57 L Glucose 111 H Calcium 7.4 L Magnesium 1.7 Lactate Dehydrogenase 581 H Total Protein 5.2 L CHEST X-ray: Remains the same with no significant changes. IMPRESSION/RECOMMENDATION: 1. Status post acute hypoxic respiratory failure. The patient has been extubated and is on the face tent. He will not be reintubated if he should deteriorate, since he is a DNR. 2. Bradycardia: Resolved. Note that the patient's initial heart rates post to transfer to ICU was in the high 40s. This is a combination of the effects of metoprolol and also sotalol in the setting of acute renal failure. The pacemaker was lower pacing rate was set at 40 bpm hence the pacemaker did not take and since her heart rate was about 40. At present the patient's heart rate is greater than 60. The patient had does have a history of proximal atrial fibrillation. Continue metoprolol 50 mg by the NG tube every 12 hours. We will still not restart the patient's Betapace, since the patient's renal function is still compromised. 3. Acute renal failure: At present GFR is improved to a stage III A. Avoid nephrotoxic drugs. Patient is in a positive balance. Hence would recommend decreasing the patient's IV fluids. 4. Bibasilar pneumonia: Most likely aspiration pneumonia. Continue antibiotics and ventilator support with oxygen. Recommend breathing treatments. But will be cautious to look for any recurrence of atrial fibrillation or ventricular arrhythmias. 5. History of paroxysmal atrial fibrillation: No recurrence continue beta- blockers. At present we will not restart the patient's Betapace. 6. History of ventricular tachycardia: No recurrence. Note patient has an AICD. 7. Chronic obstructive pulmonary disease: Continue respiratory treatments and oxygen. Medications reviewed. Management plan discussed with attending physician Dr. Cano. Medical decision making was of moderate complexity. Note patient cardiac status is stable. Will sign off. 40 minutes spent on this patient with more than 50% time spent in direct patient care. Thank he you for allowing me to participate in the care of this patient the patient will follow up with his pearl fisherman in [facility], after he is discharged.
[2018-12-08 04:29] LABS: HEMATOCRIT 36.7 % (37.9-51.0); HEMOGLOBIN 12.3 g/dL (13.5-17.0); MEAN CORPUSCULAR HEMOGLOBIN 30.2 pg (27.0-33.4); MEAN CORPUSCULAR HGB CONC 33.6 g/dL (32.0-36.0); MEAN CORPUSCULAR VOLUME 90 fl (80-97); PLATELET COUNT 168 10^3/uL (150-450); RED BLOOD COUNT 4.08 10^6/uL (4.35-5.55); RED CELL DISTRIBUTION WIDTH 15.7 % (11.5-14.0); WHITE BLOOD COUNT 7.8 10^3/uL (4.0-10.5)
[2018-12-08 04:54] LABS: ANION GAP 9 (5-19); BLOOD UREA NITROGEN 14 mg/dL (7-20); CALCIUM 7.8 mg/dL (8.4-10.2); CARBON DIOXIDE 22 mmol/L (22-30); CHLORIDE 117 mmol/L (98-107); GLUCOSE 103 mg/dL (75-110); POTASSIUM 3.5 mmol/L (3.6-5.0); SODIUM 147.9 mmol/L (137-145)
[2018-12-08] MEDS: IPRATROPIUM/ALBUTEROL 120 PUFF/4 GM MDI IH SCH ×3 (05:08→18:51)
[2018-12-08] MEDS: PHENYTOIN 100 MG/4 ML SUSP NG SCH ×3 (05:11→21:49)
[2018-12-08 05:34] LABS: ARTERIAL BLOOD BASE EXCESS -2.1 mmol/L; ARTERIAL BLOOD H2CO3 1.06 mmol/L (1.05-1.35); ARTERIAL BLOOD HCO3 21.8 mmol/L (20-24); ARTERIAL BLOOD O2 SATURATION 96.1 % (94-98); ARTERIAL BLOOD PCO2 35.1 mmHg (35-45); ARTERIAL BLOOD PH 7.41 (7.35-7.45); ARTERIAL BLOOD TOTAL CO2 22.9 mmol/L (23-27)
[2018-12-08 05:37] LABS: ARTERIAL BLOOD FIO2 5L
--- NOTE | 2018-12-08 07:10 | PDOC PROGRESS REPORT ---
Subjective Progress Note for:: 12/08/18 Subjective:: Post extubation and doing fairly well. Requesting discharge home. Denied any chest pain or difficulty with breathing. Response to IV Lasix therapy was satisfactory. No reported fever. Reason For Visit: ACUTE RENAL INJURY,ALTERED MENTAL STATE Physical Exam Vital Signs: Temp Pulse Resp BP Pulse Ox 99.5 F 93 16 155/84 H 93 12/08/18 06:24 12/07/18 22:00 12/08/18 06:24 12/08/18 06:24 12/08/18 06:24 Intake & Output 12/07/18 12/08/18 12/09/18 06:59 06:59 06:59 Intake Total 2307 1259 Output Total 990 5730 Balance 1317 -4471 Weight 109 kg 104.1 kg Physical Exam: Head exam: PRESENT: atraumatic, normocephalic Eye exam: PRESENT: conjunctiva pink, PERRLA. ABSENT: pallor, scleral icterus Ear exam: PRESENT: normal external ear exam Mouth exam: PRESENT: moist, NG tubes in situ Respiratory exam: PRESENT: clear to auscultation pradeep, decreased breath sounds - at lung bases Cardiovascular exam: PRESENT: RRR. ABSENT: diastolic murmur, rubs, systolic murmur GI/Abdominal exam: PRESENT: normal bowel sounds, soft. ABSENT: distended, guarding, mass, organomegaly, rebound, tenderness Extremities exam: PRESENT: pedal edema Neurological exam: PRESENT: altered - sedated Skin exam: PRESENT: dry, warm Results Laboratory Results: 12/08/18 04:08 12/08/18 04:08 12/07/18 12/08/18 12/08/18 11:37 04:08 04:08 WBC 7.8 RBC 4.08 L Hgb 12.3 L Hct 36.7 L MCV 90 MCH 30.2 MCHC 33.6 RDW 15.7 H Plt Count 168 Carbonic Acid HCO3/H2CO3 Ratio ABG pH ABG pCO2 ABG pO2 ABG HCO3 ABG O2 Saturation ABG Base Excess FiO2 Sodium 147.9 H Potassium 3.5 L Chloride 117 H Carbon Dioxide 22 Anion Gap 9 BUN 14 Creatinine 1.31 H Est GFR ( Amer) > 60 Est GFR (Non-Af Amer) 53 L Glucose 103 Calcium 7.8 L Magnesium 1.6 Total Protein 5.2 L 12/08/18 05:15 WBC RBC Hgb Hct MCV MCH MCHC RDW Plt Count Carbonic Acid 1.06 HCO3/H2CO3 Ratio 20:1 ABG pH 7.41 ABG pCO2 35.1 ABG pO2 81.0 ABG HCO3 21.8 ABG O2 Saturation 96.1 ABG Base Excess -2.1 FiO2 5L Sodium Potassium Chloride Carbon Dioxide Anion Gap BUN Creatinine Est GFR ( Amer) Est GFR (Non-Af Amer) Glucose Calcium Magnesium Total Protein 11/22/18 11/24/18 12/02/18 17:50 05:25 07:13 Creatine Kinase 62 CK-MB (CK-2) Troponin I < 0.012 NT-Pro-B Natriuret Pep 1550 H 12/02/18 12/03/18 07:13 04:29 Creatine Kinase CK-MB (CK-2) 0.84 Troponin I 0.014 NT-Pro-B Natriuret Pep 3710 H Impressions: Chest CT 11/22/18 16:18 IMPRESSION: No acute findings Head CT 11/22/18 16:18 IMPRESSION: 1. No acute intracranial abnormality. 2. Mild atrophy and chronic small vessel ischemic changes. 3. Lobulated contour to the bilateral inferior terminates, may represent small nasal polyps. EVIDENCE OF ACUTE STROKE: NO. KUB X-Ray 11/30/18 11:47 IMPRESSION: Cannot exclude a partial bowel obstruction. NG tube placement. Chest Ultrasound 12/02/18 13:05 IMPRESSION: Trace right posterior costophrenic sulcus pleural fluid Assessment & Plan - Diagnosis (1) Acute respiratory failure Qualifiers: Respiratory failure complication: hypoxia Qualified Code(s): J96.01 - Acute respiratory failure with hypoxia Is this a current diagnosis for this admission?: Yes (2) Aspiration into lower respiratory tract Qualifiers: Encounter type: initial encounter Qualified Code(s): T17.800A - Unspecified foreign body in other parts of respiratory tract causing asphyxiation, initial encounter Is this a current diagnosis for this admission?: Yes (3) GI (gastrointestinal bleed) Qualifiers: GI bleed type/associated pathology: unspecified gastrointestinal hemorrhage type Qualified Code(s): K92.2 - Gastrointestinal hemorrhage, unspecified Is this a current diagnosis for this admission?: Yes (4) Acute kidney injury superimposed on chronic kidney disease Is this a current diagnosis for this admission?: Yes (5) CKD (chronic kidney disease) Qualifiers: Chronic kidney disease stage: stage 3 (moderate) Qualified Code(s): N18.3 - Chronic kidney disease, stage 3 (moderate) Is this a current diagnosis for this admission?: Yes (6) Altered mental status Qualifiers: Altered mental status type: unspecified Qualified Code(s): R41.82 - Altered mental status, unspecified Is this a current diagnosis for this admission?: Yes (7) Chronic respiratory failure with hypoxia, on home O2 therapy Is this a current diagnosis for this admission?: Yes (8) Seizure disorder Is this a current diagnosis for this admission?: Yes (9) HTN (hypertension) Qualifiers: Hypertension type: essential hypertension Qualified Code(s): I10 - Essential (primary) hypertension Is this a current diagnosis for this admission?: Yes (10) CAD (coronary artery disease) Qualifiers: Coronary Disease-Associated Artery/Lesion type: [place] artery Associated angina: without angina Is this a current diagnosis for this admission?: Yes (11) S/P CABG (coronary artery bypass graft) Is this a current diagnosis for this admission?: Yes (12) HLD (hyperlipidemia) Qualifiers: Hyperlipidemia type: unspecified Qualified Code(s): E78.5 - Hyperlipidemia, unspecified Is this a current diagnosis for this admission?: Yes (13) EDNA (obstructive sleep apnea) Is this a current diagnosis for this admission?: Yes (14) COPD with acute exacerbation Is this a current diagnosis for this admission?: Yes - Time Time Spent with patient: 25-34 minutes Medications reviewed and adjusted accordingly: Yes Anticipated discharge: Home with Homehealth, SNF Within: Other - Inpatient Certification Based on my medical assessment, after consideration of the patient's comorbidities, presenting symptoms, or acuity I expect that the services needed warrant INPATIENT care.: Yes I certify that my determination is in accordance with my understanding of Medicare's requirements for reasonable and necessary INPATIENT services [42 CFR 412.3e].: Yes Medical Necessity: Significant Comorbidiites Make Outpatient Treatment Too Risky, Need Close Monitoring Due to Risk of Patient Decompensation, Need For IV Fluids, Need For Continuous Telemetry Monitoring, Need for Nebulizer Therapy and Monitoring of Response, Need for IV Antibiotics, Risk of Complication if Not Cared For in Hospital, Risk of Diagnosis Which Will Require Inpatient Eval/Care/Monitoring Post Hospital Care: D/C Wild Life Photographer Documentation, D/C or Transfer Summary - Plan Summary Plan Summary: Continue IV Zosyn coverage. Repeat IV Lasix 20 mg x 1 dose this morning. Transfer to [facility]. Speech therapy evaluation of swallowing ability and possible d/c NG tube. Continue all other current medication management.
[2018-12-08] MEDS: ACETYLCYSTEINE 20% SOLN 800 MG/4 ML VIAL.NEB NEB SCH ×2 (07:53→20:25)
[2018-12-08] MEDS: LEVALBUTEROL HCL NEB 0.63 MG/3 ML AMPUL NEB PRN (07:54)
[2018-12-08] MEDS ORDERED: FUROSEMIDE INJ/PF 20 MG/2 ML SDV IV ONE (08:00)
--- NOTE | 2018-12-08 08:31 | RADIOLOGY REPORT (SQ) ---
EXAM DESCRIPTION: CHEST SINGLE VIEW COMPLETED DATE/TIME: 12/08/2018 6:28 am REASON FOR STUDY: resp failure COMPARISON: 12/07/2018 NUMBER OF VIEWS: One view. TECHNIQUE: Single frontal radiographic image of the chest acquired. LIMITATIONS: None. FINDINGS: LUNGS AND PLEURA: Stable appearance. MEDIASTINUM AND HILAR STRUCTURES: Stable heart size and mediastinal structures. HEART AND VASCULAR STRUCTURES: Stable appearance. SUPPORT DEVICES: Appropriate location without change. BONES: No acute findings. OTHER: No other significant finding. IMPRESSION: STABLE APPEARANCE OF THE CHEST. SUPPORT DEVICES UNCHANGED. TECHNICAL DOCUMENTATION: JOB ID: [id number] [employer]- All Rights Reserved Reading location - IP/workstation name: [email or web address]
[2018-12-08] MEDS: MAGNESIUM OXIDE 400 MG TABLET NG SCH (09:14)
[2018-12-08] MEDS: POTASSIUM CHLORIDE 20 MEQ PACKET NG SCH (09:14)
[2018-12-08] MEDS: FAMOTIDINE INJ/PF 20 MG/2 ML SDV IV SCH ×2 (09:15→21:46)
[2018-12-08] MEDS: AMLODIPINE BESYLATE 5 MG TABLET NG SCH ×2 (09:15→21:47)
[2018-12-08] MEDS: ENOXAPARIN SODIUM INJ 40 MG/0.4 ML DISP.SYRIN SUBCUT SCH (09:15)
[2018-12-08] MEDS: DOCUSATE SODIUM 100 MG/10 ML UDC NG SCH ×2 (09:15→18:51)
[2018-12-08] MEDS: METOPROLOL TARTRATE 50 MG TABLET NG SCH ×2 (09:16→21:46)
[2018-12-08] MEDS: PIPERACILLIN SODIUM/TAZOBACTAM 2.25 GM in NORMAL SALINE 50 ML IV SCH ×3 (09:27→21:47)
[2018-12-08 13:20] LABS: APPEARANCE,URINE CLEAR; BILIRUBIN,URINE NEGATIVE (NEGATIVE); COLOR,URINE STRAW; GLUCOSE, URINE NEGATIVE (NEGATIVE); KETONES,URINE NEGATIVE (NEGATIVE); LEUKOCYTE ESTERASE,URINE NEGATIVE (NEGATIVE); NITRITE,URINE NEGATIVE (NEGATIVE); PROTEIN,URINE NEGATIVE (NEGATIVE); URINE SPECIFIC GRAVITY 1.006; UROBILINOGEN,URINE NEGATIVE mg/dL (<2.0)
--- NOTE | 2018-12-08 14:03 | RADIOLOGY REPORT (SQ) ---
EXAM DESCRIPTION: U/S CHEST COMPLETED DATE/TIME: 12/08/2018 1:42 pm REASON FOR STUDY: r pleural effusion COMPARISON: 12/02/2018, 12/08/2018 TECHNIQUE: Dynamic and static grayscale images acquired of the localized site of clinical concern an d recorded on PACS. Additional selected color Doppler and spectral images recorded. SITE OF CONCERN: Right pleural space LIMITATIONS: None. FINDINGS: Limited sonographic images of the chest were submitted. There is a trace right pleural ef fusion not significantly changed from prior exam. IMPRESSION: Trace right pleural effusion. No intervention was performed. TECHNICAL DOCUMENTATION: JOB ID: [id number] [employer]- All Rights Reserved Reading location - IP/workstation name: [email or web address]
--- NOTE | 2018-12-08 15:15 | PDOC PROGRESS REPORT ---
Subjective Progress Note for:: 12/08/18 Subjective:: Patient 24 hours status post extubation Reason For Visit: ACUTE RENAL INJURY,ALTERED MENTAL STATE Physical Exam Vital Signs: Temp Pulse Resp BP Pulse Ox 99.9 F 72 21 H 161/91 H 97 12/08/18 12:00 12/08/18 12:00 12/08/18 12:00 12/08/18 12:00 12/08/18 12:00 Intake & Output 12/07/18 12/08/18 12/09/18 06:59 06:59 06:59 Intake Total 2307 1259 Output Total 990 5730 2300 Balance 4492 -8339 -6940 Weight 109 kg 104.1 kg General appearance: PRESENT: no acute distress, disheveled, morbidly obese Head exam: PRESENT: atraumatic, normocephalic Eye exam: PRESENT: conjunctiva pink, EOMI, PERRLA. ABSENT: scleral icterus Ear exam: PRESENT: normal external ear exam Mouth exam: PRESENT: moist, tongue midline Neck exam: ABSENT: carotid bruit, JVD, lymphadenopathy, thyromegaly Respiratory exam: PRESENT: rhonchi, wheezes Cardiovascular exam: PRESENT: RRR. ABSENT: diastolic murmur, rubs, systolic murmur Pulses: PRESENT: normal dorsalis pedis pul Vascular exam: PRESENT: normal capillary refill GI/Abdominal exam: PRESENT: normal bowel sounds, soft. ABSENT: distended, guarding, mass, organolmegaly, rebound, tenderness Rectal exam: PRESENT: deferred Extremities exam: PRESENT: full ROM. ABSENT: calf tenderness, clubbing, pedal edema Neurological exam: PRESENT: awake, oriented to person, oriented to place, oriented to time, oriented to situation, CN II-XII grossly intact. ABSENT: boni r sensory deficit Psychiatric exam: PRESENT: appropriate affect, normal mood. ABSENT: homicidal ideation, suicidal ideation Skin exam: PRESENT: dry, intact, warm. ABSENT: cyanosis, rash Results Laboratory Results: 12/08/18 04:08 12/08/18 04:08 12/08/18 12/08/18 12/08/18 04:08 04:08 05:15 WBC 7.8 RBC 4.08 L Hgb 12.3 L Hct 36.7 L MCV 90 MCH 30.2 MCHC 33.6 RDW 15.7 H Plt Count 168 Carbonic Acid 1.06 HCO3/H2CO3 Ratio 20:1 ABG pH 7.41 ABG pCO2 35.1 ABG pO2 81.0 ABG HCO3 21.8 ABG O2 Saturation 96.1 ABG Base Excess -2.1 FiO2 5L Sodium 147.9 H Potassium 3.5 L Chloride 117 H Carbon Dioxide 22 Anion Gap 9 BUN 14 Creatinine 1.31 H Est GFR ( Amer) > 60 Est GFR (Non-Af Amer) 53 L Glucose 103 Calcium 7.8 L Magnesium 1.6 Urine Color Urine Appearance Urine pH Ur Specific [place] Urine Protein Urine Glucose (UA) Urine Ketones Urine Blood Urine Nitrite Ur Leukocyte Esterase Urine WBC (Auto) Urine RBC (Auto) Stool Occult Blood 12/08/18 12/08/18 12:58 13:30 WBC RBC Hgb Hct MCV MCH MCHC RDW Plt Count Carbonic Acid HCO3/H2CO3 Ratio ABG pH ABG pCO2 ABG pO2 ABG HCO3 ABG O2 Saturation ABG Base Excess FiO2 Sodium Potassium Chloride Carbon Dioxide Anion Gap BUN Creatinine Est GFR ( Amer) Est GFR (Non-Af Amer) Glucose Calcium Magnesium Urine Color STRAW Urine Appearance CLEAR Urine pH 5.0 Ur Specific [place] 1.006 Urine Protein NEGATIVE Urine Glucose (UA) NEGATIVE Urine Ketones NEGATIVE Urine Blood SMALL H Urine Nitrite NEGATIVE Ur Leukocyte Esterase NEGATIVE Urine WBC (Auto) 1 Urine RBC (Auto) 2 Stool Occult Blood POSITIVE 11/22/18 11/24/18 12/02/18 17:50 05:25 07:13 Creatine Kinase 62 CK-MB (CK-2) Troponin I < 0.012 NT-Pro-B Natriuret Pep 1550 H 12/02/18 12/03/18 07:13 04:29 Creatine Kinase CK-MB (CK-2) 0.84 Troponin I 0.014 NT-Pro-B Natriuret Pep 3710 H Impressions: Chest CT 11/22/18 16:18 IMPRESSION: No acute findings Head CT 11/22/18 16:18 IMPRESSION: 1. No acute intracranial abnormality. 2. Mild atrophy and chronic small vessel ischemic changes. 3. Lobulated contour to the bilateral inferior terminates, may represent small nasal polyps. EVIDENCE OF ACUTE STROKE: NO. KUB X-Ray 11/30/18 11:47 IMPRESSION: Cannot exclude a partial bowel obstruction. NG tube placement. Chest X-Ray 12/08/18 06:00 IMPRESSION: STABLE APPEARANCE OF THE CHEST. SUPPORT DEVICES UNCHANGED. Chest Ultrasound 12/08/18 09:32 IMPRESSION: Trace right pleural effusion. No intervention was performed. Assessment & Plan - Diagnosis (1) Altered mental status Qualifiers: Altered mental status type: unspecified Qualified Code(s): R41.82 - Altered mental status, unspecified Is this a current diagnosis for this admission?: Yes Plan: Continue to monitor patient (2) COPD with acute exacerbation Is this a current diagnosis for this admission?: Yes Plan: Continue supplemental oxygen (3) EDNA (obstructive sleep apnea) Is this a current diagnosis for this admission?: Yes Plan: Patient on BiPAP Inpatient Scribe Statement - . Entered by Mica So, acting as scribe for Dr. Mendoza.
[2018-12-08] MEDS ORDERED: ACETAMINOPHEN 325 MG TABLET PO PRN (19:00)
[2018-12-08] MEDS: TAMSULOSIN HCL 0.4 MG CAP.SR.24H PO SCH (19:56)
[2018-12-08] MEDS: ATORVASTATIN CALCIUM 10 MG TABLET NG SCH (21:46)
[2018-12-08] MEDS ORDERED: PHENYTOIN 100 MG/4 ML SUSP ONE (21:47)
[2018-12-09] MEDS: IPRATROPIUM/ALBUTEROL 120 PUFF/4 GM MDI IH SCH ×4 (00:54→19:34)
[2018-12-09] MEDS: PIPERACILLIN SODIUM/TAZOBACTAM 2.25 GM in NORMAL SALINE 50 ML IV SCH ×4 (03:47→20:15)
[2018-12-09] MEDS: PHENYTOIN 100 MG/4 ML SUSP NG SCH ×3 (05:23→21:19)
--- NOTE | 2018-12-09 08:14 | PDOC PROGRESS REPORT ---
Subjective Progress Note for:: 12/09/18 Subjective:: Patient denied any chest pain. Remain on supplemental oxygen via nasal cannula. No nausea, vomiting or abdominal pain. Tolerating puree diet. Continue to demonstrate some amount of confusion. Reason For Visit: ACUTE RENAL INJURY,ALTERED MENTAL STATE Physical Exam Vital Signs: Temp Pulse Resp BP Pulse Ox 98.9 F 82 24 H 136/72 H 98 12/09/18 03:32 12/09/18 03:32 12/09/18 03:32 12/09/18 03:32 12/09/18 03:32 Intake & Output 12/08/18 12/09/18 12/10/18 06:59 06:59 06:59 Intake Total 1259 340 Output Total 5711 3150 Balance -8361 -5720 Weight 104.1 kg 102.6 kg Physical Exam: Head exam: PRESENT: atraumatic, normocephalic Eye exam: PRESENT: conjunctiva pink, PERRLA. ABSENT: pallor, scleral icterus Ear exam: PRESENT: normal external ear exam Mouth exam: PRESENT: moist Respiratory exam: PRESENT: clear to auscultation pradeep, decreased breath sounds - at lung bases Cardiovascular exam: PRESENT: RRR. ABSENT: diastolic murmur, rubs, systolic murmur GI/Abdominal exam: PRESENT: normal bowel sounds, soft. ABSENT: distended, guarding, mass, organomegaly, rebound, tenderness Extremities exam: PRESENT: pedal edema Neurological exam: PRESENT: altered - sedated Skin exam: PRESENT: dry, warm, keloid lesions on anterior chest wall. Results Laboratory Results: 12/08/18 04:08 12/08/18 04:08 12/08/18 12/08/18 12/09/18 12:58 13:30 05:12 Magnesium 1.5 L Urine Color STRAW Urine Appearance CLEAR Urine pH 5.0 Ur Specific [place] 1.006 Urine Protein NEGATIVE Urine Glucose (UA) NEGATIVE Urine Ketones NEGATIVE Urine Blood SMALL H Urine Nitrite NEGATIVE Ur Leukocyte Esterase NEGATIVE Urine WBC (Auto) 1 Urine RBC (Auto) 2 Stool Occult Blood POSITIVE 11/22/18 11/24/18 12/02/18 17:50 05:25 07:13 Creatine Kinase 62 CK-MB (CK-2) Troponin I < 0.012 NT-Pro-B Natriuret Pep 1550 H 12/02/18 12/03/18 07:13 04:29 Creatine Kinase CK-MB (CK-2) 0.84 Troponin I 0.014 NT-Pro-B Natriuret Pep 3710 H Impressions: Chest CT 11/22/18 16:18 IMPRESSION: No acute findings Head CT 11/22/18 16:18 IMPRESSION: 1. No acute intracranial abnormality. 2. Mild atrophy and chronic small vessel ischemic changes. 3. Lobulated contour to the bilateral inferior terminates, may represent small nasal polyps. EVIDENCE OF ACUTE STROKE: NO. KUB X-Ray 11/30/18 11:47 IMPRESSION: Cannot exclude a partial bowel obstruction. NG tube placement. Chest X-Ray 12/08/18 06:00 IMPRESSION: STABLE APPEARANCE OF THE CHEST. SUPPORT DEVICES UNCHANGED. Chest Ultrasound 12/08/18 09:32 IMPRESSION: Trace right pleural effusion. No intervention was performed. Assessment & Plan - Diagnosis (1) Acute respiratory failure Qualifiers: Respiratory failure complication: hypoxia Qualified Code(s): J96.01 - Acute respiratory failure with hypoxia Is this a current diagnosis for this admission?: Yes (2) Aspiration into lower respiratory tract Qualifiers: Encounter type: initial encounter Qualified Code(s): T17.800A - Unspecified foreign body in other parts of respiratory tract causing asphyxiation, initial encounter Is this a current diagnosis for this admission?: Yes (3) GI (gastrointestinal bleed) Qualifiers: GI bleed type/associated pathology: unspecified gastrointestinal hemorrhage type Qualified Code(s): K92.2 - Gastrointestinal hemorrhage, unspecified Is this a current diagnosis for this admission?: Yes (4) Acute kidney injury superimposed on chronic kidney disease Is this a current diagnosis for this admission?: Yes (5) CKD (chronic kidney disease) Qualifiers: Chronic kidney disease stage: stage 3 (moderate) Qualified Code(s): N18.3 - Chronic kidney disease, stage 3 (moderate) Is this a current diagnosis for this admission?: Yes (6) Altered mental status Qualifiers: Altered mental status type: unspecified Qualified Code(s): R41.82 - Altered mental status, unspecified Is this a current diagnosis for this admission?: Yes (7) Chronic respiratory failure with hypoxia, on home O2 therapy Is this a current diagnosis for this admission?: Yes (8) Seizure disorder Is this a current diagnosis for this admission?: Yes (9) HTN (hypertension) Qualifiers: Hypertension type: essential hypertension Qualified Code(s): I10 - Essential (primary) hypertension Is this a current diagnosis for this admission?: Yes (10) CAD (coronary artery disease) Qualifiers: Coronary Disease-Associated Artery/Lesion type: [place] artery Associated angina: without angina Is this a current diagnosis for this admission?: Yes (11) S/P CABG (coronary artery bypass graft) Is this a current diagnosis for this admission?: Yes (12) HLD (hyperlipidemia) Qualifiers: Hyperlipidemia type: unspecified Qualified Code(s): E78.5 - Hyperlipidemia, unspecified Is this a current diagnosis for this admission?: Yes (13) EDNA (obstructive sleep apnea) Is this a current diagnosis for this admission?: Yes (14) COPD with acute exacerbation Is this a current diagnosis for this admission?: Yes - Time Time Spent with patient: 25-34 minutes Medications reviewed and adjusted accordingly: Yes Anticipated discharge: SNF Within: Other - Inpatient Certification Based on my medical assessment, after consideration of the patient's comorbidities, presenting symptoms, or acuity I expect that the services needed warrant INPATIENT care.: Yes I certify that my determination is in accordance with my understanding of Medicare's requirements for reasonable and necessary INPATIENT services [42 CFR 412.3e].: Yes Medical Necessity: Significant Comorbidiites Make Outpatient Treatment Too Risky, Need Close Monitoring Due to Risk of Patient Decompensation, Need For Continuous Telemetry Monitoring, Need for IV Antibiotics, Risk of Complication if Not Cared For in Hospital, Risk of Diagnosis Which Will Require Inpatient Eval/Care/Monitoring Post Hospital Care: D/C or Transfer Summary - Plan Summary Plan Summary: Continue current medication management. Obtain CBC with diff, BMP, and Mag. Continue chest percussion therapy and physical therapy intervention. D/C communications planner to look into SNF placement for rehabilitation.
[2018-12-09] MEDS: LEVALBUTEROL HCL NEB 0.63 MG/3 ML AMPUL NEB PRN ×2 (09:26→21:12)
[2018-12-09] MEDS: ACETYLCYSTEINE 20% SOLN 800 MG/4 ML VIAL.NEB NEB SCH ×2 (09:26→21:12)
[2018-12-09 10:33] LABS: ANION GAP 6 (5-19); BLOOD UREA NITROGEN 12 mg/dL (7-20); CALCIUM 7.6 mg/dL (8.4-10.2); CARBON DIOXIDE 25 mmol/L (22-30); CHLORIDE 111 mmol/L (98-107); GLUCOSE 147 mg/dL (75-110); POTASSIUM 3.6 mmol/L (3.6-5.0); SODIUM 141.8 mmol/L (137-145)
[2018-12-09 10:56] LABS: ABSOLUTE EOSINOPHILS # (AUTO) 0.1 10^3/uL (0.0-0.6); ABSOLUTE MONOCYTES (AUTO) 0.6 10^3/uL (0.1-1.4); ABSOLUTE NEUT (AUTO) 4.2 10^3/uL (1.7-8.2); BASOPHILS % (AUTO) 0.6 % (0-2); EOSINOPHILS % (AUTO) 1.2 % (0-6); HEMOGLOBIN 11.5 g/dL (13.5-17.0); LYMPHOCYTES % (AUTO) 17.4 % (13-45); MEAN CORPUSCULAR HEMOGLOBIN 30.1 pg (27.0-33.4); MEAN CORPUSCULAR HGB CONC 33.8 g/dL (32.0-36.0); MEAN CORPUSCULAR VOLUME 89 fl (80-97); MONOCYTES % (AUTO) 9.8 % (3-13); PLATELET COUNT 167 10^3/uL (150-450); RED BLOOD COUNT 3.82 10^6/uL (4.35-5.55); RED CELL DISTRIBUTION WIDTH 15.6 % (11.5-14.0); TOTAL CELLS COUNTED % (AUTO) 100 %; WHITE BLOOD COUNT 5.9 10^3/uL (4.0-10.5)
[2018-12-09] MEDS: FAMOTIDINE INJ/PF 20 MG/2 ML SDV IV SCH ×2 (11:30→21:19)
[2018-12-09] MEDS: METOPROLOL TARTRATE 50 MG TABLET NG SCH ×2 (14:45→21:19)
[2018-12-09] MEDS: DOCUSATE SODIUM 100 MG/10 ML UDC NG SCH ×2 (14:45→19:34)
[2018-12-09] MEDS: ENOXAPARIN SODIUM INJ 40 MG/0.4 ML DISP.SYRIN SUBCUT SCH (14:46)
[2018-12-09] MEDS: MAGNESIUM OXIDE 400 MG TABLET NG SCH (14:46)
[2018-12-09] MEDS: AMLODIPINE BESYLATE 5 MG TABLET NG SCH ×2 (14:47→21:19)
[2018-12-09] MEDS: POTASSIUM CHLORIDE 20 MEQ PACKET NG SCH (14:55)
[2018-12-09] MEDS: TAMSULOSIN HCL 0.4 MG CAP.SR.24H PO SCH (19:34)
[2018-12-09] MEDS: ATORVASTATIN CALCIUM 10 MG TABLET NG SCH (21:19)
[2018-12-10] MEDS: IPRATROPIUM/ALBUTEROL 120 PUFF/4 GM MDI IH SCH ×4 (00:19→17:17)
[2018-12-10] MEDS: PIPERACILLIN SODIUM/TAZOBACTAM 2.25 GM in NORMAL SALINE 50 ML IV SCH ×4 (02:27→21:36)
[2018-12-10 04:55] LABS: HEMATOCRIT 31.5 % (37.9-51.0); HEMOGLOBIN 10.6 g/dL (13.5-17.0); MEAN CORPUSCULAR HEMOGLOBIN 30.3 pg (27.0-33.4); MEAN CORPUSCULAR HGB CONC 33.8 g/dL (32.0-36.0); MEAN CORPUSCULAR VOLUME 90 fl (80-97); PLATELET COUNT 155 10^3/uL (150-450); RED BLOOD COUNT 3.52 10^6/uL (4.35-5.55); RED CELL DISTRIBUTION WIDTH 15.5 % (11.5-14.0); WHITE BLOOD COUNT 5.3 10^3/uL (4.0-10.5)
[2018-12-10] MEDS: PHENYTOIN 100 MG/4 ML SUSP NG SCH ×3 (06:35→21:36)
[2018-12-10] MEDS: ACETYLCYSTEINE 20% SOLN 800 MG/4 ML VIAL.NEB NEB SCH ×2 (08:08→20:40)
[2018-12-10] MEDS: LEVALBUTEROL HCL NEB 0.63 MG/3 ML AMPUL NEB PRN ×2 (08:09→20:40)
[2018-12-10] MEDS: AMLODIPINE BESYLATE 5 MG TABLET NG SCH ×2 (11:27→21:37)
[2018-12-10] MEDS: METOPROLOL TARTRATE 50 MG TABLET NG SCH ×2 (11:28→21:37)
[2018-12-10] MEDS: MAGNESIUM OXIDE 400 MG TABLET NG SCH (11:28)
[2018-12-10] MEDS: POTASSIUM CHLORIDE 20 MEQ PACKET NG SCH (11:28)
[2018-12-10] MEDS: ENOXAPARIN SODIUM INJ 40 MG/0.4 ML DISP.SYRIN SUBCUT SCH (11:28)
[2018-12-10] MEDS: FAMOTIDINE INJ/PF 20 MG/2 ML SDV IV SCH ×2 (11:28→21:38)
[2018-12-10] MEDS: SCOPOLAMINE HYDROBROMIDE 1.5 MG PATCH.TD72 TD SCH (11:30)
[2018-12-10] MEDS: DOCUSATE SODIUM 100 MG/10 ML UDC NG SCH ×2 (11:30→17:30)
--- NOTE | 2018-12-10 16:06 | PDOC PROGRESS REPORT ---
Subjective Reason For Visit: ACUTE RENAL INJURY,ALTERED MENTAL STATE Physical Exam Vital Signs: Temp Pulse Resp BP Pulse Ox 98.6 F 78 17 145/84 H 96 12/10/18 12:15 12/10/18 12:15 12/10/18 12:15 12/10/18 12:15 12/10/18 12:15 Intake & Output 12/09/18 12/10/18 12/11/18 06:59 06:59 06:59 Intake Total 390 390 554 Output Total 3150 950 175 Balance -2760 -560 379 Weight 102.6 kg 102 kg General appearance: PRESENT: no acute distress, obese Head exam: PRESENT: atraumatic, normocephalic Eye exam: PRESENT: conjunctiva pink, EOMI, PERRLA. ABSENT: scleral icterus Ear exam: PRESENT: normal external ear exam Mouth exam: PRESENT: moist Respiratory exam: PRESENT: clear to auscultation pradeep, decreased breath sounds - a lung bases Cardiovascular exam: PRESENT: RRR. ABSENT: diastolic murmur, rubs, systolic murmur Vascular exam: ABSENT: pallor GI/Abdominal exam: PRESENT: normal bowel sounds, soft. ABSENT: distended, guarding, mass, organolmegaly, rebound, tenderness Extremities exam: PRESENT: pedal edema Neurological exam: PRESENT: alert - but still demonstrate some amount of disorientation to place. he reported [address] He did exp[ressed concordance with daughters regarding changing his physician at this time., awake Psychiatric exam: ABSENT: agitated Skin exam: PRESENT: dry, warm Results Laboratory Results: 12/10/18 04:28 12/09/18 09:08 12/10/18 12/10/18 04:28 04:28 WBC 5.3 RBC 3.52 L Hgb 10.6 L Hct 31.5 L MCV 90 MCH 30.3 MCHC 33.8 RDW 15.5 H Plt Count 155 Magnesium 1.5 L 11/22/18 11/24/18 12/02/18 17:50 05:25 07:13 Creatine Kinase 62 CK-MB (CK-2) Troponin I < 0.012 NT-Pro-B Natriuret Pep 1550 H 12/02/18 12/03/18 07:13 04:29 Creatine Kinase CK-MB (CK-2) 0.84 Troponin I 0.014 NT-Pro-B Natriuret Pep 3710 H Impressions: Chest CT 11/22/18 16:18 IMPRESSION: No acute findings Head CT 11/22/18 16:18 IMPRESSION: 1. No acute intracranial abnormality. 2. Mild atrophy and chronic small vessel ischemic changes. 3. Lobulated contour to the bilateral inferior terminates, may represent small nasal polyps. EVIDENCE OF ACUTE STROKE: NO. KUB X-Ray 11/30/18 11:47 IMPRESSION: Cannot exclude a partial bowel obstruction. NG tube placement. Chest X-Ray 12/08/18 06:00 IMPRESSION: STABLE APPEARANCE OF THE CHEST. SUPPORT DEVICES UNCHANGED. Chest Ultrasound 12/08/18 09:32 IMPRESSION: Trace right pleural effusion. No intervention was performed. Assessment & Plan - Diagnosis (1) Toxic metabolic encephalopathy Is this a current diagnosis for this admission?: Yes Plan: Probable due to his anti seizure medication including Keppra and Depakote combination usage upon admission. His alertness has improved sine he has been taken off these medications. Patient's alertness continue to improve since extubation. (2) Acute respiratory failure Qualifiers: Respiratory failure complication: hypoxia Qualified Code(s): J96.01 - Acute respiratory failure with hypoxia Is this a current diagnosis for this admission?: Yes (3) Aspiration into lower respiratory tract Qualifiers: Encounter type: initial encounter Qualified Code(s): T17.800A - Unspecified foreign body in other parts of respiratory tract causing asphyxiation, initial encounter Is this a current diagnosis for this admission?: Yes (4) GI (gastrointestinal bleed) Qualifiers: GI bleed type/associated pathology: unspecified gastrointestinal hemorrhage type Qualified Code(s): K92.2 - Gastrointestinal hemorrhage, unspecified Is this a current diagnosis for this admission?: Yes (5) Acute kidney injury superimposed on chronic kidney disease Is this a current diagnosis for this admission?: Yes (6) CKD (chronic kidney disease) Qualifiers: Chronic kidney disease stage: stage 3 (moderate) Qualified Code(s): N18.3 - Chronic kidney disease, stage 3 (moderate) Is this a current diagnosis for this admission?: Yes (7) Chronic respiratory failure with hypoxia, on home O2 therapy Is this a current diagnosis for this admission?: Yes (8) Seizure disorder Is this a current diagnosis for this admission?: Yes (9) HTN (hypertension) Qualifiers: Hypertension type: essential hypertension Qualified Code(s): I10 - Essential (primary) hypertension Is this a current diagnosis for this admission?: Yes (10) CAD (coronary artery disease) Qualifiers: Coronary Disease-Associated Artery/Lesion type: [place] artery Associated angina: without angina Is this a current diagnosis for this admission?: Yes (11) S/P CABG (coronary artery bypass graft) Is this a current diagnosis for this admission?: Yes (12) HLD (hyperlipidemia) Qualifiers: Hyperlipidemia type: unspecified Qualified Code(s): E78.5 - Hyperlipidemia, unspecified Is this a current diagnosis for this admission?: Yes (13) EDNA (obstructive sleep apnea) Is this a current diagnosis for this admission?: Yes (14) COPD with acute exacerbation Is this a current diagnosis for this admission?: Yes - Time Time Spent with patient: 25-34 minutes Medications reviewed and adjusted accordingly: Yes Anticipated discharge: SNF Within: Other - Inpatient Certification Based on my medical assessment, after consideration of the patient's comorbidities, presenting symptoms, or acuity I expect that the services needed warrant INPATIENT care.: Yes I certify that my determination is in accordance with my understanding of Medicare's requirements for reasonable and necessary INPATIENT services [42 CFR 412.3e].: Yes Medical Necessity: Significant Comorbidiites Make Outpatient Treatment Too Risky, Need Close Monitoring Due to Risk of Patient Decompensation, Need For Continuous Telemetry Monitoring, Need for IV Antibiotics, Risk of Complication if Not Cared For in Hospital, Risk of Diagnosis Which Will Require Inpatient Eval/Care/Monitoring Post Hospital Care: D/C or Transfer Summary - Plan Summary Plan Summary: Continue current medication management. I discussed case with hospitalist team earlier today due to family request for change of physician service. The assigned physician declined to accept the case. Family are demanding for CT scan and MRI of the brain due to present prior presentation with hypoxemia during his last hospitalization. Presently, I do NOT see any clinical symptom or examination to warrant a repeat imaging study. His CT scan of head was completed on 11/22/18 and EEG was done on 11/29/18. Findings were noted and treatment adjusted as needed. Patient and family were offered transfer to another physician service if they can identify one. Dr. Dietrich will cover my service until 12/14/18.
[2018-12-10] MEDS ORDERED: FUROSEMIDE INJ/PF 20 MG/2 ML SDV IV ONE (17:00)
[2018-12-10] MEDS: TAMSULOSIN HCL 0.4 MG CAP.SR.24H PO SCH (17:30)
[2018-12-10] MEDS: ATORVASTATIN CALCIUM 10 MG TABLET NG SCH (21:37)
[2018-12-11] MEDS: IPRATROPIUM/ALBUTEROL 120 PUFF/4 GM MDI IH SCH ×4 (01:00→17:27)
[2018-12-11] MEDS: PIPERACILLIN SODIUM/TAZOBACTAM 2.25 GM in NORMAL SALINE 50 ML IV SCH ×4 (03:43→21:33)
[2018-12-11 04:59] LABS: ABSOLUTE EOSINOPHILS # (AUTO) 0.1 10^3/uL (0.0-0.6); ABSOLUTE MONOCYTES (AUTO) 0.6 10^3/uL (0.1-1.4); ABSOLUTE NEUT (AUTO) 2.9 10^3/uL (1.7-8.2); BASOPHILS % (AUTO) 0.9 % (0-2); EOSINOPHILS % (AUTO) 1.3 % (0-6); HEMATOCRIT 30.5 % (37.9-51.0); HEMOGLOBIN 10.4 g/dL (13.5-17.0); LYMPHOCYTES % (AUTO) 21.1 % (13-45); MEAN CORPUSCULAR HEMOGLOBIN 30.8 pg (27.0-33.4); MEAN CORPUSCULAR HGB CONC 33.9 g/dL (32.0-36.0); MEAN CORPUSCULAR VOLUME 91 fl (80-97); PLATELET COUNT 161 10^3/uL (150-450); RED BLOOD COUNT 3.36 10^6/uL (4.35-5.55); RED CELL DISTRIBUTION WIDTH 15.5 % (11.5-14.0); SEGMENTED NEUTROPHILS % (AUTO) 63.7 % (42-78); TOTAL CELLS COUNTED % (AUTO) 100 %; WHITE BLOOD COUNT 4.6 10^3/uL (4.0-10.5)
[2018-12-11 05:15] LABS: ANION GAP 8 (5-19); BLOOD UREA NITROGEN 9 mg/dL (7-20); CALCIUM 7.5 mg/dL (8.4-10.2); CARBON DIOXIDE 27 mmol/L (22-30); CHLORIDE 108 mmol/L (98-107); GLUCOSE 105 mg/dL (75-110); POTASSIUM 3.4 mmol/L (3.6-5.0); SODIUM 143.1 mmol/L (137-145)
[2018-12-11] MEDS: PHENYTOIN 100 MG/4 ML SUSP NG SCH ×3 (06:27→21:33)
[2018-12-11] MEDS: ACETYLCYSTEINE 20% SOLN 800 MG/4 ML VIAL.NEB NEB SCH ×2 (07:49→20:48)
[2018-12-11] MEDS: LEVALBUTEROL HCL NEB 0.63 MG/3 ML AMPUL NEB PRN (07:49)
[2018-12-11] MEDS: DOCUSATE SODIUM 100 MG/10 ML UDC NG SCH ×2 (09:15→17:27)
[2018-12-11] MEDS: POTASSIUM CHLORIDE 20 MEQ PACKET NG SCH (09:18)
[2018-12-11] MEDS: AMLODIPINE BESYLATE 5 MG TABLET NG SCH ×2 (09:18→21:33)
[2018-12-11] MEDS: MAGNESIUM OXIDE 400 MG TABLET NG SCH (09:19)
[2018-12-11] MEDS: ENOXAPARIN SODIUM INJ 40 MG/0.4 ML DISP.SYRIN SUBCUT SCH (09:19)
[2018-12-11] MEDS: METOPROLOL TARTRATE 50 MG TABLET NG SCH ×2 (09:20→21:33)
[2018-12-11] MEDS: FAMOTIDINE INJ/PF 20 MG/2 ML SDV IV SCH ×2 (09:20→21:33)
--- NOTE | 2018-12-11 13:40 | PDOC PROGRESS REPORT ---
Subjective Progress Note for:: 12/11/18 Subjective:: Patient seen by the bedside is alert no new complaints Reason For Visit: ACUTE RENAL INJURY,ALTERED MENTAL STATE Physical Exam Vital Signs: Temp Pulse Resp BP Pulse Ox 98.8 F 68 15 128/66 H 98 12/11/18 11:13 12/11/18 11:13 12/11/18 11:13 12/11/18 11:13 12/11/18 11:13 Intake & Output 12/10/18 12/11/18 12/12/18 06:59 06:59 06:59 Intake Total 390 991 170 Output Total 1000 2680 200 Balance -610 -1689 -30 Weight 102 kg 104.7 kg General appearance: PRESENT: no acute distress Eye exam: PRESENT: PERRLA Respiratory exam: PRESENT: clear to auscultation pradeep Cardiovascular exam: PRESENT: +S1, +S2 Results Laboratory Results: 12/11/18 04:34 12/11/18 04:34 12/11/18 12/11/18 04:34 04:34 WBC 4.6 RBC 3.36 L Hgb 10.4 L Hct 30.5 L MCV 91 MCH 30.8 MCHC 33.9 RDW 15.5 H Plt Count 161 Seg Neutrophils % 63.7 Lymphocytes % 21.1 Monocytes % 13.0 Eosinophils % 1.3 Basophils % 0.9 Absolute Neutrophils 2.9 Absolute Lymphocytes 1.0 Absolute Monocytes 0.6 Absolute Eosinophils 0.1 Absolute Basophils 0.0 Sodium 143.1 Potassium 3.4 L Chloride 108 H Carbon Dioxide 27 Anion Gap 8 BUN 9 Creatinine 1.30 H Est GFR ( Amer) > 60 Est GFR (Non-Af Amer) 53 L Glucose 105 Calcium 7.5 L Magnesium 1.4 L 11/22/18 11/24/18 12/02/18 17:50 05:25 07:13 Creatine Kinase 62 CK-MB (CK-2) Troponin I < 0.012 NT-Pro-B Natriuret Pep 1550 H 12/02/18 12/03/18 07:13 04:29 Creatine Kinase CK-MB (CK-2) 0.84 Troponin I 0.014 NT-Pro-B Natriuret Pep 3710 H Impressions: Chest CT 11/22/18 16:18 IMPRESSION: No acute findings Head CT 11/22/18 16:18 IMPRESSION: 1. No acute intracranial abnormality. 2. Mild atrophy and chronic small vessel ischemic changes. 3. Lobulated contour to the bilateral inferior terminates, may represent small nasal polyps. EVIDENCE OF ACUTE STROKE: NO. KUB X-Ray 11/30/18 11:47 IMPRESSION: Cannot exclude a partial bowel obstruction. NG tube placement. Chest X-Ray 12/08/18 06:00 IMPRESSION: STABLE APPEARANCE OF THE CHEST. SUPPORT DEVICES UNCHANGED. Chest Ultrasound 12/08/18 09:32 IMPRESSION: Trace right pleural effusion. No intervention was performed. Assessment & Plan - Diagnosis (1) Chronic respiratory failure with hypoxia, on home O2 therapy Is this a current diagnosis for this admission?: Yes (2) Aspiration into lower respiratory tract Qualifiers: Encounter type: initial encounter Qualified Code(s): T17.800A - Unspecified foreign body in other parts of respiratory tract causing asphyxiation, initial encounter Is this a current diagnosis for this admission?: Yes (3) Acute respiratory failure Qualifiers: Respiratory failure complication: hypoxia Qualified Code(s): J96.01 - Acute respiratory failure with hypoxia Is this a current diagnosis for this admission?: Yes
[2018-12-11] MEDS: TAMSULOSIN HCL 0.4 MG CAP.SR.24H PO SCH (17:28)
[2018-12-11] MEDS: ATORVASTATIN CALCIUM 10 MG TABLET NG SCH (21:33)
[2018-12-12] MEDS: IPRATROPIUM/ALBUTEROL 120 PUFF/4 GM MDI IH SCH ×5 (03:03→23:54)
[2018-12-12] MEDS: PIPERACILLIN SODIUM/TAZOBACTAM 2.25 GM in NORMAL SALINE 50 ML IV SCH ×4 (03:06→20:01)
[2018-12-12] MEDS: PHENYTOIN 100 MG/4 ML SUSP NG SCH ×3 (05:15→21:27)
[2018-12-12] MEDS: LEVALBUTEROL HCL NEB 0.63 MG/3 ML AMPUL NEB PRN (07:57)
[2018-12-12] MEDS: ACETYLCYSTEINE 20% SOLN 800 MG/4 ML VIAL.NEB NEB SCH ×2 (07:57→21:59)
[2018-12-12] MEDS: FAMOTIDINE INJ/PF 20 MG/2 ML SDV IV SCH ×2 (11:15→21:27)
[2018-12-12] MEDS: MAGNESIUM OXIDE 400 MG TABLET NG SCH (11:15)
[2018-12-12] MEDS: METOPROLOL TARTRATE 50 MG TABLET NG SCH ×2 (11:15→21:27)
[2018-12-12] MEDS: AMLODIPINE BESYLATE 5 MG TABLET NG SCH ×2 (11:15→21:28)
[2018-12-12] MEDS: POTASSIUM CHLORIDE 20 MEQ PACKET NG SCH (11:17)
[2018-12-12] MEDS: ENOXAPARIN SODIUM INJ 40 MG/0.4 ML DISP.SYRIN SUBCUT SCH (11:17)
--- NOTE | 2018-12-12 11:26 | PDOC PROGRESS REPORT ---
Subjective Progress Note for:: 12/12/18 Subjective:: Patient seen by the bedside is alert no new complaints Reason For Visit: ACUTE RENAL INJURY,ALTERED MENTAL STATE Physical Exam Vital Signs: Temp Pulse Resp BP Pulse Ox 98.2 F 72 18 172/98 H 98 12/12/18 07:23 12/12/18 08:00 12/12/18 08:00 12/12/18 07:23 12/12/18 08:00 Intake & Output 12/11/18 12/12/18 12/13/18 06:59 06:59 06:59 Intake Total 991 920 Output Total 2680 1070 Balance -1689 -150 Weight 104.7 kg 106.3 kg General appearance: PRESENT: no acute distress Eye exam: PRESENT: PERRLA Respiratory exam: PRESENT: rhonchi Cardiovascular exam: PRESENT: +S1, +S2 Results Laboratory Results: 12/11/18 04:34 12/11/18 04:34 12/12/18 04:19 Magnesium 1.4 L 11/22/18 11/24/18 12/02/18 17:50 05:25 07:13 Creatine Kinase 62 CK-MB (CK-2) Troponin I < 0.012 NT-Pro-B Natriuret Pep 1550 H 12/02/18 12/03/18 07:13 04:29 Creatine Kinase CK-MB (CK-2) 0.84 Troponin I 0.014 NT-Pro-B Natriuret Pep 3710 H Impressions: Chest CT 11/22/18 16:18 IMPRESSION: No acute findings Head CT 11/22/18 16:18 IMPRESSION: 1. No acute intracranial abnormality. 2. Mild atrophy and chronic small vessel ischemic changes. 3. Lobulated contour to the bilateral inferior terminates, may represent small nasal polyps. EVIDENCE OF ACUTE STROKE: NO. KUB X-Ray 11/30/18 11:47 IMPRESSION: Cannot exclude a partial bowel obstruction. NG tube placement. Chest X-Ray 12/08/18 06:00 IMPRESSION: STABLE APPEARANCE OF THE CHEST. SUPPORT DEVICES UNCHANGED. Chest Ultrasound 12/08/18 09:32 IMPRESSION: Trace right pleural effusion. No intervention was performed. Assessment & Plan - Diagnosis (1) Chronic respiratory failure with hypoxia, on home O2 therapy Is this a current diagnosis for this admission?: Yes (2) Aspiration into lower respiratory tract Qualifiers: Encounter type: initial encounter Qualified Code(s): T17.800A - Unspecified foreign body in other parts of respiratory tract causing asphyxiation, initial encounter Is this a current diagnosis for this admission?: Yes (3) Acute respiratory failure Qualifiers: Respiratory failure complication: hypoxia Qualified Code(s): J96.01 - Acute respiratory failure with hypoxia Is this a current diagnosis for this admission?: Yes
[2018-12-12] MEDS: DOCUSATE SODIUM 100 MG/10 ML UDC NG SCH ×2 (11:35→18:35)
[2018-12-12] MEDS: TAMSULOSIN HCL 0.4 MG CAP.SR.24H PO SCH (17:04)
[2018-12-12] MEDS: ATORVASTATIN CALCIUM 10 MG TABLET NG SCH (21:28)
[2018-12-13] MEDS: PIPERACILLIN SODIUM/TAZOBACTAM 2.25 GM in NORMAL SALINE 50 ML IV SCH ×4 (02:50→20:52)
[2018-12-13 04:46] LABS: HEMATOCRIT 30.7 % (37.9-51.0); HEMOGLOBIN 10.4 g/dL (13.5-17.0); MEAN CORPUSCULAR HEMOGLOBIN 30.5 pg (27.0-33.4); MEAN CORPUSCULAR HGB CONC 33.8 g/dL (32.0-36.0); MEAN CORPUSCULAR VOLUME 90 fl (80-97); PLATELET COUNT 156 10^3/uL (150-450); RED BLOOD COUNT 3.41 10^6/uL (4.35-5.55); RED CELL DISTRIBUTION WIDTH 15.4 % (11.5-14.0); WHITE BLOOD COUNT 3.7 10^3/uL (4.0-10.5)
[2018-12-13] MEDS: PHENYTOIN 100 MG/4 ML SUSP NG SCH (05:37)
[2018-12-13] MEDS: IPRATROPIUM/ALBUTEROL 120 PUFF/4 GM MDI IH SCH ×4 (05:37→23:58)
[2018-12-13] MEDS: ACETYLCYSTEINE 20% SOLN 800 MG/4 ML VIAL.NEB NEB SCH ×2 (08:34→20:15)
[2018-12-13] MEDS: POTASSIUM CHLORIDE 20 MEQ PACKET NG SCH (10:39)
[2018-12-13] MEDS: ENOXAPARIN SODIUM INJ 40 MG/0.4 ML DISP.SYRIN SUBCUT SCH (10:39)
[2018-12-13] MEDS: METOPROLOL TARTRATE 50 MG TABLET NG SCH (10:39)
[2018-12-13] MEDS: AMLODIPINE BESYLATE 5 MG TABLET NG SCH (10:39)
[2018-12-13] MEDS: MAGNESIUM OXIDE 400 MG TABLET NG SCH (10:39)
[2018-12-13] MEDS: SCOPOLAMINE HYDROBROMIDE 1.5 MG PATCH.TD72 TD SCH (10:40)
[2018-12-13] MEDS: FAMOTIDINE INJ/PF 20 MG/2 ML SDV IV SCH (10:40)
[2018-12-13] MEDS: DOCUSATE SODIUM 100 MG/10 ML UDC NG SCH (10:51)
[2018-12-13] MEDS ORDERED: ACETAMINOPHEN 325 MG TABLET NG PRN (12:00)
--- NOTE | 2018-12-13 14:29 | PDOC PROGRESS REPORT ---
Subjective Progress Note for:: 12/13/18 Subjective:: Patient seen by the bedside no new complaints Reason For Visit: ACUTE RENAL INJURY,ALTERED MENTAL STATE Physical Exam Vital Signs: Temp Pulse Resp BP Pulse Ox 98.4 F 67 17 146/81 H 100 12/13/18 12:50 12/13/18 12:50 12/13/18 12:50 12/13/18 12:50 12/13/18 12:50 Intake & Output 12/12/18 12/13/18 12/14/18 06:59 06:59 06:59 Intake Total 920 1124 290 Output Total 1070 1005 250 Balance -150 119 40 Weight 106.3 kg 95.7 kg General appearance: PRESENT: no acute distress Eye exam: PRESENT: PERRLA Respiratory exam: PRESENT: clear to auscultation pradeep Cardiovascular exam: PRESENT: +S1, +S2 GI/Abdominal exam: PRESENT: soft Neurological exam: PRESENT: alert Results Laboratory Results: 12/13/18 04:27 12/11/18 04:34 12/13/18 12/13/18 12/13/18 04:27 04:27 12:45 WBC 3.7 L RBC 3.41 L Hgb 10.4 L Hct 30.7 L MCV 90 MCH 30.5 MCHC 33.8 RDW 15.4 H Plt Count 156 Magnesium 1.4 L Stool Occult Blood POSITIVE 11/22/18 11/24/18 12/02/18 17:50 05:25 07:13 Creatine Kinase 62 CK-MB (CK-2) Troponin I < 0.012 NT-Pro-B Natriuret Pep 1550 H 12/02/18 12/03/18 07:13 04:29 Creatine Kinase CK-MB (CK-2) 0.84 Troponin I 0.014 NT-Pro-B Natriuret Pep 3710 H Impressions: Chest CT 11/22/18 16:18 IMPRESSION: No acute findings Head CT 11/22/18 16:18 IMPRESSION: 1. No acute intracranial abnormality. 2. Mild atrophy and chronic small vessel ischemic changes. 3. Lobulated contour to the bilateral inferior terminates, may represent small nasal polyps. EVIDENCE OF ACUTE STROKE: NO. KUB X-Ray 11/30/18 11:47 IMPRESSION: Cannot exclude a partial bowel obstruction. NG tube placement. Chest X-Ray 12/08/18 06:00 IMPRESSION: STABLE APPEARANCE OF THE CHEST. SUPPORT DEVICES UNCHANGED. Chest Ultrasound 12/08/18 09:32 IMPRESSION: Trace right pleural effusion. No intervention was performed. Assessment & Plan - Diagnosis (1) Chronic respiratory failure with hypoxia, on home O2 therapy Is this a current diagnosis for this admission?: Yes (2) Aspiration into lower respiratory tract Qualifiers: Encounter type: initial encounter Qualified Code(s): T17.800A - Unspecified foreign body in other parts of respiratory tract causing asphyxiation, initial encounter Is this a current diagnosis for this admission?: Yes (3) Acute respiratory failure Qualifiers: Respiratory failure complication: hypoxia Qualified Code(s): J96.01 - Acute respiratory failure with hypoxia Is this a current diagnosis for this admission?: Yes
[2018-12-13 15:54] LABS: AMORPHOUS SEDIMENT,URINE TRACE /HPF; APPEARANCE,URINE CLOUDY; BILIRUBIN,URINE NEGATIVE (NEGATIVE); CALCIUM OXALATE CRYSTALS,URINE MODERATE /HPF; COLOR,URINE YELLOW; GLUCOSE, URINE NEGATIVE (NEGATIVE); KETONES,URINE NEGATIVE (NEGATIVE); LEUKOCYTE ESTERASE,URINE NEGATIVE (NEGATIVE); NITRITE,URINE NEGATIVE (NEGATIVE); PROTEIN,URINE 30 mg/dL (NEGATIVE); URINE SPECIFIC GRAVITY 1.017; UROBILINOGEN,URINE NEGATIVE mg/dL (<2.0)
[2018-12-13] MEDS: PHENYTOIN 100 MG/4 ML SUSP PO SCH ×2 (17:28→21:30)
[2018-12-13] MEDS: TAMSULOSIN HCL 0.4 MG CAP.SR.24H PO SCH (17:28)
[2018-12-13] MEDS: LEVALBUTEROL HCL NEB 0.63 MG/3 ML AMPUL NEB PRN (20:15)
[2018-12-13] MEDS: AMLODIPINE BESYLATE 5 MG TABLET PO SCH (21:29)
[2018-12-13] MEDS: METOPROLOL TARTRATE 50 MG TABLET PO SCH (21:30)
[2018-12-13] MEDS: ATORVASTATIN CALCIUM 10 MG TABLET PO SCH (21:30)
[2018-12-13] MEDS: FAMOTIDINE 20 MG TABLET PO SCH (21:30)
[2018-12-14] MEDS: PIPERACILLIN SODIUM/TAZOBACTAM 2.25 GM in NORMAL SALINE 50 ML IV SCH ×4 (03:27→21:05)
[2018-12-14] MEDS: PHENYTOIN 100 MG/4 ML SUSP PO SCH ×3 (06:26→21:33)
[2018-12-14] MEDS: IPRATROPIUM/ALBUTEROL 120 PUFF/4 GM MDI IH SCH ×3 (06:27→18:48)
[2018-12-14] MEDS ORDERED: POTASSIUM CHLORIDE 20 MEQ PACKET PO ONE (07:46)
--- NOTE | 2018-12-14 07:56 | PDOC PROGRESS REPORT ---
Subjective Progress Note for:: 12/14/18 Subjective:: Patient continue to demonstrate intermittent confusion. No chest pain or difficulty with breathing. No nausea, vomiting, or abdominal pain. Reason For Visit: ACUTE RENAL INJURY,ALTERED MENTAL STATE Physical Exam Vital Signs: Temp Pulse Resp BP Pulse Ox 98.6 F 75 18 125/63 97 12/14/18 03:27 12/14/18 03:27 12/14/18 03:27 12/14/18 03:27 12/14/18 03:27 Intake & Output 12/13/18 12/14/18 12/15/18 06:59 06:59 06:59 Intake Total 1124 680 Output Total 1005 725 Balance 119 -45 Weight 95.7 kg Physical Exam: General appearance: PRESENT: no acute distress, obese Head exam: PRESENT: atraumatic, normocephalic Eye exam: PRESENT: conjunctiva pink, EOMI, PERRLA. ABSENT: pallor, scleral icterus Ear exam: PRESENT: normal external ear exam Mouth exam: PRESENT: moist Respiratory exam: PRESENT: clear to auscultation pradeep, decreased breath sounds - a lung bases Cardiovascular exam: PRESENT: RRR. ABSENT: diastolic murmur, rubs, systolic murmur GI/Abdominal exam: PRESENT: normal bowel sounds, soft. ABSENT: distended, guarding, mass, organomegaly, rebound, tenderness Extremities exam: PRESENT: pedal edema Neurological exam: PRESENT: alert - but still demonstrate some amount of disorientation to place. Psychiatric exam: ABSENT: agitated Skin exam: PRESENT: dry, warm Results Laboratory Results: 12/13/18 04:27 12/11/18 04:34 12/13/18 12/13/18 12/14/18 12:45 14:20 04:56 Magnesium 1.4 L Urine Color YELLOW Urine Appearance CLOUDY Urine pH 5.0 Ur Specific Athena 1.017 Urine Protein 30 H Urine Glucose (UA) NEGATIVE Urine Ketones NEGATIVE Urine Blood SMALL H Urine Nitrite NEGATIVE Ur Leukocyte Esterase NEGATIVE Urine WBC (Auto) 5 Urine RBC (Auto) 12 Stool Occult Blood POSITIVE 11/22/18 11/24/18 12/02/18 17:50 05:25 07:13 Creatine Kinase 62 CK-MB (CK-2) Troponin I < 0.012 NT-Pro-B Natriuret Pep 1550 H 12/02/18 12/03/18 07:13 04:29 Creatine Kinase CK-MB (CK-2) 0.84 Troponin I 0.014 NT-Pro-B Natriuret Pep 3710 H Impressions: Chest CT 11/22/18 16:18 IMPRESSION: No acute findings Head CT 11/22/18 16:18 IMPRESSION: 1. No acute intracranial abnormality. 2. Mild atrophy and chronic small vessel ischemic changes. 3. Lobulated contour to the bilateral inferior terminates, may represent small nasal polyps. EVIDENCE OF ACUTE STROKE: NO. KUB X-Ray 11/30/18 11:47 IMPRESSION: Cannot exclude a partial bowel obstruction. NG tube placement. Chest X-Ray 12/08/18 06:00 IMPRESSION: STABLE APPEARANCE OF THE CHEST. SUPPORT DEVICES UNCHANGED. Chest Ultrasound 12/08/18 09:32 IMPRESSION: Trace right pleural effusion. No intervention was performed. Assessment & Plan - Diagnosis (1) Toxic metabolic encephalopathy Is this a current diagnosis for this admission?: Yes (2) Acute respiratory failure Qualifiers: Respiratory failure complication: hypoxia Qualified Code(s): J96.01 - Acute respiratory failure with hypoxia Is this a current diagnosis for this admission?: Yes (3) Aspiration into lower respiratory tract Qualifiers: Encounter type: initial encounter Qualified Code(s): T17.800A - Unspecified foreign body in other parts of respiratory tract causing asphyxiation, initial encounter Is this a current diagnosis for this admission?: Yes (4) GI (gastrointestinal bleed) Qualifiers: GI bleed type/associated pathology: unspecified gastrointestinal hemorrhage type Qualified Code(s): K92.2 - Gastrointestinal hemorrhage, unspecified Is this a current diagnosis for this admission?: Yes (5) Acute kidney injury superimposed on chronic kidney disease Is this a current diagnosis for this admission?: Yes (6) CKD (chronic kidney disease) Qualifiers: Chronic kidney disease stage: stage 3 (moderate) Qualified Code(s): N18.3 - Chronic kidney disease, stage 3 (moderate) Is this a current diagnosis for this admission?: Yes (7) Chronic respiratory failure with hypoxia, on home O2 therapy Is this a current diagnosis for this admission?: Yes (8) Seizure disorder Is this a current diagnosis for this admission?: Yes (9) HTN (hypertension) Qualifiers: Hypertension type: essential hypertension Qualified Code(s): I10 - Essential (primary) hypertension Is this a current diagnosis for this admission?: Yes (10) CAD (coronary artery disease) Qualifiers: Coronary Disease-Associated Artery/Lesion type: [place] artery Associated angina: without angina Is this a current diagnosis for this admission?: Yes (11) S/P CABG (coronary artery bypass graft) Is this a current diagnosis for this admission?: Yes (12) HLD (hyperlipidemia) Qualifiers: Hyperlipidemia type: unspecified Qualified Code(s): E78.5 - Hyperlipidemia, unspecified Is this a current diagnosis for this admission?: Yes (13) EDNA (obstructive sleep apnea) Is this a current diagnosis for this admission?: Yes (14) COPD with acute exacerbation Is this a current diagnosis for this admission?: Yes - Time Time Spent with patient: 25-34 minutes Medications reviewed and adjusted accordingly: Yes Anticipated discharge: SNF Within: Other - Inpatient Certification Based on my medical assessment, after consideration of the patient's comorbidities, presenting symptoms, or acuity I expect that the services needed warrant INPATIENT care.: Yes I certify that my determination is in accordance with my understanding of Medicare's requirements for reasonable and necessary INPATIENT services [42 CFR 412.3e].: Yes Medical Necessity: Significant Comorbidiites Make Outpatient Treatment Too Risky, Need Close Monitoring Due to Risk of Patient Decompensation, Need For Continuous Telemetry Monitoring, Risk of Complication if Not Cared For in Hospital, Risk of Diagnosis Which Will Require Inpatient Eval/Care/Monitoring Post Hospital Care: D/C or Transfer Summary - Plan Summary Plan Summary: Patient will receive potassium and magnesium replacement. D/C Alvarado cath and bowel management system. Continue all other current medication management. PT evaluation and D/C environmental emergencies planner to look into SNF placement for short term rehab and possible permanent placement status.
[2018-12-14] MEDS: LEVALBUTEROL HCL NEB 0.63 MG/3 ML AMPUL NEB PRN ×2 (08:05→20:49)
[2018-12-14] MEDS: ACETYLCYSTEINE 20% SOLN 800 MG/4 ML VIAL.NEB NEB SCH ×2 (08:05→20:49)
[2018-12-14] MEDS: MAGNESIUM SULFATE/D5W 1 GM/100 ML RTUPB IV SCH ×2 (09:38→16:58)
[2018-12-14] MEDS: ENOXAPARIN SODIUM INJ 40 MG/0.4 ML DISP.SYRIN SUBCUT SCH (10:06)
[2018-12-14] MEDS: MAGNESIUM OXIDE 400 MG TABLET PO SCH (10:16)
[2018-12-14] MEDS: METOPROLOL TARTRATE 50 MG TABLET PO SCH ×2 (10:17→21:31)
[2018-12-14] MEDS: FAMOTIDINE 20 MG TABLET PO SCH ×2 (10:17→21:31)
[2018-12-14] MEDS: POTASSIUM CHLORIDE 10 MEQ CAPSULE.ER PO SCH (10:18)
[2018-12-14] MEDS: AMLODIPINE BESYLATE 5 MG TABLET PO SCH ×2 (10:18→21:30)
[2018-12-14] MEDS: TAMSULOSIN HCL 0.4 MG CAP.SR.24H PO SCH (18:48)
[2018-12-14] MEDS: ATORVASTATIN CALCIUM 10 MG TABLET PO SCH (21:31)
[2018-12-15] MEDS: IPRATROPIUM/ALBUTEROL 120 PUFF/4 GM MDI IH SCH ×4 (01:26→17:18)
[2018-12-15] MEDS: PIPERACILLIN SODIUM/TAZOBACTAM 2.25 GM in NORMAL SALINE 50 ML IV SCH (02:41)
[2018-12-15] MEDS: PHENYTOIN 100 MG/4 ML SUSP PO SCH ×3 (05:19→21:46)
[2018-12-15 05:54] LABS: HEMATOCRIT 30.8 % (37.9-51.0); HEMOGLOBIN 10.6 g/dL (13.5-17.0); MEAN CORPUSCULAR HEMOGLOBIN 30.7 pg (27.0-33.4); MEAN CORPUSCULAR HGB CONC 34.4 g/dL (32.0-36.0); MEAN CORPUSCULAR VOLUME 90 fl (80-97); PLATELET COUNT 160 10^3/uL (150-450); RED BLOOD COUNT 3.45 10^6/uL (4.35-5.55); RED CELL DISTRIBUTION WIDTH 15.6 % (11.5-14.0); WHITE BLOOD COUNT 3.6 10^3/uL (4.0-10.5)
[2018-12-15 06:14] LABS: ANION GAP 8 (5-19); BLOOD UREA NITROGEN 7 mg/dL (7-20); CALCIUM 7.9 mg/dL (8.4-10.2); CARBON DIOXIDE 30 mmol/L (22-30); CHLORIDE 102 mmol/L (98-107); GLUCOSE 104 mg/dL (75-110); POTASSIUM 3.7 mmol/L (3.6-5.0); SODIUM 140.1 mmol/L (137-145)
--- NOTE | 2018-12-15 07:47 | PDOC PROGRESS REPORT ---
Subjective Progress Note for:: 12/15/18 Subjective:: Patient is OOB in chair. Voided since removal of his Alvarado catheter. No chest pain or difficulty with breathing. No nausea, vomiting, or abdominal pain. Reason For Visit: ACUTE RENAL INJURY,ALTERED MENTAL STATE Physical Exam Vital Signs: Temp Pulse Resp BP Pulse Ox 98.2 F 85 18 169/86 H 100 12/15/18 03:39 12/15/18 03:39 12/15/18 03:39 12/15/18 03:39 12/15/18 03:39 Intake & Output 12/14/18 12/15/18 12/16/18 06:59 06:59 06:59 Intake Total 880 700 Output Total 1800 700 Balance -920 0 Weight 98.6 kg 94 kg Physical Exam: General appearance: PRESENT: no acute distress, obese Head exam: PRESENT: atraumatic, normocephalic Eye exam: PRESENT: conjunctiva pink, EOMI, PERRLA. ABSENT: pallor, scleral ict erus Ear exam: PRESENT: normal external ear exam Mouth exam: PRESENT: moist Respiratory exam: PRESENT: clear to auscultation pradeep, decreased breath sounds - a lung bases Cardiovascular exam: PRESENT: RRR. ABSENT: diastolic murmur, rubs, systolic murmur GI/Abdominal exam: PRESENT: normal bowel sounds, soft. ABSENT: distended, guarding, mass, organomegaly, rebound, tenderness Extremities exam: PRESENT: pedal edema Neurological exam: PRESENT: alert - but still demonstrate some amount of disorientation to place. Psychiatric exam: ABSENT: agitated Skin exam: PRESENT: dry, warm Results Laboratory Results: 12/15/18 04:50 12/15/18 04:50 12/15/18 12/15/18 04:50 04:50 WBC 3.6 L RBC 3.45 L Hgb 10.6 L Hct 30.8 L MCV 90 MCH 30.7 MCHC 34.4 RDW 15.6 H Plt Count 160 Sodium 140.1 Potassium 3.7 Chloride 102 Carbon Dioxide 30 Anion Gap 8 BUN 7 Creatinine 1.12 Est GFR ( Amer) > 60 Est GFR (Non-Af Amer) > 60 Glucose 104 Calcium 7.9 L Magnesium 1.6 11/22/18 11/24/18 12/02/18 17:50 05:25 07:13 Creatine Kinase 62 CK-MB (CK-2) Troponin I < 0.012 NT-Pro-B Natriuret Pep 1550 H 12/02/18 12/03/18 07:13 04:29 Creatine Kinase CK-MB (CK-2) 0.84 Troponin I 0.014 NT-Pro-B Natriuret Pep 3710 H Impressions: Chest CT 11/22/18 16:18 IMPRESSION: No acute findings Head CT 11/22/18 16:18 IMPRESSION: 1. No acute intracranial abnormality. 2. Mild atrophy and chronic small vessel ischemic changes. 3. Lobulated contour to the bilateral inferior terminates, may represent small nasal polyps. EVIDENCE OF ACUTE STROKE: NO. KUB X-Ray 11/30/18 11:47 IMPRESSION: Cannot exclude a partial bowel obstruction. NG tube placement. Chest X-Ray 12/08/18 06:00 IMPRESSION: STABLE APPEARANCE OF THE CHEST. SUPPORT DEVICES UNCHANGED. Chest Ultrasound 12/08/18 09:32 IMPRESSION: Trace right pleural effusion. No intervention was performed. Assessment & Plan - Diagnosis (1) Toxic metabolic encephalopathy Is this a current diagnosis for this admission?: Yes (2) Acute respiratory failure Qualifiers: Respiratory failure complication: hypoxia Qualified Code(s): J96.01 - Acute respiratory failure with hypoxia Is this a current diagnosis for this admission?: Yes (3) Aspiration into lower respiratory tract Qualifiers: Encounter type: initial encounter Qualified Code(s): T17.800A - Unspecified foreign body in other parts of respiratory tract causing asphyxiation, initial encounter Is this a current diagnosis for this admission?: Yes (4) GI (gastrointestinal bleed) Qualifiers: GI bleed type/associated pathology: unspecified gastrointestinal hemorrhage type Qualified Code(s): K92.2 - Gastrointestinal hemorrhage, unspecified Is this a current diagnosis for this admission?: Yes (5) Acute kidney injury superimposed on chronic kidney disease Is this a current diagnosis for this admission?: Yes (6) CKD (chronic kidney disease) Qualifiers: Chronic kidney disease stage: stage 3 (moderate) Qualified Code(s): N18.3 - Chronic kidney disease, stage 3 (moderate) Is this a current diagnosis for this admission?: Yes (7) Chronic respiratory failure with hypoxia, on home O2 therapy Is this a current diagnosis for this admission?: Yes (8) Seizure disorder Is this a current diagnosis for this admission?: Yes (9) HTN (hypertension) Qualifiers: Hypertension type: essential hypertension Qualified Code(s): I10 - Essential (primary) hypertension Is this a current diagnosis for this admission?: Yes Plan: Restart on Irbesartan 300 mg po daily or equivalent for blood pressure management. (10) CAD (coronary artery disease) Qualifiers: Coronary Disease-Associated Artery/Lesion type: [place] artery Associated angina: without angina Is this a current diagnosis for this admission?: Yes (11) S/P CABG (coronary artery bypass graft) Is this a current diagnosis for this admission?: Yes (12) HLD (hyperlipidemia) Qualifiers: Hyperlipidemia type: unspecified Qualified Code(s): E78.5 - Hyperlipidemia, unspecified Is this a current diagnosis for this admission?: Yes (13) EDNA (obstructive sleep apnea) Is this a current diagnosis for this admission?: Yes (14) COPD with acute exacerbation Is this a current diagnosis for this admission?: Yes - Time Time Spent with patient: 25-34 minutes Medications reviewed and adjusted accordingly: Yes Anticipated discharge: SNF Within: Other - Inpatient Certification Based on my medical assessment, after consideration of the patient's comorbidities, presenting symptoms, or acuity I expect that the services needed warrant INPATIENT care.: Yes I certify that my determination is in accordance with my understanding of Medicare's requirements for reasonable and necessary INPATIENT services [42 CFR 412.3e].: Yes Medical Necessity: Significant Comorbidiites Make Outpatient Treatment Too Risky, Need Close Monitoring Due to Risk of Patient Decompensation, Need For Continuous Telemetry Monitoring, Risk of Complication if Not Cared For in Hospital, Risk of Diagnosis Which Will Require Inpatient Eval/Care/Monitoring Post Hospital Care: D/C or Transfer Summary - Plan Summary Plan Summary: Continue current medication management.
[2018-12-15] MEDS: ACETYLCYSTEINE 20% SOLN 800 MG/4 ML VIAL.NEB NEB SCH ×2 (07:52→20:55)
[2018-12-15] MEDS: ENOXAPARIN SODIUM INJ 40 MG/0.4 ML DISP.SYRIN SUBCUT SCH (09:25)
[2018-12-15] MEDS: FAMOTIDINE 20 MG TABLET PO SCH ×2 (09:30→21:47)
[2018-12-15] MEDS: MAGNESIUM OXIDE 400 MG TABLET PO SCH (09:30)
[2018-12-15] MEDS: POTASSIUM CHLORIDE 10 MEQ CAPSULE.ER PO SCH (09:30)
[2018-12-15] MEDS: AMLODIPINE BESYLATE 5 MG TABLET PO SCH ×2 (09:31→21:47)
[2018-12-15] MEDS: METOPROLOL TARTRATE 50 MG TABLET PO SCH ×2 (09:31→21:47)
[2018-12-15] MEDS: LOSARTAN POTASSIUM 50 MG TABLET PO SCH (09:31)
[2018-12-15] MEDS ORDERED: (PENDING PHARMACY ID) (Irbesartan [Irbesartan] 300 MG) PO SCH (10:00)
[2018-12-15] MEDS: TAMSULOSIN HCL 0.4 MG CAP.SR.24H PO SCH (17:16)
[2018-12-15] MEDS: ATORVASTATIN CALCIUM 10 MG TABLET PO SCH (21:47)
[2018-12-16] MEDS: IPRATROPIUM/ALBUTEROL 120 PUFF/4 GM MDI IH SCH ×3 (01:00→13:52)
[2018-12-16] MEDS: PHENYTOIN 100 MG/4 ML SUSP PO SCH ×2 (05:38→13:52)
[2018-12-16] MEDS: ACETYLCYSTEINE 20% SOLN 800 MG/4 ML VIAL.NEB NEB SCH (08:10)
--- NOTE | 2018-12-16 08:33 | PDOC TRANSFER SUMMARY ---
General - Admit/Disc Date/PCP Admission Date/Primary Care Provider: 11/22/18 20:29 ARISTEO RAGHAV Discharge Date: 12/16/18 - Discharge Diagnosis (1) Toxic metabolic encephalopathy Is this a current diagnosis for this admission?: Yes (2) Acute respiratory failure Is this a current diagnosis for this admission?: Yes (3) Aspiration into lower respiratory tract Is this a current diagnosis for this admission?: Yes (4) GI (gastrointestinal bleed) Is this a current diagnosis for this admission?: Yes (5) Acute kidney injury superimposed on chronic kidney disease Is this a current diagnosis for this admission?: Yes (6) CKD (chronic kidney disease) Is this a current diagnosis for this admission?: Yes (7) Chronic respiratory failure with hypoxia, on home O2 therapy Is this a current diagnosis for this admission?: Yes (8) Seizure disorder Is this a current diagnosis for this admission?: Yes (9) HTN (hypertension) Is this a current diagnosis for this admission?: Yes (10) CAD (coronary artery disease) Is this a current diagnosis for this admission?: Yes (11) S/P CABG (coronary artery bypass graft) Is this a current diagnosis for this admission?: Yes (12) HLD (hyperlipidemia) Is this a current diagnosis for this admission?: Yes (13) EDNA (obstructive sleep apnea) Is this a current diagnosis for this admission?: Yes (14) COPD with acute exacerbation Is this a current diagnosis for this admission?: Yes - Additional Information Resuscitation Status: Do Not Resuscitate Home Medications: Amlodipine Besylate [Norvasc 5 mg Tablet] 5 mg PO Q12 11/22/18 Aspirin [Ecotrin 325 mg EC Tablet] 325 mg PO DAILY 11/22/18 Atorvastatin Calcium [Lipitor 10 mg Tablet] 10 mg PO QHS 11/22/18 Divalproex Sodium [Depakote] 500 mg PO Q12 11/22/18 Docusate Sodium [Colace 100 mg Capsule] 100 mg PO BID 11/22/18 Esomeprazole Magnesium [Nexium] 40 mg PO DAILY 11/22/18 Fluticasone/Umeclidin/Vilanter [Trelegy 100-62.5-25 Mcg Ellipta 14 Dose/Dpi] 1 puff IH DAILY 11/22/18 Ipratropium/Albuterol Sulfate [Combivent Respimat 4 gm Mdi] 1 puff IH Q6 11/22/18 Irbesartan 300 mg PO DAILY 11/22/18 Levetiracetam [Keppra 500 mg Tablet] 1,000 mg PO Q12 11/22/18 Magnesium Oxide [Mag-Ox 400 mg Tablet] 400 mg PO DAILY 11/22/18 Metoprolol Tartrate [Lopressor 50 mg Tablet] 50 mg PO Q12 11/22/18 Sotalol HCl [Betapace 80 mg Tablet] 80 mg PO Q12 11/22/18 Tamsulosin HCl [Flomax 0.4 mg Cap.sr] 0.4 mg PO QPM 11/22/18 History of Present Illness Admission Date/PCP: 11/22/18 20:29 ARISTEO RAGHAV Patient complains of: Worsening weakness, increase sleepiness History of Present Illness: RUPINDER WREN JR is a 78 year old male known to my practice who was brought to the ED via Medic for further evaluation of increase sleepiness, episodes of unresponsiveness and confusion. Family reported worsening deconditioning and difficulty with self care despite recent discharge from rehabilitation center following his stay at this hospital in October for pneumonia. His initial ED evaluation was significant for acute renal injury with significant worsening of his serum creatinine and BUN level suggestive of poor oral intake. His CT scan of chest and head were unrevealing regarding acute event to explain his increase sleepiness and altered mental status. He was advised hospitalization for further evaluation and management. Hos morbidities include chronic atrial fibrillation, congestive heart failure hypertension, hyperlipidemia, COPD, Gastroesophageal Reflux Disease and seizure disorder. Hospital Course Hospital Course: Patient was admitted to [facility] and initially managed with BiPAP support and adjustment in his anti seizure medication as possible cause of his increase sleepiness. There was gradual improvement in his level of alertness but patient had set back due vomiting with aspiration while on BiPAP support and concern for aspiration with acute respiratory failure. He was subsequently intubated for ventilatory support and aspiration pneumonitis / pneumonia. Her was seen in consultation by Dr. Mendoza, geographic information scientist. He did respond to treatment and eventually extubated. He was subsequently transferred back to [facility]. He was awake enough to participate in physical therapy session. He remain on Dilantin for his seizure management without any occurrence of seizure while of admission. His EEG did confirm toxin encephalopathy that was probably related to his sedative anti- seizure medications including Keppra and Depakote. His CT scan head was devoid of any acute pathologic process. Of note, there was expressed episode of dissatisfaction on the part of his daughters during this hospitalization to the extent of request for transfer to other hospital and change of physician. After conference and further discussion both issues were resolved with the family. Patient will be transferred to [facility] in [place], [place] for short term rehabilitation and possible eventual family dinner service specialist residence stay due to lack of community social support and medical care needs. Patient will be transfer to SNF today with understanding that there will be BiPAP device support for him at the facility. Physical Exam Vital Signs: Temp Pulse Resp BP Pulse Ox 99.0 F 68 18 144/82 H 98 12/16/18 04:16 12/16/18 04:16 12/16/18 04:16 12/16/18 04:16 12/16/18 04:16 Intake & Output 12/15/18 12/16/18 12/17/18 06:59 06:59 06:59 Intake Total 700 375 Output Total 700 Balance 0 375 Weight 94 kg General appearance: PRESENT: no acute distress, obese Head exam: PRESENT: atraumatic, normocephalic Eye exam: PRESENT: conjunctiva pink, EOMI, PERRLA. ABSENT: pallor, scleral icterus Ear exam: PRESENT: normal external ear exam Mouth exam: PRESENT: moist Respiratory exam: PRESENT: clear to auscultation pradeep, decreased breath sounds - a lung bases Cardiovascular exam: PRESENT: RRR. ABSENT: diastolic murmur, rubs, systolic murmur GI/Abdominal exam: PRESENT: normal bowel sounds, soft. ABSENT: distended, guarding, mass, organomegaly, rebound, tenderness Extremities exam: PRESENT: pedal edema Neurological exam: PRESENT: alert - but still demonstrate some amount of disorientation to place. Psychiatric exam: ABSENT: agitated Skin exam: PRESENT: dry, warm Results Laboratory Results: 12/15/18 04:50 12/15/18 04:50 12/16/18 05:10 Magnesium 1.6 11/22/18 11/24/18 12/02/18 17:50 05:25 07:13 Creatine Kinase 62 CK-MB (CK-2) Troponin I < 0.012 NT-Pro-B Natriuret Pep 1550 H 12/02/18 12/03/18 07:13 04:29 Creatine Kinase CK-MB (CK-2) 0.84 Troponin I 0.014 NT-Pro-B Natriuret Pep 3710 H Impressions: Chest CT 11/22/18 16:18 IMPRESSION: No acute findings Head CT 11/22/18 16:18 IMPRESSION: 1. No acute intracranial abnormality. 2. Mild atrophy and chronic small vessel ischemic changes. 3. Lobulated contour to the bilateral inferior terminates, may represent small nasal polyps. EVIDENCE OF ACUTE STROKE: NO. KUB X-Ray 11/30/18 11:47 IMPRESSION: Cannot exclude a partial bowel obstruction. NG tube placement. Chest X-Ray 12/08/18 06:00 IMPRESSION: STABLE APPEARANCE OF THE CHEST. SUPPORT DEVICES UNCHANGED. Chest Ultrasound 12/08/18 09:32 IMPRESSION: Trace right pleural effusion. No intervention was performed. Transfer Plan - Disposition Transfer Plan: Transfer to [place], [place] today when bed is available for short term rehabilitation and eventual [facility] [facility] due to lack of community social support and medical care needs.. - Time Spent with Patient Time spent with patient: Greater than 30 Minutes - Care cordination and post acute caere plan. Qualifiers - * PATIENT BEING DISCHARGED WITH ANY OF THE FOLLOWING DIAGNOSIS: No Acute Heart Failure Is this a Heart Failure Patient?: No Plan Discharge Plan: Transfer to [place], [place] today when bed is available for short term rehabilitation and eventual [place] [facility] residency due to lack of community social support and medical care needs.
[2018-12-16] MEDS: POTASSIUM CHLORIDE 10 MEQ CAPSULE.ER PO SCH (09:38)
[2018-12-16] MEDS: FAMOTIDINE 20 MG TABLET PO SCH (09:38)
[2018-12-16] MEDS: MAGNESIUM OXIDE 400 MG TABLET PO SCH (09:39)
[2018-12-16] MEDS: AMLODIPINE BESYLATE 5 MG TABLET PO SCH (09:39)
[2018-12-16] MEDS: LOSARTAN POTASSIUM 50 MG TABLET PO SCH (09:39)
[2018-12-16] MEDS: METOPROLOL TARTRATE 50 MG TABLET PO SCH (09:39)
[2018-12-16] MEDS: ENOXAPARIN SODIUM INJ 40 MG/0.4 ML DISP.SYRIN SUBCUT SCH (09:41)
[2018-12-16 13:43] VITALS: BP 158/89
[2018-12-16] MEDS: SCOPOLAMINE HYDROBROMIDE 1.5 MG PATCH.TD72 TD SCH (13:52)
== END 2018-12-16 16:05 | DRG 91 ==
LOC: ER 15:42 → EH 20:29 → 3N 22:25 → ICU 11-30 11:01 → 3W 12-08 14:53
PROVIDERS: ADMIT Internal Medicine Geriatric Medicine; ATTEND Internal Medicine Geriatric Medicine
PROC: 5A1955Z Respiratory Ventilation, Greater than 96 Consecutive Hours (ICD-10-PCS; principal; 2018-12-01)
PROC: 0BH17EZ Insertion of Endotracheal Airway into Trachea, Via Natural or Artificial Opening (ICD-10-PCS; 2018-12-01)
PROC: 0DH67UZ Insertion of Feeding Device into Stomach, Via Natural or Artificial Opening (ICD-10-PCS; 2018-12-02)
PROC: 3E0G76Z Introduction of Nutritional Substance into Upper GI, Via Natural or Artificial Opening (ICD-10-PCS; 2018-12-02)
PROC: 5A09357 Assistance with Respiratory Ventilation, Less than 24 Consecutive Hours, Continuous Positive Airway Pressure (ICD-10-PCS; 2018-12-10)
DX: G92 Toxic encephalopathy (principal); J96.21 Acute and chronic respiratory failure with hypoxia; J69.0 Pneumonitis due to inhalation of food and vomit; J44.1 Chronic obstructive pulmonary disease with (acute) exacerbation; J44.0 Chronic obstructive pulmonary disease with (acute) lower respiratory infection; N17.9 Acute kidney failure, unspecified; T17.800A Unspecified foreign body in other parts of respiratory tract causing asphyxiation, initial encounter; I13.0 Hypertensive heart and chronic kidney disease with heart failure and stage 1 through stage 4 chronic kidney disease, or unspecified chronic kidney disease; K92.2 Gastrointestinal hemorrhage, unspecified; I48.2 Chronic atrial fibrillation; I50.9 Heart failure, unspecified; Z99.81 Dependence on supplemental oxygen; E66.01 Morbid (severe) obesity due to excess calories; G40.909 Epilepsy, unspecified, not intractable, without status epilepticus; N18.3 Chronic kidney disease, stage 3 (moderate); R00.1 Bradycardia, unspecified; T44.7X5A Adverse effect of beta-adrenoreceptor antagonists, initial encounter; T42.6X5A Adverse effect of other antiepileptic and sedative-hypnotic drugs, initial encounter; E78.5 Hyperlipidemia, unspecified; K21.9 Gastro-esophageal reflux disease without esophagitis; L91.0 Hypertrophic scar; I25.10 Atherosclerotic heart disease of native coronary artery without angina pectoris; G47.33 Obstructive sleep apnea (adult) (pediatric); M19.91 Primary osteoarthritis, unspecified site; R53.1 Weakness; Z66 Do not resuscitate; I25.2 Old myocardial infarction; Z79.82 Long term (current) use of aspirin; Z79.51 Long term (current) use of inhaled steroids; Z68.33 Body mass index [BMI] 33.0-33.9, adult; Z95.1 Presence of aortocoronary bypass graft; Z95.810 Presence of automatic (implantable) cardiac defibrillator; Z87.01 Personal history of pneumonia (recurrent); Z87.891 Personal history of nicotine dependence
CPT/HCPCS: 31500; 36415; 36600; 51702; 70450; 71045; 71250; 74018; 76604; 80048; 80053; 80164; 80177; 80307; 81001; 82040; 82140; 82271; 82272; 82533; 82550; 82553; 82803; 82947; 82962; 83605; 83615; 83735; 83880; 84100; 84132; 84155; 84439; 84443; 84481; 84484; 85025; 85027; 85610; 85730; 87040; 87070; 87086; 87088; 87205; 87493; 93005; 93010; 93306; 94002; 94003; 94640; 94660; 94667; 94668; 94799; 95819; 96374; 99285; J1650; J1940; J1953; J2250; J2543; J2704; J2920; J2930; J3010; J3475; J3480; J3490; J7030; J7050; J7120; J7614; J7620; S0028; S0164